=== PATIENT | female | born 1945 | race Caucasian/White ===

== ENCOUNTER → 2018-05-07 13:51 | Outpatient (CLI) | payer MEDICARE, BC, SELFPAY ==
--- NOTE | 2018-05-07 13:59 | XR_ITS ---
EXAM: XR lumbar spine min 4V HISTORY: ITS.REASON: BILAT ACUTE LBP W/O SCIATICA ORDERING PHYSICIAN: Dale Prescott MD PATIENT AGE: 72 years COMPARISON: None FINDINGS: There is mild degenerative disc disease at L3-L4 with small anterior osteophytes and decrease in the disc space. No fracture or dislocation. No lytic or blastic change. Bilateral renal calcifications are present and may be due to combination of vascular calcifications and renal calculi. A rounded calcific density is noted overlying the left renal hilum and could be due to renal artery aneurysm. Surgical clips are present from prior cholecystectomy. IMPRESSION: Degenerative disc disease L3-L4. Bilateral renal calcifications consistent with calculi and vascular calcifications. 8 mm stone is present in the lower pole the right kidney. 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 CT angiography may confirm if clinically warranted
== END ==
PROVIDERS: PCP Family Medicine; Visit Provider Family Medicine
DX: M54.5 Low back pain (principal)
CPT/HCPCS: 72110

== ENCOUNTER 2018-05-13 08:57 | Outpatient (RCR) | payer MEDICARE, BC, SELFPAY ==
--- NOTE | 2018-05-13 09:46 | HMH.PTOPEV ---
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 Pt reports L sided LBP initially, followed by R sided LBP, now reports only L sided LBP w/o radicular s/s. Pt reports CT scan scheduled for 05/15/18. Chief Complaint Pain Stiff Symptom Type Ache Dull Symptoms Relieved By Heat Symptoms Aggravated By Sitting Bending/Stooping Twisting Lifting Prior Functional Limitations None Current Functional Limitations Reaching Lifting Housework Sitting Bending/Stooping Symptom Description Constant but Variable Level of pain today (0-10) 3 Pain scale - at its best (0-10) 2 Pain scale - at its worst (0-10) 6 Lumbopelvic Eval Posture Thoracic Spine Posture Standing Position Neutral Lumbar Spine Posture Standing Position Neutral Assistive device Assistive Devices None / NA Gait Observation General Gait Pattern Observation No Deviations/Normal Palapation tenderness left lumbar spinal tenderness Yes: 3/4 paraspinal tenderness Yes: 3/4 Lumbar/Sacral Palpation Findings Tenderness Lumbar/Sacral Palpation Overall Comment 3/4 Accessory Movement L4 left L5 left Range of Motion Lumbar Spine Active Flexion Range of 0-40 Motion (degrees) Lumbar Spine Active Extension Range of 0-20 Motion (degrees) Left Lumbar Spine Lateral Flexion Active 0-25 Range of Motion (degrees) Right Lumbar Spine Lateral Flexion 0-20 Active Range of Motion (degrees) Manual Muscle Test Bilateral Knee Extension Strength Grade 4 Good Knee Flexion Strength Grade 4 Good Hip Flexion Strength Grade 4- Good- Extensor Hallucis Longus Strength Grade 4 Good Ankle Dorsiflexion Strength Grade 4 Good Gastronemius/Soleus Strength Grade 4 Good DTR Rt Patellar 2+ Lt Patellar 2+ Rt Gastroc/Soleus 2+ Lt Gastroc/Sole
== END 2018-05-13 08:58 | disposition home or self-care (01) ==
LOC: PT 08:57
PROVIDERS: Family Provider Family Medicine; PCP Family Medicine; Visit Provider Family Medicine
DX: M54.5 Low back pain (principal)
CPT/HCPCS: 97010; 97014; 97035; 97110; 97163; G0283

== ENCOUNTER → 2018-05-14 07:52 | Outpatient (CLI) | payer MEDICARE, BC, SELFPAY ==
[2018-05-14 12:45] LABS: Blood Urea Nitrogen 19 mg/dL (7-18); Creatinine,Serum 0.74 mg/dL (0.55-1.02); Estimated Glomerular Filt Rate 78 ml/min (>60); GFR (African American) 94 ML/MIN (>60)
== END ==
PROVIDERS: Visit Provider Family Medicine
DX: R93.5 Abnormal findings on diagnostic imaging of other abdominal regions, including retroperitoneum (principal)
CPT/HCPCS: 36415; 82565; 84520

== ENCOUNTER → 2018-05-15 08:41 | Outpatient (CLI) | payer MEDICARE, BC, SELFPAY ==
--- NOTE | 2018-05-15 08:54 | CT_ITS ---
CT angio abdomen CLINICAL INDICATION: Low back pain, left flank pain, possible renal artery aneurysm ITS.REASON: ABNORMAL XRAY RENAL ARTERIES ORDERING PHYSICIAN: Dale Prescott MD PATIENT AGE: 72 years COMPARISON: 06/25/2016 TECHNIQUE: Axial images obtained with sagittal and coronal reformats following bolus administration of 100 mL's of Isovue-370. Arterial phase and delayed images are obtained.. All CT scans at the facility use one or more dose reduction, viz: automated exposure control, ma/kV adjustment per patient size (including targeted exams where dose is matched to indication, i.e. head), or iterative reconstruction technique. PROCEDURE: Oral Contrast: None IV Contrast: 100 mL Isovue-370. FINDINGS: Angiographic findings: The abdominal aorta has an unremarkable appearance. There is moderate stenosis involving the proximal aspect of the celiac artery of approximately 50%. The SMA is unremarkable proximally with mild atheromatous changes in the mid aspect. The ROMAN is patent. There is moderate to high-grade stenosis involving the ostium of the right renal artery of 60% measuring 6 mm in length with mild poststenotic dilatation. There is only one right renal artery. There is fusiform aneurysmal dilatation involving the segmental artery to the mid pole of the left kidney with some peripheral calcification and minimal mural thrombus. This measures 12 x 11 x 10 mm. There is a 4.6 cm cyst along the superior pole the right kidney and a 9 mm cyst anteriorly with other smaller cortical cysts bilaterally. Incidental note made of a small umbilical hernia containing fat. Prior cholecystectomy. No acute bony anomalies. IMPRESSION: 1. 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 2. Moderate to high grade stenosis involving the ostium of the right renal artery of at least 60%
== END ==
PROVIDERS: Family Provider Family Medicine; PCP Family Medicine; Visit Provider Family Medicine
DX: R93.5 Abnormal findings on diagnostic imaging of other abdominal regions, including retroperitoneum (principal)
CPT/HCPCS: 74175; Q9967

== ENCOUNTER → 2018-05-28 11:24 | Outpatient (CLI) | payer MEDICARE, BC, SELFPAY ==
[2018-05-28 12:15] LABS: Basophils # 0.1 K/mm3 (0-0.2); Basophils % 1.1 % (0.1-2.0); Eosinophils # 0.3 K/mm3 (0.0-0.4); Eosinophils % 4.3 % (0.1-12.0); Hematocrit 43.9 % (37.0-47.0); Lymphocytes # 1.6 K/mm3 (0.7-4.5); Lymphocytes % 21.8 K/mm3 (10-50); Mean Corpuscular HGB Conc 31.8 g/dL (31.8-35.4); Mean Corpuscular Hemoglobin 29.5 pg (27.0-31.2); Mean Corpuscular Volume 92.7 fl (81-99); Mean Platelet Volume 6.8 fl (7.4-10.4); Monocytes # 0.4 K/mm3 (0.1-1.0); Neutrophils # 4.7 K/mm3 (1.8-7.8); Neutrophils % 66.8 % (37.0-80.0); Platelet Count 264 K/mm3 (142-424); Red Blood Count 4.74 M/mm3 (4.20-5.40); Red Cell Distribution Width 13.3 % (11.5-17.5); White Blood Count 7.1 K/mm3 (4.8-10.8)
[2018-05-28 12:39] LABS: Hemoglobin A1C 6.9 % (0.0-7.0)
[2018-05-28 12:41] LABS: Alanine Aminotransferase 32 U/L (12-78); Albumin Level 3.7 gm/dL (3.4-5.0); Alkaline Phosphatase 106 U/L (46-116); Anion Gap 12.1 mEq/L (5-15); Aspartate Amino Transferase 23 U/L (15-37); Bilirubin,Total 0.2 mg/dL (0.2-1.0); Blood Urea Nitrogen 16 mg/dL (7-18); Calcium 9.2 mg/dL (8.5-10.1); Carbon Dioxide 29 mmol/L (21.0-32.0); Chloride 105 mmol/L (98-107); Chol/HDL Ratio 2.2 (1-3.5); Cholesterol 141 mg/dL (140-200); Creatinine,Serum 0.89 mg/dL (0.55-1.02); Estimated Glomerular Filt Rate 63 ml/min (>60); Free T4 (Free Thyroxine) 1.05 ng/dl (0.76-1.46); GFR (African American) 76 ML/MIN (>60); Globulin 3.6 gm/dl (1.3-3.2); Glucose 196 mg/dL (74-106); HDL Cholesterol 64 mg/dL (29-89); LDL Cholesterol 56 mg/dL (0-130); Magnesium 2.1 mg/dL (1.4-2.2); Phosphorous 3.1 mg/dL (2.4-4.9); Potassium 4.1 mmoL/L (3.5-5.1); Sodium 142 mmol/L (136-145); Thyroid Stimulating Hormone 0.86 uIU/ml (0.358-3.740); Total Protein,Serum 7.3 gm/dL (6.4-8.2); Triglycerides 107 mg/dL (30-200); VLDL Cholesterol 21 mg/dL (0-40)
[2018-05-29 10:59] LABS: Vitamin D 25 Hydroxy 41.5 ng/mL (30.0-100.0)
[2018-05-29 11:27] LABS: Creatinine, Urine 116.4 mg/dL (Not Estab.); Microalbumin, Urine 17.5 ug/mL (Not Estab.)
[2018-05-31 08:24] LABS: Vitamin B12 1843 pg/mL (232-1245)
== END ==
PROVIDERS: Visit Provider Family Medicine
DX: E11.9 Type 2 diabetes mellitus without complications (principal); E03.9 Hypothyroidism, unspecified; E78.00 Pure hypercholesterolemia, unspecified; R53.83 Other fatigue
CPT/HCPCS: 36415; 80053; 80061; 82043; 82570; 82607; 82652; 83036; 83735; 84100; 84439; 84443; 85025

== ENCOUNTER → 2018-11-11 12:41 | Outpatient (CLI) | payer MEDICARE, BC, SELFPAY ==
--- NOTE | 2018-11-11 12:55 | XR_ITS ---
XR DEXA axial skeleton HISTORY: ITS.REASON: POST MENOPAUSAL ORDERING PHYSICIAN: MARIE Saba PATIENT AGE: 73 years COMPARISON: 03/17/2011 FINDINGS: The BMD measured at the Left femoral neck is 0.728 g/cm squared with a T score of -2.2. This is considered Osteopenic according to the World Health Organization criteria. Fracture risk is Moderate. Treatment is advised. The L1 L4 density has a T score of -1.8 consistent with osteopenia. L-spine density has decreased by 3% and the hip density has decreased by 6%. IMPRESSION: Osteopenia with moderate fracture risk. Treatment is advised. Suggest follow-up exam November 2020
== END ==
PROVIDERS: PCP Family Medicine; Visit Provider Physician Assistant
DX: Z78.0 Asymptomatic menopausal state (principal)
CPT/HCPCS: 77080

== ENCOUNTER → 2020-02-12 14:45 | Outpatient (CLI) | payer MEDICARE, BC, SELFPAY ==
--- NOTE | 2020-02-12 14:53 | XR_ITS ---
PROCEDURE: XR KNEE LT 3V CLINICAL INDICATION: LT KNEE PAIN,OSTEOARTHRITIS OF LT KNEE COMPARISON: No exams were available for comparison FINDINGS: No fracture or dislocation. No lytic or blastic change. There is normal mineralization. The joint spaces are well-preserved. No significant degenerative/arthritic changes. No erosive changes evident. Other findings:None. IMPRESSION: Negative left knee Dictated by: Zac Branch MD 02/12/2020 15:13 Electronically signed by Zac Branch MD in [place] 02/12/2020 15:13
== END ==
PROVIDERS: PCP Family Medicine; Visit Provider Family Medicine
DX: M25.562 Pain in left knee (principal); M17.12 Unilateral primary osteoarthritis, left knee
CPT/HCPCS: 73562

== ENCOUNTER → 2020-03-12 10:05 | Outpatient (CLI) | payer MEDICARE, BC, SELFPAY ==
--- NOTE | 2020-03-12 10:11 | XR_ITS ---
PROCEDURE: XR KNEE LT 4V with weight-bearing views CLINICAL INDICATION: knee pain chronic COMPARISON: XR KNEE LT 3V from 02/12/2020 FINDINGS: No fracture or dislocation. No lytic or blastic change. There is normal mineralization. There is mild joint space narrowing medially. The patella is intact though there is mild narrowing of the patellofemoral space. Other findings:None. IMPRESSION: Mild degenerate changes not unexpected for the patient's age Dictated by: Dr. Mike Baker MD 03/12/2020 10:[address] Mike Baker MD in [place] 03/12/2020 10:54
--- NOTE | 2020-03-12 11:49 | XR_ITS ---
PROCEDURE: XR HIP LT 2-3V W/PELVIS CLINICAL INDICATION: hip pain COMPARISON: No exams were available for comparison FINDINGS: No fracture, dislocation, lytic change, or blastic change evident. No significant degenerative change IMPRESSION: No acute finding, negative left hip Dictated by: Zac Branch MD 03/12/2020 14:54 Electronically signed by Zac Branch MD in [place] 03/12/2020 14:54
== END ==
PROVIDERS: PCP Family Medicine; Visit Provider Orthopaedic Surgery
DX: M25.562 Pain in left knee (principal); M25.552 Pain in left hip
CPT/HCPCS: 73502; 73564

== ENCOUNTER → 2020-05-07 11:21 | Outpatient (CLI) | payer MEDICARE, BC, SELFPAY ==
[2020-05-07 14:24] LABS: Coronavirus 19 IgG Antibody Negative (Negative)
[2020-05-07 14:25] LABS: Coronavirus 19 IgM Antibody Negative (Negative)
== END ==
PROVIDERS: Visit Provider Internal Medicine Gastroenterology
DX: Z01.818 Encounter for other preprocedural examination (principal); Z12.11 Encounter for screening for malignant neoplasm of colon
CPT/HCPCS: 36415; 86328

== ENCOUNTER 2020-05-10 09:45 | Day surgery (SDC) | payer MEDICARE, BC, SELFPAY ==
[2020-05-05 12:58] VITALS: BMI 28.3
[2020-05-10] VITALS (7 sets, daily range): BP systolic 105–148; BP diastolic 65–88; PULSE 76–102; RESP 12–18; TEMP 36.1–36.4; O2SAT 93–100
[2020-05-10 10:27] LABS: POC Glucose,Bedside 110 (70-110)
--- NOTE | 2020-05-10 11:36 | P.PN_ITS ---
[facility] Anesthesia Checklist - Structural Data Admitted From: Home Planned Operative Procedure/s: egd,colonoscopy Consent for Planned Operative Procedure(s) Verified: Yes - Airway Assessment C-Spine Mobility Assessed: Yes TMJ Mobility Assessed: Yes Dentition: Poor Dentition - Neurological Assessment Level of Consciousness: Awake, Alert, Appropriate - Anesthesia Plan Anesthesia Risk discussed: Yes Anesthesia Plan: Verified ASA Class: III Anesthesia Type: MAC [facility] History I have reviewed the patient's past medical history: Yes Medical History: Reports:: Cancer (basel cell), Diabetes Mellitus Type 2, Renal Disease Denies:: Diabetes Mellitus Type 1, Internal Pacemaker, MRSA, Seizures *Have you ever received a pneumonia vaccine?: Yes *Have you received a flu vaccine this season?: Yes Anesthesia experience/problems:: none Laterality Cases: Left: Other Other Surgeries: Yes: Colonoscopy, Hysterectomy-Total. No: Pacemaker Amputation: No Fractures: No - *Social History Smoking Status: Never smoker Alcohol Intake: never Substance Use Type: denies use *Occupational Status:: retired Housing: house Household Members: spouse *Travel in the last 8 weeks: None Family Hx:: No significant family history
--- NOTE | 2020-05-10 11:50 | HMH.PROC ---
[facility] Procedure Note Procedure Note:: Upper Endoscopy Procedure Report: Esophagogastroduodenoscopy with cold biopsies Endoscopost: Simon Bueno II, MD Referring Physician: Dale Prescott MD Date of Procedure: May 10, 2020 Equipment: Olympus GIF 180 standard upper endoscope Sedation: MAC sedation Indications: Mrs. Harris is a 74-year-old female with dyspepsia and IBS. She reports epigastric and right lower quadrant abdominal pain. She has bloating and occasional belching. She reports nausea, early satiety and some globus sensation. She rarely gets some regurgitation and reflux. She reports no significant heartburn. She did have a cardiac evaluation with similar symptoms 4 years ago and her heart evaluation was essentially normal. She was told that she has esophageal spasm. Her last EGD was 5 years ago. Her mother had pancreatic cancer. Procedure: Prior to the procedure, a history and physical exam was performed, and patient's medications and allergies were reviewed. The risks, benefits and alternatives of the sedation and procedure were discussed with the patient. All questions were answered and informed consent was obtained. The patient was brought to the procedure room. Patient identification and proposed procedure were verified by the physician and the nurse. The patient was placed in a left lateral decubitus position and the scope was passed under direct vision. Throughout the procedure, the patient's blood pressure, pulse, and oxygen saturations were monitored continuously. The upper GI endoscopy was accomplished without difficulty. The patient tolerated the procedure well. Findings: The scope was passed directly into the upper esophagus and advanced to the third portion of the duodenum. The post bulbar duodenum and duodenal bulb were normal with normal mucosa and conniventes. Cold biopsies were obtained from the post bulbar duodenum to rule out celiac disease. The scope was withdrawn through a normal duodenal bulb and pylorus into the stomach. There was linear reactive gastropathy of the antrum and body of the stomach with moderate bile reflux. The remainder of the antrum, body and fundus of the stomach were grossly normal. Upon retroflexion there was no hiatal hernia. 2 biopsies were taken in the antrum and along the lesser curvature for histology to rule out gastritis and/or H pylori. The scope was then withdrawn into the esophagus. There was no evidence of reflux esophagitis or Thibodeaux's. There were tertiary contractions and evidence of moderate esophageal dysmotility. The remainder of the esophageal mucosa was normal. Impression: 1. Nonerosive GERD with moderate esophageal dysmotility 2. Bile reflux with linear reactive gastropathy Plan: The patient does have functional dyspepsia with visceral sensitivity. We will discuss dietary measures and treatment options. I will proceed with diagnostic colonoscopy.
--- NOTE | 2020-05-10 12:10 | HMH.PROC ---
[facility] Procedure Note Procedure Note:: Colonoscopy Procedure Report: Colonoscopy with cold snare polypectomy and monopolar ablation/coagulation to destruction of internal hemorrhoids Endoscopist: Simon Bueno II, MD Referring physician: Dale Prescott MD Date of Procedure: May 10, 2020 Equipment: Olympus 180 variable stiffness pediatric colonoscope Sedation: MAC sedation Indication: Mrs. Harris is a 74-year-old female here for diagnostic colonoscopy. She does have right lower quadrant abdominal pain that hurts worse when sitting up. She has had moderate bloating and chronic constipation. She also reports frequent hemorrhoidal bleeding. The patient did undergo CT scan of the abdomen and CT angiography on March 16, 2020 and there were bilateral renal stones with the largest within the right renal pelvis and measuring 1 cm. 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 The patient reports no weight loss or family history of colon cancer. Her last colonoscopy was 5 years ago and she states polyps were removed. She reports no family history of colitis or Crohn's disease. Her mother had pancreatic cancer. Procedure: Prior to the procedure, a history and physical exam was performed, and patient's medications and allergies were reviewed. The risks, benefits and alternatives of the sedation and procedure were discussed with the patient. All questions were answered and informed consent was obtained. The patient was brought to the procedure room. Patient identification and proposed procedure were verified by the physician and the nurse. The patient was placed in a left lateral decubitus position and the scope was passed under direct vision. Throughout the procedure, the patient's blood pressure, pulse, and oxygen saturations were monitored continuously. The colonoscopy was accomplished without difficulty. The patient tolerated the procedure well. Findings: On digital rectal examination there was normal rectal tone. There were no external hemorrhoids. The colonoscope was introduced through the anal canal to the rectum and advanced to the cecum. The ileocecal valve and appendiceal orifice were identified. The scope was advanced a short distance into the ileum which appeared grossly normal. The scope was then withdrawn into the colon. The cecum, ascending, transverse, descending and sigmoid colon were grossly normal. There was a 7 to 8 mm polyp in the rectosigmoid removed via cold snare polypectomy. There were no other mucosal abnormalities identified. Upon retroflexion within the rectum there were grade 2 internal hemorrhoids.3 columns of hemorrhoids were ablated/coagulated using monopolar ablation to destruction with excellent cautery effect. The preparation was excellent throughout with [place] Preparation Score of 9. The cecal time was 12 minutes. Impression: 1. Rectosigmoid colon polyp (7 to 8 mm) 2. Grade 2 internal hemorrhoids status post monopolar ablation/coagulation to destruction Plan: I would encourage a fiber bowel regimen (MiraLAX plus Konsyl twice daily). I would also consider global promotility agent (Zelnorm or Motegrity). We will discuss dietary measures and treatment options. I will follow-up the polyp histology and recommend repeat screening/surveillance colonoscopy again in 5 to 7 years based upon adenomatous pathology.
== END 2020-05-10 13:01 | disposition home or self-care (01) ==
LOC: OUTP 09:46
PROVIDERS: PCP Family Medicine; Visit Provider Internal Medicine Gastroenterology
PROC: 0DJ08ZZ Inspection of Upper Intestinal Tract, Via Natural or Artificial Opening Endoscopic (ICD-10-PCS; CPT 43235; principal; 2020-05-10 11:00)
DX: K63.5 Polyp of colon (principal); K64.1 Second degree hemorrhoids; Z80.0 Family history of malignant neoplasm of digestive organs; K58.9 Irritable bowel syndrome, unspecified; K21.9 Gastro-esophageal reflux disease without esophagitis; K22.4 Dyskinesia of esophagus; K31.9 Disease of stomach and duodenum, unspecified; E11.9 Type 2 diabetes mellitus without complications; Z85.828 Personal history of other malignant neoplasm of skin; N28.9 Disorder of kidney and ureter, unspecified; Z90.710 Acquired absence of both cervix and uterus; Z79.899 Other long term (current) drug therapy
CPT/HCPCS: 43239; 45385; 46930; 82962; 88305

== ENCOUNTER 2020-06-12 04:38 | Emergency (ER) | payer MEDICARE, BC, SELFPAY ==
[2020-06-12 04:48] VITALS: BP 161/78; PULSE 97; RESP 18; TEMP 37.1; O2SAT 94; BMI 27.9
--- NOTE | 2020-06-12 05:01 | HMH.EDGENADL ---
ED Disposition Clinical Impression: Right lower quadrant pain Disposition: Home, Self-Care Condition on Discharge: Fair Additional Instructions: Stop taking [place]/hydrocodone. Take Percocet for pain. Zofran as needed for nausea. Continue Keflex. Flomax as prescribed. Return to the emergency department if increasing pain, vomiting, or fever. Prescriptions: Oxycodone HCl/Acetaminophen [Percocet 5/325mg tablet] 1 tab PO Q6HP PRN #10 tab PRN Reason: Moderate To Severe Pain Transmission Status: Received by [facility] Tamsulosin HCl [Flomax 0.4mg capsule] 0.4 mg PO HS #10 cap.er.24h Transmission Status: Received by [facility] Ondansetron [Zofran 4mg ODT] 4 mg PO TIDP PRN #10 tab.rapdis PRN Reason: Nausea And Vomiting Transmission Status: Received by [facility] Referrals: Dale Prescott MD [Primary Care Provider] - - Critical Care Critical Care Time: No Attestation: On 06/12/20, the high probability of a clinically significant, sudden or life threatening deterioration of the following system(s) required my full and direct attention, intervention and personal management. The time I documented below is in addition to time spent performing reported procedures but includes the following listed in this critical care notation. Medical Decision Making - Medical Records Medical records reviewed: Yes: I reviewed the patient's medical records. - Beny Inquiry Pt receiving controlled substance: Yes Beny was queried for this patient: No Reason not queried -: Emergent pt cond-no time Risks and benefits of using a controlled substance: were not discussed with pt by me Vital Signs: 06/12/20 04:48 06/12/20 06:19 06/12/20 06:51 Temperature 98.7 F 98.6 F Temperature Source Oral Oral Pulse Rate 86 Pulse Rate [Right] 97 H 85 Respiratory Rate 18 16 16 Blood Pressure 148/64 H Blood Pressure [Right Arm] 161/78 H 139/71 Blood Pressure Mean [Right Arm] 105 93 Blood Pressure Source Automatic Cuff Blood Pressure Source [Right Arm] Automatic Cuff Automatic Cuff Blood Pressure Position Sitting Blood Pressure Position [Right Arm] Sitting Sitting 02 Sat by Pulse Oximetry 94 L 94 L Oxygen Delivery Method Room Air Room Air Room Air - Lab Data Lab results reviewed: Yes: I reviewed the patient's lab results. Lab Results 06/12/20 05:01: WBC 14.3 H, RBC 4.39, Hgb 13.9, Hct 40.7, MCV 92.6, MCH 31.6 H, MCHC 34.1, RDW 13.1, Plt Count 226, MPV 7.9, Neut % (Auto) 77.5, Lymph % (Auto) 15.1, [place] % (Auto) 5.8, Eos % (Auto) 1.1, Baso % (Auto) 0.4, Neut # (Auto) 11.1 H, Lymph # (Auto) 2.2, [place] # (Auto) 0.8, Eos # (Auto) 0.2, Baso # (Auto) 0.1 06/12/20 05:01: Sodium 138, Potassium 4.1, Chloride 105, Carbon Dioxide 24, Anion Gap 13.1, BUN 20 H, Creatinine 1.00, Estimated Creat Clear 61, Estimated GFR 55 L, Est GFR ( Amer) 66, Glucose 160 H, Calcium 9.2, Total Bilirubin 0.4, AST 325 H*, ALT 327 H*, Alkaline Phosphatase 136 H, Total Protein 6.8, Albumin 3.8, Globulin 3.0, Albumin/Globulin Ratio 1.3 06/12/20 05:01: Amylase 121 H, Lipase 209 06/12/20 05:10: Urine Color Yellow, Urine Appearance Clear, Urine pH 6.5, Ur Specific [place] >= 1.030, Urine Protein 2+, Urine Glucose (UA) Negative, Urine Ketones Trace, Urine Blood 3+, Urine Nitrate Negative, Urine Bilirubin Negative, Urine Urobilinogen 0.2, Ur Leukocyte Esterase Trace, Urine RBC 20-50, Urine WBC 10-20, Ur Squamous Epith Cells 3-5, Urine Bacteria 2+ Result diagrams: 06/12/20 05:01 06/12/20 05:01 Orders (Tests/Meds): ED MEDICATIONS Discontinued Medications Generic Name Dose Route Start Last Admin Trade Name Freq PRN Reason Stop Dose Admin Hydromorphone HCl 1 mg 06/12/20 06:04 06/12/20 06:10 Dilaudid 2mg/Ml Syringe IV 06/12/20 06:05 1 mg ONCE ONE Administration Sodium Chloride 1,000 mls @ 999 mls/hr 06/12/20 05:00 06/12/20 05:03 Sod Chlor 0.9% 1000ml Bag IV 06/12/20 06:00 999 mls/hr .Q1H
[2020-06-12 05:16] LABS: Microscopic, Urine URINE MICROSCOPIC (MICROSCOPIC)
[2020-06-12 05:18] LABS: Appearance,Urine CLEAR (Clear); Bilirubin,Urine Negative (Negative); Blood, Urine 3+ (Negative); Color,Urine YELLOW (Yellow); Glucose,Urine (UA) Negative (Negative); Ketones,Urine TRACE (Negative); Leukocyte Esterase,Urine TRACE (Negative); Nitrate,Urine Negative (Negative); PH,Urine 6.5 (5.0-8.5); Protein,Urine 2+ (Negative); Specific Gravity, Urine >= 1.030 (1.005-1.030); Urobilinogen,Urine 0.2 EU/dl (0.2)
[2020-06-12 05:21] LABS: Chloride 105 mmol/L (98-107); Potassium 4.1 mmoL/L (3.5-5.1); Sodium 138 mmol/L (136-145)
[2020-06-12 05:23] LABS: Basophils # 0.1 K/mm3 (0-0.2); Basophils % 0.4 % (0.1-2.0); Eosinophils # 0.2 K/mm3 (0.0-0.4); Eosinophils % 1.1 % (0.1-12.0); Hematocrit 40.7 % (37.0-47.0); Hemoglobin 13.9 g/dL (12.2-16.2); Lymphocytes # 2.2 K/mm3 (0.7-4.5); Lymphocytes % 15.1 % (10-50); Mean Corpuscular HGB Conc 34.1 g/dL (31.8-35.4); Mean Corpuscular Hemoglobin 31.6 pg (27.0-31.2); Mean Corpuscular Volume 92.6 fl (81-99); Mean Platelet Volume 7.9 fl (7.4-10.4); Monocytes # 0.8 K/mm3 (0.1-1.0); Monocytes % 5.8 % (1.7-9.3); Neutrophils # 11.1 K/mm3 (1.8-7.8); Neutrophils % 77.5 % (37.0-80.0); Platelet Count 226 K/mm3 (142-424); Red Blood Count 4.39 M/mm3 (4.20-5.40); Red Cell Distribution Width 13.1 % (11.5-17.5); White Blood Count 14.3 K/mm3 (4.8-10.8)
[2020-06-12 05:24] LABS: Albumin Level 3.8 g/dl (3.5-5.0); Albumin/Globulin Ratio 1.3 (1.1-1.8); Alkaline Phosphatase 136 U/L (38-126); Anion Gap 13.1 mEq/L (5-15); Bilirubin,Total 0.4 mg/dl (0.2-1.3); Blood Urea Nitrogen 20 mg/dl (7-17); Calcium 9.2 mg/dl (8.4-10.2); Carbon Dioxide 24 mmol/L (22.0-30.0); Creatinine Clearance Estimated 61 mL/min (50-200); Estimated Glomerular Filt Rate 55 ml/min (>60); GFR (African American) 66 ML/MIN (>60); Glucose 160 mg/dl (74-100); Total Protein,Serum 6.8 g/dl (6.3-8.2)
[2020-06-12 05:25] LABS: Alanine Aminotransferase 327 U/L (12-78); Aspartate Amino Transferase 325 U/L (14-36)
[2020-06-12 05:34] LABS: Bacteria,Urine 2+ /lpf; RBC,Urine 20-50 #/hpf (0-3)
[2020-06-12 05:40] LABS: Amylase 121 U/L (30-110); Lipase 209 U/L (23-300)
--- NOTE | 2020-06-12 05:40 | PC.NURSE ---
Dr Malave (urology) at [facility] paged at this time.
--- NOTE | 2020-06-12 05:44 | PC.NURSE ---
speaking to CB
[2020-06-12 06:19] VITALS: BP 139/71; PULSE 85; RESP 16; O2SAT 94
[2020-06-12 06:51] VITALS: BP 148/64; PULSE 86; RESP 16; TEMP 37; O2SAT 93
== END 2020-06-12 06:51 | disposition home or self-care (01) ==
PROVIDERS: Emergency Provider Emergency Medicine; PCP Family Medicine
DX: N20.1 Calculus of ureter (principal); E11.65 Type 2 diabetes mellitus with hyperglycemia; Z88.5 Allergy status to narcotic agent; Z90.710 Acquired absence of both cervix and uterus; Z90.49 Acquired absence of other specified parts of digestive tract
CPT/HCPCS: 80053; 81001; 82150; 83690; 85025; 87086; 96365; 96375; 99283; J2405

== ENCOUNTER → 2020-08-16 11:03 | Outpatient (POV) | payer MEDICARE, BC, SELFPAY | PROVIDERS: Visit Provider Nurse Practitioner Family | DX: Z00.00 Encounter for general adult medical examination without abnormal findings (principal) ==

== ENCOUNTER 2022-01-23 20:24 | Emergency (ER) | payer MEDICARE, BC, SELFPAY ==
[2022-01-23 20:25] VITALS: BP 140/80; PULSE 102; RESP 18; TEMP 36.8; O2SAT 94; BMI 27.4
[2022-01-23 20:35] VITALS: BMI 27.4
[2022-01-23 21:14] VITALS: BP 139/62; PULSE 101; RESP 16; O2SAT 98
[2022-01-23 21:19] LABS: Basophils # 0.1 K/mm3 (0-0.2); Basophils % 1.1 % (0.1-2.0); Eosinophils # 0.1 K/mm3 (0.0-0.4); Eosinophils % 1.5 % (0.1-12.0); Hematocrit 42.4 % (37.0-47.0); Hemoglobin 13.7 g/dL (12.2-16.2); Lymphocytes % 23.3 % (10-50); Mean Corpuscular HGB Conc 32.2 g/dL (31.8-35.4); Mean Corpuscular Hemoglobin 31.3 pg (27.0-31.2); Mean Corpuscular Volume 97.1 fl (81-99); Mean Platelet Volume 7.7 fl (7.4-10.4); Monocytes # 0.4 K/mm3 (0.1-1.0); Monocytes % 4.8 % (1.7-9.3); Neutrophils % 69.3 % (37.0-80.0); Platelet Count 290 K/mm3 (142-424); Red Blood Count 4.37 M/mm3 (4.20-5.40); Red Cell Distribution Width 13.6 % (11.5-17.5); White Blood Count 8.6 K/mm3 (4.8-10.8)
[2022-01-23 21:25] LABS: Alanine Aminotransferase 30 U/L (12-78); Albumin/Globulin Ratio 1.5 (1.1-1.8); Alkaline Phosphatase 81 U/L (38-126); Anion Gap 9.2 mEq/L (5-15); Aspartate Amino Transferase 39 U/L (14-36); Bilirubin,Total 0.3 mg/dl (0.2-1.3); Blood Urea Nitrogen 20 mg/dl (7-17); Carbon Dioxide 26 mmol/L (22.0-30.0); Chloride 107 mmol/L (98-107); Creatinine Clearance Estimated 58 mL/min (50-200); Estimated Glomerular Filt Rate 54 ml/min (>60); GFR (African American) 66 ML/MIN (>60); Globulin 2.7 g/dL (1.3-3.2); Glucose 156 mg/dl (74-100); Potassium 4.2 mmoL/L (3.5-5.1); Sodium 138 mmol/L (136-145); Total Protein,Serum 6.7 g/dl (6.3-8.2)
--- NOTE | 2022-01-23 21:44 | HMH.EDALLER ---
ED Disposition Clinical Impression: Allergic reaction Qualifiers: Encounter type: initial encounter Qualified Code(s): T78.40XA - Allergy, unspecified, initial encounter Disposition: Home, Self-Care Condition on Discharge: Good Instructions: DI for General Allergic Reactions Additional Instructions: fluids and use meds as directed - stop sulfa and use claritin and steroids and call pcp for follow up Prescriptions: predniSONE [Prednisone 20mg Tab] 20 mg PO BID #10 tab Transmission Status: Pending to [id number] Referrals: Dale Prescott MD [Primary Care Provider] - - Critical Care Critical Care Time: No Attestation: On 01/23/22, the high probability of a clinically significant, sudden or life threatening deterioration of the following system(s) required my full and direct attention, intervention and personal management. The time I documented below is in addition to time spent performing reported procedures but includes the following listed in this critical care notation. Medical Decision Making - Medical Records Medical records reviewed: Yes: I reviewed the patient's medical records. - Beny Inquiry Pt receiving controlled substance: No Vital Signs: 01/23/22 20:25 01/23/22 21:14 Temperature 98.3 F Temperature Source Oral Pulse Rate 101 H Pulse Rate [Left Radial] 102 H Respiratory Rate 18 16 Blood Pressure 139/62 Blood Pressure [Right Arm] 140/80 Blood Pressure Mean [Right Arm] 100 Blood Pressure Source Automatic Cuff Blood Pressure Position Sitting Blood Pressure Position [Right Arm] Sitting 02 Sat by Pulse Oximetry 94 L 98 Oxygen Delivery Method Room Air Room Air - Lab Data Lab results reviewed: Yes: I reviewed the patient's lab results. Lab Results 01/23/22 20:50: WBC 8.6, RBC 4.37, Hgb 13.7, Hct 42.4, MCV 97.1, MCH 31.3 H, MCHC 32.2, RDW 13.6, Plt Count 290, MPV 7.7, Neut % (Auto) 69.3, Lymph % (Auto) 23.3, [place] % (Auto) 4.8, Eos % (Auto) 1.5, Baso % (Auto) 1.1, Neut # (Auto) 6.0, Lymph # (Auto) 2.0, [place] # (Auto) 0.4, Eos # (Auto) 0.1, Baso # (Auto) 0.1 01/23/22 20:50: Sodium 138, Potassium 4.2, Chloride 107, Carbon Dioxide 26, Anion Gap 9.2, BUN 20 H, Creatinine 1.00, Estimated Creat Clear 58, Estimated GFR 54 L, Est GFR ( Amer) 66, Glucose 156 H, Calcium 9.0, Total Bilirubin 0.3, AST 39 H, ALT 30, Alkaline Phosphatase 81, C-Reactive Protein 2.0, Total Protein 6.7, Albumin 4.0, Globulin 2.7, Albumin/Globulin Ratio 1.5 Result diagrams: 01/23/22 20:50 01/23/22 20:50 Orders (Tests/Meds): ED MEDICATIONS Generic Name Dose Route Start Last Admin Trade Name Freq PRN Reason Stop Dose Admin Sodium Chloride 1,000 mls @ 999 mls/hr 01/23/22 20:45 01/23/22 21:12 Sod Chlor 0.9% 1000ml Bag IV 01/23/22 21:45 999 mls/hr .Q1H1M ROBERT Administration Sodium Chloride 8 ml 01/23/22 20:36 Sodium Chloride 0.9% 10ml Vial IV 02/22/22 20:35 NEEDED PRN dilute pepcid Discontinued Medications Generic Name Dose Route Start Last Admin Trade Name Freq PRN Reason Stop Dose Admin Diphenhydramine HCl 25 mg 01/23/22 20:37 01/23/22 21:12 Diphenhydramine 50mg/Ml Vial IV 01/23/22 20:38 25 mg ONCE ONE Administration Famotidine 20 mg 01/23/22 20:36 01/23/22 21:11 Famotidine 20mg/2ml Vial IV 01/23/22 20:37 20 mg ONCE ONE Administration Methylprednisolone Sodium Succinate 125 mg 01/23/22 20:40 01/23/22 21:11 Methylprednisolone Sod Succ 125mg Vial IV 01/23/22 20:41 125 mg ONCE ONE Administration ORDERS Category Date Time Status C-Reactive Protein Stat Lab 01/23/22 20:50 Results Complete Blood Count Auto Diff Stat Lab 01/23/22 20:50 Results Comprehensive Metabolic Panel Stat Lab 01/23/22 20:50 Results Erythrocyte Sedimentation Rate Stat Lab 01/23/22 20:50 Results Procalcitonin Stat Lab 01/23/22 20:50 Results - Reevaluation(s) Time: 21:52 Reevaluation #1: improved Medical Decision Narrative
[2022-01-23 21:47] LABS: Erythrocyte Sedimentation Rate 16 mm/hr (0-30)
[2022-01-23 21:59] VITALS: BP 141/69; PULSE 83; RESP 18; TEMP 36.8; O2SAT 97
== END 2022-01-23 22:34 | disposition home or self-care (01) ==
PROVIDERS: Emergency Provider Emergency Medicine; PCP Family Medicine
DX: T78.40XA Allergy, unspecified, initial encounter (principal); N28.9 Disorder of kidney and ureter, unspecified; E11.9 Type 2 diabetes mellitus without complications; Z79.51 Long term (current) use of inhaled steroids; Z79.84 Long term (current) use of oral hypoglycemic drugs; Z79.899 Other long term (current) drug therapy; Z88.5 Allergy status to narcotic agent; Z88.6 Allergy status to analgesic agent; Z85.9 Personal history of malignant neoplasm, unspecified
CPT/HCPCS: 80053; 84145; 85025; 85651; 86140; 96361; 96365; 96374; 96375; 99285

== ENCOUNTER 2022-01-25 07:43 | Emergency (ER) | payer MEDICARE, BC, SELFPAY ==
[2022-01-25 07:54] VITALS: BP 181/77; PULSE 109; RESP 16; TEMP 36.4; O2SAT 95; BMI 27.4
[2022-01-25 08:00] VITALS: BP 159/66; PULSE 91; O2SAT 94
--- NOTE | 2022-01-25 08:22 | HMH.EDGENADL ---
ED Disposition Clinical Impression: Urticaria Disposition: Home, Self-Care Condition on Discharge: Good Instructions: DI for Hives Additional Instructions: Hydroxyzine and Pepcid as prescribed. Continue taking prednisone as prescribed. Follow-up with primary care provider in 1 to 2 days. Prescriptions: Famotidine [Pepcid 20mg Tablet] 20 mg PO BID 5 Days #10 tab Transmission Status: Pending to [id number] predniSONE [Prednisone 20mg Tab] 20 mg PO BID #4 tab Transmission Status: Pending to [id number] hydrOXYzine pamoate [Vistaril] 25 mg PO Q6H #20 cap Transmission Status: Pending to [id number] Referrals: Dale Prescott MD [Primary Care Provider] - - Critical Care Critical Care Time: No Attestation: On 01/25/22, the high probability of a clinically significant, sudden or life threatening deterioration of the following system(s) required my full and direct attention, intervention and personal management. The time I documented below is in addition to time spent performing reported procedures but includes the following listed in this critical care notation. Medical Decision Making - Beny Inquiry Pt receiving controlled substance: No Vital Signs: 01/25/22 07:54 01/25/22 08:00 Temperature 97.6 F Temperature Source Oral Pulse Rate 91 H Pulse Rate [Left Radial] 109 H Respiratory Rate 16 Blood Pressure 159/66 H Blood Pressure [Right Arm] 181/77 H Blood Pressure Mean [Right Arm] 111 02 Sat by Pulse Oximetry 95 94 L Oxygen Delivery Method Room Air Room Air Orders (Tests/Meds): ED MEDICATIONS Generic Name Dose Route Start Last Admin Trade Name Freq PRN Reason Stop Dose Admin Sodium Chloride 8 ml 01/25/22 08:22 Sodium Chloride 0.9% 10ml Vial IV 02/24/22 08:21 NEEDED PRN dilute pepcid Discontinued Medications Generic Name Dose Route Start Last Admin Trade Name Freq PRN Reason Stop Dose Admin Diphenhydramine HCl 25 mg 01/25/22 08:22 Diphenhydramine 50mg/Ml Vial IV 01/25/22 08:23 ONCE ONE Famotidine 20 mg 01/25/22 08:22 Famotidine 20mg/2ml Vial IV 01/25/22 08:23 ONCE ONE Methylprednisolone Sodium Succinate 125 mg 01/25/22 08:22 Methylprednisolone Sod Succ 125mg Vial IV 01/25/22 08:23 ONCE ONE General Adult HPI - General Chief complaint: Allergic Reaction Stated complaint: possible allergic reaction Time Seen by Provider: 01/25/22 08:15 Mode of Arrival: Ambulatory Limitations: No Limitations Description of Symptoms (Recalled from ER Triage Doc. by RN): pt to ed c/o hives. pt states she was seen x2 days ago for an allergic reaction to bactrim. pt states she stopped the medication and was prescribed percocet. pt states she started developing hives last night and into this morning. pt states her hives are itchy. hives noted to torso, bilateral arms and bilateral legs and back. pt denies trouble breathing or swallowing. - History of Present Illness HPI narrative: Patient complains of hives. She was here 2 days ago for the same. At that time she was taking Bactrim for UTI. Medication was stopped and she was started on prednisone and advised to take Claritin. She says that she last took her prednisone last night. She says she has not been taking antihistamines, states she did not get any discharge papers when she was discharged and did not realize she was supposed to. Her hives are worse today. No other new symptoms. - Related Data Home Medications Medication Instructions Recorded Confirmed Buspirone HCl [Buspar 10mg 10 mg PO QID 06/12/20 06/12/20 tablet] Levothyroxine Sodium [Synthroid 88 mcg PO DAILY 06/12/20 06/12/20 88mcg (0.088mg) tablet] Losartan Potassium 25 mg PO QID 06/12/20 06/12/20 Metformin HCl 500 mg PO QID 06/12/20 06/12/20 Rosuvastatin Calcium 40 mg PO QID 06/12/20 06/12/20 Venlafaxine HCl [Venlafaxine HCl 150 mg PO HS 06/12/20 06/12/20 ER] cycloSPORINE
[2022-01-25 09:56] VITALS: BP 144/80; PULSE 94; RESP 16; TEMP 36.4; O2SAT 95
== END 2022-01-25 09:57 | disposition home or self-care (01) ==
PROVIDERS: Emergency Provider Emergency Medicine; PCP Family Medicine
DX: L50.0 Allergic urticaria (principal); E11.9 Type 2 diabetes mellitus without complications; Z88.5 Allergy status to narcotic agent
CPT/HCPCS: 96374; 96375; 99284

== ENCOUNTER 2022-04-05 18:01 | Emergency (ER) | payer MEDICARE, BC, SELFPAY ==
[2022-04-05 18:20] VITALS: BP 156/76; PULSE 102; RESP 16; TEMP 36.8; O2SAT 97; BMI 28.9
[2022-04-05 18:30] LABS: Adenovirus,PCR Not Detected (NotDetected); Bordetella Pertussis Not Detected (NotDetected); Chlamydophila Pneumoniae, PCR Not Detected (NotDetected); Coronavirus 229E Not Detected (NotDetected); Coronavirus NL63 Not Detected (NotDetected); Coronavirus OC43 Not Detected (NotDetected); Coronovirus HKU1,PCR Not Detected (NotDetected); Human Metapneumovirus Not Detected (NotDetected); Influenza A, PCR Not Detected (NotDetected); Influenza AH1, 2009 Not Detected (NotDetected); Influenza AH1, PCR Not Detected (NotDetected); Influenza AH3,PCR Not Detected (NotDetected); Influenza B, PCR Not Detected (NotDetected); Mycoplasma Pneumoniae, PCR Not Detected (NotDetected); Parainfluenza 1, PCR Not Detected (NotDetected); Parainfluenza 2, PCR Not Detected (NotDetected); Parainfluenza 3, PCR Not Detected (NotDetected); Parainfluenza 4, PCR Not Detected (NotDetected); Respiratory Syncytial Virus Not Detected (NotDetected); Rhinovirus/Enterovirus Not Detected (NotDetected)
--- NOTE | 2022-04-05 18:37 | XR_ITS ---
PROCEDURE INFORMATION: Exam: XR Chest Exam date and time: 04/05/2022 7:18 PM Age: 76 years old Clinical indication: Patient HX: PT states that she has had a cough, congestion, and fatigue since Sunday. TECHNIQUE: Imaging protocol: Radiologic exam of the chest. Views: 2 views. COMPARISON: CR CXR CHEST(2 VIEWS-NOT PORTABLE) 05/24/2017 3:27 PM FINDINGS: Lungs: Stigmata of old granulomatous disease. Pleural spaces: Unremarkable. No pleural effusion. No pneumothorax. Heart/Mediastinum: Unremarkable. No cardiomegaly. Bones/joints: Unremarkable. Intraperitoneal space: Right upper quadrant surgical clips. IMPRESSION: No acute findings.
[2022-04-05 18:43] LABS: Strep Scrn Group A (Rapid) Negative (Negative)
--- NOTE | 2022-04-05 18:45 | HMH.EDUTC ---
[facility] [place] Impression: Viral syndrome Disposition: Home, Self-Care Condition on Discharge: Good Instructions: DI for Fever (Symptom) -- Adult, Sore Throat, DI for Cough -- Adult Additional Instructions: *Monitor Temp, Over the counter Motrin or Tylenol as directed/as needed Tylenol every 4 hours and Motrin every 6 hours (as long as your family doctor has told you that you can take it) for fever or pain. and straight to ER if unable to lower temp less than 101.0 after medication given *Warm salt water gargles may help to soothe the throat *Throat Lozenges *Warm fluids like tea with honey may help to soothe the throat *Sleep elevated *Humidifier/Vaporizer Your throat swab was sent for culture. Those results are typically sent to your primary care. Be sure to follow up in 2-3 days with your family doctor/primary care physician if no improvement so they can review those result and treat if necessary. If you don?t have a primary care doctor, I recommend you get one but in the mean time, you will have to return to a walk in clinic Follow up IMMEDIATELY for new or worsening symptoms or no Noticeable improvement over the next 48-72 hours. 911 for difficulty breathing or swallowing You were tested for today for COVID19 your test result should be back in the next 24-48 hours, you may check your results on the [facility] My Health Portal Make sure to take your Vitamins Vit. C Vit D and Zinc if you can take them Referrals: Dale Prescott MD [Primary Care Provider] - As needed Time of Disposition: 20:00 Medical Decision Making - Beny Inquiry Pt receiving controlled substance: No Beny was queried for this patient: No Vital Signs: 04/05/22 18:20 Temperature 98.2 F Temperature Source Oral Pulse Rate [Right Brachial] 102 H Respiratory Rate 16 Blood Pressure [Right Arm] 156/76 H Blood Pressure Mean [Right Arm] 102 Blood Pressure Source [Right Arm] Automatic Cuff Blood Pressure Position [Right Arm] Sitting 02 Sat by Pulse Oximetry 97 Oxygen Delivery Method Room Air - Lab Data Lab results reviewed: Yes: I reviewed the patient's lab results. Lab Results 04/05/22 18:22: Group A Strep Rapid Negative Orders (Tests/Meds): ORDERS Category Date Time Status Full Resp Panel w/COVID ([facility]) Routine Lab 04/05/22 18:22 Received Strep Screen Confirmation Stat Micro 04/05/22 18:22 Received - Radiology Data #1 Image(s): Chest Image Reviewed: Yes I have reviewed radiologist's interpretation IMPRESSION: No acute findings. Medical Decision Narrative: Patient still awaiting xray, xray previously notified [facility] UTC HPI - General Stated complaint: covid test and cough and sore throat Time Seen by Provider: 04/05/22 18:45 Mode of Arrival: Ambulatory Source of Information: Patient Limitations: No Limitations Description of Symptoms (Recalled from Triage Doc. by RN): PATIENT C/O CONGESTION, HEADACHE, AND WEAKNESS. SHE STATES SHE NEEDS A COVID, FLU AND STREP TEST PER HER PCP HEENT Symptoms (Recalled from RN notes): Yes Resp Symptoms (Recalled from RN notes): No Skin Symptoms (Recalled from RN notes): No MS Symptoms (Recalled from RN notes): No Functional Status (Recalled from RN notes): WNL - History of Present Illness Provider Complaint: Patient states that she hasnt been feeling well for a couple of days States that she has been having sore throat, body aches, chills and cough States that she has been laying around since yesterday Denies fever States that she talked with her PCP earlier and was told to come in and get COVID, Flu and strep test done concerned that she may have COVID States that she was around someone a couple of weeks ago that had just got over COVID - Related Data Home Medications Medication Instructions Recorded Confirmed Buspirone HCl [Buspar 10mg 10 mg PO QID 06/12/20 06/12/20 tablet] Levothyroxine Sodium [Synthroid 88 mcg PO DAILY 06/12/20 06/12/20 88mcg (0.088mg) ta
[2022-04-05 20:05] VITALS: BP 156/76; PULSE 102; RESP 16; TEMP 36.8; O2SAT 97
[2022-04-05 21:23] LABS: Coronavirus 19, PCR Detected (NotDetected)
== END 2022-04-05 20:08 | disposition home or self-care (01) ==
PROVIDERS: Emergency Provider Nurse Practitioner; PCP Family Medicine
DX: U07.1 COVID-19 (principal); R05.9 Cough, unspecified; J02.9 Acute pharyngitis, unspecified; R51.9 Headache, unspecified; R09.89 Other specified symptoms and signs involving the circulatory and respiratory systems
CPT/HCPCS: 71046; 87430; 87581; 87632; 87798; 99212; C9803; G0463; U0003; U0005

== ENCOUNTER → 2022-08-07 11:01 | Outpatient (CLI) | payer MEDICARE, BC, SELFPAY ==
--- NOTE | 2022-08-07 11:09 | XR_ITS ---
FINAL REPORT CLINICAL HISTORY: RT SIDED CHEST WALL PAIN,CONTUSION OF RT CHEST WALL, lower rib pain, fall FINDINGS: Right ribs Five views were obtained. There is mild irregularity of the right distal 7th rib worrisome for a nondisplaced fracture. The joint spaces appear normal. No soft tissue abnormality is identified. IMPRESSION: Findings worrisome for a nondisplaced fracture of the right distal 7th rib. Reviewed, Interpreted and Dictated by Remi Healy III, MD Transcribed by Mariaelena Guo Authenticated and . [facility]
--- NOTE | 2022-08-07 11:11 | XR_ITS ---
FINAL REPORT CLINICAL HISTORY: RT SIDED CHEST WALL PAIN,CONTUSION OF RT CHEST WALL, lower rib pain COMPARISON: 04/05/2022 FINDINGS: Two views of the chest were obtained. The heart size and pulmonary vascularity are within normal limits. The mediastinum is normal. No acute pulmonary abnormality is identified. There is no pneumothorax. The bony thorax is intact. IMPRESSION: No active cardiopulmonary disease. Reviewed, Interpreted and Dictated by Remi Healy III, MD Transcribed by Mariaelena Guo Authenticated and [facility]
== END ==
PROVIDERS: PCP Family Medicine; Visit Provider Family Medicine
DX: R07.89 Other chest pain (principal); S20.211A Contusion of right front wall of thorax, initial encounter
CPT/HCPCS: 71046; 71101

== ENCOUNTER → 2023-01-09 14:51 | Outpatient (CLI) | payer MEDICARE, BC, SELFPAY | PROVIDERS: PCP Family Medicine; Visit Provider Family Medicine | DX: G47.33 Obstructive sleep apnea (adult) (pediatric) (principal); R53.83 Other fatigue; R03.0 Elevated blood-pressure reading, without diagnosis of hypertension; E66.3 Overweight | CPT/HCPCS: G0399 ==

== ENCOUNTER → 2023-02-12 09:08 | Outpatient (CLI) | payer MEDICARE, BC, SELFPAY ==
--- NOTE | 2023-02-12 09:24 | XR_ITS ---
FINAL REPORT CLINICAL HISTORY: Postmenopausal FINDINGS: Using L1-4, the bone mineral density of the spine is 0.879 g/cm2, corresponding to T-score of -1.5. Using the left hip, the bone mineral density of the femoral neck is 0.637 g/cm2, corresponding to a T-score of -2 point. Using the right hip: The bone mineral density of the femoral neck is 0.608 g/cm2, corresponding to a T-score of -2.2. IMPRESSION: 1. Diminished bone mineral density of the lumbar spine consistent with osteopenia. 2. Diminished bone mineral density of the left hip consistent with osteoporosis. 3. Diminished bone mineral density of the right hip consistent with osteopenia. NOTE: T-score: Standard deviation compared with peak bone mass of young adult mean. *Following the recommendations of the International Society of Bone densitometry, classification of hip BMD is based on the lower of two T-scores; total hip or femoral neck. Reviewed, Interpreted and Dictated by Frederick Mcpherson MD Transcribed by Aidee Fermin Authenticated and [facility]
== END ==
PROVIDERS: PCP Family Medicine; Visit Provider Family Medicine
DX: Z78.0 Asymptomatic menopausal state (principal); Z13.820 Encounter for screening for osteoporosis
CPT/HCPCS: 77080

== ENCOUNTER → 2023-04-02 17:04 | Outpatient (CLI) | payer MEDICARE, BC, SELFPAY ==
--- NOTE | 2023-04-02 17:09 | CT_ITS ---
PROCEDURE INFORMATION: Exam: CT Abdomen And Pelvis Without Contrast Exam date and time: 04/02/2023 7:00 PM Age: 77 years old Clinical indication: Abdominal pain; Localized; Right lower quadrant (rlq); Additional info: Right lower quadrant abdominal pain TECHNIQUE: Imaging protocol: Computed tomography of the abdomen and pelvis without contrast. Radiation optimization: All CT scans at this facility use at least one of these dose optimization techniques: automated exposure control; mA and/or kV adjustment per patient size (includes targeted exams where dose is matched to clinical indication); or iterative reconstruction. Other contrast: Oral, gastrograffin, 30 ml; REPORTING DATA: Count of CT and Cardiac NM exams in prior 12 months: This patient has received 0 known CTs and 0 known cardiac nuclear medicine studies in the 12 months prior to the current study. COMPARISON: [facility] CT abdomen pelvis wo con 09/29/2018 10:12 AM FINDINGS: Lungs: Mild atelectasis in the lung bases. Heart: Heart size normal. Mediastinal space: The visualized distal esophagus is largely contracted without gross abnormality. Liver: Normal contour. No mass lesions. No intrahepatic biliary ductal dilatation. Gallbladder and bile ducts: Prior cholecystectomy with expected mild postoperative dilatation of the common bile duct. This is unchanged. Pancreas: Normal. No inflammatory changes or ductal dilation. Spleen: Granulomatous calcifications in the spleen without acute splenic abnormality. Adrenal glands: Normal. No adrenal mass. Kidneys and ureters: There are 2 nonobstructive right renal stones measuring 2.5 mm and 1 mm. There are 3 nonobstructive left renal stones, largest 4 mm. Slight pelviectasis and lower pole caliectasis of the right kidney is unchanged from 09/29/2018, suggesting a chronic configuration. No left-sided hydronephrosis. No hydroureter or ureteral stones on either side. There is a low-density circumscribed right renal cortical lesion suggesting renal cyst for which no further imaging evaluation is required. Stomach and bowel: The stomach is unremarkable. The small bowel is nondilated with no gross abnormality. There is a moderate amount of stool distributed throughout the colon suggesting constipation. There are few diverticula present in the distal colon without evidence of acute diverticulitis. Appendix: The appendix is normal in caliber and demonstrates no evidence of appendicitis. Intraperitoneal space: No free fluid or air. Vasculature: No acute process. No abdominal aortic aneurysm. Mild-moderate calcific atherosclerosis. 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 Lymph nodes: No adenopathy. Urinary bladder: Unremarkable as visualized. Reproductive: Prior hysterectomy. Bones/joints: No acute osseous abnormalities. Osteopenia. Moderate disc degenerative changes L3-L4 and L5-S1. Soft tissues: Small fatty umbilical hernia . No evidence of associated bowel herniation or strangulation. IMPRESSION: 1. There is a moderate amount of stool distributed throughout the colon suggesting constipation. 2. Small bilateral nonobstructive renal stones. No ureteral stones or acute hydronephrosis, with chronic slight lower pole caliectasis and pelviectasis on the right which is unchanged from 2018. 3. Additional nonemergent findings detailed above. COMMENTS: Consistent with the [employer]'s Incidental Findings Committee white paper ([employer] 2018): Any incidental renal lesion less than 1 cm or classified
--- NOTE | 2023-04-02 20:09 | HMH.ITSTN ---
called Dr. Palmer per his request and gave CT results at 8:08pm-- negative for appendicitis -- read report. Dr. Palmer was going to call the patient with the results
== END ==
PROVIDERS: PCP Family Medicine; Visit Provider Family Medicine
DX: R10.31 Right lower quadrant pain (principal)
CPT/HCPCS: 74176

== ENCOUNTER 2023-07-26 11:17 | Emergency (ER) | payer MEDICARE, BC, SELFPAY ==
[2023-07-26 11:18] VITALS: BP 135/67; PULSE 94; RESP 16; TEMP 36.8; O2SAT 96; BMI 27.3
[2023-07-26 11:55] LABS: Apearance,Urine Clear (Clear); Color,Urine Yellow (Yellow)
--- NOTE | 2023-07-26 11:55 | EXP.UTC ---
Discharge Plan Disposition Patient Disposition: Home, Self-Care Condition: Good Prescriptions Prescriptions: No Action clobetasol 0.05 % lotion 1 applic topical HS Myrbetriq 25 mg tablet extended release 24 hr 25 mg PO DAILY Patient Comments: TAKE 1 TABLET BY MOUTH ONCE DAILY aspirin [Adult Aspirin Regimen] 81 mg tablet,delayed release (DR/EC) 81 mg PO DAILY omeprazole 20 mg capsule,delayed release(DR/EC) 20 mg PO DAILY venlafaxine 75 mg capsule,extended release 24hr 75 mg PO DAILY ascorbic acid (vitamin C) 500 mg capsule See Rx Instructions PO .COMPLEX Rx Instructions: orally daily; magnesium 250 mg tablet 250 mg PO DAILY cholecalciferol (vitamin D3) 50 mcg (2,000 unit) capsule 50 mcg PO DAILY venlafaxine 150 MG capsule,extended release 24hr 150 mg PO HS levothyroxine 88 MCG tablet 88 mcg PO DAILY rosuvastatin 40 MG tablet 40 mg PO QID ondansetron 4 MG tablet,disintegrating 4 mg PO TIDP PRN (Reason: Nausea And Vomiting) Qty: 10 0RF metformin 500 mg tablet 500 mg PO DAILY buspirone 10 mg tablet 10 mg PO DAILY losartan 25 mg tablet 25 mg PO DAILY Referrals Follow up/Referrals: Dale Prescott MD [Primary Care Provider] - See instructions Activity Restrictions/Add. Instructions Additional Instructions/Restrictions: GO to the Emergency Room as was instructed by your Urologist Further care per the [facility] ED Return if needed Clinical Impressions Clinical Impression: Flank pain Instructions Patient Instructions: DI for Flank Pain Discharge ED Provider: Wendy Chaparro [facility] General Stated complaint: kidney pain, trouble urinating Mode of Arrival: Ambulatory Source of Information: Patient Limitations: No Limitations Time Seen by Provider: 07/26/23 11:55 Description of Symptoms (Recalled from Triage Doc. by RN): Patient reports pain in her right lower abdomen and back for approx 3 days. Complaint of burning with urination. HEENT Symptoms (Recalled from RN notes): No Resp Symptoms (Recalled from RN notes): No Skin Symptoms (Recalled from RN notes): No MS Symptoms (Recalled from RN notes): No Functional Status (Recalled from RN notes): wnl History of Present Illness Provider Complaint: Patient states that she has been having pressure in her lower abdomen and achy like feeling in her right lower back area with frequent urination and burning when she urinates States that she has been having symptoms for the last 3 days and she was worried it may get worse if she didnt get it checked Denies fever, reports pressure in lower abdomen when she has to urinate States that she does have history of Kidney stones and feels like it does when she has them Related Data Home Medications Medication Instructions Recorded Confirmed levothyroxine 88 mcg tablet 88 mcg PO DAILY HYPOTHYROIDISM 06/12/20 05/24/23 rosuvastatin 40 mg tablet 40 mg PO QID HIGH CHOLESTEROL 06/12/20 05/24/23 venlafaxine 150 mg 150 mg PO HS Depression 06/12/20 05/24/23 capsule,extended release 24 hr ascorbic acid (vitamin C) 500 mg See Rx Instructions PO .COMPLEX 01/25/23 05/24/23 capsule aspirin 81 mg tablet,delayed 81 mg PO DAILY 01/25/23 05/24/23 release (Adult Aspirin Regimen) buspirone 10 mg tablet 10 mg PO DAILY COLON PAIN 01/25/23 05/24/23 cholecalciferol (vitamin D3) 50 50 mcg PO DAILY 01/25/23 05/24/23 mcg (2,000 unit) capsule losartan 25 mg tablet 25 mg PO DAILY Hypertension 01/25/23 05/24/23 magnesium 250 mg tablet 250 mg PO DAILY 01/25/23 05/24/23 metformin 500 mg tablet 500 mg PO DAILY DM II 01/25/23 05/24/23 mirabegron 25 mg tablet,extended 25 mg PO DAILY 01/25/23 05/24/23 release 24 hr (Myrbetriq) omeprazole 20 mg capsule,delayed 20 mg PO DAILY 01/25/23 05/24/23 release venlafaxine 75 mg capsule,extended 75 mg PO DAILY 01/25/23 05/24/23 release 24 hr clobetasol 0.05 % lotion 1 applic topical HS
[2023-07-26 11:58] LABS: Glucose,Urine (UA) Negative (Negative); Ketones,Urine Negative (Negative); PH,Urine 6.5 (5.0-8.5); Protein,Urine Negative (Negative)
[2023-07-26 11:59] LABS: Bilirubin,Urine Negative (Negative); Blood, Urine 2+ (Negative); UTC Leukocyte Esterase,Urine 1+ (Negative); UTC Nitrate,Urine Negative (Negative); Urobilinogen,Urine 1 EU/dl (0.2)
[2023-07-26 12:32] VITALS: BP 135/67; PULSE 94; RESP 16; TEMP 36.8; O2SAT 96
== END 2023-07-26 12:33 | disposition home or self-care (01) ==
PROVIDERS: Emergency Provider Nurse Practitioner; PCP Family Medicine
DX: R10.31 Right lower quadrant pain (principal); M54.59 Other low back pain; R30.0 Dysuria; Z87.442 Personal history of urinary calculi
CPT/HCPCS: 81003; 99212; 99214; G0463

== ENCOUNTER 2023-10-11 16:11 | Outpatient (CLI) | payer MEDICARE, BC, SELFPAY ==
[2023-10-11 16:18] LABS: Coronavirus 19, PCR Not Detected (NotDetected); Influenza A, PCR Not Detected (NotDetected); Influenza B, PCR Not Detected (NotDetected)
== END 2023-10-11 23:59 ==
LOC: LAB 16:13
PROVIDERS: PCP Family Medicine; Visit Provider Physician Assistant
DX: Z20.822 Contact with and (suspected) exposure to COVID-19 (principal)
CPT/HCPCS: 87636

== ENCOUNTER 2023-10-29 14:49 | Outpatient (CLI) | payer MEDICARE, BC, SELFPAY ==
--- NOTE | 2023-10-29 14:57 | XR_ITS ---
FINAL REPORT CLINICAL HISTORY: ACUTE PAIN LEFT KNEE/ ACUTE LEFT SIDE LOW BACK PAIN WITH SCI Patient fell last sunday. COMPARISON: None FINDINGS: AP, lateral, and oblique views of the lumbar spine were obtained. There is no acute fracture or acute malalignment. Vertebral body height is preserved. There are mild anterior osteophytes present at the L3-4 level, and mild facet sclerosis present at the L4-5 level.. No acute paraspinal abnormality is identified. Surgical clips are noted in the right upper quadrant. IMPRESSION: No acute osseous abnormalities lumbar spine. Mild degenerative change as described above. Reviewed, Interpreted and Dictated by Meek Pierre MD Transcribed by Trisha Nicole Authenticated and . [facility]
--- NOTE | 2023-10-29 14:57 | XR_ITS ---
FINAL REPORT CLINICAL HISTORY: .Left knee pain after fall last sunday. Badly bruised. COMPARISON: 03/12/2020 FINDINGS: Three views of the left knee reveal no evidence of fracture or dislocation. The bony alignment is normal. The joint spaces are preserved. There is no evidence of joint effusion. No localized soft tissue abnormality is seen. IMPRESSION: No acute abnormality identified. Reviewed, Interpreted and Dictated by Meek Pierre MD Transcribed by Trisha Nicole Authenticated and [facility][1]
--- NOTE | 2023-10-29 15:28 | XR_ITS ---
FINAL REPORT CLINICAL HISTORY: Left hip pain with bruising after fall last Sunday. COMPARISON: None FINDINGS: AP and frog leg views of the left hip were obtained. There is no prior exam for comparison. There is no acute fracture or dislocation. Joint space is preserved. Soft tissues are within normal limits. IMPRESSION: No acute osseous abnormality of the left hip. Reviewed, Interpreted and Dictated by Meek Pierre MD Transcribed by Trisha Nicole Authenticated and [facility]
== END 2023-10-29 23:59 ==
LOC: RAD 14:51
PROVIDERS: PCP Family Medicine; Visit Provider Family Medicine
DX: M25.562 Pain in left knee (principal); M54.42 Lumbago with sciatica, left side
CPT/HCPCS: 72110; 73502; 73562

== ENCOUNTER 2024-07-08 14:25 | Outpatient (CLI) | payer MEDICARE, BC, SELFPAY ==
[2024-07-08 15:44] LABS: RSV Rapid Ab Screen Negative (Negative)
== END 2024-07-08 23:59 | disposition home or self-care (01) ==
LOC: LAB 14:29
PROVIDERS: PCP Family Medicine; Visit Provider Nurse Practitioner Family
DX: J40 Bronchitis, not specified as acute or chronic (principal)
CPT/HCPCS: 87807

== ENCOUNTER 2024-08-02 11:24 | Emergency (ER) | payer MEDICARE, BC, SELFPAY ==
--- NOTE | 2024-08-02 11:29 | XR_ITS ---
PROCEDURE INFORMATION: Exam: XR Left Foot Exam date and time: 08/02/2024 11:26 AM Age: 78 years old Clinical indication: Injury or trauma; Fall; Blunt trauma; Foot; Left; Additional info: Fall yesterday TECHNIQUE: Imaging protocol: Radiologic exam of the left foot. Views: 3 or more views. COMPARISON: CR XR KNEE LT 3V 10/29/2023 3:18 PM FINDINGS: Bones/joints: Minimally displaced oblique fracture of the left 5th metatarsal distal 1/3 diaphysis. Otherwise, no acute fracture or malalignment. Joint spaces are preserved. No soft tissue abnormality. Soft tissues: See Bones/joints finding. IMPRESSION: Minimally displaced oblique fracture of the left 5th metatarsal distal 1/3 diaphysis.
[2024-08-02 12:30] VITALS: BP 135/53; PULSE 87; RESP 20; TEMP 36.9; O2SAT 96; BMI 27.1
--- NOTE | 2024-08-02 12:46 | EXP.UTC ---
Discharge Plan Disposition Patient Disposition: Home, Self-Care Condition: Good Prescriptions Prescriptions: New (DME) walker Misc See Rx Instructions .Route Qty: 1 0RF Rx Instructions: As directed No Action clobetasol 0.05 % lotion 1 applic topical HS Myrbetriq 25 mg tablet extended release 24 hr 25 mg PO DAILY Patient Comments: TAKE 1 TABLET BY MOUTH ONCE DAILY aspirin [Adult Aspirin Regimen] 81 mg tablet,delayed release (DR/EC) 81 mg PO DAILY omeprazole 20 mg capsule,delayed release(DR/EC) 20 mg PO DAILY venlafaxine 75 mg capsule,extended release 24hr 75 mg PO DAILY ascorbic acid (vitamin C) 500 mg capsule See Rx Instructions PO .COMPLEX Rx Instructions: orally daily; magnesium 250 mg tablet 250 mg PO DAILY cholecalciferol (vitamin D3) 50 mcg (2,000 unit) capsule 50 mcg PO DAILY venlafaxine 150 MG capsule,extended release 24hr 150 mg PO HS levothyroxine 88 MCG tablet 88 mcg PO DAILY rosuvastatin 40 MG tablet 40 mg PO QID ondansetron 4 MG tablet,disintegrating 4 mg PO TIDP PRN (Reason: Nausea And Vomiting) Qty: 10 0RF metformin 500 mg tablet 500 mg PO DAILY buspirone 10 mg tablet 10 mg PO DAILY losartan 25 mg tablet 25 mg PO DAILY Referrals Follow up/Referrals: Dale Prescott MD [Primary Care Provider] - See instructions Ho Torres DO [Staff Physician] - See instructions (Call office for appointment) Activity Restrictions/Add. Instructions Additional Instructions/Restrictions: *weight bearing on inside of foot in walking boot as tolerated and use Walker to get around *RICE, Rest the extremity, Ice 15-20 minutes 3-4 times daily, Compress- wear the fernando wrap as discussed as much as possible to help reduce swelling and pain, Elevate the extremity when at rest *Walking Boot is for support and help control swelling,Be sure that is not to tight but not to loose either *Elevate when resting? Use Walker to get around for stability and help prevent falling *Ibuprofen 600-800mg every 6-8 hours as needed for pain an inflammation if you can take it. If need something more can take Tylenol in between doses of Ibuprofen to help Immediately follow up with your family doctor for new or worsening of symptoms, or no noticeable improvement over the next 3-[address] Camargo office and make appointment Clinical Impressions Clinical Impression: Fracture of metatarsal Qualifiers: Encounter type: initial encounter Metatarsal bone: fifth Fracture type: closed Fracture alignment: nondisplaced Laterality: left Qualified Code(s): S92.355A - Nondisplaced fracture of fifth metatarsal bone, left foot, initial encounter for closed fracture Instructions Patient Instructions: How to Choose and Use a Walker, How To Perform RICE (Rest, Ice, Compress, Elevate), How to Use a Walking Boot Print Language Print Language: [place] Discharge ED Provider: Wendy Chaparro [facility] [place] HPI General Stated complaint: AO fall 08/01, left foot pain Mode of Arrival: Ambulatory Source of Information: Patient Limitations: No Limitations Time Seen by Provider: 08/02/24 12:48 Description of Symptoms (Recalled from Triage Doc. by RN): PATIENT C/O LEFT FOOT INJURY AFTER SHE FELL YESTERDAY MORNING HEENT Symptoms (Recalled from RN notes): No Resp Symptoms (Recalled from RN notes): No Skin Symptoms (Recalled from RN notes): No MS Symptoms (Recalled from RN notes): Yes Functional Status (Recalled from RN notes): WNL History of Present Illness Provider Complaint: Patient states that she was sitting on the toilet yesterday and went to get up and lost her balance and fell and landed on her left foot States since then she has been having pain in the outside of her left foot worse when she tries to put weight on it States she is a diabetic and has some neuropathy in her feet Denies any other injury Related Data Home Medications ?Medication ?Instructions ?Recorded ?Confirmed levothyroxine 88 mcg tablet 88 mcg PO DAILY HYPOTHYROIDISM 06/12/20 05/24/23 rosuvastatin 40 mg tablet 40 mg PO QID HIGH CHOLESTEROL 06/12/20 05/24/23 venlafaxine 150 mg 150 mg PO HS Depression 06/12/20 05/24/23 capsule,extended release 24 hr ascorbic acid (vitamin C) 500 mg See Rx Instructions PO .COMPLEX 01/25/23 05/24/23 capsule aspirin 81 mg tablet,delayed 81 mg PO DAILY 01/25/23 05/24/23 release (Adult Aspirin Regimen) buspirone 10 mg tablet 10 mg PO DAILY COLON PAIN 01/25/23 05/24/23 cholecalciferol (vitamin D3) 50 50 mcg PO DAILY 01/25/23 05/24/23 mcg (2,000 unit) capsule losartan 25 mg tablet 25 mg PO DAILY Hypertension 01/25/23 05/24/23 magnesium 250 mg tablet 250 mg PO DAILY 01/25/23 05/24/23 metformin 500 mg tablet 500 mg PO DAILY DM II 01/25/23 05/24/23 mirabegron 25 mg tablet,extended 25 mg PO DAILY 01/25/23 05/24/23 release 24 hr (Myrbetriq) omeprazole 20 mg capsule,delayed 20 mg PO DAILY 01/25/23 05/24/23 release venlafaxine 75 mg capsule,extended 75 mg PO DAILY 01/25/23 05/24/23 release 24 hr clobetasol 0.05 % lotion 1 applic topical HS 05/24/23 05/24/23 Previous Rx's ?Medication ?Instructions ?Recorded ondansetron 4 mg disintegrating 4 mg PO TIDP PRN Nausea And 06/12/20 tablet Vomiting ##10 walker #1 ea 08/02/24 Allergies Allergy/AdvReac Type Severity Reaction Status Date / Time codeine [CODEINE] Allergy Unknown Unknown Verified 08/02/24 12:38 allergy reaction acetaminophen [From [place]] Allergy Unknown Verified 08/02/24 12:38 allergy reaction hydrocodone [From [place]] Allergy Unknown Verified 08/02/24 12:38 allergy reaction Sulfa (Sulfonamide Allergy Unknown Verified 08/02/24 12:38 Antibiotics) allergy reaction sulfamethoxazole Allergy Unknown Verified 08/02/24 12:38 [From Bactrim] allergy reaction trimethoprim [From Bactrim] Allergy Unknown Verified 08/02/24 12:38 allergy reaction Worker's Comp Is this a Worker's Comp case?: No [facility] Disclaimer: The information contained in this section may have been updated after the patient was seen, as this information can be updated by other users. Social History Smoking Status: Never smoker alcohol intake: never substance use type: denies use current occupational status: retired Travel in the last 8 weeks: None household members: spouse housing: house current occupational exposures/hazards: No caffeine: No ROS Obtained: Yes All systems reviewed & no additional complaints except as documented and Yes Systems reviewed as appropriate & no additional complaints except as documented Constitutional Constitutional: Reports system reviewed and no additional complaints, except as documented and Reports as per HPI ENT Ears, Nose, Mouth, and Throat: Reports system reviewed and no additional complaints, except as documented and Reports as per HPI Cardiovascular Cardiovascular: Reports system reviewed and no additional complaints, except as documented and Reports as per HPI Respiratory Respiratory: Reports system reviewed and no additional complaints, except as documented and Reports as per HPI Gastrointestinal Gastrointestingal: Reports system reviewed and no additional complaints, except as documented and as per HPI Musculoskeletal Musculoskeletal: Reports system reviewed and no additional complaints, except as documented, Reports as per HPI and Reports other (pain in left foot after falling yesterday) Physical Exam General General appearance: alert and in no apparent distress Respiratory Respiratory exam: Present normal lung sounds bilaterally; Absent respiratory distress or wheezes Cardiovascular Cardiovascular exam: Present regular rate, normal rhythm and normal heart sounds Expanded Lower Extremity Exam Left: Foot/toe exam: Present tenderness, swelling and ecchymosis; Absent abrasion or laceration Top foot image: 1. pain and mild swelling no open wounds noted Neurovascular/Tendon exam: Present normal capillary refill Gait: not tested/not observed Neurological Exam Neurological exam: Present alert, oriented X3 and normal gait Medical Decision Making Medical Records Screening: Per USPSTF and CDC recommendations, given the prevalence of disease in our region, it is our hospital?s policy to screen for HIV and viral Hepatitis for all patients aged 18 and over and those with ongoing risk factors. Beny Inquiry Pt receiving controlled substance: No Beny was queried for this patient: No Vital Signs: 08/02/24 12:30 Temperature 98.4 F Temperature Source Oral Pulse Rate [Left Brachial] 87 Respiratory Rate 20 Blood Pressure [Left Arm] 135/53 L Blood Pressure Mean [Left Arm] 80 Blood Pressure Source [Left Arm] Automatic Cuff Blood Pressure Position [Left Arm] Sitting 02 Sat by Pulse Oximetry 96 Oxygen Delivery Method Room Air Orders (Tests/Meds): ORDERS Category Date Time Status Foot XR left minimum 3 views [XR foot LT min 3V] Stat Exams 08/02/24 11:29 Completed Radiology Data #1: Image(s): Foot/Toes Image Reviewed: Yes I have reviewed radiologist's interpretation IMPRESSION: Minimally displaced oblique fracture of the left 5th metatarsal distal 1/3 diaphysis. Physician Consults Physician Consulted: Dr Torres Time: 12:53 Reason -: Orthopedic Eval/Care Comment/Response: Spoke with Dr Torres and informed him of xray reading, recommended walking boot and walker and have her call clinic for appointment and follow up in clinic Procedures Orthopedic Splinting/Casting Injury #1: Side: left Lower Extremity Injury Location: foot Lower Extremity Immobilizer: boot orthosis Additional Comments: Prescription for walker sent to pharmacy Post Cast/Splinting Neuro Status: intact and no change Post Cast/Splinting Vasc Status: intact and no change
[2024-08-02 13:15] VITALS: BP 135/53; PULSE 87; RESP 20; TEMP 36.9; O2SAT 96
== END 2024-08-02 13:18 | disposition home or self-care (01) ==
PROVIDERS: Emergency Provider Nurse Practitioner; PCP Family Medicine
DX: S92.355A Nondisplaced fracture of fifth metatarsal bone, left foot, initial encounter for closed fracture (principal); M79.672 Pain in left foot; W19.XXXA Unspecified fall, initial encounter
CPT/HCPCS: 73630; 99212; G0381

== ENCOUNTER 2024-09-08 13:34 | Outpatient (CLI) | payer MEDICARE, BC, SELFPAY ==
--- NOTE | 2024-09-08 13:38 | XR_ITS ---
FINAL REPORT CLINICAL HISTORY: left foot fx COMPARISON: None FINDINGS: LEFT FOOT: Three views of the right foot were obtained. There is an oblique fracture of the distal fifth metatarsal, with mild overlap of the fracture fragments. The joint spaces are intact. There is no soft tissue abnormality. IMPRESSION: Oblique fracture of the distal fifth metatarsal, with mild overlap of the fracture fragments. Reviewed, Interpreted and Dictated by Remi Healy III, MD Transcribed by Trisha Nicole Authenticated and [facility]
== END 2024-09-08 23:59 | disposition home or self-care (01) ==
LOC: RAD 13:35
PROVIDERS: PCP Family Medicine; Visit Provider Physician Assistant
DX: S92.352A Displaced fracture of fifth metatarsal bone, left foot, initial encounter for closed fracture (principal)
CPT/HCPCS: 73630

== ENCOUNTER 2024-10-06 12:26 | Outpatient (CLI) | payer MEDICARE, BC, SELFPAY ==
--- NOTE | 2024-10-06 12:31 | XR_ITS ---
FINAL REPORT CLINICAL HISTORY: left foot fx COMPARISON: 09/08/2024 FINDINGS: AP, oblique and lateral views of the left foot were obtained. There is little interval callus formation in the fracture of the distal fifth metatarsal. The fragment alignment is unchanged. Mild multijoint degenerative changes are present. Soft tissues are unremarkable. IMPRESSION: Little interval callus formation in the distal fifth metatarsal fracture when compared to the prior exam. The fracture alignment is unchanged. Reviewed, Interpreted and Dictated by Jany Jensen MD Transcribed by Trisha Nicole Authenticated and [facility]
== END 2024-10-06 23:59 | disposition home or self-care (01) ==
LOC: RAD 12:28
PROVIDERS: PCP Family Medicine; Visit Provider Physician Assistant
DX: M79.672 Pain in left foot (principal); S92.352A Displaced fracture of fifth metatarsal bone, left foot, initial encounter for closed fracture
CPT/HCPCS: 73630

== ENCOUNTER 2024-11-03 13:15 | Outpatient (CLI) | payer MEDICARE, BC, SELFPAY ==
--- NOTE | 2024-11-03 13:20 | XR_ITS ---
FINAL REPORT CLINICAL HISTORY: lt foot pain COMPARISON: 10/06/2024 FINDINGS: Left foot Three views were obtained. There is an oblique mildly displaced fracture of the distal fifth metatarsal. There is mild callus formation. No intra-articular extension is identified. IMPRESSION: Mild healing fracture of the distal fifth metatarsal. Reviewed, Interpreted and Dictated by Meek Pierre MD Transcribed by Mariaelena Guo Authenticated and [facility]
== END 2024-11-03 23:59 | disposition home or self-care (01) ==
LOC: RAD 13:17
PROVIDERS: PCP Family Medicine; Visit Provider Physician Assistant
DX: S92.353A Displaced fracture of fifth metatarsal bone, unspecified foot, initial encounter for closed fracture (principal)
CPT/HCPCS: 73630

== ENCOUNTER 2025-03-05 15:24 | Emergency (ER) | payer MEDICARE, BC, SELFPAY ==
--- NOTE | 2025-03-05 15:37 | CT_ITS ---
FINAL REPORT TECHNIQUE: Axial images were obtained of the lumbar spine by computed tomography. Coronal and sagittal reconstruction process performed. This study was performed with techniques to keep radiation doses as low as reasonably achievable (ALARA). Individualized dose reduction techniques using automated exposure control or adjustment of mA and/or kV according to the patient's size were employed. CLINICAL HISTORY: back pain x1 month pt states left sided lbp that radiates to front COMPARISON: None FINDINGS: CT LUMBAR SPINE: CT examination of the lumbar spine demonstrates disc space narrowing at the L3-4 and L5-S1 levels with associated vacuum phenomenon. There is endplate sclerosis of the superior endplate of L4. No acute bony abnormality is identified. L1-2: Unremarkable L2-3: Unremarkable L3-4: A moderate annular bulge is present, with mild to moderate canal stenosis and neural foraminal narrowing. L 4-5: A diffuse annular bulge is present with ligamentum flavum hypertrophy, moderate canal stenosis and moderate bilateral neural foraminal narrowing. L5-S1: An annular bulge is present with endplate hypertrophy, moderate right and moderate to severe left neural foraminal narrowing. 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 Reviewed, Interpreted and Dictated by Meek Pierre MD Transcribed by Trisha Nicole Authenticated and [facility]
--- OUTSIDE RECORDS SUMMARY | 2025-03-05 15:37 | XMS_ITS ---
Author Organization Unknown Vital Signs BpStanding BpSitting BpSupine Date Temperature HeartRate Weight Hei ght Spo2 Respiration Bmi HeadCircumference FieldCount TimeRecorded NeckCircumferen ce WaistCircumference Pulse 130/80 12/03 00:00 :00 97.8 112 166,0 5,5 27.6 2 6 01/12/2025 13:30:00 134/80 08/15 00:00 :00 98.0 94 5,5 4 01/12/2025 11:00:00 130/80 07/07 00:00 :00 98.2 116 164,9.6 0 5,5 27.3 9 6 01/12/2025 15:00:00 130/76 06/28 00:00 :00 97.9 101 166,3.2 0 5,5 27.6 5 6 01/12/2025 09:45:00 132/70 06/06 00:00 :00 97.9 94 162,6.4 0 5,5 27.0 2 6 01/12/2025 14:15:00 140/74 06/02 00:00 :00 98.4 107 166,12. 80 5,5 27.7 5 6 01/12/2025 16:00:00 128/60 05/24 00:00 :00 98.0 100 165,12. 80 5,5 27.5 9 6 01/12/2025 10:45:00 142/78 05/14 00:00 :00 97.9 104 167,0 5,5 27.7 9 6 01/12/2025 13:45:00 132/74 02/21 00:00 :00 98.0 90 167,9.6 0 5,5 27.8 9 6 01/12/2025 11:00:00
--- OUTSIDE RECORDS SUMMARY | 2025-03-05 15:37 | XMS_ITS | Data Portability ---
Author Organization OG Marilee moreno [facility] [place] [facility] Address [address] [facility] [address] [place] [address] Care Team Providers Care Hr Business Partner Consultant Name Role Phone AILEEN ALANIZ Electronics Manufacturer MATT RANDOLPH Machine Long Goods Helper LAMBERTO EVANS Primary Care Provider MARLENE HOGAN Vascular Surgeon KERRY JOHNSON Pc Maintenance Technician STEVEN KING Pc Maintenance Technician Assessment No assessment recorded. Plan of Treatment Reminders Order Date Submit Date Provider Last Modified By Organization Details Last Modified Time Details Appointments FEMALE RECHECK 2024 10:30A M LEXUS REID MD Not available Not available Not available Lab urinalysi s panel, auto 2022 023 [email or web address] [facility] , [address], [place], [address], 09/13/2023 13:35:44 urinalysi s microscop ic panel, automated 2020 021 [email or web address] [facility] [address], [address], [place], [address], 08/09/2021 17:19:11 Referral None recorded. Procedures None recorded. Surgeries None recorded. Imaging None recorded. Medication Orders clobetaso l 0.05 % topical ointment [address] [facility], [address], [address], 04/01/2024 11:55:02 hydroxych loroquine 200 mg tablet [address] [facility], [address], [address], 04/01/2024 11:55:02 Diflucan 150 mg tablet [address] [facility], [address], [address], 04/01/2024 11:55:02 solifenac in 10 mg tablet [address] [facility], [address], [address], 09/04/2022 14:26:40 Patient TargetsNo targets recorded. Patient InstructionsNo instructions recorded. Reason for Referral None Reported. Results Created Date Observation Date Name Description Value Unit Range Abnormal Flag Note LastModifiedBy Organization Detail LastModifiedTime 08/09/2008/09/2021 urina lysis micro scopi c panel , autom ated Unknown Analyte Clean Catch Not Available [facility] [address] [facility], [place], [address], 08/09/2021 11:06:20 08/09/20 21 08/09/2021 urina lysis micro scopi c panel , autom ated Unknown Analyte Yellow Not Available [facility] [address] [facility], [place], [address], 08/09/2021 11:06:20 08/09/20 21 08/09/2021 urina lysis micro scopi c panel , autom ated Unknown Analyte Clear Not Available [facility] [address] [facility], [place], [address], 08/09/2021 11:06:20 08/09/20 21 08/09/2021 urina lysis micro scopi c panel , autom ated Unknown Analyte 1.020 Not Available [facility] [address] [facility], [place], [address], 08/09/2021 11:06:20 08/09/20 21 08/09/2021 urina lysis micro scopi c panel , autom ated Unknown Analyte 5.0 Not Available [facility] [address] [facility], [place], [address], 08/09/2021 11:06:20 08/09/20 21 08/09/2021 urina lysis micro scopi c panel , autom ated Unknown Analyte 75 Balta/ul (+) Not Available [facility] [address] [facility], [place], [address], 08/09/2021 11:06:20 08/09/20 21 08/09/2021 urina lysis micro scopi c panel , autom ated Unknown Analyte Negati ve Not Available [facility] [address] [facility], [place], [address], 08/09/2021 11:06:20 08/09/20 21 08/09/2021 urina lysis micro scopi c panel , autom ated Unknown Analyte Negati ve Not Available [facility] [address] [facility], [place], [address], 08/09/2021 11:06:20 08/09/20 21 08/09/2021 urina lysis micro scopi c panel , autom ated Unknown Analyte Normal Not Available [facility] [address] [facility], [place], [address], 08/09/2021 11:06:20 08/09/20 21 08/09/2021 urina lysis micro scopi c panel , autom ated Unknown Analyte Negati ve Not Available [facility] [address] [facility], [place], [address], 08/09/2021 11:06:20 08/09/20 21 08/09/2021 urina lysis micro scopi c panel , autom ated Unknown Analyte Normal Not Available [facility] [address] [facility], [place], [address], 08/09/2021 11:06:20 08/09/20 21 08/09/2021 urina lysis micro scopi c panel , autom ated Unknown Analyte Negati ve Not Available [facility] [address] [facility], [place], [address], 08/09/2021 11:06:20 08/09/20 21 08/09/2021 urina lysis micro scopi c panel , autom ated Unknown Analyte Trace Not Available [facility] [address] [facility], [place], [address], 08/09/2021 11:06:20 08/09/20 21 08/09/2021 urina lysis micro scopi c panel , autom ated Unknown Analyte AUTO Not Available [facility] [address] [facility], [place], [address], 08/09/2021 11:06:20 08/09/20 21 08/09/2021 urina lysis micro scopi c panel , autom ated Unknown Analyte 5-10 Not Available [facility] [address] [facility], [place], [address], 08/09/2021 11:06:20 08/09/20 21 08/09/2021 urina lysis micro scopi c panel , autom ated Unknown Analyte None Seen Not Available [facility] [address] [facility], [place], [address], 08/09/2021 11:06:20 08/09/20 21 08/09/2021 urina lysis micro scopi c panel , autom ated Unknown Analyte None Seen Not Available [facility] [address] [facility], [place], [address], 08/09/2021 11:06:20 08/09/20 21 08/09/2021 urina lysis micro scopi c panel , autom ated Unknown Analyte Trace Not Available [facility] [address] [facility], [place], [address], 08/09/2021 11:06:20 09/13/20 23 09/13/2023 urina lysis panel , auto Unknown Analyte Clean Catch Not Available [facility] [address] [facility], [place], [address], 09/13/2023 10:56:35 09/13/20 23 09/13/2023 urina lysis panel , auto Unknown Analyte Yellow Not Available [facility] [address] [facility], [place], [address], 09/13/2023 10:56:35 09/13/20 23 09/13/2023 urina lysis panel , auto Unknown Analyte Clear Not Available [facility] [address] [facility], [place], [address], 09/13/2023 10:56:35 09/13/20 23 09/13/2023 urina lysis panel , auto Unknown Analyte 1.020 Not Available [facility] [address] [place], [address], 09/13/2023 10:56:35 09/13/20 23 09/13/2023 urina lysis panel , auto Unknown Analyte 5.0 Not Available [facility] [address] [place], [address], 09/13/2023 10:56:35 09/13/20 23 09/13/2023 urina lysis panel , auto Unknown Analyte Negati ve Not Available [facility] [address] [facility], [place], [address], 09/13/2023 10:56:35 09/13/20 23 09/13/2023 urina lysis panel , auto Unknown Analyte Negati ve Not Available [facility] [address] [facility], [place], [address], 09/13/2023 10:56:35 09/13/20 23 09/13/2023 urina lysis panel , auto Unknown Analyte Negati ve Not Available [facility] [address] [facility], [place], [address], 09/13/2023 10:56:35 09/13/20 23 09/13/2023 urina lysis panel , auto Unknown Analyte 250 mg/dl Not Available [facility] [address] [facility], [place], [address], 09/13/2023 10:56:35 09/13/20 23 09/13/2023 urina lysis panel , auto Unknown Analyte Negati ve Not Available [facility] [address] [facility], [place], [address], 09/13/2023 10:56:35 09/13/20 23 09/13/2023 urina lysis panel , auto Unknown Analyte Normal Not Available [facility] [address] [facility], [place], [address], 09/13/2023 10:56:35 09/13/20 23 09/13/2023 urina lysis panel , auto Unknown Analyte Negati ve Not Available [facility] [address] [facility], [place], [address], 09/13/2023 10:56:35 09/13/20 23 09/13/2023 urina lysis panel , auto Unknown Analyte Negati ve Not Available [facility] [address] [facility], [place], [address], 09/13/2023 10:56:35 08/09/20 21 08/09/2021 XR, abdom en, [address] [place] [address] Patien t Name: PERI CARL Patien t : [birth year] Patien t 4 Orderi ng Provid er: KALINA REID EXAM DATE: 2020 EXAM: XR ABDOME N [facility] INFORM ATION: Histor y of urinar y tract stones . IMAGES PROVID ED: [facility] radiog raphic images of the abdome n. COMPAR DANYA: None. FINDIN GS AND IMPRES LEXIE: Sugges tion of 2-4 mm stones bilate rally in the region s of the kidney s. No other urinar y tract stone is seen. No other signif icant abnorm ality. Interp reted By: Pako Omalley MD Electr onical ly Signed By: Pako Omalley MD on 021 4:[address] [facility] [address], [place], [address], 08/12/2021 08:57:29 Result Notes None recorded. 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 From Automated Load;Provi [place]: Sarah Yu;Stat us: Active Not Available [facility] 6 01:09:11 Sensation as if urinary bladder still full 845523028 Active 2014 From Automated Load;Provi [place]: Sarha Yu;Stat us: Active Not Available [facility] 6 01:09:11 Nocturia 385493533 Active 2014 From Automated Load;Provi [place]: Sarah Yu;Stat us: Active Not Available [facility] 6 01:09:11 Kidney stone 85874865 Active 2014 Provider: Sarah Yu;Stat us: Active Not Available [facility] 6 01:09:11 Problem Notes None recorded. Procedures Surgical History Date Name Laterality Status Provider Name and Address Organization Details Recorded Time Cholecystectomy completed LEXUS REID MD [address] [place] [address], [facility] 05/21/2020 16:54:57 Hysterectomy completed LEXUS REID MD [address] [place] [address] 05/21/2020 16:55:31 Imaging Results None recorded. Procedure Notes None recorded. Medical Equipment None Reported. Allergies Allergen ID Allergen Name Allergen Category Reaction Reaction Severity Criticality Documentation Date Start Date Code Code System Note Provider Name and Address Organization Details Recorded Time 915822 codeine medicatio n Not available Not available Not available 08/31/20162010 2670 RxNorm Comme nt: Creat ed By: Susan Piña atejay Date: 2010 4:08: 37 PM; Not Available [facility] 6 11:23:29 Medications Name Sig Start Date Stop Date Status Note LastModified by Organization Details LastModified Time cyclobenz aprine 10 mg tablet active Not Available Not Available No t Available amoxicill in 500 mg capsule TAKE 1 CAPSULE BY MOUTH EVERY 8 HOURS FOR 7 DAYS active Not Available Not Available No t Available metformin 500 mg tablet TAKE 1 TABLET BY MOUTH ONCE DAILY active Not Available Not Available No t Available promethaz ine-DM 6.25 mg-15 mg/5 mL oral syrup TAKE 5 ML BY MOUTH EVERY 6 HOURS NEEDED active Not Available Not Available No t Available venlafaxi ne ER 75 mg capsule,e xtended release 24 hr TAKE 1 CAPSULE BY MOUTH ONCE DAILY active Not Available Not Available No t Available fluconazo le 150 mg tablet TAKE 1 TABLET BY MOUTH ONCE DAILY active Not Available Not Available No t Available benzonata te 200 mg capsule TAKE 1 CAPSULE BY MOUTH THREE TIMES DAILY NEEDED active Not Available Not Available No t Available cephalexi n 250 mg capsule 09/04 completed Not Available Not Available Not Available famotidin e 40 mg tablet 05/21 completed Not Available Not Available Not Available prednison e 20 mg tablet TAKE 1 TABLET BY MOUTH TWICE DAILY active Pt disconti nued Not Available Not Available Not Available pimecroli mus 1 % topical cream APPLY A SMALL AMOUNT TO AFFECTED AREA TWICE DAILY active Not Available Not Available No t Available clobetaso l 0.05 % topical cream APPLY CREAM TOPICALL Y TWICE DAILY active Not Available Not Available No t Available venlafaxi ne ER 150 mg capsule,e xtended release 24 hr TAKE 1 CAPSULE BY MOUTH ONCE DAILY active Not Available Not Available No t Available ciproflox acin 250 mg tablet TAKE 1 TABLET BY MOUTH EVERY 12 HOURS active Pt disconti nued Not Available Not Available Not Available sulfameth oxazole 800 mg-trimet hoprim 160 mg tablet TAKE 1 TABLET BY MOUTH EVERY 12 HOURS FOR 7 DAYS 09/04 completed Not Available Not Available Not Available omeprazol e 40 mg capsule,d elayed release active Not Available Not Available Not Available simvastat in 40 mg tablet Daily 05/21 completed Frequenc y: daily;Me dication Descript ion: simvasta tin; Dosage:1 ; Route:or al; refills: 0 Not Available Not Available Not Available acyclovir 800 mg tablet 05/21 completed Not Available Not Available Not Available levothyro xine 100 mcg tablet 05/21 completed Medicati on Descript ion: levothyr oxine; refills: 0 Not Available Not Available Not Available oxycodone -acetamin ophen 5 mg-325 mg tablet TAKE 1 TABLET BY MOUTH EVERY 6 HOURS NEEDED FOR MODERATE TO SEVERE PAIN active Pt disconti nued Not Available Not Available Not Available famotidin e 20 mg tablet TAKE 1 TABLET BY MOUTH TWICE DAILY active Not Available Not Available No t Available tamsulosi n 0.4 mg capsule TAKE 1 CAPSULE BY MOUTH AT BEDTIME 09/04 completed Not Available Not Available Not Available OneTouch Ultra Test strips USE 1 STRIP TO CHECK GLUCOSE ONCE DAILY DIRECTED active Not Available Not Available No t Available cephalexi n 500 mg capsule TAKE 1 CAPSULE BY MOUTH TWICE DAILY FOR 7 DAYS active Not Available Not Available No t Available buspirone 10 mg tablet TAKE 1 TABLET BY MOUTH ONCE DAILY active Not Available Not Available No t Available Synthroid 88 mcg tablet TAKE 1 TABLET BY MOUTH ONCE DAILY active Not Available Not Available No t Available losartan 25 mg tablet TAKE 1 TABLET BY MOUTH ONCE DAILY active Not Available Not Available No t Available indometha vaibhav 25 mg capsule TAKE 1 CAPSULE BY MOUTH THREE TIMES DAILY NEEDED FOR MODERATE PAIN active Not Available Not Available No t Available omeprazol e 20 mg capsule,d elayed release TAKE 1 CAPSULE BY MOUTH IN THE MORNING active Not Available Not Available No t Available raloxifen e 60 mg tablet TAKE 1 TABLET BY MOUTH ONCE DAILY 05/21 completed Not Available Not Available Not Available clobetaso l 0.05 % topical ointment APPLY 1 GRAM A THIN LAYER TO THE AFFECTED AREA(S) FROM VULVA TO ANUS TOPICALY TWICE A DAY FOR 2-4 WEEKS, THEN 3 TIMES WEEKLY FOR MAINTENA NCE THEREAFT ER active Not Available Not Available No t Available Aspir-81 mg tablet,de layed release Daily active Frequenc y: daily;Me dication Descript ion: aspirin; Dosage:1 ; Route:or al; refills: 0 Not Available Not Available Not Available hydroxych loroquine 200 mg tablet TAKE 1 TABLET BY MOUTH ONCE DAILY active Not Available Not Available No t Available cefuroxim e axetil 500 mg tablet TAKE 1 TABLET BY MOUTH EVERY 12 HOURS FOR 7 DAYS 09/04 completed Not Available Not Available Not Available estradiol 0.01% (0.1 mg/gram) vaginal cream INSERT 1 GRAM INTO THE VAGINA TWICE A WEEK active Not Available Not Available No t Available levofloxa vaibhav 750 mg tablet TAKE 1 TABLET BY MOUTH ONCE DAILY FOR 7 DAYS active Not Available Not Available No t Available methylpre dnisolone 4 mg tablets in a dose pack active Pt disconti nued Not Available Not Available Not Available albuterol sulfate HFA 90 mcg/actua tion aerosol inhaler INHALE 2 PUFFS BY MOUTH EVERY 4 HOURS NEEDED active Not Available Not Available No t Available ondansetr on 4 mg disintegr ating tablet active Not Available Not Available Not Available hydroxyzi ne pamoate 25 mg capsule TAKE 1 CAPSULE BY MOUTH EVERY 6 HOURS active Not Available Not Available No t Available neomycin 3.5 mg/g-poly myxin B 10,000 unit/g-de xameth 0.1 % eye oint APPLY 1 4 INCH STRIP TO AFFECTED EYELIDS TWICE A DAY FOR 7 DAYS 05/21 completed Not Available Not Available Not Available Restasis 0.05 % eye drops in a dropperet te INSTILL 1 DROP INTO EACH EYE TWICE DAILY active Not Available Not Available No t Available Premarin 0.625 mg/gram vaginal cream INSERT 0.25 GRAMS VAGINALL Y DIRECTED NIGHTLY 2 TO 3 TIMES WEEKLY. active Not Available Not Available No t Available Premarin 0.625 mg tablet Take 1 tablet every day by oral route. active Not Available Not Available No t Available rosuvasta tin 40 mg tablet TAKE 1 TABLET BY MOUTH ONCE DAILY AT BEDTIME active Not Available Not Available No t Available nitrofura ntoin monohydra te/macroc rystals 100 mg capsule TAKE 1 CAPSULE BY MOUTH EVERY 12 HOURS WITH FOOD active Not Available Not Available No t Available solifenac in 10 mg tablet TAKE 1 TABLET BY MOUTH ONCE DAILY active Not Available Not Available No t Available Vesicare 5 mg tablet Daily 05/21 completed Frequenc y: daily;Me dication Descript ion: solifena vaibhav; Dosage:1 ; Route:or al; refills: 11; Quantity :30 tablet Not Available Not Available Not Available meloxicam 05/21 completed Medicati on Descript ion: meloxica m; Route:or al; refills: 0 Not Available Not Available Not Available Suprep Bowel Prep Kit 17.5 gram-3.13 gram-1.6 gram oral solution 05/21 completed Not Available Not Available Not Available Myrbetriq 25 mg tablet,ex tended release TAKE 1 TABLET BY MOUTH ONCE DAILY 09/13 completed Not Available Not Available Not Available Myrbetriq 50 mg tablet,ex tended release TAKE 1 TABLET BY MOUTH ONCE DAILY active Not Available Not Available No t Available Xiidra 5 % eye drops in a dropperet te active Not Available Not Available Not Available OneTouch Ultra Blue Test Strip USE 1 STRIP TO CHECK GLUCOSE ONCE DAILY OR DIRECTED active Not Available Not Available No t Available Paxlovid 300 mg (150 mg x 2)-100 mg tablets in a dose pack TAKE 3 TABLETS TOGETHER (TWO 150 MG NIRMATRE LVIR TABLETS AND ONE 100 MG RITONAVI R TABLET) BY MOUTH TWICE DAILY FOR 5 DAYS. active Not Available Not Available No t Available Vitals Date Recorded Body height Body mass index (BMI) Body weight Provider Name and Address Organization Details Last Updated DateTime 03/11/2024 165.1 cm 28.3 kg/m2 06507.7 g Jessie Rivera [facility] 03/11/2024 10:52:17 Date Recorded Body weight Body mass index (BMI) Body height Provider Name and Address Organization Details Last Updated DateTime 08/09/2021 54057.7 g 28.3 kg/m2 165.1 cm Floresita Ruiz [facility] 08/09/2021 11:00:38 Date Recorded Body height Body mass index (BMI) Body weight Provider Name and Address Organization Details Last Updated DateTime 09/04/2022 165.1 cm 28.3 kg/m2 25142.7 g Floresita Ruiz [facility] 09/04/2022 14:24:45 Date Recorded Body height Body mass index (BMI) Body weight Provider Name and Address Organization Details Last Updated DateTime 09/13/2023 165.1 cm 28.3 kg/m2 34650.7 g Floresita Ruiz [facility] 09/13/2023 10:37:44 Social History Question Answer Notes LastModified by Organizat ion Details LastModified Time Tobacco Smoking Status Never Smoker Floresita Ruiz [facility] 05/21/2020 10:42:09 Marital Status arigg Informatio n not available 05/21/2020 Sex: Unknown Functional Status Question Answer Note LastModified by Organization D etails LastModified Time What is your level of alcohol consumption? None Information not available 05/21/2020 What is your occupation? Retired Information not available 05/21/2020 Mental Status None recorded. Family History Relationship Description Onset Age of this Age Resolved Age Notes LastModified by Organization Details LastModified Time Maternal Grandmother Diabetes mellitus Not available 2019 10:41:37 Maternal Grandfather Diabetes mellitus Not available 2019 10:41:37 Mother Family history of malignant neoplasm Not available 2019 10:41:55 Father Heart disease Not available 2019 10:42:05 Medical History Condition Response Anxiety Disorder Y Diabetes Y Arthritis Y Kidney Stones Y High Cholesterol Y Thyroid Disorder Y Acid Reflux (GERD) Y Depression Y Gynecological HistoryNo gynecological history recorded. Obstetrics History GPAL:G 2 P 1 0 1 0 Type Value Full Term 1 Spontaneous 1 Total 2 Past Encounters Encounter ID Performer Location Encounter Start Date Encounter Closed Date Diagnosis/Indication Diagnosis SNOMED-CT Code Diagnosis ICD10 Code Diagnosis Note [id number] LEXUS REID MD UROLOGY [facility] [address] [place] [address] 05/21/2020 09:20:11 05/21/2020 16:08:23 Kidney stone 83135059 N20.0 [id number] LEXUS REID MD UROLOGY [facility] [address] [place] [address] 06/24/2020 10:00:55 06/25/2020 14:29:27 Kidney stone 09034520 N20.0 Urge incon tinence of urine 15729799 N39.41 [id number] LEXUS REID MD UROLOGY [facility] [address] [place] [address] 08/05/2020 10:27:11 08/05/2020 11:56:27 Urolithiasis 75525300 N20.9 [id number] LEXUS REID MD UROLOGY [facility] [address] [place] [address] 08/09/2021 10:41:38 08/09/2021 12:00:07 Urge incontinence of urine 82503071 N39.41 History of calculus of kidney 540166838 Z87.442 send for KUB today. [id number] LEXUS REID MD UROLOGY [facility] [address] [place] [address] 09/04/2022 14:01:12 09/04/2022 14:56:52 Urge incontinence of urine 71430854 N39.41 DOing well on myrbegron. continue same. [id number] LEXUS REID MD [facility] [place] [address] [place] [address] 09/13/2023 10:29:29 09/13/2023 11:37:47 Urge incontinence of urine 94859979 N39.41 DOing well on myrbegron 50 mg. continue same. 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 continue same. Urolithiasis 20915647 N2 0.9 none of late [id number] CHRISTIANO TORRES MD [place] [address] [place] [address] 04/01/2024 10:56:59 04/01/2024 11:46:56 History of malignant neoplasm of skin 854821637 Z85.828 L90.5 - No evidence of recurrence today - Call with any worrisome lesions or if treated lesions return - Return at regular intervals for skin exam as recommende d Multiple b enign melanocytic nevi 014104138 D22.5 - Benign lesions seen on exam today- SPF 30 or higher broad-spec trum sunscreen recommende d with re-applica tion every 2 hours- Discussed sun protection measures, including wide-brimm ed hat, sun-protec tive clothing, and avoidance of sun during peak hours of 10am-4pm- Instructed to monitor for changes and to call us for appointmen t with any changing or worrisome lesions Seborrheic keratosis 394 970375 L82.1 - Benign overgrowth s of skin- Hereditary Will reassess at next visit.Fup with change or concerns 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 erosive. Looks very painfulNat ure of diagnosis discussed further.Pt sees Nella King for gynecology at .Advise only water, no fragrance, wipes, or soap at this time.Recom mend rx hydroxychl oroquine 200mg tablet 1 PO QD, SE reviewed.W ill need an eye exam within the first 6 months, pt notes having regular 6 month eye exams.Beau mmend rx clobetasol ointment to AA pea-sized amount BID for 2-4 weeks then 3x weekly for maintenanc e.Recommen d rx Diflucan 150mg tablet 1 PO weekly for 4 weeks.Can discuss MTX at fup in 4 months if still not clear.Will review recent labs from PCP.Fup with change or concerns Health Concerns Section Related Observation LastModified by Organization Detai ls LastModified Time None Recorded Concern Status LastModified by Organization Details LastModified Time None Recorded Advance Directives Directive None Recorded Payers Insurance Date Sequence Insurance Name Policy Number Policy Odonnell Covered Member ID Odonnell Member ID Guarantor Name 08/02/2024 2 [place] [id number] Peri Harris [id number] Peri Harris 08/02/2024 1 [place] Peri Harris [id number] Peri Harris Notes Date Note Type Note Provider Name and Address Organization Details Recorded Time 08/09/2021 text/html Peri is a 75 yo female here today for follow up with h/o recurrent UTI and kidney stones. She is doing well. She denies any stone activity. She denies any dysuria or gross hematuria. She complains of urge urinary incontinence She has had Covid vaccine x 2. LEXUS REID MD [facility] [place], [phone], [facility] 08/12/2021 08:35:54 09/04/2022 text/html Peri is a 76 yo female here today for follow up with h/o recurrent UTI and kidney stones. She is doing well. She denies any stone activity. She denies any dysuria or gross hematuria. She did stop her vesicare due to twitching. She is now on Myrbetriq and doing well with it. [place], [phone], [facility] 09/04/2022 16:14:09 09/13/2023 text/html Peri is a 77 yo WF who returns after a year. She denies any stone activity. She denies any dysuria or gross hematuria. She was treated for UTI with cipro about one month ago. That was her only yearly UTI. Her lichen sclerosis et atrophicus has increased and she saw [facility]. She is now on Emulaid and clobetasol. She remains on Myrbetriq 50 mg daily and has about 2 accidents/week. LEXUS REID MD [address] [place] [address], [phone], [facility] 09/13/2023 13:35:49 03/11/2024 text/html Peri is a 78 yo returns after 6 months. She denies any stone activity. She denies any dysuria or gross hematuria. 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 She remains on Myrbetriq 50 mg daily and has about 2 accidents/week. SHe is going to pelvic floor PT in [place] for the past month, which is really helping LEXUS REID MD [address] [place] [address], [phone], [facility] 03/12/2024 07:13:59 04/01/2024 text/html I have a spot on my R hairline I'd like for her to look at.The clobetasol is burning me now. My LS is worse than last year. I've seen 7 doctors for this.FSELast seen 03/2023Hx BCC-R lateral hairlineHx LS-Clobetasol, estradiol. CHRISTIANO TORRES MD [address] [place] [address], [phone], [facility] 04/01/2024 11:58:04 OBGyn Episode No OBEpisode recorded.
--- NOTE | 2025-03-05 15:38 | ED_ITS ---
Discharge Plan Disposition Patient Disposition: Home, Self-Care Prescriptions Prescriptions: No Action clobetasol 0.05 % lotion 1 applic topical HS aspirin [Adult Aspirin Regimen] 81 mg tablet,delayed release (DR/EC) 81 mg PO DAILY omeprazole 20 mg capsule,delayed release(DR/EC) 20 mg PO DAILY venlafaxine 75 mg capsule,extended release 24hr 75 mg PO DAILY cyclosporine [Restasis] 0.05 % Dropperette 1 drp Eye-Both BID coenzyme Q10 100 mg Tablet 100 mg PO DAILY mirabegron [Myrbetriq] 50 mg tablet extended release 24 hr 50 mg PO DAILY Patient Comments: TAKE 1 TABLET BY MOUTH ONCE DAILY venlafaxine 150 MG capsule,extended release 24hr 150 mg PO HS levothyroxine 88 MCG tablet 88 mcg PO DAILY rosuvastatin 40 MG tablet 40 mg PO QID metformin 500 mg tablet 500 mg PO DAILY buspirone 10 mg tablet 10 mg PO DAILY losartan 25 mg tablet 25 mg PO DAILY (DME) [place] [facility] [place] .Route Qty: 1 0RF Rx Instructions: As directed Referrals Follow up/Referrals: Dale Prescott MD [Primary Care Provider, Medical] - See instructions Activity Restrictions/Add. Instructions Additional Instructions/Restrictions: He was seen today in emergency room with low back pain. Can resume normal activity as tolerated. Return to the emergency room as needed or if her condition worsens. Would recommend continuing to alternate with pain management with [id number] Tylenol and Motrin Clinical Impressions Clinical Impression: Lumbar back pain Instructions Patient Instructions: DI for Low Back Pain Print Language Print Language: Romanian Discharge ED Provider: Micheal Bender General Adult HPI <Teressa Austin APRN - Last Filed: 03/05/25 17:25> General Chief complaint: Back Pain/Injury Stated complaint: lower back pain denies injury Time Seen by Provider: 03/05/25 15:30 History of Present Illness HPI narrative: Vandana Harris is a 79-year-old female past medical history significant for anxiety, depression, LILIAM who presents emergency room today with complaints of low back pain. Ms. Chaparro states that her back pain started about a month ago. Sometimes radiates down into her thighs. Does have midline lumbar spine pain and tenderness left paraspinal muscles. Patient denies any trauma, has not fallen or injured her back. States that when she sits down, her back pain subsi dionicio completely. While she is sitting, she reports no complaint of pain currently. Reports that she went to her primary care physician 2 weeks ago for the same complaint, had a urinalysis done but was negative for UTI. Patient reports some increase in weakness the longer she is up and moving around in her legs. States that her legs began to feel very heavy and like she is going to fall. No radicular symptoms at this time. Patient has no dysuria or hematuria noted. No other complaints at this time. Please note that the above description of symptoms, and this electronic medical record under categorization of recalled from ER triage doctor by RN are reflective of an initial nursing assessment, however, is not reflective of my full history and physical exam that was personally taken and clarified. Consequentially, this proceeding description of symptoms, which may include the patient's cauterized chief complaint in the EMR, do not reflect my personal clinical impression, and the ultimate description of the history of present illness stated complaints should be deferred to this section of this note. Unless stated otherwise were congruent with the section of the note, additional signs, symptoms, or incongruence can be interpreted as in or accurate with my clinical impression. Related Data Home Medications ?Medication ?Instructions ?Recorded ?Confirmed levothyroxine 88 mcg tablet 88 mcg PO DAILY HYPOTHYROI DISM 06/12/20 03/05/25 rosuvastatin 40 mg tablet 40 mg PO QID HIGH CHOLESTERO L 06/12/20 03/05/25 venlafaxine 150 mg 150 mg PO HS Depression 02/2403/05/25 capsule,extended release 24 hr aspirin 81 mg tablet,delayed 81 mg PO DAILY 01/25/23 0 03/05/25 release (Adult Aspirin Regimen) buspirone 10 mg tablet 10 mg PO DAILY COLON PAIN 03/05/25 losartan 25 mg tablet 25 mg PO DAILY Hypertension 01/25/23 03/05/25 metformin 500 mg tablet 500 mg PO DAILY DM II 03/05/25 omeprazole 20 mg capsule,delayed 20 mg PO DAILY 03/05/25 release venlafaxine 75 mg capsule,extended 75 mg PO DAILY 01/0703/05/25 release 24 hr clobetasol 0.05 % lotion 1 applic topical HS 05/24/23 03/05/25 coenzyme Q10 100 mg tablet 100 mg PO DAILY 03/05/25 cyclosporine 0.05 % eye drops in a 1 drp Eye-Both BID 03/05/25 03/05/25 dropperette (Restasis) mirabegron 50 mg tablet,extended 50 mg PO DAILY 03/05/25 release 24 hr (Myrbetriq) Previous Rx's ?Medication ?Instructions ?Recorded walker #1 ea 08/02/24 Allergies Allergy/AdvReac Type Severity Reaction Status Date / Time codeine (CODEINE) Allergy Unknown Unknown Verified 03/05/25 15:51 allergy reaction acetaminophen (From [facility]) Allergy Unknown Verified 11/03/24 13:42 allergy reaction hydrocodone (From [facility]) Allergy Unknown Verified 03/05/25 15:51 allergy reaction Sulfa (Sulfonamide Allergy Unknown Verified 03/05/25 15:51 Antibiotics) allergy reaction sulfamethoxazole (From Allergy Unknown Verified 03/05/25 15:51 Bactrim) allergy reaction trimethoprim (From Bactrim) Allergy Unknown Verified 03/05/25 15:51 allergy reaction PFSH <Teressa Austin, TECHNICAL OPERATIONS VICE PRESIDENT - Last Filed: 03/05/25 17:25> [facility] Disclaimer: The information contained in this section may have been updated after the p atient was seen, as this information can be updated by other users. Social History Smoking Status: Never smoker alcohol intake: never substance use type: denies use current occupational status: retired Travel in the last 8 weeks?: None household members: spouse housing: house current occupational exposures/hazards: No caffeine: No Have you lived/traveled outside US in past 30 days?: No Contact w/someone who lives/traveled outside US past 30 days?: No Exposure to someone with infectious disease in past 14 days?: No Do you have a fever (greater than 100.4 F or 38 C)?: No Have you tested positive for COVID-19?: No Exposed to someone with COVID-19 in past 14 days?: No Do you have a sore throat?: No Do you have a cough?: No Do you have any weakness?: No Do you have any diarrhea?: No Are you experiencing any unusual bleeding?: No Do you have any muscle aches/pain?: No Do you have any abdominal pain?: No Are you experiencing loss of taste or smell?: No Other Medical History Have you received the Flu Vaccine for this season: Yes Have you received the Pneumonia Vaccine: Yes <Teressa LINDA AustinN - Last Filed: 03/05/25 17:25> ROS Obtained: Yes Systems reviewed as appropriate & no additional complaints except as documented Physical Exam <Teressa Austin TECHNICAL OPERATIONS VICE PRESIDENT - Last Filed: 03/05/25 17:25> General General appearance: alert and in no apparent distress Head Head exam: atraumatic and normocephalic Eye Eye exam: Present PERRL and EOMI Chest Chest inspection: Present symmetric chest wall rise Respiratory Respiratory exam: Present normal lung sounds bilaterally Cardiovascular Cardiovascular exam: Present regular rate and normal rhythm Abdominal Exam Abdominal exam: Present soft and normal bowel sounds; Absent tenderness Extremities Exam Extremities exam: Present full ROM Neurological Exam Neurological exam: Present alert, oriented X3 and other (5/5 strength bilateral lower extremities, 2+ DTRs bilateral lower extremities, negative clonus) Skin Skin exam: Present warm, dry and intact Medical Decision Making <Teressa Austin TECHNICAL OPERATIONS VICE PRESIDENT - Last Filed: 03/05/25 17:25> Medical Records Screening: Per USPSTF and CDC recommendations, given the prevalence of disease in our region, it is our hospital?s policy to screen for HIV and viral Hepatitis for all patients aged 18 and over and those with ongoing risk factors. Beny Inquiry Pt receiving controlled substance: No Vital Signs: 03/05/25 15:44 03/05/25 17:33 Temperature 97.8 F 98 F Temperature Source Oral Pulse Rate 91 H Pulse Rate [Left Radial] 91 H Respiratory Rate 16 16 Blood Pressure 155/69 H Blood Pressure [Left Arm] 154/61 H Blood Pressure Mean [Left Arm] 92 Blood Pressure Source [Left Arm] Automatic Cuff Blood Pressure Position [Left Arm] Sitting 02 Sat by Pulse Oximetry 95 Oxygen Delivery Method Room Air Orders (Tests/Meds): ORDERS Category Date Time Status CT lumbar spine wo con Stat Cat Scan 03/05/25 15:37 Completed Medical Decision Narrative: In summary patient is an 79-year-old female who presents emergency department for evaluation of low back pain with occasional radiation down into her legs. Ms. Jhaveri states that she has had this back pain for about a month. Occasionally radiates into her thighs. Does not radiate down into her lower legs or feet. Denies any numbness, tingling, saddle paresthesias. No red flags noted. Was checked 2 weeks ago for a UTI which was negative. Patient is hemodynamically stable upon arrival, afebrile. Unremarkable physical exam. Differential diagnosis includes kidney stone, spinal abscess, herniated disc. Initial workup will be conducted with CT of the lumbar spine without contrast. Initial interventions include multimodal pain management which was offered, patient politely declined, states that she has been using Tylenol at home. Also reports no pain while seated. Initial workup, CT of the L-spine showed moderate to severe left neuroforaminal narrowing at the L5-S1, canal stenosis present at L3-4 and L4-5. Upon repeat evaluation, patient continued be pain-free and is able to ambulate without issue. Given this patient appropriate for discharge at this time. Did offer patient a prescription for muscle relaxers and/or lidocaine patches. She politely Mittal both of these. States she will continue to alternate with Motrin and Tylenol while at home. She can follow-up with her primary care physician at her discretion. <Micheal Bender MD - Last Filed: 03/05/25 23:30> Vital Signs: 03/05/25 15:44 03/05/25 17:33 Temperature 97.8 F 98 F Temperature Source Oral Pulse Rate 91 H Pulse Rate [Left Radial] 91 H Respiratory Rate 16 16 Blood Pressure 155/69 H Blood Pressure [Left Arm] 154/61 H Blood Pressure Mean [Left Arm] 92 Blood Pressure Source [Left Arm] Automatic Cuff Blood Pressure Position [Left Arm] Sitting 02 Sat by Pulse Oximetry 95 Oxygen Delivery Method Room Air Orders (Tests/Meds): ORDERS Category Date Time Status CT lumbar spine wo con Stat Cat Scan 03/05/25 15:37 Completed Medical Decision Narrative: In summary patient is an 79-year-old female who presents emergency department for evaluation of low back pain with occasional radiation down into her legs. Ms. Jhaveri states that she has had this back pain for about a month. Occasionally radiates into her thighs. Does not radiate down into her lower legs or feet. Denies any numbness, tingling, saddle paresthesias. No red flags noted. Was checked 2 weeks ago for a UTI which was negative. Patient is hemodynamically stable upon arrival, afebrile. Unremarkable physical exam. Differential diagnosis includes kidney stone, spinal abscess, herniated disc. Initial workup will be conducted with CT of the lumbar spine without contrast. Initial interventions include multimodal pain management which was offered, patient politely declined, states that she has been using Tylenol at home. Also reports no pain while seated. Initial workup, CT of the L-spine showed moderate to severe left neuroforaminal narrowing at the L5-S1, canal stenosis present at L3-4 and L4-5. Upon repeat evaluation, patient continued be pain-free and is able to ambulate without issue. Given this patient appropriate for discharge at this time. Did offer patient a prescription for muscle relaxers and/or lidocaine patches. She politely Mittal both of these. States she will continue to alternate with Motrin and Tylenol while at home. She can follow-up with her primary care physician at her discretion. KANDY attestation I was consulted by the KANDY, and we discussed the complexity of problems being addressed. I approved the treatment and management plan for this patient's care in the emergency department, thus performing a substantial portion of the medical decision making. I also personally examined the patient at bedside. She had midline tenderness of her lumbar spine. Normal neurological exam. CT of the lumbar spine was independently interpreted by me revealing of no acute pathology, chronic degenerative changes. No red flag symptoms for cord compression syndrome. Patient was ultimately discharged with plan for PCP follow-up. Micheal Bender MD Critical Care <Teressa Austin APRN - Last Filed: 03/05/25 17:25> Critical Care Time Critical Care Time: No
[2025-03-05 15:44] VITALS: BP 154/61; PULSE 91; RESP 16; TEMP 36.6; O2SAT 95; BMI 27.1
[2025-03-05 17:33] VITALS: BP 155/69; PULSE 91; RESP 16; TEMP 36.6; O2SAT 97
== END 2025-03-05 17:34 | disposition home or self-care (01) ==
PROVIDERS: Emergency Provider Student in an Organized Health Care Education/Training Program; PCP Family Medicine
DX: M54.50 Low back pain, unspecified (principal); G47.33 Obstructive sleep apnea (adult) (pediatric); F32.9 Major depressive disorder, single episode, unspecified
CPT/HCPCS: 72131; 99284

== ENCOUNTER 2025-04-06 13:21 | Outpatient (CLI) | payer MEDICARE, BC, SELFPAY ==
--- OUTSIDE RECORDS SUMMARY | 2025-03-10 05:30 | XMS_ITS ---
Author Organization [facility] Address [address] [facility] [address] [place] [phone] Care Team Providers Care Telehealth Nurse Educator Name Role Phone Dale Prescott Primary Care Provider [phone] Allergies Allergen (clinical drug ingredient) Drug/Non Drug [...] region without neurogenic claudication (M48.061) Referral [facility] Referring Provider First Name Dale Referring Provider Last Name Genie Referring Provider Speciality Family Pra ctice Referred Organization [facility] Rehab./PT Referred Provider Physical Therapy, . Referred Address [place],[address],[place] Referred Provider Specialty Physical The rapist General Notes Charity Vargas 2024 10:22:47 AM > faxed to [facility] PT Referral Priority Routine Diagnosis 1 Lumbago [...] Vargas 2024 10:23:17 AM > faxed to [facility] Pain Management, Charity Vargas 03/18/2025 09:44:28 AM > resent fax Referral Priority Routine REASON FOR VISIT f/u [facility] ER visit Medications Medication SIG (Take, Route, [...] Status W/U Status Risk Notes Problem Sciatica (02105398) Lumbago with sciatica, right side (M54.41) Active confirmed Problem Sciatica (86892757) Lumbago with sciatica, left side (M54.42) Active confirmed Problem Arthropathy of lumbar facet joint (814245630) Lumbar facet arthropathy (M47.816) Active confirmed Problem Spinal stenosis of lumbar region (05029549) Spinal stenosis of lumbar region without neurogenic claudication (M48.061) Active confirmed Vital Signs Blood pressure systolic 136 mm Hg 03/10/20 25 Blood pressure diastolic 70 mm Hg 025 Heart Rate 90 /min 03/10/2025 Height 65 in 03/10/2025 Weight 164.8 lbs 03/10/2025 BMI 27.42 kg/m2 03/10/2025 Encounters Encounter Location Date Provider Diagnosis [facility] [address], [place] [id number] 03/10/2025 Dale [place] Lumbago with sciatic a, right side M54.41 [...] 03/10/2025, . Physic al Therapy, [place], [address] 03/10/2025 03/10/2025, [facility] Next Appt Details Follow Up: via phone to repo rt progress, Reason: Provider Name:Dale Mcdowell ry, 08/18/2025 09:30:00 AM, [address], [address], [place], [id number], Progress Notes * SHANNON HARRISDOB: 8 (79 yo F)Acc No.[id number]:03/10/2025 Patient: SHANNON BUNN Provider: Ana Prescott M.D. :1945 A ge:79 Y S ex:Female Date:03/10/2025 Address:[address] [place] [address] [id number] Subjective: * Chief Complaints: * 1 . f/u [facility] ER visit. * HPI: H PI: 79 year old female presents with c/o Here for follow up on:?03/05/2025 [facility] er visit. Pt went to er for [...] D Deficiency, Lichen Sclerosis - followed by [employer] at [facility], Dx: 12/2018, Renal Artery Stenosis, right, [...] Forehead 03/13/2019, Colonoscopy and Endoscope- Dr. Bueno, [facility] 05/10/2020, Lipotripsy for Kidney Stones- [facility] 06/11/2020. * Hospitalization/Major Diagno stic Procedure: F all - LT Rotator Cuff Tear , Kidney Stone- [facility] ER 09/29/2018. * Family History: F ather: [...] neurogenic claudication - M48.061 6 . B DE 27.0-27.9,adult - Z68.27 Plan: * Treatment: 2. [...] e/m visit add on, 1036F TOBACCO NON-USER, G5183 BP SCR PRFRM RCMDD DEFIND SCR INTVL, G8752 MOST RECENT SYSTOLIC BP < 140MM HG, G8754 MOST RECENT DIASTOLIC BP < 90MM HG * Follow Up: v ia phone to report progress * Images: Billing Information: * Visit Code: 54173 Office Visit, Est Pt., Level 4. * Procedure Codes: G2211 Complex e/m visit add on. 1036F TOBACCO NON-USER. G8783 BP SCR PRFRM RCMDD DEFIND SCR INTVL. G8752 MOST RECENT SYSTOLIC BP < 140MM HG. G8754 MOST RECENT DIASTOLIC BP < 90MM HG. * Electronic signature of Rocio Prescott MD on 04/06/2025 at 01:24 PM EDT Sign off status: Pending * Provider: Ana Prescott M.D. Date: 03/10/2025 Generated for Radha mohan/Delbert/Sissyitting on: 04/06/2025 01:24 PM EDT History and Physical Notes * HPI (History of Present Illness) Category Sub-Category Detail Notes Category Not es HPI Here for follow up on: [facility] er visit. Pt went to er for [...]
--- OUTSIDE RECORDS SUMMARY | 2025-03-16 12:45 | XMS_ITS ---
Author Organization [facility] Address [address] [facility] [address] [place] [id number] Care Team Providers Care Blower Blast Furnace Name Role Phone Genie Dale Primary Care Provider Allergies Allergen (clinical drug ingredient) Drug/Non Drug Allergy documented on EMR Reaction Allergy Type Onset Date Status codeine Codeine Unknown Drug Allergy Active Substance with sulfonamide structure and antibacterial mechanism of action (substance) Sulfa Antibiotics Unknown Drug Allergy Active Reason For Referral Reason [facility] Neuro logy, No MD pref. Diagnosis 1 Frequent falls (R29. 6) Diagnosis 2 Intention tremor (G2 5.2) Diagnosis 3 Memory loss (R41.3) [facility] Referring Provider First Name Dale Referring Provider Last Name Genie Referring Provider Speciality Family [facility] ctice Referred Provider Specialty Neurology General Notes [...] W/U Status Risk Notes Problem Memory loss (R41.3) Active confirmed Problem Intention tremor (27995032) Intention tremor (G25.2) Active confirmed Problem Recurrent falls (794762515) Frequent falls (R29.6) Active confirmed Vital Signs Blood pressure systolic 140 mm Hg 03/16/20 25 Blood pressure diastolic 70 mm Hg 025 Heart Rate 90 /min 03/16/2025 Height 65 in 03/16/2025 Weight 165 lbs 03/16/2025 BMI 27.45 kg/m2 03/16/2025 Encounters Encounter Location Date Provider Diagnosis [facility] [address] [facility] [address] [place], [place] [id number] 03/16/2025 Dale [place] Memory loss R41.3 ; Intention tremor G25.2 [...] 03/16/2025 Referrals Referral Date Details 03/16/2025 03/16/2025, [facility] Neurology, No MD pref. Next Appt Details Follow Up: via phone to repo rt progress, Reason: Provider Name:Dale Mcdowell ry, 08/18/2025 09:30:00 AM, [address], [address] , [place], [place], [id number], Progress Notes * MARIA VICTORIASHANNON CARLDOB: 8 (79 yo F)Acc No.[id number]:03/16/2025 Progress Notes Patient: SHANNON BUNN Provider: Ana Prescott M.D. :1945 A ge:79 Y S ex:Female Date:03/16/2025 Address:[address] [place] [address] [id number] Subjective: * Chief Complaints: * 1 . 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 Bueno, [facility] 05/10/2020, Lipotripsy for Kidney Stones- [facility] 06/11/2020. * Hospitalization/Major Diagno stic Procedure: F all - LT Rotator Cuff Tear , Kidney Stone- [facility] ER 09/29/2018. * Family History: [...] not specified - K21.9 5 . B UT 27.0-27.9,adult - Z68.27 ? Plan: * Treatment: 2. I ntention tremor Referral To:Neurology Reason:[facility] Neurology, No MD pref. 3. F requent falls Referral To:Neurology Reason:[facility] Neurology, No MD pref. 4. G [...] * Images: Billing Information: * Visit Code: 89702 Office Visit, Est Pt., Level 4. * Procedure Codes: G2211 Complex e/m visit add on. 1036F TOBACCO NON-USER. G8420 BMI<30 AND >=22 CALC & DOCU. * Electronic signature of Rocio Prescott MD on 04/06/2025 at 01:25 PM EDT Sign off status: Pending * Provider: Ana Prescott M.D. Date: 0 03/16/2025 Generated for Radha mohan/Delbert/Sissyitting on: 04/06/2025 01:25 PM EDT History and Physical Notes * [...] Referred Provider Not es 03/16/2025 Dale Prescott [facility] Neurology, No MD pref.
--- OUTSIDE RECORDS SUMMARY | 2025-03-23 07:31 | XMS_ITS ---
Author Organization [facility] Address [address] [place] [address] [address] [place] [id number] Care Team Providers Care Door Slinger Name Role Phone Dale Prescott Primary Care Provider [phone] REASON FOR VISIT due bone density Encounters Encounter Location Date Provider Diagnosis [facility] [address] [place] [address] [address] [place] [id number] 03/23/2025 Dale Prescott Screening for osteoporosis Z13.820 Assessments Encounter Date Diagnosis (ICD Code) Assessment Notes Treatment Notes Treatment Clinical Notes Section Notes 03/23/2025 Screening for osteoporosis (ICD-10 - Z13.820) Plan Of Treatment Pending Test Test Name Order Date Bone density 03/23/2025 Next Appt Details Provider Name:Dale Mcdowell ry, 08/18/2025 09:30:00 AM, [address], [facility] [address], [place], [id number], Progress Notes * EDGAR SHANNONDOB: 8 (79 yo F)Acc No.[id number]:03/23/2025 Patient: SHANNON BUNN :1945 A ge:79 Y S ex:Female Address:[address] [place] [address] , [place], [phone] Subjective: * Chief Complaints: * D ue bone density * Medical History: * Surgical History: * Hospitalization/Major Diagno stic Procedure: * Medications: Objective: * Vitals: * Physical Examination: Assessment: * Assessment: 1. S creening for osteoporosis - Z13.820 (Primary) Plan: * Treatment: * Procedure Codes: * true * Date: Generated for Radha mohan/Delbert/Messi on: 0 04/06/2025 01:25 PM EDT
--- OUTSIDE RECORDS SUMMARY | 2025-04-06 13:24 | XMS_ITS | Clinical Summary ---
Author Organization [facility] Address [address] [place] [address] Care Team Providers Care Spectroscopist Name Role Phone Manny Damico MD Primary Care Provider [phone] Allergies Active Allergy Reactions Criticality Noted Date Comments Acetaminophen Rash Low 05/10/2020 Codeine Dizziness Medium 05/10/2020 Passed out Hydrocodone Rash Low 05/10/2020 Sulfa Drugs Rash Low 04/03/2022 Medications Synthroid 88 MCG tablet Take 1 tablet (88 mcg) by mouth 1 (one) time each day. 3 Active venlafaxine XR (Effexor-XR) 150 MG 24 hr capsule Take 1 capsule (150 mg) by mouth 1 (one) time each day. Active venlafaxine XR (Effexor-XR) 75 MG 24 hr capsule Take 1 capsule (75 mg) by mouth 1 (one) time each day. 3 Active metFORMIN (Glucophage) 500 MG tablet Take 1 tablet (500 mg) by mouth 2 (two) times a day with meals. 3 Active omeprazole (PriLOSEC) [address] capsule TAKE 1 CAPSULE BY MOUTH IN THE MORNING FOR 90 DAYS 3 Active pimecrolimus (Elidel) 1 % cream APPLY A SMALL AMOUNT TO AFFECTED AREA TWICE DAILY 3 Active rosuvastatin (Crestor) 40 MG tablet 3 Active losartan (Cozaar) 25 MG tablet Take 1 tablet (25 mg) by mouth 1 (one) time each day. 3 Active OneTouch Ultra test strip USE 1 STRIP TO CHECK GLUCOSE ONCE DAILY OR DIRECTED 3 Active Restasis 0.05 % ophthalmic emulsion Administer 1 drop into both eyes 2 (two) times a day. 3 Active ASPIRIN 81 PO Aspir-81 mg tablet,delayed release Daily Active coenzyme Q-10 100 MG capsule Take by mouth. Acti ve estradiol (Estrace) 0.1 MG/GM vaginal creamIndications: Vaginal atrophy Insert 1 g into the vagina 2 (two) times a week. 42.5 g 2 3 Active clobetasol (Temovate) 0.05 % ointmentIndicatio ns:Lichen sclerosus et atrophicus Apply a thin layer to the affected area every other night four weeks. Then twice weekly for four weeks. Then twice weekly as needed. 30 g 2 3 Active mirabegron ER (Myrbetriq) 50 MG tabletIndications :Urinary urgency,Urge incontinence Take 1 tablet by mouth once daily 90 tablet 4 Active Active Problems No known active problems Social History Tobacco Use Types Packs/Day Years Used Date Smoking Tobacco: Never Smokeless Tobacco: Never Tobacco Cessation:Counseling Given: Not Answered Comments No Sex and Gender Information Value Date Recorded Sex Assigned at Not on file Legal Sex Female 8:45 PM EDT Gender Identity Not on file Sexual Orientation Not on file Last Filed Vital Signs Vital Sign Reading Time Taken Comments Blood Pressure 142/83 08/16/2023 11:38 AM EST 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 Pulse 86 08/16/2023 11:38 AM EST Temperature 36.6 C (97.8 F) 08/16/2023 11:38 AM EST Respiratory Rate 15 08/16/2023 11:3 8 AM EST Oxygen Saturation 95% 08/16/2023 11: 38 AM EST Inhaled Oxygen Concentration - - Weight 76.9 kg (169 lb 8.5 oz) 08/16/2023 11:38 AM EST Height 165.1 cm (5' 5 ) 07/18/2023 11:4 1 AM EDT Body Mass Index 28.21 07/18/2023 11:41 AM EDT Plan of Treatment Health Maintenance Due Date Last Done Comments [facility]-Bone Density Scan 1945 [facility]-Depression Screening 1945 [facility]-Hepatitis C Screening 1945 [facility]-Medicare Annual Wellness (AWV) 1945 [facility]-Infant/Child/Adol SDOH Screenings 1945 [facility]-PXHSA-45 Vaccine (#1) 1952 [facility]- SDOH Screenings 1965 [facility]-Adult SDOH Screenings 1965 [facility]-DTaP,Tdap,and Td Vaccines (1 - Tdap) 1966 [facility]-Zoster Vaccines (1 of 2) 1997 [facility]-RSV Vaccine: 60+ Years or (1 - 1-dose 75+ series) 2022 [facility]-Influenza Vaccine (Season Ended) 2025 06/19/2022, 08/22/2021, 07/03/2019, Additional history exists [facility]-Pneumococcal Vaccine: 50+ Years Completed 07/06/2023, 07/03/2019, 06/25/2018 [facility]-Obesity Intervention Completed 08/16/2023, 07/08 HPV Vaccines Aged Out No longer eligi ble based on patient's age to complete this topic [facility]-HIB Vaccines Aged Out No longer e ligible based on patient's age to complete this topic [facility]-Hepatitis A Vaccines Aged Out No longer eligible based on patient's age to complete this topic [facility]-IPV Vaccines Aged Out No longer e ligible based on patient's age to complete this topic [facility]-Rotavirus Vaccines Aged Out No lo nger eligible based on patient's age to complete this topic Insurance MEDICARE [facility] Care Teams Spectroscopist Relationship Specialty Start Date End Date Manny Damico MD [address] [place] [place] [address] PCP - General 02/18/21
--- OUTSIDE RECORDS SUMMARY | 2025-04-06 13:24 | XMS_ITS | Encounter Summary ---
Author Organization [facility] Address [address] [place] [address] Care Team Providers Care Recreation Teacher Name Role Phone Manny Damico MD Primary Care Provider [phone] Encounter Details Date Type Department Care Team (Late st Contact Info) Description 01/31/2023 Community [facility] [address] [place] [address] Kecia Braga MD [address] [facility] [address] [place] [phone] Obstructive sleep apnea (adult) (pediatric) (Primary Dx); Obstructive sleep apnea syndrome Social History Tobacco Use Types Packs/Day Years Used Date Smoking Tobacco: Never Assessed Comments Unknown Sex and Gender Information Value Date Recorded Sex Assigned at Not on file Legal Sex Female 8:45 PM EDT Gender Identity Not on file Sexual Orientation Not on file documented as of this encounter Plan of Treatment Not on file documented as of this encounter Visit Diagnoses Diagnosis Obstructive sleep apnea (adult) (pediatric)- Primary Obstructive sleep apnea syndrome Obstructive sleep apnea (adult) (pediatric) documented in this encounter Care Teams Recreation Teacher Relationship Specialty Start Date End Date Manny Damico MD [address] [place] [address] PCP - General 02/18/21 documented as of this encounter
--- OUTSIDE RECORDS SUMMARY | 2025-04-06 13:24 | XMS_ITS | Clinical Summary ---
Author Organization [employer] ([place], [place], [place], [place]) Address [address] [place] [address] Care Team Providers Care Lumber Piler Operator Name Role Phone Unavailable Primary Care Provider Unavailabl e Social History Tobacco Use Types Packs/Day Years Used Date Smoking Tobacco: Never Assessed Comments Unknown Sex and Gender Information Value Date Recorded Sex Assigned at Female 04/04/2022 6:10 PM CDT Legal Sex Female 6:10 PM CDT Gender Identity Female 04/04/2022 6:10 PM CDT Sexual Orientation Not on file Plan of Treatment Not on file
--- OUTSIDE RECORDS SUMMARY | 2025-04-06 13:25 | XMS_ITS | Patient Health Record ---
[facility] Address [address] [facility] [address] [place] [id number] Care Team Providers Care Drying And Winding Supervisor Name Role Phone Dale Prescott Primary Care Provider [phone] Veronica Singh Unavailable [phone] Allergies Allergen (clinical drug ingredient) Drug/Non Drug Allergy documented on EMR Reaction Allergy Type Onset Date Status codeine Codeine Unknown Drug Allergy Active Substance with sulfonamide structure and antibacterial mechanism of action (substance) Sulfa Antibiotics Unknown Drug Allergy Active Results Component Value Reference Range Notes Urinalysis - Inhouse Reviewed date:05/14/2024 04:29:06 PM Interpretation: Performing Lab: Notes/Report: Color/Clarity yellow/clear Leuk trace Nitrite neg Urobili 3.2 Protein neg pH 6.5 Blood neg Sp. Gr. 1.015 Ketone neg Bili neg Gluc 2% TEN-UTI panel Reviewed date:05/19/2024 10:35:53 AM Interpretation:sensitive Performing Lab: Notes/Report: sensitive TEN-UTI panel Reviewed date:02/17/2025 04:38:54 PM Interpretation:Negative Performing Lab: Notes/Report: Negative P-Vitamin D 25-Hydroxy Reviewed date:02/17/2025 04:38:54 PM Interpretation:Normal Performing Lab: Notes/Report: Test performed by [place] , [address], [place] [address] Carlos Hanks MD, Filterer CLIA: [id number] Vitamin D 25-Hydroxy 36.6 30.0-100.0 ng/mL Interpretation of Vitamin D 25 OH: < 20 ng/mL - Deficiency 20 - 29 ng/mL - Insufficiency 30 - 100 ng/mL - Sufficiency > 100 ng/mL - Super-therapeutic- toxicity may occur above this level. Clinical correlation required. P-TSH Reviewed date:02/17/2025 04:38:54 PM Interpretation:8.66 Performing Lab: Notes/Report: Test performed by [facility] [address] [place], [place] [address] , [address], [place] [address] Carlos Hanks MD, Filterer CLIA: [id number] TSH 8.66 0.43-5.25 mU/L P-Lipid Panel Reviewed date:02/17/2025 04:38:54 PM Interpretation:Normal Performing Lab: Notes/Report: Test performed by [facility] [address] [place] [address] , [address], [place] [address] Carlos Hanks MD, Filterer CLIA: [id number] Cholesterol 172 <200 mg/dL Triglycerides 75 <150 [...] ATPIII guidelines LDL/HDL Ratio 1.1 <3.3 Ratio _ LDL Cholesterol Patient History _ Test Date: 02/22/2024 LDL Results: 81 Units: mg/dL % Change: - - Test Date: 02/13/2025 LDL Results: 83 Units: mg/dL % Change: +2% _ P-T4 Free (thyroxine) Reviewed date:02/17/2025 04:38:54 PM Interpretation:Normal Performing Lab: Notes/Report: Test performed by [facility] [address] [place] [address] , [place] [address] Carlos Hanks MD, Filterer CLIA: [id number] Thyroxine Free (free T4) 1.34 0.86-1.76 ng/dL P-Comprehensive Metabolic Pa jamie (CMP) Reviewed date:02/17/2025 04:38:54 PM Interpretation: Performing Lab: Notes/Report: Test performed by [facility] [address] [place] [address] , [place] [address] Carlos Hanks MD, Filterer CLIA: [id number] Sodium 141 135-145 mmol/L Potassium 4.5 3.5-5.3 [...] <0.2 <0.2-1.2 mg/dL A/G Ratio 1.6 1.1-2.5 P-Vitamin B12 Reviewed date:02/17/2025 04:38:54 PM Interpretation:Normal Performing Lab: Notes/Report: Test performed by [facility] [address] [place] [address] , [address], [place] [address] Carlos Hanks MD, Filterer CLIA: [id number] Vitamin B12 194 933-1579 pg/mL Glycohemoglobin A1c (in hous e) Reviewed date:02/17/2025 04:38:54 PM Interpretation:7.3% Performing Lab: Notes/Report: 7.3% glycohemoglobin 7.3% 5 - 6.5 % Glucose (In-House) Reviewed date:02/17/2025 04:38:54 PM Interpretation:166 Performing Lab: Notes/Report: 166 blood glucose 166 74 - 106 mg/dL Urinalysis - Inhouse Reviewed date:02/17/2025 04:38:54 PM Interpretation: Performing Lab: Notes/Report: Color/Clarity yellow clear Leuk 1+ Nitrite neg Urobili 3.2 Protein neg pH 5.5 Blood neg Sp. Gr. 1.025 Ketone trace Bili neg Gluc neg P-Culture, Urine Reviewed date:12/05/2024 01:16:10 PM Interpretation:No Growth Performing Lab: Notes/Report: Test performed by [facility] [address] [place] [address] , [place] [address] Carlos Hanks MD, Filterer CLIA: [id number] Specimen Source Urine - Void Culture, Urine See Below Final Report : No growth Urinalysis - Inhouse Reviewed date:12/03/2024 02:32:48 PM Interpretation: Performing Lab: Notes/Report: Color/Clarity yellow/clear Leuk 1+ Nitrite Neg Urobili 3.2 Protein Neg pH 5.5 Blood Trace-Intact Sp. Gr. 1.025 Ketone 1+ Bili 1+ Gluc Neg Urinalysis - Inhouse Reviewed date:06/03/2024 10:11:23 AM Interpretation: Performing Lab: Notes/Report: Color/Clarity yellow/clear Leuk trace Nitrite neg Urobili 3.2 Protein neg pH 6.5 Blood trace-intact Sp. Gr. 1.025 Ketone neg Bili neg Gluc neg TEN-UTI panel Reviewed date:06/05/2024 04:02:44 PM Interpretation:Negative Performing Lab: Notes/Report: Negative CBC Fingerstick (in house) Reviewed date:06/11/2024 10:32:35 AM Interpretation: Performing Lab: Notes/Report: wbc 6.5 3.5 - 10 lym 38.2% 15 - 50 mid 6.6% 2 - 15 gran 55.2% 35 - 80 rbc 4.75 3.5 - 5.5 hgb 14.3 11.5 - 16.5 hct 44.3 35 - 55 mcv 93.3 75 - 100 mch 30.2 25 - 35 mchc 32.3 31 - 38 plat 200 100 - 400 Urinalysis - Inhouse Reviewed date:05/24/2024 11:38:04 AM Interpretation: Performing Lab: Notes/Report: Color/Clarity yellow/clear Leuk 1+ Nitrite neg Urobili 3.2 Protein neg pH 5.5 Blood neg Sp. Gr. >=1.030 Ketone trace Bili neg Gluc trace CBC Fingerstick (in house) Reviewed date:05/24/2024 11:38:58 AM Interpretation: Performing Lab: Notes/Report: wbc 7.1 3.5 - 10 lym 25.9 15 - 50 mid 6.2 2 - 15 gran 67.9 35 - 80 rbc 4.57 3.5 - 5.5 hgb 13.9 11.5 - 16.5 hct 43.1 35 - 55 mcv 94.4 75 - 100 mch 30.4 25 - 35 mchc 32.2 31 - 38 plat 196 100 - 400 P-Culture, Urine Reviewed date:05/26/2024 04:29:29 PM Interpretation: Performing Lab: Notes/Report: Test Cancelled Test Cancelled Specimen re ceived beyond stability.. Test cannot be performed. Acceptable stability from collection is 48 hours. CBC Fingerstick (in house) Reviewed date:06/28/2024 01:19:55 PM Interpretation: Performing Lab: Notes/Report: wbc 8.5 3.5 - 10 lym 19.1% 15 - 50 mid 4.2% 2 - 15 gran 76.7% 35 - 80 rbc 4.44 3.5 - 5.5 hgb 13.4 11.5 - 16.5 hct 42.1 35 - 55 mcv 94.8 75 - 100 mch 30.1 25 - 35 mchc 31.8 31 - 38 plat 200 100 - 400 CBC Fingerstick (in house) Reviewed date:07/07/2024 07:56:08 PM Interpretation: Performing Lab: Notes/Report: wbc 7.8 3.5 - 10 lym 23.4 15 - 50 mid 5.3 2 - 15 gran 71.3 35 - 80 rbc 4.42 3.5 - 5.5 hgb 13.4 11.5 - 16.5 hct 42.2 35 - 55 mcv 95.3 75 - 100 mch 30.2 25 - 35 mchc 31.7 31 - 38 plat 227 100 - 400 Covid test (in house) Reviewed date:07/07/2024 07:55:50 PM Interpretation:neg Performing Lab: Notes/Report: neg Result: neg Upper Resp. PCR ([facility]) Reviewed date:07/09/2024 11:42:50 AM Interpretation: Performing Lab: Notes/Report: RSV-nasal swab Reviewed date:07/09/2024 11:38:29 AM Interpretation: Performing Lab: Notes/Report: RSVAB Reviewed date:07/10/2024 02:17:39 PM Interpretation:Negative Performing Lab: Notes/Report: RSVAB Negative Negative Reason For Referral Reason [facility] [place] Diagnosis 1 Chest pain, unspecif ied type (R07.9) [facility] Referring Provider First Name Dale Referring Provider Last Name Genie Referring Provider [facility] ctice Referred Provider Cardiology, . Referred Provider Specialty Cardiovascul ar Disease General Notes Charity Vargas 024 10:12:01 AM > faxed to [facility] Cardiology Referral Priority Routine Diagnosis 1 Lumbago with sciatic a, right side (M54.41) Diagnosis 2 Lumbago with sciatic a, left side (M54.42) Diagnosis 3 Lumbar facet arthrop athy (M47.816) Diagnosis 4 Spinal stenosis of l umbar region without neurogenic claudication (M48.061) [facility] Referring Provider First Name Dale Referring Provider Last Name Genie Referring Provider [facility] ctice Referred Organization [facility] Rehab./PT Referred Provider Physical Therapy, . Referred Address [place],[address] Referred Provider Specialty Physical The rapist General Notes Charity Vargas 2024 10:22:47 AM > faxed to [facility] PT Referral Priority Routine Diagnosis 1 Lumbago with sciatic a, right side (M54.41) Diagnosis 2 Lumbago with sciatic a, left side (M54.42) Diagnosis 3 Spinal stenosis of l umbar region without neurogenic claudication (M48.061) Diagnosis 4 Lumbar facet arthrop athy (M47.816) [facility] Referring Provider First Name Dale Referring Provider Last Name Medora Referring Provider [facility] ctice Referred Provider Collins Landon Referred Provider Specialty Pain Managem ent General Notes Charity Vargas 2024 10:23:17 AM > faxed to [facility] Pain Management, Charity Vargas 03/18/2025 09:44:28 AM > resent fax Referral Priority Routine Reason [facility] Neuro christyy, Ambar MD pref. Diagnosis 1 Frequent falls (R29. 6) Diagnosis 2 Intention tremor (G2 5.2) Diagnosis 3 Memory loss (R41.3) [facility] Referring Provider First Name Dale Referring Provider Last Name Genie Referring Provider [facility] ctice Referred Provider Specialty Neurology General Notes Charity Vargas 2024 01:24:07 PM > faxed all info to Neurology Referral Priority Routine Medications Medication SIG (Take, Route, Frequency, Duration) Notes Start Date End Date Status MiraLax - DIRECTED ORALLY ONCE A DAY; Duration: 7 DAY(S) 04/02/2020 Active Rosuvastatin Calcium 40 MG TAKE 1 TABLET BY MOUTH EVERY DAY AT BEDTIME; Duration: 90 Active Aspirin Adult Low Dose 81 MG 1 tab(s) orally once a day Active Losartan Potassium 25 MG 1 tablet Orally Once a day; Duration: 90 days Active CoQ-10 100 MG 1 cap(s) orally once a day Active metFORMIN HCl 500 MG 1 tablet with a meal Orally Once a day; Duration: 90 days Active Omeprazole 20 MG 1 capsule 1/2 to 1 hour before morning meal Orally Once a day; Duration: 90 days 03/16/2025 Active Cholestyramine 4 GM/DOSE 1 scoop Orally Once a day; Duration: 30 day(s) Active Synthroid 88 MCG 1 tab(s) orally once a day; Duration: 90 days Active busPIRone HCl 10 MG 1 tab(s) orally once a day; Duration: 90 days Active Myrbetriq 50 MG 1 tablet Orally Once a day; Duration: 30 days 08/15/2024 Active Albuterol Sulfate HFA 108 (90 Base) MCG/ACT 2 puff as needed Inhalation every 4 hrs prn 07/07/2024 Active Venlafaxine HCl ER 150 MG take 1 capsule by mouth once daily Orally Once a day; Duration: 90 days Active Effexor XR 75 MG 1 cap(s) orally once a day; Duration: 90 days Active OneTouch Ultra - USE 1 STRIP TO CHECK GLUCOSE ONCE DAILY OR DIRECTED to test once daily; Duration: 90 days Diagnosis E11.9 Active Zithromax Z-Wesley 250 MG as directed Orall y daily; Duration: 5 days 03/11/2025 Active ONE TOUCH ULTRA BLUE TEST STRIPS 1 TEST STRIP FINGERSTICK TEST ONCE A DAY OR DIRECTED; Duration: 30 DAYS 10/30/2018 Active Gabapentin 100 MG 1 capsules Orally twice a day; Duration: 30 days 03/10/2025 Active Immunizations Vaccine Route Administration Date Status Comme nts Prevnar (PCV20) IM Intramuscular 07/06/2023 Administered Prevnar (PCV13) IM Intramuscular 06/25/2018 Administered PNEUMOVAX 23 VACCINE IM Intramuscular 07/03/2019 Administe red Fluzone High Dose (65yr and older) IM Intramuscular 05/24/2017 Administered Fluzone High Dose (65yr and older) IM Intramuscular 06/25/2018 Administered Fluzone High Dose (65yr and older) IM Intramuscular 07/03/2019 Administered Fluzone High Dose (65yr and older) Unknown 07/01/2020 Pending Fluzone High Dose (65yr and older) IM Intramuscular 08/22/2021 Administered Fluzone High Dose (65yr and older) IM Intramuscular 06/19/2022 Administered Fluzone High Dose (65yr and older) IM Intramuscular 07/06/2023 Administered Fluzone High Dose (65yr and older) IM Intramuscular 08/15/2024 Administered Problems Problem Type SNOMED Code ICD Code Onset Dates Problem Status W/U Status Risk Notes Problem Vitamin D deficiency (23580480) Vitamin D deficiency (E55.9) Active confirmed Problem Vitamin B12 deficiency (082285247) Vitamin B12 deficiency (E53.8) Active confirmed Problem Essential hypertension (21832977) Essential hypertension (I10) Active confirmed Problem Urinary incontinence (943240492) Urinary incontinence (R32) Active confirmed Problem Osteopenia (204415716) Osteopenia (M85.80) Active confirmed Problem Arthropathy of lumba r facet joint (524414934) Lumbar facet arthropathy (M47.816) Active confirmed Problem Obstructive sleep apnea (33174835) Obstructive sleep apnea (G47.33) Active confirmed Problem Sciatica (61843297) Sciatic leg pain (M54.30) Active confirmed Problem Overactive urinary bladder (disorder) (502175217) OAB (overactive bladder) (N32.81) Active confirmed Problem Memory loss (23454176) Memory loss (R41.3) Active confirmed Problem Sciatica (60681790) Lumbago with sciatica, right side (M54.41) Active confirmed Problem Sciatica (41298937) Lumbago with sciatica, left side (M54.42) Active confirmed Problem Depressive disorder (35799840) Depressive disorder (F32.9) Active confirmed Problem Constipation (98930665) Constipation, unspecified constipation type (K59.00) Active confirmed Problem Acquired hypothyroidism (052769158) Acquired hypothyroidism (E03.9) Active confirmed Problem Kidney stone (20914800) Kidney stone (N20.0) Active confirmed Problem Atherosclerotic hear t disease of [place] coronary artery without angina pectoris (377894500814869) Coronary artery disease involving [place] coronary artery of [place] heart without angina pectoris (I25.10) Active confirmed Problem Gastroesophageal reflux disease (499427294) Gastroesophageal reflux disease, esophagitis presence not specified (K21.9) Active confirmed Problem Osteoporosis (69646666) Osteoporosis (M81.0) Active confirmed Problem Kidney stone (20236186) Kidney stones (N20.0) Active confirmed Problem Obstructive sleep apnea syndrome (99318558) LILIAM (obstructive sleep apnea) (G47.33) Active confirmed Problem Osteoarthritis of knee (516086530) Primary osteoarthritis of left knee (M17.12) Active confirmed Problem Recurrent falls (883724226) Frequent falls (R29.6) Active confirmed Problem Sciatica (41330047) Acute left-s ided low back pain with left-sided sciatica (M54.42) Active confirmed Problem Type II diabetes mellitus without complication (985626899) Type 2 diabetes mellitus without complication, without long-term current use of insulin (E11.9) Active confirmed Problem Pure hypercholesterolemia (664303812) Pure hypercholesterolemia (E78.00) Active confirmed Problem Renal artery stenosi s (037350203) Renal artery stenosis (I70.1) Active confirmed Problem Spinal stenosis of lumbar region (82974745) Spinal stenosis of lumbar region without neurogenic claudication (M48.061) Active confirmed Problem Aneurysm of renal artery (35216081) 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) Active confirmed Problem Intention tremor (47681357) Intention tremor (G25.2) Active confirmed Problem Type 2 diabetes mellitus with other specified complication, unspecified whether correction insulin use (E11.69) Active confirmed Vital Signs Heart Rate 90 /min 03/16/2025 Blood pressure diastolic 70 mm Hg 03/16/2025 Height 65 in 03/16/2025 Blood pressure systolic 140 mm Hg 03/16/2025 Weight 165 lbs 03/16/2025 BMI 27.45 kg/m2 03/16/2025 Encounters Encounter Location Date Provider Diagnosis [facility] [address] [facility] [address] [place], [place] [id number] 05/14/2024 Dale Medora Left flank pain R10. 9 and Acute UTI N39.0 [facility] [address] [facility] [address] [place], [place] [id number] 05/24/2024 Dale Medora Acute UTI N39.0 [facility] [address] [place], [place] [id number] 06/02/2024 Dale Medora Acute UTI N39.0 [facility] [address] [facility] [address] [place], [place] [id number] 06/06/2024 Dale Medora Acute URI J06.9 [facility] [address] [facility] [address] [place], [place] [id number] 06/28/2024 Dale Medora Hematoma of right lo wer extremity, initial encounter S80.11XA and Acute URI J06.9 [facility] [address] [place] [id number] 07/07/2024 Veronica Singh Bronchitis J40 [facility] [address] [place] [id number] 08/15/2024 Dale Medora Urinary incontinence R32 ; Chest pain, unspecified type R07.9 and Type 2 diabetes mellitus without complication, without long-term current use of insulin E11.9 [facility] [address] [place] [id number] 12/03/2024 Dale Medora Acute UTI N39.0 [facility] [address] [place] [id number] 02/13/2025 Dale Medora Type 2 diabetes liat itus without complication, [...] mellitus with other specified complication, unspecified whether roasterman insulin use E11.69 and BMI 27.0-27.9,adult Z68.27 [facility] [address] [place] [id number] 03/10/2025 Dael Medora Lumbago with sciatic a, right side M54.41 ; Lumbago with sciatica, left side M54.42 ; Degeneration of intervertebral disc of lumbar region with discogenic back pain and lower extremity pain M51.362 ; Lumbar facet arthropathy M47.816 ; Spinal stenosis of lumbar region without neurogenic claudication M48.061 and BMI 27.0-27.9,adult Z68.27 [facility] [address] [place] [id number] 03/16/2025 Dale Medora Memory loss R41.3 ; Intention tremor G25.2 ; Frequent falls R29.6 ; Gastroesophageal reflux disease, esophagitis presence not specified K21.9 and BMI 27.0-27.9,adult Z68.27 [facility] [address] [place], [place] [id number] 05/05/2024 Dale Medora OAB (overactive blad [place]) N32.81 [facility] [address] [place], [place] [id number] 05/10/2024 Dale Medora [facility] [address] [place] [id number] 05/26/2024 Dale Medora [facility] [address] [place], [place] [id number] 06/05/2024 Dale Medora [facility] [address] [place], [place] [id number] 07/08/2024 Veronica Singh Bronchitis J40 [facility] [address] [place], [place] [id number] 07/08/2024 Veronica Singh Bronchitis J40 [facility] [address] [place], [place] [id number] 11/03/2024 Dale Medora [facility] [address] [place], [place] [id number] 03/11/2025 Dale Medora [facility] [address] [place], [place] [id number] 03/23/2025 Dale Medora Screening for osteop orosis Z13.820 Assessments Encounter Date Diagnosis (ICD Code) Assessment Notes Treatment Notes Treatment Clinical Notes Section Notes 05/05/2024 OAB (overactive bladder) (ICD-10 - N32.81) 05/14/2024 Left flank pain (ICD -10 - R10.9) Symptoms have resolved 05/14/2024 Acute UTI (ICD-10 - N39.0) 05/24/2024 Acute UTI (ICD-10 - N39.0) 06/02/2024 Acute UTI (ICD-10 - N39.0) 06/06/2024 Acute URI (ICD-10 - J06.9) 06/28/2024 Acute URI (ICD-10 - J06.9) fluids, rest, supportive measures for fever/symptom relief 06/28/2024 Hematoma of right lo wer extremity, initial encounter (ICD-10 - S80.11XA) symptomatic treatment of pain. Return if worsening of pain or developement of new symptoms 07/08/2024 Bronchitis (ICD-10 - J40) 08/15/2024 Urinary incontinence (ICD-10 - R32) 08/15/2024 Chest pain, unspecif ied type (ICD-10 - R07.9) 12/03/2024 Acute UTI (ICD-10 - N39.0) 03/10/2025 Lumbago with sciatic a, right side (ICD-10 - M54.41) ER record including notes and CT report reviewed with patient in office today 03/10/2025 Lumbago with sciatic a, left side (ICD-10 - M54.42) 03/16/2025 Memory loss (ICD-10 - R41.3) 03/16/2025 Intention tremor (ICD-10 - G25.2) 03/23/2025 Screening for osteoporosis (ICD-10 - Z13.820) 02/13/2025 Type 2 diabetes mellitus without complication, without long-term current use of insulin (ICD-10 - E11.9) 02/13/2025 Pure hypercholesterolemia (ICD-10 - E78.00) 07/08/2024 Bronchitis (ICD-10 - J40) 07/07/2024 Bronchitis (ICD-10 - J40) fluids, rest, supportive measures for fever/symptom relief 02/13/2025 Acquired hypothyroid ism (ICD-10 - E03.9) 03/16/2025 Frequent falls (ICD- 10 - R29.6) 03/10/2025 Degeneration of intervertebral disc of lumbar region with discogenic back pain and lower extremity pain (ICD-10 - M51.362) 08/15/2024 Type 2 diabetes mellitus without complication, without long-term current use of insulin (ICD-10 - E11.9) 03/16/2025 Gastroesophageal ref lux disease, esophagitis presence not specified (ICD-10 - K21.9) 03/10/2025 Lumbar facet arthropathy (ICD-10 - M47.816) 02/13/2025 Vitamin D deficiency (ICD-10 - E55.9) 02/13/2025 Vitamin B12 deficien cy (ICD-10 - E53.8) 03/10/2025 Spinal stenosis of lumbar region without neurogenic claudication (ICD-10 - M48.061) 03/16/2025 BMI 27.0-27.9,adult (ICD-10 - Z68.27) 03/10/2025 BMI 27.0-27.9,adult (ICD-10 - Z68.27) 02/13/2025 Obstructive sleep ap lisandra (ICD-10 - G47.33) 02/13/2025 Gastroesophageal ref lux disease, esophagitis presence not specified (ICD-10 - K21.9) 02/13/2025 Acute UTI (ICD-10 - N39.0) 02/13/2025 Essential hypertensi on (ICD-10 - I10) 02/13/2025 Type 2 diabetes mellitus with other specified complication, unspecified whether correction insulin use (ICD-10 - E11.69) 02/13/2025 BMI 27.0-27.9,adult (ICD-10 - Z68.27) Plan Of Treatment Pending Test Test Name Order Date Bone density 03/23/2025 P-Microalbumin/Creatinine, Random Urine Sample 02/13/2025 Next Appt Details Provider Name:Dale Mcdowell ry, 08/18/2025 09:30:00 AM, [address], [place], [place], [id number], Insurance Providers Payer Name Payer Address Payer Phone Subscriber Number Group Number Insured Name Patient Relationship to Insured Coverage Start Date Coverage End Date MEDICARE PART B [address] [address] [place] [phone] [id number] SHANNON HARRIS Self - patient is the insured [facility] [address] [place] [address] [id number] SHANNON HARRIS Self - patient is the insured Medications Administered Medication Instructions Date of Administration Dosage Notes Dexamethasone 07/06/2021 1 mL Medical (General) History Medical History History ICD Code Graves Disease, followed by Endo. Hyperlipidemia Hypothyroidism, 2010 Type 2 Diabetes dx. 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 Bueno, [facility] 05/10/2020 Lipotripsy for Kidney Stones- [facility] 06/11/2020 Hospitalization History Reason Date(Month/Year) Kidney Stone- [facility] ER 09/29/2018 Fall - LT Rotator Cuff Tear
--- OUTSIDE RECORDS SUMMARY | 2025-04-06 13:25 | XMS_ITS | Referral Summary ---
Author Organization [employer] ([place], [place], [place], [place]) Address [address] [place] [address] Care Team Providers Care Roll Cutting Operator Name Role Phone Unavailable Primary Care [...]
--- OUTSIDE RECORDS SUMMARY | 2025-04-06 13:25 | XMS_ITS | Data Portability ---
Author Organization [facility] Sara moreno [facility] CLOSED Address [address] [facility] [address] [place] [address] Care Team Providers Care Party Host/Hostess Name Role Phone AILEEN ALANIZ Tech Ed/Woodshop Teacher MATT RANDOLPH Workplace Trainer And Assessor [phone] LAMBERTO EVANS Primary Care Provider MARLENE HOGAN Vascular Surgeon KERRY JOHNSON Correctional Medicine Physician STEVEN KING Correctional Medicine Physician Assessment No assessment recorded. Plan of Treatment Reminders Order Date Submit Date Provider Last Modified By Organization Details Last Modified Time Details Appointments FEMALE RECHECK 2024 11:00A M LEXUS REID MD Not available Not available Not available Lab urinalysi s panel, auto 2022 023 [email or web address] [facility] [address], [address], [place], [address], 09/13/2023 13:35:44 urinalysi s microscop ic panel, automated 2020 021 [email or web address] [facility], [facility], [place], [address], 08/09/2021 17:19:11 Referral None recorded. Procedures None recorded. Surgeries None recorded. Imaging None recorded. Medication Orders clobetaso l 0.05 % topical ointment [address] [facility], [address], [address], 04/01/2024 11:55:02 hydroxych loroquine 200 mg tablet [address] [facility] [address] [facility], [address], [address], 04/01/2024 11:55:02 Diflucan 150 mg tablet [address] [facility], [address], [address], 04/01/2024 11:55:02 solifenac in 10 mg tablet [address] [facility], [address], [address], 09/04/2022 14:26:40 Patient TargetsNo targets recorded. Patient InstructionsNo instructions recorded. Reason for Referral None Reported. Results Created Date Observation Date Name Description Value Unit Range Abnormal Flag Note LastModifiedBy Organization Detail LastModifiedTime 08/09/2008/09/2021 urina lysis micro scopi c panel , autom ated Unknown Analyte Clean Catch Not Available [facility] [address] [place], [address], 08/09/2021 11:06:20 08/09/20 21 08/09/2021 urina lysis micro scopi c panel , autom ated Unknown Analyte Yellow Not Available [facility] [address] [facility], [place], [address], 08/09/2021 11:06:20 08/09/20 21 08/09/2021 urina lysis micro scopi c panel , autom ated Unknown Analyte Clear Not Available [facility] [address] [place], [address], 08/09/2021 11:06:20 11/02/20 21 08/09/2021 urina lysis micro scopi c panel , autom ated Unknown Analyte 1.020 Not Available [facility] [address] [facility], [place], [address], 08/09/2021 11:06:20 08/09/20 21 08/09/2021 urina lysis micro scopi c panel , autom ated Unknown Analyte 5.0 Not Available [facility] [address] [facility], [place], [address], 08/09/2021 11:06:20 08/09/20 21 08/09/2021 urina lysis micro scopi c panel , autom ated Unknown Analyte 75 Balta/ul (+) Not Available [facility] [address] [facility], [place], [address], 08/09/2021 11:06:20 08/09/20 21 08/09/2021 urina lysis micro scopi c panel , autom ated Unknown Analyte Negati ve Not Available [facility] [address] [facility], [place], [address], 08/09/2021 11:06:20 08/09/20 21 08/09/2021 urina lysis micro scopi c panel , autom ated Unknown Analyte Negati ve Not Available [facility] [address] [facility], [place], [address], 08/09/2021 11:06:20 08/09/20 21 08/09/2021 urina lysis micro scopi c panel , autom ated Unknown Analyte Normal Not Available [facility] [address] [facility], [place], [address], 08/09/2021 11:06:20 08/09/20 21 08/09/2021 urina lysis micro scopi c panel , autom ated Unknown Analyte Negati ve Not Available [facility] [address] [facility], [place], [address], 08/09/2021 11:06:20 08/09/20 21 08/09/2021 urina lysis micro scopi c panel , autom ated Unknown Analyte Normal Not Available [facility] [address] [facility], [place], [address], 08/09/2021 11:06:20 08/09/20 21 08/09/2021 urina lysis micro scopi c panel , autom ated Unknown Analyte Negati ve Not Available [facility] [address] [facility], [place], [address], 08/09/2021 11:06:20 08/09/20 21 08/09/2021 urina lysis micro scopi c panel , autom ated Unknown Analyte Trace Not Available [facility] [address] [facility], [place], [address], 08/09/2021 11:06:20 08/09/2008/09/2021 urina lysis micro scopi c panel , autom ated Unknown Analyte AUTO Not Available [facility] [address] [facility], [place], [address], 08/09/2021 11:06:20 08/09/20 21 08/09/2021 urina lysis micro scopi c panel , autom ated Unknown Analyte 5-10 Not Available [facility] [address] [facility], [place], [address], 08/09/2021 11:06:20 08/09/20 21 08/09/2021 urina lysis micro scopi c panel , autom ated Unknown Analyte None Seen Not Available [facility] [address] [facility], [place], [address], 08/09/2021 11:06:20 08/09/20 21 08/09/2021 urina lysis micro scopi c panel , autom ated Unknown Analyte None Seen Not Available [facility] [address] [facility], [place], [address], 08/09/2021 11:06:20 08/09/20 21 08/09/2021 urina lysis micro scopi c panel , autom ated Unknown Analyte Trace Not Available [facility] [address] [facility], [place], [address], 08/09/2021 11:06:20 09/13/20 23 09/13/2023 urina lysis panel , auto Unknown Analyte Clean Catch Not Available [facility] [address] [facility], [place], [address], 09/13/2023 10:56:35 09/13/20 23 09/13/2023 urina lysis panel , auto Unknown Analyte Yellow Not Available [facility] [address] [facility], [place], [address], 09/13/2023 10:56:35 09/13/20 23 09/13/2023 urina lysis panel , auto Unknown Analyte Clear Not Available [facility] [address] [place], [address], 09/13/2023 10:56:35 09/13/20 23 09/13/2023 urina lysis panel , auto Unknown Analyte 1.020 Not Available [facility] [address] [place], [address], 09/13/2023 10:56:35 09/13/20 23 09/13/2023 urina lysis panel , auto Unknown Analyte 5.0 Not Available [facility] [address] [place], [address], 09/13/2023 10:56:35 09/13/20 23 09/13/2023 urina lysis panel , auto Unknown Analyte Negati ve Not Available [facility] [address] [facility], [place], [address], 09/13/2023 10:56:35 09/13/20 23 09/13/2023 urina lysis panel , auto Unknown Analyte Negati ve Not Available [facility] [address] [facility], [place], [address], 09/13/2023 10:56:35 09/13/20 23 09/13/2023 urina lysis panel , auto Unknown Analyte Negati ve Not Available [facility] [address] [facility], [place], [address], 09/13/2023 10:56:35 09/13/20 23 09/13/2023 urina lysis panel , auto Unknown Analyte 250 mg/dl Not Available [facility] [address] [facility], [place], [address], 09/13/2023 10:56:35 09/13/20 23 09/13/2023 urina lysis panel , auto Unknown Analyte Negati ve Not Available [facility] [address] [facility], [place], [address], 09/13/2023 10:56:35 09/13/20 23 09/13/2023 urina lysis panel , auto Unknown Analyte Normal Not Available [facility] [address] [facility], [place], [address], 09/13/2023 10:56:35 09/13/20 23 09/13/2023 urina lysis panel , auto Unknown Analyte Negati ve Not Available [facility] [address] [facility], [place], [address], 09/13/2023 10:56:35 09/13/20 23 09/13/2023 urina lysis panel , auto Unknown Analyte Negati ve Not Available [facility] [address] [facility], [place], [address], 09/13/2023 10:56:35 08/09/20 21 08/09/2021 XR, abdom en, [address] [address] Patien t Name: PERI CARL Patien t [...] Pako Omalley MD on 021 4:56 PM [facility] [address], [address], 08/12/2021 08:57:29 Result Notes Documentation Provider Name and Address Organization Details Recorded Time Xr, Abdomen, 1 View : [address] [address] Patient Name: PERI HERNÁNDEZ Patient : 1945 Patient Ordering Provider: LEXUS REID EXAM DATE: 08/09/2021 EXAM: XR ABDOMEN KUB CLINICAL INFORMATION: History of urinary tract stones. IMAGES PROVIDED: KUB AP radiographic images of the abdomen. COMPARISON: None. FINDINGS AND IMPRESSION: Suggestion of 2-4 mm stones bilaterally in the regions of the kidneys. No other urinary tract stone is seen. No other significant abnormality. 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 Procedures Surgical History Date Name Laterality Status Provider Name and Address Organization Details Recorded Time Cholecystectomy completed LEXUS REID MD [address] [place], [address], [facility] 05/21/2020 16:54:57 Hysterectomy completed LEXUS REID MD [address] [place], [address], [facility] 05/21/2020 16:55:31 Imaging Results None recorded. Procedure Notes None recorded. Medical Equipment None Reported. Allergies Allergen ID Allergen Name Allergen Category Reaction Reaction Severity Criticality Documentation Date Start Date Code Code System Note Provider Name and Address Organization Details Recorded Time 343532 codeine medicatio n Not available Not available Not available 08/31/20162010 2670 RxNorm Comme nt: Creat ed By: Susan pereiraCre ated Date: 2010 4:08: 37 PM; Not Available [facility] 6 11:23:29 Medications Name Sig Start Date [...] TAKE 1 TABLET BY MOUTH ONCE DAILY WITH MEALS active Not Available Not Available No t [...] completed Not Available Not Available Not Available YornToTempoIQ Ultra Test strips USE 1 STRIP TO CHECK GLUCOSE ONCE DAILY DIRECTED active Not Available Not Available No t Available cephalexi n 500 mg capsule TAKE 1 CAPSULE BY MOUTH TWICE DAILY FOR 7 DAYS active Not Available Not Available No t Available erythromy vaibhav 5 mg/gram (0.5 %) eye ointment AFTER YOUR PROCEDUR E, APPLY TO AFFECTED EYELID TWICE DAILY FOR 7 DAYS active Not [...] completed Not Available Not Available Not Available cyclospor ine 0.05 % eye drops in a dropperet [...] 1 CAPSULE BY MOUTH EVERY 12 HOURS FOR 5 DAYS WITH FOOD active Not Available Not Available [...] 1 TABLET BY MOUTH ONCE DAILY FOR 90 DAYS active Not Available Not Available No [...] Updated DateTime 03/11/2024 165.1 cm 28.3 kg/m2 72014.7 g Jessie Miguel [facility] 03/11/2024 10:52:17 Date Recorded Body weight Body mass index (BMI) Body height Provider Name and Address Organization Details Last Updated DateTime 08/09/2021 88542.7 g 28.3 kg/m2 165.1 cm [facility] 08/09/2021 11:00:38 Date Recorded Body height Body mass index (BMI) Body weight Provider Name and Address Organization Details Last Updated DateTime 09/04/2022 165.1 cm 28.3 kg/m2 12005.7 g [facility] 09/04/2022 14:24:45 Date Recorded Body height Body mass index (BMI) Body weight Provider Name and Address Organization Details Last Updated DateTime 09/13/2023 165.1 cm 28.3 kg/m2 67993.7 g Floresita Ruiz [facility] 09/13/2023 10:37:44 Social History Question Answer Notes LastModified by Organizat ion Details LastModified Time Tobacco Smoking Status Never Smoker Floresita Ruiz [facility] 05/21/2020 10:42:09 Marital Status [place] [address] Informatio n not available 05/21/2020 Sex: Unknown Functional Status Question Answer Note LastModified by Organization D etails LastModified Time What is your level of alcohol consumption? None arigg Information not available 05/21/2020 What is your occupation? Retired [place] [address] Information not available 05/21/2020 Mental Status None recorded. Family History Relationship Description Onset Age of this Age Resolved Age Notes LastModified by Organization Details LastModified Time Maternal Grandmother Diabetes mellitus [place] [address] Not available 2019 10:41:37 Maternal Grandfather Diabetes mellitus [email or web address] Not available 2019 10:41:37 Mother [email or web address] Not available 2019 10:41:55 Father [email or web address] Not available 2019 10:42:05 Medical History Condition Response Anxiety Disorder Y Diabetes Y Arthritis Y Kidney Stones Y Thyroid Disorder Y High Cholesterol Y Acid Reflux (GERD) Y Depression Y Gynecological HistoryNo gynecological history recorded. Obstetrics History GPAL:G 2 P 1 0 1 0 Type Value Full Term 1 Spontaneous 1 Total 2 Past Encounters Encounter ID Performer Location Encounter Start Date Encounter Closed Date Diagnosis/Indication Diagnosis SNOMED-CT Code Diagnosis ICD10 Code Diagnosis Note [id number] [facility] [address] [facility] [facility] [address] 05/21/2020 09:20:11 05/21/2020 16:08:23 Kidney stone 58271009 N20.0 [id number] LEXUS REID [facility] [address] [place] [address] 06/24/2020 10:00:55 06/25/2020 14:29:27 Kidney stone 32524321 N20.0 Urge incon tinence of urine 84255294 N39.41 [id number] LEXUS REID MD UROLOGY [facility] [address] [place] [address] 08/05/2020 10:27:11 08/05/2020 11:56:27 Urolithiasis 78570118 N20.9 [id number] LEXUS REID MD UROLOGY [facility] [address] [place] [address] 08/09/2021 10:41:38 08/09/2021 12:00:07 Urge incontinence of urine 01893031 N39.41 History of calculus of kidney 516726070 Z87.442 send for KUB today. [id number] LEXUS REID MD UROLOGY [facility] [address] [place] [address] 09/04/2022 14:01:12 09/04/2022 14:56:52 Urge incontinence of urine 34748240 N39.41 DOing well on myrbegron. continue same. [id number] LEXUS REID MD UROLOGY [facility] [address] [place] [address] 09/13/2023 10:29:29 09/13/2023 11:37:47 Urge incontinence of urine 98501107 N39.41 DOing well on myrbegron 50 mg. continue same. Genital li valentin sclerosus 195666148 L90.0 [id number] LEXUS REID MD UROLOGY [facility] [address] [place] [address] 03/11/2024 10:22:41 03/11/2024 11:04:51 Urge incontinence of urine 28515746 N39.41 DOing well on myrbegron 50 mg. continue same. Urolithiasis 37906367 N2 0.9 none of late [id number] CHRISTIANO TORRES MD [facility] [address] [place] [address] 04/01/2024 10:56:59 04/01/2024 11:46:56 History of malignant neoplasm of skin 508092477 Z85.828 L90.5 - No evidence of recurrence today - Call with any worrisome lesions or if treated lesions return - Return at regular intervals for skin exam as recommende d Multiple b enign melanocytic nevi 507139277 D22.5 - Benign lesions seen on exam [...] changing or worrisome lesions Seborrheic keratosis 394 689123 L82.1 - Benign overgrowth s of skin- Hereditary Will reassess at next visit.Fup with change or concerns 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 erosive. [...] Member ID Odonnell Member ID Guarantor Name 03/09/2025 2 [place] [id number] Peri Hernández [id number] Peri Hernández 03/09/2025 1 [place] Peri Hernández [id number] Peri Hernández Notes Date Note Type Note Provider Name [...] Covid vaccine x 2. LEXUS REID MD [address] [place] [address], [address], [facility] 08/12/2021 08:35:54 09/04/2022 text/html Peri is a 76 yo female here today for follow up with h/o recurrent UTI and kidney stones. She is doing well. She denies any stone activity. She denies any dysuria or gross hematuria. She did stop her vesicare due to twitching. She is now on Myrbetriq and doing well with it. LEXUS REID MD [address] [place] [address], [address], [facility] 09/04/2022 16:14:09 09/13/2023 text/html Peri is a 77 yo WF who returns after a year. She denies any stone activity. She denies any dysuria or gross hematuria. She was treated for UTI with cipro about one month ago. That was her only yearly UTI. Her lichen sclerosis et atrophicus has increased and she saw [facility]. She is now on Emulaid and clobetasol. She remains on Myrbetriq 50 mg daily and has about 2 accidents/week. LEXUS REID MD [address] [place] [address], [address], [facility] 09/13/2023 13:35:49 03/11/2024 text/html Peri is a 78 yo returns after 6 months. She denies any stone activity. She denies any dysuria or gross hematuria. 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 She remains on Myrbetriq 50 mg daily and has about 2 accidents/week. SHe is going to pelvic floor PT in [place] for the past month, which is really helping LEXUS REID MD [address] [place], [address], [facility] 03/12/2024 07:13:59 04/01/2024 text/html I have a spot on my R hairline I'd like for her to look at.The clobetasol is burning me now. My LS is worse than last year. I've seen 7 doctors for this.FSELast seen 03/2023Hx BCC-R lateral hairlineHx LS-Clobetasol, estradiol. CHRISTIANO TORRES MD [address] [place], [address], [facility] 04/01/2024 11:58:04 OBGyn Episode No OBEpisode recorded.
--- NOTE | 2025-04-06 13:28 | XR_ITS ---
FINAL REPORT CLINICAL HISTORY: SCREENING COMPARISON: 02/12/2023 FINDINGS: Using L1-4, the bone mineral density of the spine is 0.879 g/cm2, corresponding to T-score of -1.5. Using the left hip, the bone mineral density of the femoral neck is 0.656 g/cm2, corresponding to a T-score of -2.3. Using the right hip, the bone mineral density of the femoral neck is 0.544 g/cm2, corresponding to a T-score of -2.7. NOTE: T-score: Standard deviation compared with peak bone mass of young adult mean. *Following the recommendations of the International Society of Bone densitometry, classification of hip BMD is based on the lower of two T-scores; total hip or femoral neck. IMPRESSION: Diminished bone mineral density of the right hip consistent with osteoporosis. Diminished bone mineral density of the left hip and lumbar spine consistent with osteopenia. Reviewed, Interpreted and Dictated by Meek Pierre MD Transcribed by Trisha Nicole Authenticated and [facility]
== END 2025-04-06 23:59 | disposition home or self-care (01) ==
LOC: RAD 13:22
PROVIDERS: PCP Family Medicine; Visit Provider Family Medicine
DX: M81.0 Age-related osteoporosis without current pathological fracture (principal); M85.852 Other specified disorders of bone density and structure, left thigh; M85.88 Other specified disorders of bone density and structure, other site
CPT/HCPCS: 77080

== ENCOUNTER 2025-05-25 13:57 | Outpatient (POV) | payer MEDICARE, BC, SELFPAY ==
--- OUTSIDE RECORDS SUMMARY | 2025-03-16 12:45 | XMS_ITS ---
Author Organization [facility] Address [address] [facility] [address] [place] [id number] Care Team Providers Care New Client Banking Services Clerk Name Role Phone Genie Dale Primary Care Provider Allergies Allergen (clinical drug ingredient) Drug/Non Drug Allergy documented on EMR Reaction Allergy Type Onset Date Status codeine Codeine Unknown Drug Allergy Active Substance with sulfonamide structure and antibacterial mechanism of action (substance) Sulfa Antibiotics Unknown Drug Allergy Active Reason For Referral Reason [facility] Neuro logy, No MD pref. Diagnosis 1 Frequent falls (R29. 6) Diagnosis 2 Intention tremor (G2 5.2) Diagnosis 3 Memory loss (R41.3) Ref[facility] Referring Provider First Name Dale Referring Provider Last Name Genie Referring Provider Speciality Family [facility] ctice Referred Provider Specialty Neurology General Notes [...] loss (R41.3) Active confirmed Problem Intention tremor (03246439) Intention tremor (G25.2) Active confirmed Problem Recurrent falls (448682105) Frequent falls (R29.6) Active confirmed Vital Signs Weight 165 lbs 03/16/2025 Blood pressure systolic 140 mm Hg 03/16/20 25 Blood pressure diastolic 70 mm Hg 025 Heart Rate 90 /min 03/16/2025 Height 65 in 03/16/2025 BMI 27.45 kg/m2 03/16/2025 Encounters Encounter Location Date Provider Diagnosis [facility] [address] [facility] [address] [place], [place] [phone] 03/16/2025 [place] Memory loss R41.3 ; Intention tremor G25.2 [...] 03/16/2025 Referrals Referral Date Details 03/16/2025 03/16/2025, [facility]rology, No MD pref. Next Appt Details Follow Up: via phone to chapincito smith progress, Reason: Provider Name:Dale pace, 06/09/2025 11:45:00 AM, [address] [facility], [facility] [address] [facility], [address], [place], [id number], Provider Name:Dale pace, 08/18/2025 09:30:00 AM, [address] [facility], [address], [place], [phone], Progress Notes * SHANNON HARRISDOB: 8 (79 yo F)Acc No.[id number]:03/16/2025 Progress Notes Patient: SHANNON BUNN Provider: Ana Prescott M.D. 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 Bueno, [facility] 05/10/2020, Lipotripsy for Kidney Stones- [facility] 06/11/2020. * Hospitalization/Major Diagno stic Procedure: F all - LT Rotator Cuff Tear , Kidney Stone- [facility] ER 09/29/2018. * Family History: F ather: [...] with activity. Assessment: * Assessment: 1. M rockwell loss - R41.3 (Primary) 2 . I ntention tremor - G25.2 ?3. F requent falls - R29.6 4 . G astroesophageal reflux disease, esophagitis presence not specified - K21.9 5 . B NM 27.0-27.9,adult - Z68.27 ? Plan: * Treatment: 2. I ntention tremor Referral To:Neurology Reason:[facility], No MD pref. 3. F requent falls Referral To:Neurology Reason:[facility], No MD pref. 4. G astroesophageal [...] * Images: Billing Information: * Visit Code: 55829 Office Visit, Est Pt., Level 4. * Procedure Codes: G2211 Complex e/m visit add on. 1036F TOBACCO NON-USER. G8420 BMI<30 AND >=22 CALC & DOCU. * Electronic signature of Rocio Prescott MD on 05/25/2025 at 01:59 PM EDT Sign off status: Pending * Provider: Ana Prescott M.D. Date: 0 03/16/2025 Generated for Radha mohan/Delbert/eTransmitting on: 0 05/25/2025 01:59 PM EDT History and Physical Notes * [...] Provider Not es 03/16/2025 Dale Prescott [facility] Neurology, No MD pref.
--- OUTSIDE RECORDS SUMMARY | 2025-04-09 09:00 | XMS_ITS | Encounter Summary ---
Author Organization [facility] Address [address] [place] [address] Care Team Providers Care Quick Print Operator Name Role Phone Dale Prescott MD Primary Care Provider + [phone] Reason for Referral * Consultation (Urgent) - Closed Specialty Diagnoses / Procedures Referred By Hipolito enciso Referred To Contact Neurosurgery Diagnoses Mild cognitive impairment Frequent falls Ataxia Neuropathic pain Low back pain potentially associated with radiculopathy Mercedes Yi DNP, GIAN [address] [facility] [[email or web address]] [address] [place] [address] Phone: tel: fax: Remi Smart MD [address] [facility] [address] [place] [address] Phone: tel: fax: Referral ID Status Reason Start Date Expiration Date V isits Requested Visits Authorized [id number] Closed Specialty Services Required 04/09/2025 07/09/2026 2 2 * MRI/CAT/PET Scan (Routine) - Closed Specialty Diagnoses / Procedures Referred By Hipolito enciso Referred To Contact Radiology Diagnoses Mild cognitive impairment Frequent falls Memory loss Ataxia Neuropathic pain Procedures MRI Brain With & Without Contrast Mercedes Yi DNP, GIAN [address] [facility] [[email or web address]] [address] [place] [address] Phone: tel: fax: [facility] [address] [place] [address] Phone: tel: Referral ID Status Reason Start Date Expiration Date Visits Re quested Visits Authorized [id number] Closed 04/09/2025 07/09/2026 1 1 Reason for Visit * Reason Comments Memory Loss Balance issues, mult iple falls this past year, trouble with fine motor skills I.e. writing * Consultation (Routine) - Closed Specialty Diagnoses / Procedures Referred By Hipolito enciso Referred To Contact Neurology Diagnoses Intention tremor Memory loss Frequent falls Dale Prescott MD [address] [facility] [address] [facility] [[email or web address]] [address] [place] [address] Phone: tel: fax: [facility] [address] [facility] [address] [place] [address] Phone: tel: fax: Referral ID Status Reason Start Date Expiration Date Visits Re quested Visits Authorized [id number] Closed 03/23/2025 06/22/2026 1 1 Encounter Details Date Type Department Care Team (Late st Contact Info) Description 04/09/2025 9:00 AM EDT Office Visit [facility] [address] [facility] [address] [place] [id number] Mercedes Yi DNP, MARKET DIRECTOR [address] [facility] [address] [place] [address] Mild cognitive impairment (Primary Dx); Frequent falls; Memory loss; Ataxia; Neuropathic pain; Low back pain potentially associated with radiculopathy; Myoclonic jerking Social History Tobacco Use Types Packs/Day Years Used Date Smoking Tobacco: Never Passive Smoke Exposure: Never Smokeless Tobacco: Never Tobacco Cessation:Counseling Given: No Alcohol Use Standard Drinks/Week Comments Never 0 (1 standard drink = 0.6 oz pur e alcohol) AUDIT-C Answer Date Recorded Q1: How often do you have a drink containing alc ohol? Never 05/05/2021 Average Number of Drinks Not on file 021 Frequency of Binge Drinking Not on file 04/08 PHQ-2 Answer Date Recorded Retired PHQ-9: Brief Depression Severity Measure Score 11 05/31/2023 Abuse Screen Answer Date Recorded Feels Unsafe at Home or Work/School no 07/26/2023 Feels Threatened by Someone no 07/08 Does Anyone Try to Keep You From Having Contact with Others or Doing Things Outside Your Home? no 07/26/2023 Physical Signs of Abuse Present no 07/26/2023 PHQ-2 Answer Date Recorded Retired PHQ-9: Brief Depression Severity Measure Score 11 05/31/2023 Comments No Sex and Gender Information Value Date Recorded Sex Assigned at Female 04/09/2025 1:40 AM EDT Legal Sex Female 10:00 AM EDT Gender Identity Not on file Sexual Orientation Not on file documented as of this encounter Last Filed Vital Signs Vital Sign Reading Time Taken Comments Blood Pressure 142/82 04/09/2025 8:52 AM EDT Pulse 92 04/09/2025 8:52 AM EDT Temperature - - Respiratory Rate - - Oxygen Saturation 98% 04/09/2025 8:52 AM EDT Inhaled Oxygen Concentration - - Weight 75.1 kg (165 lb 9.6 oz) 04/09/2025 8:52 AM EDT Height 165.1 cm (5' 5 ) 04/09/2025 8:52 AM EDT Body Mass Index 27.56 04/09/2025 8:52 AM EDT documented in this encounter Progress Notes * Mercedes Yi, DNP, MARKET DIRECTOR - 04/09/2025 9:00 AM EDT Neuro Office Visit Encounter Date: 04/09/2025 Patient Name: Vandana Harris : 1945 PCP: Dr Prescott Chief Complaint: Chief Complaint Patient presents with Memory Loss Balance issues, multiple falls this past year, trouble with fine motor skills I.e. writing History of Present Illness: Vandana Harris is a 79 y.o. female who is here today in Neurology for memory loss, and BET. Here with her friend Penny History of Present Illness Memory Loss MMSE 30/30 Pt and friend have noticed a dramatic decline in her cognition. 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 Now struggles to write a check, use her iphone etc. Weak voice. Does not seem alert. Meds:NA Appetite:stable Sleep:no dreaming ADLs:independent Gait/Falls:yes Language: Word finding difficulty Dysphagia:none Driving:has not been lost Hallucinations:none Behavior:not as clean but not a problem Living situation:lives w her who is 85 Finances:has missed paying some bills POA: Myclonic jerk Onset 1 month ago Describes right hand will jerk when writing and head will also jerk to the right while watching TV.Not rhythmic. No warning. Has stress related headaches. Vision changes. Numbers are superimposed on each other. Right number is on left number. Seeing eye provider and will have a new lens. Feels she sees a shadow walk by. Thinks it a mouse at times. Does not see a mouse. Frequent falls Walked off back deck one night. She forgot there was not a rail. Hit her head. Did not have any brain imaging. Has back pain and foot fracture. Causing her to walk slower and trouble turning over in bed Fell backwards walking to the hallway. 2 head injuries. One with LOC. Left foot 5th metat[address] fracture. CT scan of L-spine Shows L5/S1 annular bulge with mod right and severe left NF narrowing. Feels bugs crawling on neck R>L. [place] on right lateral calf. Prescribed GBP she has not taken. 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 Anxiety Anxiety and depression Arthritis Back pain Jha's cyst of knee bilateral Basal cell carcinoma (BCC) at right lateral forehead Cobalamin deficiency Constipation Depression Diabetes mellitus, type II Difficulty walking Eczema Eczema Fatigue General weakness GERD (gastroesophageal reflux disease) Graves' disease Headache, tension-type occasionally Heartburn History of colonic polyps History of esophageal spasm History of kidney stones x7 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 Hyperlipidemia on medication, 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 Hypertension on medication, 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 IBS (irritable bowel syndrome) on medication, 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 Joint pain Keratoconjunctivitis sicca Lichen sclerosus of female genitalia 2019 Low back pain Memory loss Muscle pain Nausea Neuropathy of foot, right Night sweats Non-alcoholic fatty liver disease 2018 Osteopenia Overweight (BMI 25.0-29.9) Palpitations Postoperative hypothyroidism Rectal bleeding Sleep apnea treated with continuous positive airway pressure (CPAP) Stenosis of right renal artery at 70%, 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 Subjective change in urination Vitamin D deficiency March 2023 Wears glasses Past Surgical History: Past Surgical History: Procedure Laterality Date BASAL CELL CARCINOMA EXCISION 2019 malignant, per patient; Moh's surgery BREAST BIOPSY Left 1997, 2005 Stereotactic 1997, PT HAS HAD 2 BX'S ON LEFT CHOLECYSTECTOMY 1997 EXTRACORPOREAL SHOCKWAVE LITHOTRIPSY (ESWL), STENT INSERTION/REMOVAL Right 06/11/2020 Procedure: CYSTOSCOPY WITH RIGHT URETERAL STENT, EXTRACORPOREAL SHOCKWAVE LITHOTRIPSY RIGHT; Surgeon: Ramone Malave MD; [facility]; Service: Urology; Laterality: Right; ESWL START 0757 ESWL END 0822 FLOURO TIME 2 MIN 10 SEC TOTAL ABDOMINAL HYSTERECTOMY WITH SALPINGO OOPHORECTOMY 2008 patient reports 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; benign pathology 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 Family History: Family History Problem Relation Age of Onset Heart disease Father Pancreatic cancer Mother Ovarian cancer Mother 72 METASTATIC FROM PANCREATIC CA Cancer Mother Pancreatic Cancer Breast cancer Paternal Grandmother 83 Diabetes Paternal Grandmother Cancer Paternal Grandmother Breast Cancer Heart attack Maternal Grandmother 67 Diabetes Maternal Grandmother Colon cancer Neg Hx Social History: Social History Socioeconomic History Marital status: Tobacco Use Smoking status: Never Passive exposure: Never Smokeless tobacco: Never Vaping Use Vaping status: Never Used Substance and Sexual Activity Alcohol use: Never Drug use: Never Sexual activity: Not Currently Partners: Male control/protection: Post-menopausal, Hysterectomy Medications: Current Outpatient Medications: ASPIRIN 81 PO, Aspir-81 mg tablet,delayed release Daily, Disp: , Rfl: busPIRone (BUSPAR) 10 MG tablet, Take 1 tablet by mouth Daily., Disp: , Rfl: clobetasol (CLOBEX) 0.05 % lotion, Apply 1 Application topically to the appropriate area as directed 2 (Two) Times a Week., Disp: , Rfl: Coenzyme Q10 (CO Q-10 PO), Take by mouth., Disp: , Rfl: losartan (COZAAR) 25 MG tablet, Take 1 tablet by mouth Daily., Disp: , Rfl: metFORMIN (GLUCOPHAGE) 500 MG tablet, Daily. 1 tablet with a meal Orally Once a day for 90 days, Disp: , Rfl: Mirabegron ER (Myrbetriq) 50 MG tablet sustained-release 24 hour 24 hr tablet, Take 50 mg by mouth Daily., Disp: , Rfl: omeprazole (priLOSEC) 20 MG capsule, TAKE 1 CAPSULE BY MOUTH IN THE MORNING FOR 90 DAYS, Disp: , Rfl: OneTouch Ultra test strip, USE 1 STRIP TO CHECK GLUCOSE ONCE DAILY OR DIRECTED, Disp: , Rfl: Restasis 0.05 % ophthalmic emulsion, Administer 1 drop to both eyes Every 12 (Twelve) Hours., Disp:, Rfl: rosuvastatin (CRESTOR) 40 MG tablet, Take 1 tablet by mouth Daily., Disp: , Rfl: Synthroid 88 MCG tablet, Take 1 tablet by mouth once daily, Disp: 90 tablet, Rfl: 3 venlafaxine XR (EFFEXOR-XR) 150 MG 24 hr capsule, Take 1 capsule by mouth Daily., Disp: , Rfl: venlafaxine XR (EFFEXOR-XR) 75 MG 24 hr capsule, Take 1 capsule by mouth Daily. Once daily with 150mg dose, Disp: , Rfl: donepezil (Aricept) 5 MG tablet, Take 1 tablet by mouth Every Night., Disp: 30 tablet, Rfl: 5 gabapentin (NEURONTIN) 100 MG capsule, Take 1 capsule by mouth Every 12 (Twelve) Hours. (Patient not taking: Reported on 04/09/2025), Disp: , Rfl: Allergies: Allergies Allergen Reactions Codeine Dizziness Passed out Hydrocodone Rash [place] [Hydrocodone-Acetaminophen] Rash Sulfa Antibiotics Rash PHQ-9 Total Score: KALEYADI Fall Risk Assessment was completed, and patient is at LOW risk for falls.Assessment completed on:04/09/2025 Objective Physical Exam: Physical Exam Eyes: Extraocular Movements: No nystagmus. Neurological: Deep Tendon Reflexes: Reflex Scores: Bicep reflexes are 1+ on the right side and 1+ on the left side. Brachioradialis reflexes are 1+ on the right side and 1+ on the left side. Patellar reflexes are 1+ on the right side and 1+ on the left side. Achilles reflexes are 1+ on the right side and 1+ on the left side. Psychiatric: Speech: Speech normal. Neurological Exam Mental Status Awake, alert and oriented to person, place and time. Recent and remote memory are intact. Speech isnormal. Follows complex commands. Attention and concentration are normal. Fund of knowledge is appropriate for level of education. Cranial Nerves CN III, IV, : No nystagmus. Normal saccades. Normal smooth pursuit. Right pupil: Round. Left pupil: Round. CN V: Facial sensation is normal. CN VII: Full and symmetric facial movement. Motor Normal muscle bulk throughout. No fasciculations present. Normal muscle tone. No abnormal involuntary movements. Decreased strength RUE and RLE. Sensory Sensation is intact to light touch, pinprick, vibration and proprioception in all four extremities. Reflexes Right Left Brachioradialis 1+ 1+ Biceps 1+ 1+ Patellar 1+ 1+ Achilles 1+ 1+ Coordination Right: Sditbd-ex-sbjk normal.Left: Ktvwmg-sp-vruf normal. No obvious tremor. Archimedes spiral is normal. Slight halting of cursive writing.. Gait Casual gait: Slow limping gait favoring injured foot.. Physical Exam Vital Signs: Vitals: 04/09/25 0852 BP: 142/82 Pulse: 92 SpO2: 98% Weight: 75.1 kg (165 lb 9.6 oz) Height: 165.1 cm (65 ) Body mass index is 27.56 kg/m??. Assessment / Plan Assessment/Plan: Diagnoses and all orders for this visit: 1. Mild cognitive impairment (Primary) Comments: [place] next visit. Orders: - donepezil (Aricept) 5 MG tablet; Take 1 tablet by mouth Every Night. Dispense: 30 tablet; Refill:5 - MRI Brain With & Without Contrast; Future - Ambulatory Referral to Neurosurgery - Ammonia; Future - CBC & Differential; Future - Comprehensive Metabolic Panel; Future - Sedimentation Rate; Future - CK; Future - TSH; Future - T4; Future - Vitamin B12 & Folate; Future - C-reactive Protein; Future 2. Frequent falls Comments: Foot fracture contributes to falls. Cont to use cane Orders: - MRI Brain With & Without Contrast; Future - Ambulatory Referral to Neurosurgery - Ammonia; Future - CBC & Differential; Future - Comprehensive Metabolic Panel; Future - Sedimentation Rate; Future - CK; Future - TSH; Future - T4; Future - Vitamin B12 & Folate; Future - C-reactive Protein; Future 3. Memory loss - MRI Brain With & Without Contrast; Future 4. Ataxia Comments: Use cane Orders: - MRI Brain With & Without Contrast; Future - Ambulatory Referral to Neurosurgery 5. Neuropathic pain Comments: Start GBP from PCP. Caution lethargy Orders: - MRI Brain With & Without Contrast; Future - Ambulatory Referral to Neurosurgery 6. Low back pain potentially associated with radiculopathy Comments: MRI l-spine Orders: - Ambulatory Referral to Neurosurgery 7. Myoclonic jerking Comments: Start GBP from PCP. Caution lethargy Assessment & Plan Patient Education: Reviewed medications, potential side effects and signs and symptoms to report. Discussed risk versus benefits of treatment plan with patient and/or family- including medications, labs and radiology that may be ordered. Addressed questions and concerns during visit. Patient and/or family verbalized un derstanding and agree with plan. Instructed to call the office with any questions and report to ER with any life-threatening symptoms. Follow Up: Return in about 3 months (around 07/10/2025). During this visit the following were done: Labs Reviewed [x] Labs Ordered [x] Radiology Reports Reviewed [] Radiology Ordered [x] PCP Records Reviewed [x] Referring Provider Records Reviewed [] ER Records Reviewed [] Hospital Records Reviewed [] History Obtained From Family [x] Radiology Images Reviewed [] Other Reviewed [x] Records Requested [] Patient or patient apprenticeship training representative verbalized consent for the use of Ambient Listening during the visit with Mercedes Yi DNP, GIAN for chart documentation. 04/09/2025 08:29 EDT Mercedes Yi DNP, MARKET DIRECTOR documented in this encounter Plan of Treatment Upcoming Encounters Date Type Department Care Team (Late st Contact Info) Description 06/16/2025 3:45 PM EDT Office Visit [facility] [address] [phone] Bora Beavers MD [address] [facility] [address] [place] [address] 07/14/2025 10:30 AM EDT Office Visit [facility] [address] [place] [phone] Mercedes Yi, DNP, MARKET DIRECTOR [address] [place] [address] Scheduled Referrals Name Type Priority Associated Diagnoses Orde r Schedule Ambulatory Referral to Neurosurgery Outpatient Referral Routine Mild cognitive impairment Frequent falls Ataxia Neuropathic pain Low back pain potentially associated with radiculopathy Ordered: 04/09/2025 documented as of this encounter Procedures Procedure Name Priority Date/Time Associated Diagnosis Comments SCANNED COGNITIVE ASSESSMENT 04/09/2025 documented in this encounter Results * MRI Brain With & Without Contrast (05/02/2025 3:06 PM EDT) Anatomical Region Laterality Modality Head, Neck N/A Magnetic Resonan ce 05/02/2025 4:08 PM EDT Impressions 05/02/2025 4:12 PM EDT Impression: No acute intracranial pathology. Chronic small vessel/microangiopathic ischemic changes. Electronically Signed: Napoleon Naylor MD 05/02/2025 4:12 PM EDT Workstation ID: [id number] Narrative 05/02/2025 4:12 PM EDT MRI BRAIN W WO CONTRAST Date of Exam: 05/02/2025 2:02 PM EDT Indication: freq falls, memory loss, ataxia,. Comparison: None available. Technique: Routine multiplanar/multisequence sequence images of the brain were obtained before and after the uneventful administration of 15 cc Multihance. Findings: No area of restricted diffusion is identified to suggest an acute intracranial infarct. Multifocal areas of T2/FLAIR signal increase are noted within the subcortical, deep cerebral, and periventricular white matter consistent with chronic small vessel/microangiopathic ischemic changes. The ventricles and sulci are normal in size and configuration. No intracranial mass or mass effect. No extra-axial mass or collection. The posterior fossa is normal. Sellar and suprasellar structures are normal. The major intracranial flow-voids of the [place] are patent. No abnormal intracranial enhancement. Intracranial venous sinuses are patent. Orbital and periorbital soft tissues are normal. The visualized paranasal sinuses and ethmoid air cells are aerated. The mastoid air cells are aerated.. Procedure Note Napoleon Naylor MD - 05/02/2025 MRI BRAIN W WO CONTRAST Date of Exam: 05/02/2025 2:02 PM EDT Indication: freq falls, memory loss, ataxia,. Comparison: None available. Technique: Routine multiplanar/multisequence sequence images of the brainwere obtained before and after the uneventful administration of 15 ccMultihance. Findings: No area of restricted diffusion is identified to suggest anacute intracranial infarct. Multifocal areas of T2/FLAIR signal increaseare noted within the subcortical, deep cerebral, and periventricular whitematter consistent with chronic small vessel/microangiopathic ischemic changes. The ventricles and sulci arenormal in size and configuration. No intracranial mass or mass effect. Noextra-axial mass or collection. The posterior fossa is normal. Sellar andsuprasellar structures are normal. The major intracranial flow-voids of the [place] are patent. Noabnormal intracranial enhancement. Intracranial venous sinuses arepatent. Orbital and periorbital soft tissues are normal. The visualized paranasalsinuses and ethmoid air cells are aerated. The mastoid air cells areaerated.. IMPRESSION: Impression: No acute intracranial pathology. Chronic smallvessel/microangiopathic ischemic changes. Electronically Signed: Napoleon Naylor MD 05/02/2025 4:12 PM EDT Workstation ID: [id number] Mercedes Yi DNP, MARKET DIRECTOR IMG MRI ORDERABLES Final Result * C-reactive Protein (04/09/2025 10:07 AM EDT) C-Reactive Protein <0.30 0.00 - 0.50 mg/dL 04/09/2025 6:[facility] Venipuncture / Unknown 04/09/2025 10:07 AM EDT 04/09/2025 10:07 AM EDT Mercedes Yi DNP, GIAN LAB BLOOD ORDERABL ES Final Result Performing Organization Address [facility] Co de Phone Number [facility]
[address] [place] [address], * Vitamin B12 & Folate (04/09/2025 10:07 AM EDT) Folate >20.00 4.78 - 24.20 ng/mL 04/09/2025 7:05 PM EDT [facility] Vitamin B-12 565 211 - 946 pg/mL 04/09/2025 7:05 PM EDT [facility] Blood Venipuncture / Unknown 04/09/2025 10:07 AM EDT 04/09/2025 10:07 AM EDT Narrative [facility] - 04/09/2025 7:05 PM EDT Results may be falsely increased if patient taking Biotin. Mercedes Yi DNP, GIAN LAB BLOOD ORDERABL ES Final Result Performing Organization Address [facility] Co de Phone Number [facility]
[address] [place] [address], * T4 (04/09/2025 10:07 AM EDT) T4, Total 9.53 4.50 - 11.70 mcg/dL 04/09/2025 6:44 PM EDT [facility] Blood Venipuncture / Unknown 04/09/2025 10:07 AM EDT 04/09/2025 10:07 AM EDT Narrative [facility] - 04/09/2025 6:44 PM EDT The concentration of Total T4 in samples from women is erroneously low (20%) when measured using the access Total T4 Assay. Erroneously low results could mask hyperthyroidism. Do not use the Access Total T4 assay as the only marker for evaluating patients for thyroid disorders. us Mercedes Yi DNP, APRN LAB BLOOD ORDERABL ES Final Result Performing Organization Address [facility] Co de Phone Number [facility]
[address] [place] [address], [place] [phone] * (ABNORMAL) TSH (04/09/2025 10:07 AM EDT) TSH 8.330(H) 0.270 - 4.200 uIU/mL 04/09/2025 6:44 PM EDT [facility] Blood Venipuncture / Unknown 04/09/2025 10:07 AM EDT 04/09/2025 10:07 AM EDT Mercedes Yi DNP, APRN LAB BLOOD ORDERABL ES Final Result Performing Organization Address [facility] Co de Phone Number [facility]
[address] [place] [address], [place] [phone] * (ABNORMAL) CK (04/09/2025 10:07 AM EDT) [facility] Creatine Kinase 227(H) 20 - 180 U/L 04/09/2025 6:43 PM EDT [facility] Blood Venipuncture / Unknown 04/09/2025 10:07 AM EDT 04/09/2025 10:07 AM EDT us Mercedes Yi DNP, APRN LAB BLOOD ORDERABL ES Final Result Performing Organization Address City/[facility] Co de Phone Number [facility]
[address] [place] [address], [place] [phone] * Sedimentation Rate (04/09/2025 10:07 AM EDT) Pathologist [facility] Sed Rate 17 0 - 30 mm/hr 04/09/2025 7:02 PM EDT [facility] Blood Venipuncture / Unknown 04/09/2025 10:07 AM EDT 04/09/2025 10:07 AM EDT Mercedes Yi DNP, MARKET DIRECTOR LAB BLOOD ORDERABL ES Final Result [facility]
[address] [place] [address], * (ABNORMAL) Comprehensive Metabolic Panel (04/09/2025 10:07 AM EDT) [facility] Glucose 125(H) 65 - 99 mg/dL 04/09/2025 6:43 PM EDT [facility] BUN 19.0 8.0 - 23.0 mg/dL 04/09/2025 6:43 PM EDT [facility] Creatinine 1.01(H) 0.57 - 1.00 mg/dL 04/09/2025 6:43 PM EDT [facility] Sodium 139 136 - 145 mmol/L 04/09/2025 6:43 PM EDT [facility] Potassium 4.5 3.5 - 5.2 mmol/L 04/09/2025 6:43 PM EDT [facility] Chloride 103 98 - 107 mmol/L 04/09/2025 6:43 PM EDT [facility] CO2 25.0 22.0 - 29.0 mmol/L 04/09/2025 6:43 PM EDT [facility] Calcium 9.7 8.6 - 10.5 mg/dL 04/09/2025 6:43 PM EDT [facility] Total Protein 7.2 6.0 - 8.5 g/dL 04/09/2025 6:43 PM EDT [facility] Albumin 4.2 3.5 - 5.2 g/dL 04/09/2025 6:43 PM EDT [facility] ALT (SGPT) 18 1 - 33 U/L 04/09/2025 6:43 PM EDT [facility] AST (SGOT) 27 1 - 32 U/L 04/09/2025 6:43 PM EDT [facility] Alkaline Phosphatase 98 39 - 117 U/L 04/09/2025 6:43 PM EDT [facility] Total Bilirubin <0.2 0.0 - 1.2 mg/dL 04/09/2025 6:43 PM EDT [facility] Globulin 3.0 gm/dL 04/09/2025 6:43 PM T [facility] A/G Ratio 1.4 g/dL 04/09/2025 6:43 PM EDT [facility] BUN/Creatinine Ratio 18.8 7.0 - 25.0 04/09/2025 6:43 PM EDT [facility] Anion Gap 11.0 5.0 - 15.0 mmol/L 04/09/2025 6:43 PM EDT [facility] eGFR 57.5(L) >60.0 mL/min/1.7 3 04/09/2025 6:43 PM T [facility] Blood Venipuncture / Unknown 04/09/2025 10:07 AM EDT 04/09/2025 10:07 AM EDT [facility] - 04/09/2025 6:43 PM EDT GFR Categories in Chronic Kidney Disease (CKD) GFR Category GFR (mL/min/1.73) Interpretation G1 90 or greater Normal or high (1) G2 60-89 Mild decrease (1) G3a 45-59 Mild to moderate decrease G3b 30-44 Moderate to severe decrease G4 15-29 Severe decrease G5 14 or less Kidney failure (1)In the absence of evidence of kidney disease, neither GFR category G1 or G2 fulfill the criteria for CKD. eGFR calculation 2020 CKD-EPI creatinine equation, which does not include race as a factor us Mercedes Yi DNP, MARKET DIRECTOR LAB BLOOD ORDERABL ES Final Result [facility]
[address] [place] [address], [place] [phone] * Ammonia (04/09/2025 10:07 AM EDT) Ammonia 23 11 - 51 umol/L 04/09/2025 2:33 PM EDT [facility] Blood Venipuncture / Unknown 04/09/2025 10:07 AM EDT 04/09/2025 10:07 AM EDT Mercedes Yi DNP, GIAN LAB BLOOD ORDERABL ES Final Result [facility]
[address] [place] [address], [place] [phone] * COGNITIVE ASSESSMENT SCAN (04/09/2025) Mercedes Yi DNP, MARKET DIRECTOR NEUROLOGY ORDERABL ES Final Result documented in this encounter Visit Diagnoses Diagnosis Mild cognitive impairment- Primary Mild cognitive impairment, so stated Frequent falls Memory loss Ataxia Lack of coordination Neuropathic pain Low back pain potentially associated with radiculopathy Myoclonic jerking Myoclonus Mild cognitive impairment Mild cognitive impairment, so stated Frequent falls Memory loss Ataxia Lack of coordination Neuropathic pain documented in this encounter Additional Health Concerns Assessment Noted Time PHQ-2 Depression Total Score: 2 05/31/20 23 2:01 PM EDT documented as of this encounter Care Teams Quick Print Operator Relationship Specialty Start Date End Date Dale Prescott MD [address] [facility] [address] [place] [address] PCP - General Family Medicine 04/25/19 documented as of this encounter
--- OUTSIDE RECORDS SUMMARY | 2025-04-09 10:10 | XMS_ITS | Encounter Summary ---
[facility] Address [address] [place] [address] Care Team Providers Care Combustion Analyst Name Role Phone Dale Prescott MD Primary Care Provider [phone] Encounter Details Date Type Department Care Team (Late st Contact Info) Description 04/09/2025 10:10 AM EDT Lab [facility] [address] [place] [address] Mild cognitive impairment; Frequent falls Social History Tobacco Use Types Packs/Day Years Used Date Smoking Tobacco: Never Passive Smoke Exposure: Never Smokeless Tobacco: Never Alcohol Use Standard Drinks/Week Comments Never 0 [...] as of this encounter Plan of Treatment Upcoming Encounters Date Type Department Care Team (Late st Contact Info) Description 06/16/2025 3:45 PM EDT Office Visit [facility] END[facility]CR[facility]Y [address] [facility] [address] [place] [address] Bora Beavers MD [address] [facility] [address] [address] [place], [place] [id number] 07/14/2025 10:30 AM EDT Office Visit [facility] NE[facility] [address] [place] [id number] Mercedes Yi, DNP, AMBULATORY SERVICE REPRESENTATIVE [address] [place] [address] documented as of this encounter Procedures Procedure Name Priority Date/Time Associated Diagnosis Comments VITAMIN B12 AND FOLATE Routine 10:07 AM EDT Mild cognitive impairment Frequent falls CBC WITH AUTO DIFFERENTIAL Routine 04/09/2025 10:07 AM EDT Mild cognitive impairment Frequent falls SEDIMENTATION RATE Routine 04/09/2025 10 :07 AM EDT Mild cognitive impairment Frequent falls CBC AND DIFFERENTIAL Routine 04/09/2025 10:07 AM EDT Mild cognitive impairment Frequent falls C-REACTIVE PROTEIN Routine 04/09/2025 10 :07 AM EDT Mild cognitive impairment Frequent falls TSH Routine 04/09/2025 10:07 AM EDT Mild cognitive impairment Frequent falls T4 Routine 04/09/2025 10:07 AM EDT Mild cognitive impairment Frequent falls CK Routine 04/09/2025 10:07 AM EDT Mild cognitive impairment Frequent falls AMMONIA Routine 04/09/2025 10:07 AM EDT Mild cognitive impairment Frequent falls COMPREHENSIVE METABOLIC PANEL Routine 04/09/2025 10:07 AM EDT Mild cognitive impairment Frequent falls documented in this encounter Results * (ABNORMAL) CBC Auto Differential (04/09/2025 10:07 AM EDT) WBC 9.89 3.40 - 10.80 10*3/mm3 04/09/2025 6:55 PM EDT [facility] RBC 4.24 3.77 - 5.28 10*6/mm3 04/09/2025 6:55 PM EDT [facility] Hemoglobin 13.2 12.0 - 15.9 g/dL 04/09/2025 6:55 PM EDT [facility] Hematocrit 40.2 34.0 - 46.6 % 04/09/2025 6:55 PM EDT [facility] MCV 94.8 79.0 - 97.0 fL 04/09/2025 6:55 PM EDT [facility] MCH 31.1 26.6 - 33.0 pg 04/09/2025 6:55 PM EDT [facility] MCHC 32.8 31.5 - 35.7 g/dL 04/09/2025 6:55 PM EDT [facility] RDW 12.6 12.3 - 15.4 % 04/09/2025 6:55 PM EDT [facility] RDW-SD 43.0 37.0 - 54.0 fl 04/09/2025 6:55 PM EDT [facility] MPV 9.6 6.0 - 12.0 fL 04/09/2025 6:55 PM EDT [facility] Platelets 237 140 - 450 10*3/mm3 04/09/2025 6:[facility] Neutrophil % 51.7 42.7 - 76.0 % 04/09/2025 6:55 PM [facility] Lymphocyte % 30.7 19.6 - 45.3 % 04/09/2025 6:55 PM [facility] Monocyte % 11.3 5.0 - 12.0 % 04/09/2025 6:55 PM [facility] Eosinophil % 5.2 0.3 - 6.2 % 04/09/2025 6:55 PM [facility] Basophil % 0.9 0.0 - 1.5 % 04/09/2025 6:55 PM [facility] Immature Grans % 0.2 0.0 - 0.5 % 04/09/2025 6:55 PM [facility] Neutrophils, Absolute 5.11 1.70 - 7.00 10*3/mm3 04/09/2025 6:55 PM [facility] Lymphocytes, Absolute 3.04 0.70 - 3.10 10*3/mm3 04/09/2025 6:55 PM [facility] Monocytes, Absolute 1.12(H) 0.10 - 0.90 10*3/mm3 04/09/2025 6:55 PM [facility] Eosinophils, Absolute 0.51(H) 0.00 - 0.40 10*3/mm3 04/09/2025 6:55 PM [facility] Basophils, Absolute 0.09 0.00 - 0.20 10*3/mm3 04/09/2025 6:55 PM [facility] Immature Grans, Absolute 0.02 0.00 - 0.05 10*3/mm3 04/09/2025 6:55 PM [facility] nRBC 0.0 0.0 - 0.2 /100 WBC 04/09/2025 6:55 PM [facility] Blood Venipuncture / Unknown 04/09/2025 10:07 AM EDT 04/09/2025 10:07 AM EDT Mercedes Yi DNP, APRN LAB BLOOD ORDERABL ES Final Result Performing Organization Address City/[facility]/ZIP Co de Phone Number [facility]
[address] [place] [address], [place] [phone] * C-reactive Protein (04/09/2025 10:07 AM EDT) C-Reactive Protein <0.30 0.00 - 0.50 mg/dL 04/09/2025 6:43 PM EDT [facility] Blood Venipuncture / Unknown 04/09/2025 10:07 AM EDT 04/09/2025 10:07 AM EDT Mercedes Yi DNP, APRN LAB BLOOD ORDERABL ES Final Result Performing Organization Address City/[facility]/ZIP Co de Phone Number [facility]
[address] [place] [address], [place] [phone] * Vitamin B12 & Folate (04/09/2025 10:07 AM EDT) Pathologist [facility] Folate >20.00 4.78 - 24.20 ng/mL 04/09/2025 7:05 PM EDT [facility] Vitamin B-12 565 211 - 946 pg/mL 04/09/2025 7:05 PM EDT [facility] Blood Venipuncture / Unknown 04/09/2025 10:07 AM EDT 04/09/2025 10:07 AM EDT Narrative [facility] - 04/09/2025 7:05 PM EDT Results may be falsely increased if patient taking Biotin. Mercedes Yi DNP, APRN LAB BLOOD ORDERABL ES Final Result Performing Organization Address City/[facility]/ZIP Co de Phone Number [facility]
[address] [place] [address], * T4 (04/09/2025 10:07 AM EDT) Pathologist [facility] T4, Total 9.53 4.50 - 11.70 mcg/dL 04/09/2025 6:44 PM EDT [facility] Blood Venipuncture / Unknown 04/09/2025 10:07 AM EDT 04/09/2025 10:07 AM EDT Narrative [facility] - 04/09/2025 6:44 PM EDT The concentration of Total T4 in samples from women is erroneously low (20%) when measured using the access Total T4 Assay. Erroneously low results could mask hyperthyroidism. Do not use the Access Total T4 assay as the only marker for evaluating patients for thyroid disorders. Mercedes Yi DNP, GIAN LAB BLOOD ORDERABL ES Final Result Performing Organization Address City/[facility]/ZIP Co de Phone Number [facility]
[address] [place] [address], * (ABNORMAL) TSH (04/09/2025 10:07 AM EDT) [facility] TSH 8.330(H) 0.270 - 4.200 uIU/mL 04/09/2025 6:44 PM EDT [facility] Blood Venipuncture / Unknown 04/09/2025 10:07 AM EDT 04/09/2025 10:07 AM EDT Mercedes Yi DNP, GIAN LAB BLOOD ORDERABL ES Final Result [facility]
[address] [place] [address], * (ABNORMAL) CK (04/09/2025 10:07 AM EDT) Pathologist [facility] Creatine Kinase 227(H) 20 - 180 U/L 04/09/2025 6:43 PM EDT [facility] Blood Venipuncture / Unknown 04/09/2025 10:07 AM EDT 04/09/2025 10:07 AM EDT Mercedes Yi DNP, APRN LAB BLOOD ORDERABL ES Final Result Performing Organization Address [facility]/ZIP Co de Phone Number [facility]
[address] [place] [address], * Sedimentation Rate (04/09/2025 10:07 AM EDT) Sed Rate 17 0 - 30 mm/hr 04/09/2025 7:02 PM EDT [facility] Blood Venipuncture / Unknown 04/09/2025 10:07 AM EDT 04/09/2025 10:07 AM EDT Mercedes Yi DNP, APRN LAB BLOOD ORDERABL ES Final Result Performing Organization Address [facility] de Phone Number [facility]
[address] [place] [address], [place] [phone] * (ABNORMAL) Comprehensive Metabolic Panel (04/09/2025 10:07 AM EDT) Glucose 125(H) 65 - 99 mg/dL 04/09/2025 6:43 PM EDT [facility] BUN 19.0 8.0 - 23.0 mg/dL 04/09/2025 6:43 PM EDT [facility] Creatinine 1.01(H) 0.57 - 1.00 mg/dL 04/09/2025 6:43 PM EDT [facility] Sodium 139 136 - 145 mmol/L 04/09/2025 6:43 PM EDT [facility] Potassium 4.5 3.5 - 5.2 mmol/L 04/09/2025 6:43 PM EDT [facility] Chloride 103 98 - 107 mmol/L 04/09/2025 6:43 PM EDT [facility] CO2 25.0 22.0 - 29.0 mmol/L 04/09/2025 6:43 PM T [facility] Calcium 9.7 8.6 - 10.5 mg/dL 04/09/2025 6:43 PM [facility] Total Protein 7.2 6.0 - 8.5 g/dL 04/09/2025 6:43 PM [facility] Albumin 4.2 3.5 - 5.2 g/dL 04/09/2025 6:43 PM [facility] ALT (SGPT) 18 1 - 33 U/L 04/09/2025 6:43 PM [facility] AST (SGOT) 27 1 - 32 U/L 04/09/2025 6:43 PM [facility] Alkaline Phosphatase 98 39 - 117 U/L 04/09/2025 6:43 PM [facility] Total Bilirubin <0.2 0.0 - 1.2 mg/dL 04/09/2025 6:43 PM [facility] Globulin 3.0 gm/dL 04/09/2025 6:43 PM [facility] A/G Ratio 1.4 g/dL 04/09/2025 6:43 PM [facility] BUN/Creatinine Ratio 18.8 7.0 - 25.0 04/09/2025 6:43 PM [facility] Anion Gap 11.0 5.0 - 15.0 mmol/L 04/09/2025 6:43 PM [facility] eGFR 57.5(L) >60.0 mL/min/1.7 3 04/09/2025 6:43 PM [facility] Blood Venipuncture / Unknown 04/09/2025 10:07 AM EDT 04/09/2025 10:07 AM T [facility] - 04/09/2025 6:43 PM EDT GFR [...] does not include race as a factor Mercedes Yi DNP, GIAN LAB BLOOD ORDERABL ES Final Result [facility]
[address] [place] [address], [place] [phone] * Ammonia (04/09/2025 10:07 AM EDT) Ammonia 23 11 - 51 umol/L 04/09/2025 2:33 PM EDT [facility] Blood Venipuncture / Unknown 04/09/2025 10:07 AM EDT 04/09/2025 10:07 AM EDT Mercedes Yi DNP, GIAN LAB BLOOD ORDERABL ES Final Result Performing Organization Address City/[facility]/ZIP Co de Phone Number [facility]
[address] [place] [address], [place] [phone] documented in this encounter Visit Diagnoses Diagnosis Mild cognitive impairment Mild cognitive impairment, so stated Frequent falls documented in this encounter Additional Health Concerns Assessment Noted Time PHQ-2 Depression Total Score: 2 05/31/20 23 2:01 PM EDT documented as of this encounter Care Teams Combustion Analyst Relationship Specialty Start Date End Date Dale Prescott MD [address] [facility] [address] [place] [address] PCP - General Family Medicine 04/25/19 documented as of this encounter
--- OUTSIDE RECORDS SUMMARY | 2025-05-02 13:42 | XMS_ITS | Encounter Summary ---
[facility] Address [address] [place] [address] Care Team Providers Care Benefits Clerk Name Role Phone Dale Prescott MD Primary Care Provider [phone] Reason for Referral * MRI/CAT/PET Scan (Routine) - Closed Specialty Diagnoses / Procedures [facility] Referred To Contact Radiology Diagnoses Mild cognitive impairment Frequent falls Memory loss Ataxia Neuropathic pain Procedures MRI Brain With & Without Contrast Mercedes Yi DNP, GARAGE DOOR INSTALLER [address] [address] Phone: tel: fax: [address] [address] Phone: tel: Referral ID Status Reason Start Date Expiration Date Visits Re quested Visits Authorized [id number] Closed 04/09/2025 07/09/2026 1 1 Reason for Visit * MRI/CAT/PET Scan (Routine) - Closed Specialty Diagnoses / Procedures [facility] Referred To Contact Radiology Diagnoses Mild cognitive impairment Frequent falls Memory loss Ataxia Neuropathic pain Procedures MRI Brain With & Without Contrast Mercedes Yi DNP, GIAN [address] [address] Phone: tel: fax: [facility] [address] [place] [address] Phone: tel: Referral ID Status Reason Start Date Expiration Date Visits Re quested Visits Authorized [id number] Closed 04/09/2025 07/09/2026 1 1 Encounter Details Date Type Department Care Team (Latest Contact Info) Description 05/02/2025 1:42 PM EDT - 05/02/2025 11:59 PM EDT Hospital Encounter [facility] MRI [address] [place] [address] Mercedes Yi, DNP, GARAGE DOOR INSTALLER [address] [place] [address] Mild cognitive impairment; Frequent falls; Memory loss; Ataxia; Neuropathic pain Discharge Disposition: Home or Self Care Social History Tobacco Use Types Packs/Day Years [...] on file documented as of this encounter Medications at Time of Discharge ASPIRIN 81 PO Aspir-81 mg tablet,delayed release Daily busPIRone (BUSPAR) 10 MG tablet Take 1 tablet by mouth Daily. clobetasol (CLOBEX) 0.05 % lotion Apply 1 Application topically to the appropriate area as directed 2 (Two) Times a Week. Coenzyme Q10 (CO Q-10 PO) Take by mouth. donepezil (Aricept) 5 MG tabletIndication s:Mild cognitive impairment Take 1 tablet by mouth Every Night. 30 tablet 5 04/09/2025 gabapentin (NEURONTIN) 100 MG capsule Take 1 capsule by mouth Every 12 (Twelve) Hours. 03/10/2025 losartan (COZAAR) 25 MG tablet Take 1 tablet by mouth Daily. metFORMIN (GLUCOPHAGE) 500 MG tablet Daily. 1 tablet with a meal Orally Once a day for 90 days Mirabegron ER (Myrbetriq) 50 MG tablet sustained-releas e 24 hour 24 hr tablet Take 50 mg by mouth Daily. omeprazole (priLOSEC) 20 MG capsule TAKE 1 CAPSULE BY MOUTH IN THE MORNING FOR 90 DAYS 03/14/2023 OneTouch Ultra test strip USE 1 STRIP TO CHECK GLUCOSE ONCE DAILY OR DIRECTED 07/24/2020 Restasis 0.05 % ophthalmic emulsion Administer 1 drop to both eyes Every 12 (Twelve) Hours. 03/28/2023 rosuvastatin (CRESTOR) 40 MG tablet Take 1 tablet by mouth Daily. Synthroid 88 MCG tablet Take 1 tablet by mouth once daily 90 tablet 3 03/22/2023 venlafaxine XR (EFFEXOR-XR) 150 MG 24 hr capsule Take 1 capsule by mouth Daily. venlafaxine XR (EFFEXOR-XR) 75 MG 24 hr capsule Take 1 capsule by mouth Daily. Once daily with 150mg dose documented as of this encounter Plan of Treatment Upcoming Encounters Date Type Department Care Team (Late st Contact Info) Description 06/16/2025 3:45 PM EDT Office Visit [facility] [address] [facility] [address] [place] [address] Bora Beavers MD [address] [facility] [address] [place] [address] 07/14/2025 10:30 AM EDT Office Visit [facility] NEUR[facility] [address] [place] [id number] Mercedes Yi, DNP, GARAGE DOOR INSTALLER [address] [place] [address] documented as of this encounter Procedures Procedure Name Priority Date/Time Associated Diagnosis Comments MRI BRAIN W WO CONTRAST Routine 05/02/2025 3:06 PM EDT Mild cognitive impairment Frequent falls Memory loss Ataxia Neuropathic pain documented in this encounter Results * MRI Brain With & Without Contrast (05/02/2025 3:06 PM EDT) Anatomical Region Laterality Modality Head, Neck N/A Magnetic Resonan ce 05/02/2025 4:08 PM EDT Impressions 05/02/2025 4:12 PM EDT Impression: No acute intracranial pathology. Chronic small vessel/microangiopathic ischemic changes. Electronically Signed: Napoleon Naylor MD 05/02/2025 4:12 PM EDT Workstation ID: [id number] Narrative 05/02/2025 4:12 PM EDT MRI BRAIN [...] normal. The major intracranial flow-voids of the [place] are patent. No abnormal intracranial [...] normal. The major intracranial flow-voids of the [place] are patent. Noabnormal intracranial enhancement. Intracranial venous sinuses arepatent. Orbital and periorbital soft tissues are normal. The visualized paranasalsinuses and ethmoid air cells are aerated. The mastoid air cells areaerated.. IMPRESSION: Impression: No acute intracranial pathology. Chronic smallvessel/microangiopathic ischemic changes. Electronically Signed: Napoleon Naylor MD 05/02/2025 4:12 PM EDT Workstation ID: [id number] Mercedes Yi DNP, GARAGE DOOR INSTALLER IMG MRI ORDERABLES Final Result documented in this encounter Visit Diagnoses Diagnosis Mild cognitive impairment Mild cognitive impairment, so stated Frequent falls Memory loss Ataxia Lack of coordination Neuropathic pain documented in this encounter Administered Medications Inactive Administered Medications - up to 3 most recent administrations Medication Order MAR Action Action Date Dose Rate Site gadobenate dimeglumine (MULTIHANCE) injection 15 mL 15 mL, Intravenous, Once in Imaging, On 05/02/25 at 1438, For 1 dose, Vesicant; admin as rapid bolus; flush with 5 mL NS after admin or 20 mL for renal or aortoiliofemoral vasculature Given 05/02/2025 3:01 PM EDT 15 mL documented in this encounter Additional Health Concerns Assessment Noted Time PHQ-2 Depression Total Score: 2 05/31/20 23 2:01 PM EDT documented as of this encounter Care Teams Benefits Clerk Relationship Specialty Start Date End Date Dale Prescott MD [address] [facility] [address] [place] [address] PCP - General Family Medicine 04/25/19 documented as of this encounter
--- OUTSIDE RECORDS SUMMARY | 2025-05-12 06:45 | XMS_ITS ---
[facility] Address [address] [facility] [address] [place] [place] [id number] Care Team Providers Care Paper Folder Name Role Phone Dale Prescott Primary Care Provider [phone] Allergies Allergen (clinical drug ingredient) Drug/Non Drug [...] Vargas 2024 11:20:59 AM > faxed to [facility] Pain Management, Charity Vargas 05/14/2025 10:26:18 [...] W/U Status Risk Notes Problem Chronic pain (27948307) Other chronic pain (G89.29) Active confirmed Vital Signs Weight 164.8 lbs 05/12/2025 Blood pressure systolic 132 mm Hg 05/12/20 25 Blood pressure diastolic 80 mm Hg 025 Heart Rate 103 /min 05/12/2025 Height 65 in 05/12/2025 BMI 27.42 kg/m2 05/12/2025 Encounters Encounter Location Date Provider Diagnosis [facility] [address] [place] [id number] 05/12/2025 [place]yl [place] Other chronic pain G89.29 ; Low back [...] loss (ICD-10 - R41.3) MRI report from [facility] reviewed in office today 05/12/2025 Urinary symptom or sign (ICD-10 - R39.9) 05/12/2025 BMI 27.0-27.9,adult (ICD-10 - Z68.27) Plan Of Treatment Treatment Notes Assessment Notes Other chronic pain Patient wants to see a chiropractor and pain management Memory loss MRI report from [facility] reviewed in office today Referrals Referral Date Details 05/12/2025 05/12/2025, Collins Barba x Next Appt Details Follow Up: 4 Weeks, Reason: Provider Name:Dale pace, 06/09/2025 11:45:00 AM, [address] [facility], [address], [place], [id number], Provider Name:Dale pace, 08/18/2025 09:30:00 AM, [address] [facility], [address], [place], [id number], Progress Notes * SHANNON HARRISDOB: 8 (79 yo F)Acc No.[id number]:05/12/2025 Progress Notes Patient: SHANNON BUNN Provider: Ana Prescott M.D. :1945 A ge:79 Y S ex:Female Date:05/12/2025 Address:[address] [place] [address] MAL[id number] Subjective: * Chief Complaints: * 1 . [...] D Deficiency, Lichen Sclerosis - followed by MEAT BLENDER at [facility], Dx: 12/2018, Renal Artery Stenosis, right, [...] Forehead 03/13/2019, Colonoscopy and Endoscope- Dr. Bueno, [facility] 05/10/2020, Lipotripsy for Kidney Stones- [facility] 06/11/2020. * Hospitalization/Major Diagno stic Procedure: F all - LT Rotator Cuff Tear , Kidney Stone- [facility] ER 09/29/2018. * Family History: F ather: 74 yrs, diagnosed with Heart Disease. M other: 72 yrs, diagnosed with Cancer. S iblings: alive 68 yrs. C edwin: alive. P [...] HR: 103, Nurse: kathya, Ht: 65, BMI:27.42. Assessment: * Assessment: 1. O ther chronic pain - G89.29 (Primary) 2 . L ow back pain, unspecified - M54.50 3 . L umbar facet arthropathy - M47.816 4 . S christelle stenosis of lumbar region without neurogenic claudication - M48.061 5 . M florentino loss - R41.3 6 . U rinary symptom or sign - R39.9 7 . B GA 27.0-27.9,adult - Z68.27 Plan: * Treatment: 2. L ow back pain, unspecified Referral To:[facility] Reason: 3. L umbar facet arthropathy Referral To:[facility] Reason: 4. S christelle stenosis of lumbar region without neurogenic claudication Referral To:[facility] Reason: 5. M florentino loss Notes: MRI report from [facility] reviewed in office today 6. U [...] G 2211 Complex e/[place], [address] Urinalysis, no micro, 1036F TOBACCO NON- USER, G8420 BMI<30 AND >=22 CALC & DOCU, G8783 BP SCR PRFRM RCMDD DEFIND SCR INTVL, G8752 MOST RECENT SYSTOLIC BP < 140MM HG, G8754 MOST RECENT DIASTOLIC BP < 90MM HG * Follow Up: 4 Weeks * Images: Billing Information: * Visit Code: 31908 Office Visit, Est Pt., Level 4. * Procedure Codes: G2211 Complex e/[place]. [address] Urinalysis, no micro. 1036F TOBACCO NON-USER. G8420 BMI<30 AND >=22 CALC & DOCU. G8783 BP SCR PRFRM RCMDD DEFIND SCR INTVL. G8752 MOST RECENT SYSTOLIC BP < 140MM HG. G8754 MOST RECENT DIASTOLIC BP < 90MM HG. * Electronic signature of Rocio Prescott MD on 05/25/2025 at 02:00 PM EDT Sign off status: Pending * Provider: Ana Prescott M.D. Date: 05/12/2025 Generated for Radha mohan/Delbert/Sissyitting on: 05/25/2025 02:00 PM EDT History and Physical Notes * HPI (History of Present Illness) Category Sub-Category Detail Notes Category Not es Neurology spells Pt complains of having a shaking spell for about 20 minutes on Sunday. Pt states she was making pie crust and just started shaking from head to toe and she has never had that happen before Consultation Request Notes Referral Date Referring Provider Referred Provider Not es 05/12/2025 Dale Prescott Anjum
--- OUTSIDE RECORDS SUMMARY | 2025-05-25 14:00 | XMS_ITS | Encounter Summary ---
[facility] Address [address] [place] [address] Care Team Providers Care Print Room Worker Name Role Phone Dale Prescott MD Primary Care Provider [phone] Encounter Details Date Type Department Care Team (Late st Contact Info) Description 04/14/2025 Documentation [facility] NEUROLOGY [address] [facility] [address] [place] [address] Mercedes Yi, DNP, MANAGER TELECOM [address] [facility] [address] [place] [address] Social History Tobacco Use Types Packs/Day Years [...] on file documented as of this encounter Progress Notes * Mercedes Yi DNP, MANAGER TELECOM - 04/14/2025 3:[address] disc of l-spine sent for upload. documented in this encounter Plan of Treatment Upcoming Encounters Date Type Department Care Team (Late st Contact Info) Description 06/16/2025 3:45 PM EDT Office Visit [facility] ENDOCRINOLOGY [address] [facility] [address] [place] [address] Bora Beavers MD [address] [facility] [address] [place] [address] 07/14/2025 10:30 AM EDT Office Visit [facility] NEUR[facility] [address] [place] [address] Mercedes Yi DNP, MANAGER TELECOM [address] [place] [address] documented as of this encounter Visit Diagnoses Not on filedocumented in this encounter Additional Health Concerns Assessment Noted Time PHQ-2 Depression Total Score: 2 05/31/20 23 2:01 PM EDT documented as of this encounter Care Teams Print Room Worker Relationship Specialty Start Date End Date Dale Prescott MD [address] [facility] [address] [place] [address] PCP - General Family Medicine 7/19/19 documented as of this encounter
--- OUTSIDE RECORDS SUMMARY | 2025-05-25 14:00 | XMS_ITS | Encounter Summary ---
[facility] Organization [facility] Address [address] [place] [address] Care Team Providers Care Adult Family Home Program Manager Name Role Phone Dale Prescott MD Primary Care Provider [phone] Encounter Details Date Type Department Care Team (Late st Contact Info) Description 05/11/2025 Telephone [facility] NEUROLOGY [address] [facility] [facility] [address] [place] [address] Mercedes Yi, DNP, RETENTION SPECIALIST [address] [facility] [address] [place] [address] Social History Tobacco Use Types [...] on file documented as of this encounter Miscellaneous Notes * Telephone Encounter - Fela Huynh MA - 05/11/2025 10:49 AM EDT Called patient and let her know to schedule with PCP. Spoke with provider who stated that patient needs to schedule with PCP. Patient called and stated back was hurting on Sunday and stood up and shaking was very bad from feet to head. Shaking lasted twenty minutes with no other symptoms. The shaking stopped and has not happened since then. Patient stated urine is clear, she is very thirsty and has to go to the bathroomoften. documented in this encounter Plan of Treatment Upcoming Encounters Date Type Department Care Team (Late st Contact Info) Description 06/16/2025 3:45 PM EDT Office Visit [facility] ENDOCRINOLOGY [address] [address] Bora Beavers MD [address] [address] 07/14/2025 10:30 AM EDT Office Visit [facility] NEUROLOGY [address] [place] [address] Mercedes Yi, DNP, RETENTION SPECIALIST [address] [place] [address] documented as of this encounter Visit Diagnoses Not on filedocumented in this encounter Additional Health Concerns Assessment Noted Time PHQ-2 Depression Total Score: 2 05/31/20 23 2:01 PM EDT documented as of this encounter Care Teams Adult Family Home Program Manager Relationship Specialty Start Date End Date Dale Prescott MD [address] [facility] [address] [facility] [address] [place] [address] PCP - General Family Medicine 04/25/19 documented as of this encounter
--- OUTSIDE RECORDS SUMMARY | 2025-05-25 14:00 | XMS_ITS | Encounter Summary ---
[facility] Address [address] [place] [address] Care Team Providers Care Odd Job Laborer Name Role Phone Dale Prescott MD Primary Care Provider [phone] Encounter Details Date Type Department Care Team (Late st Contact Info) Description 04/13/2025 Results Follow-Up [facility] NEUROLOGY [address] [facility] [address] [place] [address] Mercedes Yi, DNP, CASING MACHINE OPERATOR [address] [facility] [address] [place] [address] Social History Tobacco Use Types [...] 06/16/2025 3:45 PM EDT Office Visit [facility] ENDOCRINOLOGY [address] [facility] [address] [place] [address] Bora Beavers MD [address] [facility] [address] [place], [place] [address] 07/14/2025 10:30 AM EDT Office Visit [facility] NEUROLOGY [address] [place] [address] Mercedes Yi, DNP, CASING MACHINE OPERATOR [address] [place] [address] documented as of this encounter Visit Diagnoses Not on filedocumented in this encounter Additional Health Concerns Assessment Noted Time PHQ-2 Depression Total Score: 2 05/31/20 23 2:01 PM EDT documented as of this encounter Care Teams Odd Job Laborer Relationship Specialty Start Date End Date Dale Prescott MD [address] [facility] [address] [place] [address] PCP - General Family Medicine 04/25/19 documented as of this encounter
--- OUTSIDE RECORDS SUMMARY | 2025-05-25 14:00 | XMS_ITS | Patient Health Record ---
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) *Lichen sclerosus et atrophicus, excludes female genitalia (L90.0) 019 Active confirmed Genital lichen sclerosus Problem Gynecological examination abnormal (265638265740764 ) *Clinical Pharmacy Coordinator exam with abnormal finding (Code also - abnormal finding(s) (Z01.411) 019 Active confirmed Annual with abnormal findings Problem Herpes zoster without complication (154623896) Acute pain associated with herpes zoster (B02.9) 020 Active confirmed Zoster without complications Plan Of Treatment No Information Medical (General) History Medical History History ICD Code ABORTIONS: 1 Vulvar irritation Acid Reflux Anxiety Depression DM Type 2 Fibrocystic Breasts Graves disease Irritable bowel Osteoporosis ROGELIO Urinary tract infections Yeast Infections Kidney stones Lichen sclerosus Basal Cell carcinoma VENLAFAXINE HCL 75 MG ORAL TABLET, ORAL PREMARIN CREAM Surgical History Surgery Date(Month/Year) Hyst 2008, BTL 1979, Cholecy stectomy 1997, Lithotripsy x2 10/04/18 (Stent insertion) & 10/18/18 (Stent removal), Basal cell carcinoma removal - 2018
--- OUTSIDE RECORDS SUMMARY | 2025-05-25 14:00 | XMS_ITS | Encounter Summary ---
Author Organization [facility] Address [address] [place] [address] Care Team Providers Care Jackaroo Name Role Phone Dale Prescott MD Primary Care Provider [phone] Encounter Details Date Type Department Care Team (Latest Contact Info) Description 05/02/2025 Travel Social History Tobacco Use Types Packs/Day Years [...] Description 06/16/2025 3:45 PM EDT Office Visit [facility] [address] [facility] [address] [place] [address] Bora Beavers MD [address] [facility] [address] [place] [address] 07/14/2025 10:30 AM EDT Office Visit [facility] NEUROLOGY [address] [place] [address] Mercedes Yi, DNP, HEATING ELEMENT WINDER [address] [place] [address] documented as of this encounter Visit Diagnoses Not on filedocumented in this encounter Additional Health Concerns Assessment Noted Time PHQ-2 Depression Total Score: 2 05/31/20 23 2:01 PM EDT documented as of this encounter Care Teams Jackaroo Relationship Specialty Start Date End Date Dale Prescott MD [address] [facility] [address] [place] [address] PCP - General Family Medicine 04/25/19 documented as of this encounter
--- OUTSIDE RECORDS SUMMARY | 2025-05-25 14:00 | XMS_ITS | Encounter Summary ---
[facility] Address [address] [place] [address] Care Team Providers Care [employer] Internship Name Role Phone Dale Prescott MD Primary Care Provider [phone] Encounter Details Date Type Department Care Team (Latest Contact Info) Description 04/09/2025 Travel Social History Tobacco Use Types Packs/Day [...] Description 06/16/2025 3:45 PM EDT Office Visit [facility] [address] [facility] [address] [place] [id number] Bora Beavers MD [address] [facility] [address] [place] [address] 07/14/2025 10:30 AM EDT Office Visit [facility] [address] [place] [address] Mercedes Yi, DNP, [employer] [address] [place] [address] documented as of this encounter Visit Diagnoses Not on filedocumented in this encounter Additional Health Concerns Assessment Noted Time PHQ-2 Depression Total Score: 2 05/31/20 23 2:01 PM EDT documented as of this encounter Care Teams [employer] Relationship Specialty Start Date End Date Dale Prescott MD [address] [facility] [address] [place] [address] PCP - General Family Medicine 04/25/19 documented as of this encounter
--- OUTSIDE RECORDS SUMMARY | 2025-05-25 14:01 | XMS_ITS | Encounter Summary ---
Author Organization [facility] Address [address] [place] [address] Care Team Providers Care Orthodontic Treatment Coordinator Name Role Phone Manny Damico MD Primary Care Provider [phone] Encounter Details Date Type Department Care Team (Late st Contact Info) Description 01/31/2023 [facility] [address] [place] [address] Kecia Braga MD [address] [facility] [address] [place] [id number] Obstructive sleep apnea (adult) (pediatric) (Primary Dx); [...] (pediatric) documented in this encounter Care Teams Orthodontic Treatment Coordinator Relationship Specialty Start Date End Date Manny Damico MD [address] [place] [address] PCP - General 02/18/21 documented as of this encounter
--- OUTSIDE RECORDS SUMMARY | 2025-05-25 14:01 | XMS_ITS | Clinical Summary ---
Author Organization [facility] Address [address] [place] [address] Care Team Providers Care Tipple Supervisor Name Role Phone Dale Prescott MD Primary Care Provider Allergies Active Allergy Reactions Criticality Noted Date Comments Codeine Dizziness Medium 06/08/2020 Passed out Hydrocodone Rash Low 05/10/2020 Hydrocodone-Acetaminophen Rash Low 07/26/2023 Sulfa Antibiotics Rash Low 04/03/2022 Medications venlafaxine XR (EFFEXOR-XR) 150 MG 24 hr capsule Take 1 capsule by mouth Daily. Active rosuvastatin (CRESTOR) 40 MG tablet Take 1 tablet by mouth Daily. Active ASPIRIN 81 PO Aspir-81 mg tablet,delayed release Daily Active OneTouch Ultra test strip USE 1 STRIP TO CHECK GLUCOSE ONCE DAILY OR DIRECTED 0 Active venlafaxine XR (EFFEXOR-XR) 75 MG 24 hr capsule Take 1 capsule by mouth Daily. Once daily with 150mg dose Active Coenzyme Q10 (CO Q-10 PO) Take by mouth. Ac tive Synthroid 88 MCG tablet Take 1 tablet by mouth once daily 90 tablet 3 3 Active Restasis 0.05 % ophthalmic emulsion Administer 1 drop to both eyes Every 12 (Twelve) Hours. 3 Active omeprazole (priLOSEC) 20 MG capsule TAKE 1 CAPSULE BY MOUTH IN THE MORNING FOR 90 DAYS 3 Active busPIRone (BUSPAR) 10 MG tablet Take 1 tablet by mouth Daily. Active clobetasol (CLOBEX) 0.05 % lotion Apply 1 Application topically to the appropriate area as directed 2 (Two) Times a Week. Active gabapentin (NEURONTIN) 100 MG capsule Take 1 capsule by mouth Every 12 (Twelve) Hours. Active losartan (COZAAR) 25 MG tablet Take 1 tablet by mouth Daily. Active metFORMIN (GLUCOPHAGE) 500 MG tablet Daily. 1 tablet with a meal Orally Once a day for 90 days Active Mirabegron ER (Myrbetriq) 50 MG tablet sustained-relea se 24 hour 24 hr tablet Take 50 mg by mouth Daily. Active donepezil (Aricept) 5 MG tabletIndicatio ns:Mild cognitive impairment Take 1 tablet by mouth Every Night. 30 tablet 5 5 04/09/20 26 Active Active Problems Problem Noted Date Diagnosed Date Acute left-sided low back pain with left-sided s ciatica 04/09/2025 Arthropathy of lumbar facet joint 04/09/2025 Constipation 04/09/2025 Coronary artery disease invo lving n[place] coronary artery of [place] heart without angina pectoris 04/09/2025 Depressive disorder 04/09/2025 Essential hypertension 04/09/2025 Gastroesophageal reflux disease 04/09/2025 Intention tremor 04/09/2025 Lumbago with sciatica, right side 04/09/2025 Memory loss 04/09/2025 Overactive bladder 04/09/2025 Obstructive sleep apnea syndrome 04/09/2025 Primary osteoarthritis of left knee 04/09/2025 Recurrent falls 04/09/2025 Aneurysm of renal artery 04/09/2025 Renal artery stenosis 04/09/2025 Sciatica 04/09/2025 Spinal stenosis of lumbar region 04/09/2025 Type 2 diabetes mellitus with other specified co mplication 04/09/2025 Type 2 diabetes mellitus without complications 0 04/09/2025 Urinary incontinence 04/09/2025 Vitamin B12 deficiency 04/09/2025 Vitamin D deficiency 04/09/2025 Type 2 diabetes mellitus wit h hyperglycemia, without long-term current use of insulin 09/22/2020 Assessment & Plan (12/08/2024 11:00 AM EST): Diabetes is worsening. A1c increased but still acceptable. We discussed treatment options. She will titrate up metformin to 2 tablets daily. Diabetes will be reassessed in 6 months. Assessment & Plan (05/28/2024 3:25 PM EDT): Diabetes is stable. Continue current treatment regimen. Diabetes will be reassessed in 6 months. Assessment & Plan (04/27/2023 11:49 AM EDT): Diabetes is improving with treatment. Continue current treatment regimen. Diabetes will be reassessed in 6 months. Assessment & Plan (10/05/2022 11:42 AM EST): Diabetes is worsening. A1c has crept up but still acceptable. Continue current treatment regimen. But increase metformin. Diabetes will be reassessed in 6 months. Assessment & Plan (04/03/2022 11:25 AM EDT): Diabetes is unchanged. Continue current treatment regimen. Diabetes will be reassessed in 6 months. Assessment & Plan (10/04/2021 10:03 AM EST): Diabetes is unchanged. Continue current treatment regimen. Diabetes will be reassessed in 6 months. Assessment & Plan (03/24/2021 12:17 PM EDT): Diabetes is unchanged. Continue current treatment regimen. Diabetes will be reassessed in 6 months. Assessment & Plan (09/22/2020 11:32 AM EST): Diabetes is improving with treatment. Continue current treatment regimen. Diabetes will be reassessed in 3 months. A1c looks good. Hypercholesteremia 09/22/2020 Assessment & Plan (12/08/2024 10:51 AM EST): Continue statin. Check lipids. Assessment & Plan (05/28/2024 3:12 PM EDT): Continue statin. Plan to check lipids next visit. Assessment & Plan (04/27/2023 11:49 AM EDT): Continue statin. Lipids okay last visit. Assessment & Plan (10/05/2022 11:34 AM EST): Continue statin. Check lipids today. Assessment & Plan (04/03/2022 11:21 AM EDT): Continue statin. Assessment & Plan (10/04/2021 10:01 AM EST): Continue statin. Check lipids today. Postoperative hypothyroidism 09/22/2020 Assessment & Plan (12/08/2024 10:51 AM EST): Continue Synthroid. Check TSH. Assessment & Plan (05/28/2024 3:13 PM EDT): Continue Synthroid. Check TSH today. Assessment & Plan (04/27/2023 11:50 AM EDT): Continue T4 tx. Check TSH today. Assessment & Plan (10/05/2022 11:34 AM EST): Continue Synthroid. Check TSH today. Assessment & Plan (04/03/2022 11:24 AM EDT): Continue synthroid. Check TSH today. Assessment & Plan (10/04/2021 10:02 AM EST): Continue synthroid. Check TSH today. Assessment & Plan (03/24/2021 12:18 PM EDT): Continue synthroid. Check TSH today. Assessment & Plan (09/22/2020 11:32 AM EST): Check TSH today. History of Graves' disease 09/22/2020 Lichen sclerosus of female genitalia 10/08/2018 Overview (05/09/2023): 05/09/2023-patient diagnosed in 2018. She is taking clobetasol 4 times a week along with estradiol. She reports that she has had worsening symptoms especially in the past year. She was seen by her aquatics lifeguard last week and discussed it with him. He recommended he come in for evaluation. Vulvar biopsy and new swab performed on 05/09/2023. As symptoms are worsening despite medical therapy, will refer to gynecologic oncology to talk about a potential vulvectomy. Patient understands and plans to follow-up. Kidney stone 08/08/2015 Overview (04/09/2025): Provider: Sarah Yu;Status: Active Nocturia 07/19/2015 Overview (04/09/2025): From Automated Load;Provider: Sarah Yu;Status: Active OAB (overactive bladder) 07/19/2015 Sensation as if bladder still full 07/19/2015 Overview (04/09/2025): From Automated Load;Provider: Sarah Yu;Status: Active Urge incontinence of urine 07/19/2015 Overview (04/09/2025): From Automated Load;Provider: Sarah Yu;Status: Active Osteopenia Encounters Date Type Department Care Team Description 05/11/2025 Telephone [facility] NEUROLOGY [address] [facility] [address] [place] [phone] Mercedes Yi DNP, SOFTWARE TESTER 05/02/2025 1:42 PM EDT - 05/02/2025 11:59 PM EDT Hospital Encounter [facility] MRI [address] [place] [phone] Mercedes Yi DNP, SOFTWARE TESTER Mild cognitive impairment; Frequent falls; Memory loss; Ataxia; Neuropathic pain Discharge Disposition: Home or Self Care 05/02/2025 Travel 04/14/2025 Documentation [facility] NEUROLOGY [address] [facility] [address] [place] [phone] Mercedes Yi DNP, SOFTWARE TESTER 04/13/2025 Results Follow-Up [facility] NEUROLOGY [address] [facility] [address] [place] [phone] Mercedes Yi DNP, GIAN 04/09/2025 10:10 AM EDT Lab [facility] [address] [place] [address] [place] [phone] Mild cognitive impairment; Frequent falls 04/09/2025 9:00 AM EDT Office Visit [facility] NEUROLOGY [address] [facility] [address] [place] [address] [place] [phone] Mercedes Yi, JAYRO, SOFTWARE TESTER Mild cognitive impairment (Primary Dx); Frequent falls; Memory loss; Ataxia; Neuropathic pain; Low back pain potentially associated with radiculopathy; Myoclonic jerking 04/09/2025 Travel from Last 3 Months Family History Medical History Relation Name Comments Heart disease Father Diabetes Maternal Grandmother Branden Estrada Heart attack Maternal Grandmother Branden Estrada Cancer Mother Carisa Moody Pancreatic Can cer Ovarian cancer Mother Carisa Moody METASTATIC F ROM PANCREATIC CA Pancreatic cancer Mother Carisa Moody Breast cancer Paternal Grandmother Alma Moody Cancer Paternal Grandmother Alma Moody Breast Cancer Diabetes Paternal Grandmother Alma Moody Colon cancer Neg Hx Relation Name Status Comments Brother Alive Father Maternal Grandmother Branden Estrada Mother Carisa Moody Paternal Grandmother Alma Moody Social History Tobacco Use Types Packs/Day Years [...] Pulse 92 04/09/2025 8:52 AM EDT Temperature 36.7 C (98.1 F) 07/26/2023 7:05 PM EDT Respiratory Rate 18 07/26/2023 7:05 PM EDT Oxygen Saturation 98% 04/09/2025 8:52 AM EDT Inhaled Oxygen Concentration - - Weight 75.1 kg (165 lb 9.6 oz) 04/09/2025 8:52 A M EDT Height 165.1 cm (5' 5 ) 04/09/2025 8:52 AM EDT Body Mass Index 27.56 04/09/2025 8:52 AM EDT Plan of Treatment Upcoming Encounters Date Type Department Care Team (Late st Contact Info) Description 06/16/2025 3:45 PM EDT Office Visit [facility] [address] [phone] Bora Beavers MD [address] [address] 07/14/2025 10:30 AM EDT Office Visit [facility] NEUROLOGY [address] [place] [address] [place] [phone] Mercedes Yi, DNP, SOFTWARE TESTER [address] [place] [address] [place] [address] Health Maintenance Due Date Last Done Comments DIABETIC FOOT EXAM 1955 TDAP/TD VACCINES (1 - Tdap) 1966 ZOSTER VACCINE (1 of 2) 1997 ANNUAL WELLNESS VISIT 06/08/2020 HEPATITIS C SCREENING 06/08/2020 RSV Vaccine - Adults (1 - 1- dose 75+ series) 2022 PAP SMEAR 05/05/2023 05/05/2021, 04/21/2009 COVID-19 Vaccine (2 - 2023-2 5 season) 2024 09/04/2023 MAMMOGRAM 01/19/2025 01/19/2023, 07/08, 05/11/2022, Additional history exists DXA SCAN 02/12/2025 02/12/2023, 04/21/2019 HEMOGLOBIN A1C 06/10/2025 12/08/2024, 05/09, 04/27/2023, Additional history exists INFLUENZA VACCINE 07/08/2025 08/15/2024, , 07/06/2023, Additional history exists DIABETIC EYE EXAM 11/24/2025 11/24/2024, , 09/22/2022, Additional history exists LIPID PANEL 12/08/2025 12/08/2024, 09/08, 10/04/2021 URINE MICROALBUMIN-CREATININ E RATIO (uACR) 12/08/2025 12/08/2024, 05/28/2024, 10/05/2022, Additional history exists COLONOSCOPY Discontinued 05/10/2020 COLORECTAL CANCER SCREENING Discontinued Pneumococcal Vaccine 50+ Completed 023, 07/03/2019, 06/25/2018 COLOGUARD Discontinued COLON CANCER SCREENING 5 YEA R SIGMOIDOSCOPY Discontinued CT COLONOGRAPHY Discontinued FECAL OCCULT BLOOD TEST Discontinued FIT Testing (1 year) Discontinued Medical Devices Implanted Type Area Patient Services Technician Device Identifier Shelf Expiration Date Model / Serial / Lot Stnt Percuflx No Gw 4.8x24 - [id number] Implanted:Qty: 1 on 06/11/2020 by Ramone Malave MD at [facility] Stent Right: Ureter [employer] 01/08/2023 [id number] / / [id number] Procedures Procedure Name Priority Date/Time Associated Diagnosis Comments MRI BRAIN W WO CONTRAST Routine 05/02/2025 3:06 PM EDT Mild cognitive impairment Frequent falls Memory loss Ataxia Neuropathic pain CBC AND DIFFERENTIAL Routine 04/09/2025 10:07 AM EDT Mild cognitive impairment Frequent falls CBC WITH AUTO DIFFERENTIAL Routine 04/09/2025 10:07 AM EDT Mild cognitive impairment Frequent falls C-REACTIVE PROTEIN Routine 04/09/2025 10 :07 AM EDT Mild cognitive impairment Frequent falls VITAMIN B12 AND FOLATE Routine 10:07 AM [...] AM EDT Mild cognitive impairment Frequent falls SCANNED COGNITIVE ASSESSMENT 04/09/2025 XR OUTSIDE FILMS Routine 04/06/2025 12:0 0 AM EDT SCANNED - IMAGING 03/05/2025 CT OUTSIDE SPINE Routine 03/05/2025 12:0 0 AM EDT MICROALBUMIN / CREATININE URINE RATIO Routine 12/08/2024 11:09 AM EST Type 2 diabetes mellitus with hyperglycemia, without long-term current use of insulin LIPID PANEL Routine 12/08/2024 11:09 AM EST Type 2 diabetes mellitus with hyperglycemia, without long-term current use of insulin POCT GLYCOSYLATED HEMOGLOBIN (HGB A1C) Routine 12/08/2024 10:33 AM EST Type 2 diabetes mellitus with hyperglycemia, without long-term current use of insulin SCANNED - EYE EXAM 11/24/2024 MAMMO DIAGNOSTIC DIGITAL TOMOSYNTHESIS RIGHT W CAD Routine 01/19/2023 2:57 PM EDT Abnormal mammogram SCANNED - PAP SMEAR 05/05/2021 from Last 3 Months or Most Recently Relevant to Health Maintenance Results * MRI Brain With & Without Contrast (05/02/2025 3:06 PM EDT) Anatomical Region Laterality Modality Head, Neck N/A Magnetic Resonan ce 05/02/2025 4:08 PM EDT Impressions 05/02/2025 4:12 PM EDT Impression: No acute intracranial pathology. Chronic small vessel/microangiopathic ischemic changes. Electronically Signed: Napoleon Naylor MD 05/02/2025 4:12 PM EDT Workstation ID: [id number] Narrative 05/02/2025 4:12 PM EDT MRI BRAIN [...] normal. The major intracranial flow-voids of the [place] are patent. No abnormal intracranial [...] normal. The major intracranial flow-voids of the [place] are patent. Noabnormal intracranial enhancement. Intracranial venous sinuses arepatent. Orbital and periorbital soft tissues are normal. The visualized paranasalsinuses and ethmoid air cells are aerated. The mastoid air cells areaerated.. IMPRESSION: Impression: No acute intracranial pathology. Chronic smallvessel/microangiopathic ischemic changes. Electronically Signed: Napoleon Naylor MD 05/02/2025 4:12 PM EDT Workstation ID: [id number] Mercedes Yi DNP, SOFTWARE TESTER IMG MRI ORDERABLES Final Result * Vitamin B12 & Folate (04/09/2025 10:07 AM EDT) Folate >20.00 4.78 - 24.20 ng/mL 04/09/2025 7:05 PM EDT [facility] Vitamin B-12 565 211 - 946 pg/mL 04/09/2025 7:05 PM EDT [facility] Blood Venipuncture / Unknown 04/09/2025 10:07 AM EDT 04/09/2025 10:07 AM EDT Narrative [facility] - 04/09/2025 7:05 PM EDT Results may be falsely increased if patient taking Biotin. us Mercedes Yi DNP, SOFTWARE TESTER LAB BLOOD ORDERABL ES Final Result [facility]
[address] [place] [address], * (ABNORMAL) CBC Auto Differential (04/09/2025 10:07 AM EDT) WBC 9.89 3.40 - 10.80 10*3/mm3 04/09/2025 6:55 PM EDT [facility] RBC 4.24 3.77 - 5.28 10*6/mm3 04/09/2025 6:55 PM EDT [facility] Hemoglobin 13.2 12.0 - 15.9 g/dL 04/09/2025 6:55 PM EDT [facility] Hematocrit 40.2 34.0 - 46.6 % 04/09/2025 6:55 PM EDT [facility] MCV 94.8 79.0 - 97.0 fL 04/09/2025 6:55 PM EDT [facility] MCH 31.1 26.6 - 33.0 pg 04/09/2025 6:55 PM EDT [facility] MCHC 32.8 31.5 - 35.7 g/dL 04/09/2025 6:55 PM EDT [facility] RDW 12.6 12.3 - 15.4 % 04/09/2025 6:55 PM EDT [facility] RDW-SD 43.0 37.0 - 54.0 fl 04/09/2025 6:55 PM EDT [facility] MPV 9.6 6.0 - 12.0 fL 04/09/2025 6:55 PM EDT [facility] Platelets 237 140 - 450 10*3/mm3 04/09/2025 6:55 PM EDT [facility] Neutrophil % 51.7 42.7 - 76.0 % 04/09/2025 6:55 PM EDT [facility] Lymphocyte % 30.7 19.6 - 45.3 % 04/09/2025 6:55 PM EDT [facility] Monocyte % 11.3 5.0 - 12.0 % 04/09/2025 6:55 PM EDT [facility] Eosinophil % 5.2 0.3 - 6.2 % 04/09/2025 6:55 PM EDT [facility] Basophil % 0.9 0.0 - 1.5 % 04/09/2025 6:55 PM EDT [facility] Immature Grans % 0.2 0.0 - 0.5 % 04/09/2025 6:55 PM EDT [facility] Neutrophils, Absolute 5.11 1.70 - 7.00 10*3/mm3 04/09/2025 6:55 PM EDT [facility] Lymphocytes, Absolute 3.04 0.70 - 3.10 10*3/mm3 04/09/2025 6:55 PM EDT [facility] Monocytes, Absolute 1.12(H) 0.10 - 0.90 10*3/mm3 04/09/2025 6:55 PM EDT [facility] Eosinophils, Absolute 0.51(H) 0.00 - 0.40 10*3/mm3 04/09/2025 6:55 PM EDT [facility] Basophils, Absolute 0.09 0.00 - 0.20 10*3/mm3 04/09/2025 6:55 PM EDT [facility] Immature Grans, Absolute 0.02 0.00 - 0.05 10*3/mm3 04/09/2025 6:55 PM EDT [facility] nRBC 0.0 0.0 - 0.2 /100 WBC 04/09/2025 6:55 PM EDT [facility] Blood Venipuncture / Unknown 04/09/2025 10:07 AM EDT 04/09/2025 10:07 AM EDT Mercedes Yi DNP, SOFTWARE TESTER LAB BLOOD ORDERABL ES Final Result [facility]
[address] [place] [address], * Sedimentation Rate (04/09/2025 10:07 AM EDT) Pathologist [facility] Sed Rate 17 0 - 30 mm/hr 04/09/2025 7:02 PM EDT [facility] Blood Venipuncture / Unknown 04/09/2025 10:07 AM EDT 04/09/2025 10:07 AM EDT Mercedes Yi DNP, GIAN LAB BLOOD ORDERABL ES Final Result Performing Organization Address City/[facility]/ZIP Co de Phone Number [facility]
[address] [place] [address], * C-reactive Protein (04/09/2025 10:07 AM EDT) [facility] C-Reactive Protein <0.30 0.00 - 0.50 mg/dL 04/09/2025 6:43 PM EDT [facility] Blood Venipuncture / Unknown 04/09/2025 10:07 AM EDT 04/09/2025 10:07 AM EDT Mercedes Yi DNP, GIAN LAB BLOOD ORDERABL ES Final Result [facility]
[address] [place] [address], * (ABNORMAL) TSH (04/09/2025 10:07 AM EDT) Pathologist [facility] TSH 8.330(H) 0.270 - 4.200 uIU/mL 04/09/2025 6:44 PM EDT [facility] Blood Venipuncture / Unknown 04/09/2025 10:07 AM EDT 04/09/2025 10:07 AM EDT Mercedes Yi DNP, APRN LAB BLOOD ORDERABL ES Final Result Performing Organization Address City/[facility]/ZIP Co de Phone Number [facility]
[address] [place] [address], * T4 (04/09/2025 10:07 AM EDT) T4, Total 9.53 4.50 - 11.70 mcg/dL 04/09/2025 6:44 PM EDT [facility] Blood Venipuncture / Unknown 04/09/2025 10:07 AM EDT 04/09/2025 10:07 AM EDT Narrative [facility] - 04/09/2025 6:44 PM [...] ORDERABL ES Final Result Performing Organization Address [facility]/ZIP Co de Phone Number [facility]
[address] [place] [address], * (ABNORMAL) CK (04/09/2025 10:07 AM EDT) Creatine Kinase 227(H) 20 - 180 U/L 04/09/2025 6:43 PM EDT [facility] Blood Venipuncture / Unknown 04/09/2025 10:07 AM EDT 04/09/2025 10:07 AM EDT Mercedes Yi DNP, GIAN LAB BLOOD ORDERABL ES Final Result Performing Organization Address City/[facility]/ZIP Co de Phone Number [facility]
[address] [place] [address], * Ammonia (04/09/2025 10:07 AM EDT) Ammonia 23 11 - 51 umol/L 04/09/2025 2:33 PM EDT [facility] Blood Venipuncture / Unknown 04/09/2025 10:07 AM EDT 04/09/2025 10:07 AM EDT Mercedes Yi DNP, SOFTWARE TESTER LAB BLOOD ORDERABL ES Final Result [facility]
[address] [place] [address], * (ABNORMAL) Comprehensive Metabolic Panel (04/09/2025 10:07 AM EDT) Glucose 125(H) 65 - 99 mg/dL 04/09/2025 6:43 PM EDT [facility] BUN 19.0 8.0 - 23.0 mg/dL 04/09/2025 6:43 PM EDT [facility] Creatinine 1.01(H) 0.57 - 1.00 mg/dL 04/09/2025 6:43 PM EDT [facility] Sodium 139 136 - 145 mmol/L 04/09/2025 6:43 PM EDT [facility] Potassium 4.5 3.5 - 5.2 mmol/L 04/09/2025 6:43 PM EDT [facility] Chloride 103 98 - 107 mmol/L 04/09/2025 6:43 PM EDT [facility] CO2 25.0 22.0 - 29.0 mmol/L 04/09/2025 6:43 PM EDT [facility] Calcium 9.7 8.6 - 10.5 mg/dL 04/09/2025 6:43 PM EDT [facility] Total Protein 7.2 6.0 - 8.5 g/dL 04/09/2025 6:43 PM EDT [facility] Albumin 4.2 3.5 - 5.2 g/dL 04/09/2025 6:43 PM EDT [facility] ALT (SGPT) 18 1 - 33 U/L 04/09/2025 6:43 PM EDT [facility] AST (SGOT) 27 1 - 32 U/L 04/09/2025 6:43 PM EDT [facility] Alkaline Phosphatase 98 39 - 117 U/L 04/09/2025 6:43 PM EDT [facility] Total Bilirubin <0.2 0.0 - 1.2 mg/dL 04/09/2025 6:43 PM EDT [facility] Globulin 3.0 gm/dL 04/09/2025 6:43 PM T [facility] A/G Ratio 1.4 g/dL 04/09/2025 6:43 PM T [facility] BUN/Creatinine Ratio 18.8 7.0 - 25.0 04/09/2025 6:43 PM EDT [facility] Anion Gap 11.0 5.0 - 15.0 mmol/L 04/09/2025 6:43 PM [facility] eGFR 57.5(L) >60.0 mL/min/1.7 3 04/09/2025 6:43 PM T [facility] Blood Venipuncture / Unknown 04/09/2025 10:07 AM EDT 04/09/2025 10:07 AM EDT [facility] - 04/09/2025 6:43 PM EDT [...] does not include race as a factor Jujoe Yi DNP, APRN LAB BLOOD ORDERABL ES Final Result [facility]
[address] [place] [address], [place] [phone] * COGNITIVE ASSESSMENT SCAN (04/09/2025) us Mercedes Yi DNP, APRN NEUROLOGY ORDERABL ES Final Result * XR Outside Films (04/06/2025 12:00 AM EDT) Narrative SYSTEMGENERATED, DOCUMENTATION - 04/16/2025 12:56 PM EDT This procedure was auto-finalized with no dictation required. GIAN Farmer DNP DIAGNOSTIC SUN GING ORDERABLES Final Result * CT Outside Spine (03/05/2025 12:00 AM EDT) Narrative SYSTEMGENERATED, DOCUMENTATION - 04/16/2025 12:51 PM EDT This procedure was auto-finalized with no dictation required. GIAN Farmer DNP CT ORDERABLES Final Result * IMAGING SCANNED (03/05/2025) Anatomical Region Laterality Modality Radiographic Sun ging GIAN Farmer DNP DIAGNOSTIC SUN GING ORDERABLES Final Result * Microalbumin / Creatinine Urine Ratio - Urine, Clean Catch (12/08/2024 11:09 AM EST) Microalbumin/C reatinine Ratio 14.7 0.0 - 29.0 mg/g 12/08/2024 11:23 PM EST [facility] Creatinine, Urine 136.1 mg/dL 12/08/2024 11:23 PM EST [facility] Microalbumin, Urine 2.0 mg/dL 12/08/2024 11:23 PM EST [facility] Urine Urine specimen obtained by clean catch procedure / Unknown Collection / Unknown 12/08/2024 11:09 AM EST 12/08/2024 11:09 AM EST Bora Beavers MD URINE ORDERABLES Final Re sult [facility]
[address] [place] [address], * (ABNORMAL) Lipid Panel (12/08/2024 11:09 AM EST) Total Cholesterol 153 0 - 200 mg/dL 12/09/2024 12:29 AM EST [facility] Triglycerides 54 0 - 150 mg/dL 12/09/2024 12:29 AM [facility] HDL Cholesterol 70(H) 40 - 60 mg/dL 12/09/2024 12:29 AM EST [facility] LDL Cholesterol 72 0 - 100 mg/dL 12/09/2024 12:29 AM [facility] VLDL Cholesterol 11 5 - 40 mg/dL 12/09/2024 12:29 AM [facility] LDL/HDL Ratio 1.03 12/09/2024 12:29 AM [facility] Blood Structure of left upper limb / Unknown Venipuncture / Unknown 12/08/2024 11:09 AM EST 12/08/2024 11:09 AM EST Narrative [facility] - 12/09/2024 12:29 AM EST Cholesterol Reference Ranges (U.S. Department of Health and Human Services ATP III Classifications) Desirable <200 mg/dL Borderline High 200-239 mg/dL High Risk >240 mg/dL Triglyceride Reference Ranges (U.S. Department of Health and Human Services ATP III Classifications) Normal <150 mg/dL Borderline High 150-199 mg/dL High 200-499 mg/dL Very High >500 mg/dL HDL Reference Ranges (U.S. Department of Health and Human Services ATP III Classifications) Low <40 mg/dl (major risk factor for CHD) High >60 mg/dl ('negative' risk factor for CHD) LDL Reference Ranges (U.S. Department of Health and Human Services ATP III Classifications) Optimal <100 mg/dL Near Optimal 100-129 mg/dL Borderline High 130-159 mg/dL High 160-189 mg/dL Very High >189 mg/dL LDL is calculated using the NIH LDL-C calculation. us Bora Beavers MD LAB BLOOD ORDERABLES Mary l Result [facility]
[address] [place] [address], * (ABNORMAL) POC Glycosylated Hemoglobin (Hb A1C) (12/08/2024 10:33 AM EST) Hemoglobin A1C 7.6(A) 4.5 - 5.7 % [facility] Lot Number [id number] [facility] Expiration Date 08/15/2026 [facility] Blood 12/08/2024 10:3 3 AM EST us Bora Beavers MD POINT OF CARE TEST ORDERA BLES Final Result Performing Organization Address [facility]/ZIP Co de Phone Number [facility]
[address] [place] [address], [place] [phone] * EYE EXAM SCANNED (11/24/2024) Anatomical Region Laterality Modality Other us Bora Beavers MD CHART REVIEW TABS Mary l Result * Mammo Diagnostic Digital Tomosynthesis Right With CAD (01/19/2023 2:57 PM EDT) Anatomical Region Laterality Modality Breast Right Mammography 01/19/2023 1:56 PM EDT Impressions 01/19/2023 2:50 PM EDT Previously seen asymmetry has an imaging appearance is consistent with fibroglandular tissue overlap, stable minimally prominent ducts at 11:00 10 cm from the nipple is considered benign. ACR BI-RADS CATEGORY: 2, BENIGN RECOMMENDATION: Patient may return to routine annual screening mammography. CAD was utilized. The standard false-negative rate of mammography is between 10% and 25%. Complex patterns or increased breast density will markedly elevate the false-negative rate of mammography. A letter, in lay terminology, with the results of this exam was given to the patient at the time of the visit. This report was finalized on 01/19/2023 2:50 PM by Corin Noe MD. Narrative 01/19/2023 2:50 PM EDT RIGHT DIGITAL DIAGNOSTIC MAMMOGRAM AND DIAGNOSTIC TARGETED RIGHT BREAST ULTRASOUND CLINICAL HISTORY: Short-term interval follow-up recommended on prior diagnostic exam from 01/19/2023 TECHNIQUE: 2D and tomosynthesis CC and MLO views were obtained. COMPARISON: Prior comparison from 07/20/2022 as well as 05/11/2022 MAMMOGRAM FINDINGS: There are scattered fibroglandular densities. Previous area of lateral right breast asymmetry has an imaging appearance that is much more consistent with normal overlapping fibroglandular tissue on spot compression and rolled views. There are no worrisome microcalcifications, masses or areas of distortion. ULTRASOUND FINDINGS: Targeted ultrasound was performed by myself as well as the technologist. Targeted imaging does redemonstrate a minimally prominent area of ductal tissue at 11:00 10 cm from the nipple, benign. I personally imaged the entirety the lateral right breast with no worrisome findings identified. us Dale Prescott MD IM MAMMOGRAPHY ORDERABLES F inal Result * SCANNED - PAP SMEAR (05/05/2021) us Roberta Awan MD CHART REVIEW TABS Final Resul t from Last 3 Months or Most Recently Relevant to Health Maintenance Insurance MEDICARE A & B Care Teams Tipple Supervisor Relationship Specialty Start Date End Date Dale Prescott MD [address] [place] [address] PCP - General Family Medicine 04/25/19
--- OUTSIDE RECORDS SUMMARY | 2025-05-25 14:01 | XMS_ITS | Clinical Summary ---
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 Pulse 86 08/16/2023 [...] Wellness (AWV) 1945 [facility]-Infant/Child/Adol SDOH Screenings 1945 [id number] Vaccine (#1) 1952 [facility]- SDOH Screenings 1965 [facility]-Adult SDOH Screenings 1965 [facility]-DTaP,Tdap,and Td Vaccines (1 - Tdap) 1966 [facility]-Zoster Vaccines (1 of 2) 1997 [facility]-RSV Vaccine: 60+ Years or (1 - 1-dose 75+ series) 2022 [facility]-Influenza Vaccine (#1) 06/08/202506/19, 08/22/2021, 07/03/2019, Additional history exists [facility]-Pneumococcal Vaccine: [...] age to complete this topic Insurance MEDICARE [id number] Care Teams Lift Builder Whole Relationship Specialty Start Date End Date Manny Damico MD [address] [place] [address] PCP - General 02/18/21
--- OUTSIDE RECORDS SUMMARY | 2025-05-25 14:01 | XMS_ITS | Patient Health Record ---
[facility] Address [address] [facility] [address] [place] [id number] Care Team Providers Care Skidder Driver Name Role Phone Dale Prescott Primary Care Provider SamanthaLenoreVeronica Unavailable [phone] Allergies Allergen (clinical drug ingredient) Drug/Non Drug Allergy documented on EMR Reaction Allergy Type Onset Date Status codeine Codeine Unknown Drug Allergy Active Substance with sulfonamide structure and antibacterial mechanism of action (substance) Sulfa Antibiotics Unknown Drug Allergy Active Results Component Value Reference Range Notes Urinalysis - Inhouse Reviewed date:06/03/2024 10:11:23 AM Interpretation: Performing Lab: Notes/Report: Color/Clarity yellow/clear Leuk trace Nitrite neg Urobili 3.2 Protein neg pH 6.5 Blood trace-intact Sp. Gr. 1.025 Ketone neg Bili neg Gluc neg TEN-UTI panel Reviewed date:06/05/2024 04:02:44 PM Interpretation:Negative Performing Lab: Notes/Report: Negative P-Culture, Urine Reviewed date:12/05/2024 01:16:10 PM Interpretation:No Growth Performing Lab: Notes/Report: Test performed by [facility], [address] , [address], [place] [address] Carlos Hanks MD, Strategic Partnership Representative CLIA: [id number] Specimen Source Urine - Void Culture, Urine See Below Final Report : No growth Urinalysis - Inhouse Reviewed date:05/14/2025 10:13:18 AM Interpretation:satisfactory Performing Lab: Notes/Report: satisfactory Color/Clarity Yellow/Clear Leuk Neg Nitrite Neg Urobili 3.2 Protein Neg pH 7.5 Blood Neg Sp. Gr. 1.020 Ketone Trace Bili Neg Gluc Neg RSVAB Reviewed date:07/10/2024 02:17:39 PM Interpretation:Negative Performing Lab: Notes/Report: RSVAB Negative Negative RSV-nasal swab Reviewed date:07/09/2024 11:38:29 AM Interpretation: Performing Lab: Notes/Report: Upper Resp. PCR ([facility]) Reviewed date:07/09/2024 11:42:50 AM Interpretation: Performing Lab: Notes/Report: CBC Fingerstick (in house) Reviewed date:06/11/2024 10:32:35 [...] Interpretation:neg Performing Lab: Notes/Report: neg Result: neg CBC Fingerstick (in house) Reviewed date:06/28/2024 01:19:55 [...] 100 - 400 Urinalysis - Inhouse Reviewed date:12/03/2024 02:32:48 PM Interpretation: Performing Lab: Notes/Report: Color/Clarity yellow/clear Leuk 1+ Nitrite Neg Urobili 3.2 Protein Neg pH 5.5 Blood Trace-Intact Sp. Gr. 1.025 Ketone 1+ Bili 1+ Gluc Neg Urinalysis - Inhouse Reviewed date:02/17/2025 04:38:54 PM [...] Interpretation:Normal Performing Lab: Notes/Report: Test performed by [facility] [address] [place] [address] , [address], [place] [address] Carlos Hanks MD, Strategic Partnership Representative CLIA: [id number] Vitamin B12 538 397-1011 pg/mL P-Comprehensive Metabolic Pa jamie (CMP) Reviewed date:02/17/2025 04:38:54 PM Interpretation: Performing Lab: Notes/Report: Test performed by [facility] [address] [place] [address] , [address], [place] [address] Carlos Hanks MD, Strategic Partnership Representative CLIA: [id number] Sodium 141 135-145 mmol/L Potassium 4.5 3.5-5.3 [...] Interpretation:Normal Performing Lab: Notes/Report: Test performed by [facility] [address] [place] [address] , [place] [address] Carlos Hanks MD, Strategic Partnership Representative CLIA: [id number] Thyroxine Free (free T4) 1.34 0.86-1.76 ng/dL P-Lipid Panel Reviewed date:02/17/2025 04:38:54 PM Interpretation:Normal Performing Lab: Notes/Report: Test performed by [facility] [address] [place] [address] [place] [address] Carlos Hanks MD, Strategic Partnership Representative CLIA: [id number] Cholesterol 172 <200 mg/dL Triglycerides 75 <150 [...] Interpretation:8.66 Performing Lab: Notes/Report: Test performed by [facility] [address] [place], [place] [address] [facility] [address] , [place] [address] Carlos Hanks MD, Strategic Partnership Representative CLIA: [id number] TSH 8.66 0.43-5.25 mU/L P-Vitamin D 25-Hydroxy Reviewed date:02/17/2025 04:38:54 PM Interpretation:Normal Performing Lab: Notes/Report: Test performed by [facility] [address] [place], [place] [address] [address] , [place] [address] Carlos Hanks MD, Strategic Partnership Representative CLIA: [id number] Vitamin D 25-Hydroxy 36.6 30.0-100.0 ng/mL Interpretation of Vitamin D 25 [place]: < 20 ng/mL - Deficiency 20 - 29 ng/mL - Insufficiency 30 - 100 ng/mL - Sufficiency > 100 ng/mL - Super-therapeutic- toxicity may occur above this level. Clinical correlation required. TEN-UTI panel Reviewed date:02/17/2025 04:38:54 PM Interpretation:Negative Performing Lab: Notes/Report: Negative Reason For Referral Reason [facility] [place] Diagnosis 1 Chest pain, unspecif ied type (R07.9) Referral Organization [facility] Referring Provider First Name Dale Referring Provider Last Name Genie Referring Provider [facility] ctice Referred Provider Cardiology, . Referred Provider Specialty Cardiovascul ar Disease General Notes Charity Vargas 024 10:12:01 AM > faxed to [facility] Cardiology Referral Priority Routine Diagnosis 1 Lumbago with sciatic a, right side (M54.41) Diagnosis 2 Lumbago with sciatic a, left side (M54.42) Diagnosis 3 Lumbar facet arthrop athy (M47.816) Diagnosis 4 Spinal stenosis of l umbar region without neurogenic claudication (M48.061) [facility] Referring Provider First Name Dale Referring Provider Last Name Genie Referring Provider [facility] ctice Referred Organization [facility] Rehab./PT Referred Provider Physical Therapy, . [place]erred Address [place],[address],[facility] Referred Provider Specialty Physical The rapist General Notes Charity Vargas 2024 10:22:47 AM > faxed to [facility] PT Referral Priority Routine Diagnosis 1 Lumbago with sciatic a, right side (M54.41) Diagnosis 2 Lumbago with sciatic a, left side (M54.42) Diagnosis 3 Spinal stenosis of l umbar region without neurogenic claudication (M48.061) Diagnosis 4 Lumbar facet arthrop athy (M47.816) Referral Organization [facility] Referring Provider First Name Dale Referring Provider Last Name Genie Referring Provider [facility] ctice Referred Provider [place] Referred Provider Specialty Pain Managem ent General Notes Charity Vargas 2024 10:23:17 AM > faxed to [facility] Pain Management, Charity Vargas 03/18/2025 09:44:28 AM > resent fax Referral Priority Routine Reason [facility] Neuro logy, No MD pref. Diagnosis 1 Frequent falls (R29. 6) Diagnosis 2 Intention tremor (G2 5.2) Diagnosis 3 Memory loss (R41.3) Referral Organization [facility] Referring Provider First Name Dale Referring Provider Last Name Genie Referring Provider [facility] ctice Referred Provider Specialty Neurology General Notes Charity Vargas 2024 01:24:07 PM > faxed all info to Neurology Referral Priority Routine Diagnosis 1 Lumbar facet arthrop athy (M47.816) Diagnosis 2 Low back pain, unspe cified (M54.50) Diagnosis 3 Spinal stenosis of l umbar region without neurogenic claudication (M48.061) Referral Organization [facility] Referring Provider First Name Dale Referring Provider Last Name Genie Referring Provider [facility] ctice Referred Provider [place] Referred Provider Specialty Pain Managem ent General Notes Charity Vargas 2024 11:20:59 AM > faxed to [facility] Pain Management, Charity Vargas 05/14/2025 10:26:18 AM > 05/25/2025 at 02:00pm Referral Priority Routine Medications Medication SIG (Take, Route, Frequency, Duration) Notes Start Date End Date Status Myrbetriq 50 MG 1 tablet Orally Once a day; Duration: 30 days 08/15/2024 Active Albuterol Sulfate HFA 108 (90 Base) MCG/ACT 2 puff as needed Inhalation every 4 hrs prn 07/07/2024 Active Rosuvastatin Calcium 40 MG TAKE 1 TABLET BY MOUTH ONCE DAILY AT BEDTIME; Duration: 90 Active OneTouch Ultra - USE 1 STRIP TO CHECK GLUCOSE ONCE DAILY OR DIRECTED to test once daily; Duration: 90 days Diagnosis E11.9 Active Venlafaxine HCl ER 75 MG Take 1 capsule by mouth once daily; Duration: 90 Active ONE TOUCH ULTRA BLUE TEST STRIPS 1 TEST STRIP FINGERSTICK TEST ONCE A DAY OR DIRECTED; Duration: 30 DAYS 10/30/2018 Active Venlafaxine HCl ER 150 MG take 1 capsule by mouth once daily Orally Once a day; Duration: 90 days Active MiraLax - DIRECTED ORALLY ONCE A DAY; Duration: 7 DAY(S) 04/02/2020 Active Omeprazole 20 MG 1 capsule 1/2 to 1 hour before morning meal Orally Once a day; Duration: 90 days 03/16/2025 Active Aspirin Adult Low Dose 81 MG 1 tab(s) orally once a day Active CoQ-10 100 MG 1 cap(s) orally once a day Active Gabapentin 100 MG 1 capsules Orally twice a day; Duration: 30 days 03/10/2025 Active Losartan Potassium 25 MG 1 tablet Orally Once a day; Duration: 90 days Active Cholestyramine 4 GM/DOSE 1 scoop Orally Once a day; Duration: 30 day(s) Active metFORMIN HCl 500 MG 1 tablet with a meal Orally Once a day; Duration: 90 days Active Synthroid 88 MCG 1 tab(s) orally once a day; Duration: 90 days Active busPIRone HCl 10 MG 1 tab(s) orally once a day; Duration: 90 days Active Immunizations Vaccine Route Administration Date Status [...] Status Risk Notes Problem Vitamin D deficiency (64989377) Vitamin D deficiency (E55.9) Active confirmed Problem Vitamin B12 deficiency (207672256) Vitamin B12 deficiency (E53.8) Active confirmed Problem Essential hypertension (07250914) Essential hypertension (I10) Active confirmed Problem Urinary incontinence (376065446) Urinary incontinence (R32) Active confirmed Problem Osteopenia (707637594) Osteopenia (M85.80) Active confirmed Problem Arthropathy of lumba r facet joint (775801381) Lumbar facet arthropathy (M47.816) Active confirmed Problem Obstructive sleep apnea (62053976) Obstructive sleep apnea (G47.33) Active confirmed Problem Sciatica (16533771) Sciatic leg pain (M54.30) Active confirmed Problem Overactive urinary bladder (disorder) (275238144) OAB (overactive bladder) (N32.81) Active confirmed Problem Memory loss (83923410) Memory loss (R41.3) Active confirmed Problem Sciatica (82922540) Lumbago with sciatica, right side (M54.41) Active confirmed Problem Sciatica (58670604) Lumbago with sciatica, left side (M54.42) Active confirmed Problem Depressive disorder (23051451) Depressive disorder (F32.9) Active confirmed Problem Chronic pain (72391207) Other chronic pain (G89.29) Active confirmed Problem Constipation (72469205) Constipation, unspecified constipation type (K59.00) Active confirmed Problem Acquired hypothyroidism (000838247) Acquired hypothyroidism (E03.9) Active confirmed Problem Kidney stone (43349886) Kidney stone (N20.0) Active confirmed Problem Atherosclerotic hear t disease of [place] coronary artery without angina pectoris (184474608394425) Coronary artery disease involving [place] coronary artery of [place] heart without angina pectoris (I25.10) Active confirmed Problem Gastroesophageal reflux disease (650123303) Gastroesophageal reflux disease, esophagitis presence not specified (K21.9) Active confirmed Problem Osteoporosis (44557392) Osteoporosis (M81.0) Active confirmed Problem Kidney stone (51378685) Kidney stones (N20.0) Active confirmed Problem Obstructive sleep apnea syndrome (79577707) LILIAM (obstructive sleep apnea) (G47.33) Active confirmed Problem Osteoarthritis of knee (335331250) Primary osteoarthritis of left knee (M17.12) Active confirmed Problem Recurrent falls (797620245) Frequent falls (R29.6) Active confirmed Problem Sciatica (12843122) Acute left-s ided low back pain with left-sided sciatica (M54.42) Active confirmed Problem Type II diabetes mellitus without complication (843632214) Type 2 diabetes mellitus without complication, without long-term current use of insulin (E11.9) Active confirmed Problem Pure hypercholesterolemia (104050656) Pure hypercholesterolemia (E78.00) Active confirmed Problem Renal artery stenosi s (815963866) Renal artery stenosis (I70.1) Active confirmed Problem Spinal stenosis of lumbar region (96912551) Spinal stenosis of lumbar region without neurogenic claudication (M48.061) Active confirmed Problem Aneurysm of renal artery (58009025) 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) Active confirmed Problem Intention tremor (67910577) Intention tremor (G25.2) Active confirmed Problem Type 2 diabetes mellitus with other specified complication, unspecified whether terminal supervisor insulin use (E11.69) Active confirmed Vital Signs Heart Rate 103 /min 05/12/2025 Blood pressure diastolic 80 mm Hg 05/12/2025 Height 65 in 05/12/2025 Blood pressure systolic 132 mm Hg 05/12/2025 Weight 164.8 lbs 05/12/2025 BMI 27.42 kg/m2 05/12/2025 Encounters Encounter Location Date Provider Diagnosis [facility] [address] [facility] [address] [place], [place] [id number] 06/02/2024 Dale Woodruff Acute UTI N39.0 [facility] [address] [facility] [address] [place], [place] [id number] 06/06/2024 Dale Woodruff Acute URI J06.9 [facility] [address] [facility] [address] [place], [place] [id number] 06/28/2024 Dale Woodruff Hematoma of right lo wer extremity, initial encounter S80.11XA and Acute URI J06.9 [facility] [address] [facility] [address] [place], [place] [id number] 07/07/2024 Veronica Singh Bronchitis J40 [facility] [address] [facility] [address] [place], [place] [id number] 08/15/2024 Dale Woodruff Urinary incontinence R32 ; Chest pain, unspecified type R07.9 and Type 2 diabetes mellitus without complication, without long-term current use of insulin E11.9 [facility] [address] [facility] [address] [place], [place] [id number] 12/03/2024 Dale Woodruff Acute UTI N39.0 [facility] [facility] [facility] [address] [place], [place] [id number] 02/13/2025 Dale Woodruff Type 2 diabetes liat itus without complication, [...] specified complication, unspecified whether correction insulin use E11.69 and BMI 27.0-27.9,adult Z68.27 [facility] [facility] [address] [place] [id number] 03/10/2025 Dale Woodruff Lumbago with sciatic a, right side M54.41 ; Lumbago with sciatica, left side M54.42 ; Degeneration of intervertebral disc of lumbar region with discogenic back pain and lower extremity pain M51.362 ; Lumbar facet arthropathy M47.816 ; Spinal stenosis of lumbar region without neurogenic claudication M48.061 and BMI 27.0-27.9,adult Z68.27 [facility] [address] [facility] [address] [place], [place] [id number] 03/16/2025 Dale Woodruff Memory loss R41.3 ; Intention tremor G25.2 ; Frequent falls R29.6 ; Gastroesophageal reflux disease, esophagitis presence not specified K21.9 and BMI 27.0-27.9,adult Z68.27 [facility] [facility] [address] [place], [place] [id number] 05/12/2025 Dale Woodruff Other chronic pain G 89.29 ; Low back pain, unspecified M54.50 ; Lumbar facet arthropathy M47.816 ; Spinal stenosis of lumbar region without neurogenic claudication M48.061 ; Memory loss R41.3 ; Urinary symptom or sign R39.9 and BMI 27.0-27.9,adult Z68.27 [facility] [facility] [address] [place], [place] [id number] 05/26/2024 Dale Woodruff [facility] [facility] [address] [place], [place] [id number] 06/05/2024 Dale Woodruff [facility] [facility] [facility] [address] [place], [place] [id number] 07/08/2024 Veronica Singh Bronchitis J40 [facility] [address] [place], [place] [id number] 07/08/2024 Veronica Singh Bronchitis J40 [facility] [address] [place], [place] [id number] 11/03/2024 Dale Woodruff [facility] [address] [place], [place] [id number] 03/11/2025 Dale Woodruff [facility] [address] [place], [place] [id number] 03/23/2025 Dale Woodruff Screening for osteop orosis Z13.820 Assessments Encounter Date Diagnosis (ICD Code) Assessment Notes Treatment Notes Treatment Clinical Notes Section Notes 06/02/2024 Acute UTI (ICD-10 - N39.0) 06/06/2024 Acute URI (ICD-10 - J06.9) 06/28/2024 Acute URI (ICD-10 - J06.9) fluids, rest, supportive measures for fever/symptom relief 06/28/2024 Hematoma of right lo wer extremity, initial encounter (ICD-10 - S80.11XA) symptomatic treatment of pain. Return if worsening of pain or developement of new symptoms 07/07/2024 Bronchitis (ICD-10 - J40) fluids, rest, supportive measures for fever/symptom relief 07/08/2024 Bronchitis (ICD-10 - J40) 07/08/2024 Bronchitis (ICD-10 - J40) 08/15/2024 Urinary incontinence (ICD-10 - R32) 08/15/2024 Chest pain, unspecif ied type (ICD-10 - R07.9) 12/03/2024 Acute UTI (ICD-10 - N39.0) 02/13/2025 Type 2 diabetes mellitus without complication, without long-term current use of insulin (ICD-10 - E11.9) 02/13/2025 Pure hypercholesterolemia (ICD-10 - E78.00) 03/10/2025 Lumbago with sciatic a, right side (ICD-10 - M54.41) ER record including notes and CT report reviewed with patient in office today 03/10/2025 Lumbago with sciatic a, left side (ICD-10 - M54.42) 03/16/2025 Memory loss (ICD-10 - R41.3) 03/16/2025 Intention tremor (ICD-10 - G25.2) 03/23/2025 Screening for osteoporosis (ICD-10 - Z13.820) 05/12/2025 Other chronic pain (ICD-10 - G89.29) Patient wants to see a chiropractor and pain management 05/12/2025 Low back pain, unspecified (ICD-10 - M54.50) 03/16/2025 Frequent falls (ICD- 10 - R29.6) 05/12/2025 Lumbar facet arthropathy (ICD-10 - M47.816) 03/10/2025 Degeneration of intervertebral disc of lumbar region with discogenic back pain and lower extremity pain (ICD-10 - M51.362) 02/13/2025 Acquired hypothyroid ism (ICD-10 - E03.9) 08/15/2024 Type 2 diabetes mellitus without complication, without long-term current use of insulin (ICD-10 - E11.9) 02/13/2025 Vitamin D deficiency (ICD-10 - E55.9) 03/10/2025 Lumbar facet arthropathy (ICD-10 - M47.816) 03/16/2025 Gastroesophageal ref lux disease, esophagitis presence not specified (ICD-10 - K21.9) 05/12/2025 Spinal stenosis of lumbar region without neurogenic claudication (ICD-10 - M48.061) 05/12/2025 Memory loss (ICD-10 - R41.3) MRI report from [facility] reviewed in office today 03/16/2025 BMI 27.0-27.9,adult (ICD-10 - Z68.27) 03/10/2025 Spinal stenosis of lumbar region without neurogenic claudication (ICD-10 - M48.061) 02/13/2025 Vitamin B12 deficien cy (ICD-10 - E53.8) 02/13/2025 Obstructive sleep ap lisandra (ICD-10 - G47.33) 03/10/2025 BMI 27.0-27.9,adult (ICD-10 - Z68.27) 05/12/2025 Urinary symptom or s ign (ICD-10 - R39.9) 02/13/2025 Gastroesophageal ref lux disease, esophagitis presence not specified (ICD-10 - K21.9) 05/12/2025 BMI 27.0-27.9,adult (ICD-10 - Z68.27) 02/13/2025 Acute UTI (ICD-10 - N39.0) 02/13/2025 Essential hypertensi on (ICD-10 - I10) 02/13/2025 Type 2 diabetes mellitus with other specified complication, unspecified whether correction insulin use (ICD-10 - E11.69) 02/13/2025 BMI 27.0-27.9,adult (ICD-10 - Z68.27) Plan Of Treatment Pending Test Test Name Order Date Bone density 03/23/2025 P-Microalbumin/Creatinine, Random Urine Sample 02/13/2025 Next Appt Details Provider Name:Dale pace, 06/09/2025 11:45:00 AM, [address] [employer] [address] [facility], [address], [place], [place], [id number], Provider Name:Dale pace, 08/18/2025 09:30:00 AM, [address], [address], [place], [place], [id number], Insurance Providers Payer Name Payer Address Payer Phone Subscriber Number Group Number Insured Name Patient Relationship to Insured Coverage Start Date Coverage End Date MEDICARE PART B [address] [address] [place] [address] [id number] SHANNON HARRIS Self - patient is the insured [facility] [address] [place] [address] [id number] SHANNON HARRIS Self - patient is the insured Medications Administered Medication Instructions Date of Administration Dosage Notes Dexamethasone 07/06/2021 1 mL Medical (General) History Medical History History ICD Code Graves Disease, followed by Endo. Hyperlipidemia Hypothyroidism, 2009 Type 2 Diabetes dx. 2012, followed by En do Depression Irritable Bowel Syndrome Kidney Stones Arthritis Allergic Rhinitis Overactive Bladder Coronary Artery Disease, Non-Obstructive 10/2015 Vitamin B 12 Deficiency Vitamin D Deficiency Lichen Sclerosis - followed by [facility] at [facility], Dx: 12/2018 Renal Artery Stenosis, right, [...] Forehead 019 Colonoscopy and Endoscope- Dr. Bueno, [facility] 05/10/2020 Lipotripsy for Kidney Stones- [facility] 06/11/2020 Hospitalization History Reason Date(Month/Year) Fall - LT Rotator Cuff Tear Kidney Stone- [facility] ER 09/29/2018
--- OUTSIDE RECORDS SUMMARY | 2025-05-25 14:01 | XMS_ITS | Clinical Summary ---
Author Organization [employer] ([place], [place], [place], [place]) Address [address] [place] [address] Care Team Providers Care Sewing Machine Repairer Name Role Phone Unavailable Primary Care Provider [...]
--- OUTSIDE RECORDS SUMMARY | 2025-05-25 14:02 | XMS_ITS | Referral Summary ---
Author Organization [employer] ([place], [place], [place], [place]) Address [address] [place] [address] Care Team Providers Care Molded Parts Inspector Name Role Phone Unavailable Primary Care Provider [...]
--- NOTE | 2025-05-25 14:12 | EXP.PAIN.OV ---
HPI Data of Consult Patient: new to practice Consult date: 05/25/25 Requesting Physician: Garima Torres APRN Primary Care Provider: Dale Prescott MD Reason for consult: Low back pain History of present illness: Ms. Harris is a 79 year old female who presents today as a new patient. She is a referral from Dr. Prescott's office. She rates her pain today as 7 out of 10. Patient states that since February or earlier she has been experiencing worsening low back pain. She states only on rare occasions will she have any issues with her legs other than just being weak. She states the pain in her back is constant and does interfere with her ability perform activities of daily living such as cooking and cleaning. Patient does state the pain is worse when she is trying to do any type of laundry or dishes with the bending. She also notices worse pain with twisting or lifting motions. Patient denies any pain when she is in a seated or lying down position. Patient states her low back pain is all unrelated to any specific trauma or injury. She does make mention that even before then she was having episodes where she would fall randomly. Patient states that her legs would just give out on her. Patient states that during one of the falls she ended up fracturing her leg. Patient does describe the pain as aching, throbbing sensation with numbness and tingling or pins and needle sensations with certain movements.She does state that she was scheduled to start physical therapy however due to the worsening weakness and unwell sensation she has not been able to do this. She did attempt to go to chiropractor therapy however the therapist refused to do anything with her back due to her worsening symptoms and comorbidities. Patient is relying on a cane to help with ambulation. Patient does use [id number] Tylenol along with heat and ice and topicals with minimal changes. Patient denies any prior surgery or injection history. She is interested in any help we may be able to provide. Patient denies any prior surgery or injection history. Patient does make mention that she is forgetful and is on Aricept although her brain MRI had no acute findings. Patient is prescribed gabapentin from Dr. Prescott's office. Her Beny has been reviewed and is appropriate. Pain at rest (0-10 scale): 7 Has patient had previous pain injection?: No Conservative treatment options previously tried: NSAIDS (Tylenol with minimal changes), Home exercise plan (Longer than 12 weeks), Physical Therapy (Unable to complete due to severe weakness and pain) and Chiropractor (Therapist refused to do any adjustments due to worsening pain and comorbidities) cc:: CC: Garima Torres APRN [facility] Disclaimer: The information contained in this section may have been updated after the patient was seen, as this information can be updated by other users. Social History Smoking Status: Never smoker alcohol intake: never substance use type: denies use current occupational status: retired Travel in the last 8 weeks?: None household members: spouse housing: house current occupational exposures/hazards: No caffeine: No Review of Systems Review of Systems Review of systems:: pertinent systems reviewed and negative unless documented below Review of systems (narrative): Review of Systems: General: No recent weight changes, no fever, no sleep disturbances Respiratory: No cough, no shortness of air, no recurring pulmonary infections Cardiovascular/peripheral vascular: No chest pain, no palpitations, no edema, no shortness of breath Gastrointestinal: No new onset incontinence, normal bowel movements reported Genitourinary: No new onset incontinence Musculoskeletal: Low back pain Psychiatric: [Normal mood/affect] Neurological: [Denies weakness in extremities], [denies balance issues] Meds Home Medications and Allergies Home Medications ?Medication ?Instructions ?Recorded ?Confirmed ?Type levothyroxine 88 mcg tablet 88 mcg PO DAILY HYPOTHYROIDISM 06/12/20 03/05/25 History rosuvastatin 40 mg tablet 40 mg PO QID HIGH CHOLESTEROL 06/12/20 03/05/25 History venlafaxine 150 mg 150 mg PO HS Depression 06/12/20 03/05/25 History capsule,extended release 24 hr aspirin 81 mg tablet,delayed 81 mg PO DAILY 01/25/23 03/05/25 History release (Adult Aspirin Regimen) buspirone 10 mg tablet 10 mg PO DAILY COLON PAIN 01/25/23 03/05/25 History losartan 25 mg tablet 25 mg PO DAILY Hypertension 01/25/23 03/05/25 History metformin 500 mg tablet 500 mg PO DAILY DM II 01/25/23 03/05/25 History omeprazole 20 mg capsule,delayed 20 mg PO DAILY 01/25/23 03/05/25 History release venlafaxine 75 mg capsule,extended 75 mg PO DAILY 01/25/23 03/05/25 History release 24 hr clobetasol 0.05 % lotion 1 applic topical HS 05/24/23 03/05/25 History walker #1 ea 08/02/24 03/05/25 Rx coenzyme Q10 100 mg tablet 100 mg PO DAILY 03/05/25 03/05/25 History cyclosporine 0.05 % eye drops in a 1 drp Eye-Both BID 03/05/25 03/05/25 History dropperette (Restasis) mirabegron 50 mg tablet,extended 50 mg PO DAILY 03/05/25 03/05/25 History release 24 hr (Myrbetriq) New Prescriptions to Start Prescriptions: Allergies Allergy/AdvReac Type Severity Reaction Status Date / Time codeine (CODEINE) Allergy Unknown Unknown Verified 03/05/25 15:51 allergy reaction acetaminophen (From [place]) Allergy Unknown Verified 11/03/24 13:42 allergy reaction hydrocodone (From [place]) Allergy Unknown Verified 03/05/25 15:51 allergy reaction Sulfa (Sulfonamide Allergy Unknown Verified 03/05/25 15:51 Antibiotics) allergy reaction sulfamethoxazole (From Allergy Unknown Verified 03/05/25 15:51 Bactrim) allergy reaction trimethoprim (From B[place]) Allergy Unknown Verified 03/05/25 15:51 allergy reaction Objective Narrative: Physical Exam: General: Alert and oriented x3, no acute distress, pleasant and cooperative Lungs: Respirations even and unlabored, symmetrical chest expansion Eyes: PERRL Musculoskeletal: Flexion and extension of lumbar [spine] somewhat guarded secondary to pain, [antalgic gait noted] positive Kemps test Neurological: Speech clear, no gross sensory deficit Additional findings Additional findings: FINDINGS: CT LUMBAR SPINE: CT examination of the lumbar spine demonstrates disc space narrowing at the L3-4 and L5-S1 levels with associated vacuum phenomenon. There is endplate sclerosis of the superior endplate of L4. No acute bony abnormality is identified. L1-2: Unremarkable L2-3: Unremarkable L3-4: A moderate annular bulge is present, with mild to moderate canal stenosis and neural foraminal narrowing. L 4-5: A diffuse annular bulge is present with ligamentum flavum hypertrophy, moderate canal stenosis and moderate bilateral neural foraminal narrowing. L5-S1: An annular bulge is present with endplate hypertrophy, moderate right and moderate to severe left neural foraminal narrowing. 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 Reviewed, Interpreted and Dictated by Meek Pierre MD Transcribed by Trisha Nicole Authenticated and [facility] FINDINGS: AP, lateral, and oblique views of the lumbar spine were obtained. There is no acute fracture or acute malalignment. Vertebral body height is preserved. There are mild anterior osteophytes present at the L3-4 level, and mild facet sclerosis present at the L4-5 level.. No acute paraspinal abnormality is identified. Surgical clips are noted in the right upper quadrant. IMPRESSION: No acute osseous abnormalities lumbar spine. Mild degenerative change as described above. Reviewed, Interpreted and Dictated by Meek Pierre MD Transcribed by Trisha Nicole Authenticated and [facility] Assessment and Plan *Assessment and plan (1) Lumbar back pain: Status: Acute Category: Medical Code(s): M54.50 - Low back pain, unspecified (2) Degenerative disc disease, lumbar: Status: Acute Category: Medical Code(s): M51.369 - Other intervertebral disc degeneration, lumbar region without mention of lumbar back pain or lower extremity pain (3) Lumbar facet arthropathy: Status: Acute Category: Medical Code(s): M47.816 - Spondylosis without myelopathy or radiculopathy, lumbar region Plan Patient is experiencing significant pain in her low back that is worse with bending, twisting or lifting. Patient did have limited range of motion of her lumbar spine with a positive Kemps test during today's visit. I did discuss with the patient that I do believe she would benefit from a lumbar medial branch block. Risk and benefits were discussed with the patient and she would like to proceed forward with this plan of care. Patient has tried and failed conservative therapy including oral medications, heat and ice, topicals, attempted chiropractor therapy and continued at home stretching exercise for longer than 12 weeks. Patient has been experiencing chronic low back pain for longer than 3 months. Patient was counseled that if she does get significant relief with her first lumbar medial branch block that we will plan on repeating it with the plan to progress forward to a lumbar RFA at a later date. Patient agrees with this plan of care. Patient will be scheduled for her first diagnostic lumbar medial branch block bilaterally L4-L5 and L5-S1 under fluoroscopy. Patient has been instructed to contact the clinic with any concerns before the next appointment. Dr. Landon has reviewed this note and agrees with this plan of care. This note was dictated using voice recognition software and make contain errors or omissions. All injections are used with Lidocaine, Bupivacaine and dexamethasone unless diagnostic in which there is no steroids injected. Occasionally urine drug screen is needed to verify patient's compliance with our office pain contract. This is ordered based off specific treatments related to chronic pain with the potential to abuse certain medications.
[2025-05-25 15:56] VITALS: BP 158/71; PULSE 88; RESP 18; O2SAT 92; BMI 27.1
== END 2025-05-25 23:59 | disposition home or self-care (01) ==
LOC: SC.PAIN 13:57
PROVIDERS: PCP Family Medicine; Visit Provider Nurse Practitioner Family
DX: M51.360 Other intervertebral disc degeneration, lumbar region with discogenic back pain only (principal); M47.816 Spondylosis without myelopathy or radiculopathy, lumbar region; Z79.899 Other long term (current) drug therapy; Z79.1 Long term (current) use of non-steroidal anti-inflammatories (NSAID)
CPT/HCPCS: 99202; G0463

== ENCOUNTER 2025-06-30 11:41 | Day surgery (SDC) | payer MEDICARE, BC, SELFPAY ==
[2025-06-30 11:50] VITALS: BP 147/70; PULSE 89; RESP 18; O2SAT 94; BMI 27.1
[2025-06-30 12:04] VITALS: BP 122/57; PULSE 84; RESP 18; O2SAT 96
--- NOTE | 2025-06-30 12:14 | EXP.PAIN.PRO ---
Procedure Date: 06/30/25 Time: 12:00 Anesthesiologist:: Clemente Okeefe CRNA Complications:: None Pre-procedure Diagnosis:: Degenerative disc lumbar spine multilevels. Lumbar radiculopathy. Lumbar spondylosis. Multilevel lumbar facet arthropathy. Post-procedure Diagnosis:: Same. Indications for Procedure:: Patient is a pleasant 79-year-old female who comes our clinic today for round 1 to of diagnostic bilateral lumbar L4-5, L5-S1 medial ranch block/facet injection. Patient describes low lumbar back pain as constant, dull, aching. She reports difficulty with lumbar flexion, extension, left and right rotation. She rates her pain 7/10. Procedure Details:: Informed consent was obtained and the risk and benefits of the procedure was explained to the patient. Patient was taken to the procedure room where noninvasive monitors were placed, including noninvasive blood pressure cuff as well as pulse oximeter. The area over the lumbar spine was cleansed using chlorhexidine as a cleansing solution. I anesthetized the skin and subcutaneous tissues with 1% Lidocaine. I placed 22-gauge spinal needles into the facet joint/ medial branches of L4-L5, and L5-S1 bilaterally. Needle placement was confirmed with fluoroscopy. After confirmation of needle placement, each site was injected with 1 mL of 1% lidocaine and 0.25 % Marcaine 1 mL. Patient tolerated the procedure without difficulty. There were no complications. Plan and Disposition:: Patient was discharged without incident.
[2025-06-30] MEDS: BUPIVACAINE 0.25% 10ML INJ 25 MG IJ (12:18)
[2025-06-30] MEDS: LIDOCAINE 1% 5ML PF VIAL 5 ML (12:18)
[2025-06-30 12:19] VITALS: BP 125/71; PULSE 89; RESP 18; O2SAT 94
[2025-06-30 12:24] VITALS: BP 125/71; PULSE 89; RESP 18; O2SAT 94
== END 2025-06-30 12:04 | disposition home or self-care (01) ==
PROVIDERS: PCP Family Medicine; Visit Provider Nurse Anesthetist, Certified Registered
DX: M47.26 Other spondylosis with radiculopathy, lumbar region (principal); M51.16 Intervertebral disc disorders with radiculopathy, lumbar region; F32.A Depression, unspecified; E11.9 Type 2 diabetes mellitus without complications; K21.9 Gastro-esophageal reflux disease without esophagitis; I10 Essential (primary) hypertension; E78.5 Hyperlipidemia, unspecified; E03.9 Hypothyroidism, unspecified; Z88.5 Allergy status to narcotic agent; Z88.6 Allergy status to analgesic agent; Z88.2 Allergy status to sulfonamides; Z88.1 Allergy status to other antibiotic agents; Z79.84 Long term (current) use of oral hypoglycemic drugs; Z79.890 Hormone replacement therapy; Z79.899 Other long term (current) drug therapy
CPT/HCPCS: 64493; 64494; J0665; J2003

== ENCOUNTER 2025-08-03 12:14 | Outpatient (CLI) | payer MEDICARE, BC, SELFPAY ==
--- OUTSIDE RECORDS SUMMARY | 2025-06-29 13:30 | XMS_ITS | Encounter Summary ---
Author Organization [facility] Address [address] [place] [address] Care Team Providers Care Email Producer Name Role Phone Dale Prescott MD Primary Care Provider [phone] Reason for Referral * MRI/CAT/PET Scan (Routine) - Authorized Specialty Diagnoses / Procedures Referred By Contac t Referred To Contact Radiology Diagnoses H/O carotid stenosis Procedures CT Angiogram Neck Dior Bales PA [facility] [facility] [address] [place] [address] Phone: tel: fax: [facility] [address] [place] [address] Phone: tel: Referral ID Status Reason Start Date Expiration Date V isits Requested Visits Authorized [id number] Authorized 06/29/2025 09/28/2026 1 1 * MRI/CAT/PET Scan (Routine) - Authorized Specialty Diagnoses / Procedures Referred By Contac t Referred To Contact Radiology Diagnoses H/O carotid stenosis Procedures CT Angiogram Head With Contrast Dior Bales PA [facility] [facility] [address] [place] [address] Phone: tel: fax: [facility] [address] [place] [address] Phone: tel: Referral ID Status Reason Start Date Expiration Date V isits Requested Visits Authorized [id number] Authorized 06/29/2025 09/28/2026 1 1 * MRI/CAT/PET Scan (Routine) - Closed Specialty Diagnoses / Procedures Referred By Contac t Referred To Contact Radiology Diagnoses Spinal stenosis of lumbar region with radiculopathy Procedures MRI Lumbar Spine Without Contrast Dior Bales PA [address] [facility] [address] [place] [address] Phone: tel: fax: [facility] MRI [address] [place] [address] Phone: tel: Referral ID Status Reason Start Date Expiration Date Visits Re quested Visits Authorized [id number] Closed 06/29/2025 09/28/2026 1 1 Reason for Visit * Reason Comments Back Pain * Consultation (Routine) - Authorized Specialty Diagnoses / Procedures Referred By Contac t Referred To Contact Neurosurgery Diagnoses Lumbago with sciatica, left side Clemente Sanchez DC [address] [place] [address] Phone: tel: fax: [facility] [address] [address] Phone: tel: fax: Referral ID Status Reason Start Date Expiration Date V isits Requested Visits Authorized [id number] Authorized 06/17/2025 09/16/2026 2 2 Encounter Details Date Type Department Care Team (Late st Contact Info) Description 06/29/2025 1:30 PM EDT Office Visit [facility] [address] [facility] [address] [place] [phone] Dior Bales PA [address] [facility] [address] [place] [phone] Spinal stenosis of lumbar region with radiculopathy (Primary Dx); Bilateral sacroiliitis; Primary osteoarthritis of both hips; H/O carotid stenosis Social History Tobacco Use Types Packs/Day Years [...] Sign Reading Time Taken Comments Blood Pressure - - Pulse - - Temperature 35.6 C (96 F) 06/29/2025 1:17 PM EDT Respiratory Rate - - Oxygen Saturation - - Inhaled Oxygen Concentration - - Weight 74.8 kg (165 lb) 06/29/2025 1:17 PM EDT Height 165.1 cm (5' 5 ) 06/29/2025 1:17 PM EDT Body Mass Index 27.46 06/29/2025 1:17 PM EDT documented in this encounter Progress Notes * Dior Bales PA - 06/29/2025 1:30 PM EDT Images from the original note were not included. [facility] Neurosurgery Services OFFICE VISIT NOTE Name: Vandana Salinas : 1945 Primary Care Provider: Dale Prescott MD Subjective Chief Complaint: Back Pain History of Present Illness: Vandana Salinas is a pleasant 79 y.o. female presenting today with her daughter and friend for evaluation of her spinal stenosis and severe lumbar pain. She notes that she has done physical therapy but found it too painful to continue. She is currently seeing Dr. Marino for pain management noting that she has 3 injections scheduled, unsure of exactly what they are aside from the third 1 being an epidural steroid injection. She is using a topical cream from a compounding pharmacy which contains ketamine, gabapentin, ibuprofen, lidocaine, baclofen with some relief. She has recently started gabapentin at night only at [address] Prescott her primary care as well as donepezil from her neurologist. She recently consulted with her trusted chiropractor, Dr. Guadalupe, regarding treatment and physical therapy to which she advised her to follow-up with us prior to any adjustments or exercises. She notes that her back pain began to get worse in about March of this year without any known provocation and tends to include her paraspinous muscles from the mid back on down including her sacroiliac joints and ischial tuberosities as well. She notes some intermittent pain in the tops of her thighs and weakness in her hips bilaterally at times. Pain tends to worsen with activity including walking or standing more than about 15 minutes with relief occurring after resting by sitting or lying down for about 15 minutes. Patient also complains of chronic anteriorhip pain about mid groin creases bilaterally The following portions of the patient's history were reviewed and updated as appropriate. Allergies: Allergies Allergen Reactions Codeine Dizziness Passed out Trimethoprim Unknown - High Severity Hydrocodone Rash [place] [Hydrocodone-Acetaminophen] Rash Sulfa Antibiotics Rash Medications: Current Outpatient Medications: albuterol sulfate HFA 108 (90 Base) MCG/ACT inhaler, Inhale 2 puffs Every 4 (Four) Hours As Needed., Disp: , Rfl: ASPIRIN 81 PO, Aspir-81 mg tablet,delayed release Daily, Disp: , Rfl: busPIRone (BUSPAR) 10 MG tablet, Take 1 tablet by mouth Daily., Disp: , Rfl: Cholecalciferol 50 MCG (2000 UT) capsule, capsule, Disp: , Rfl: clobetasol (CLOBEX) 0.05 % lotion, Apply 1 Application topically to the appropriate area as directed 2 (Two) Times a Week., Disp: , Rfl: Coenzyme Q10 (CO Q-10 PO), Take by mouth., Disp: , Rfl: donepezil (Aricept) 5 MG tablet, Take 1 tablet by mouth Every Night., Disp: 30 tablet, Rfl: 5 estradiol (ESTRACE) 0.1 MG/GM vaginal cream, INSERT 1 GRAM INTO THE VAGINA TWICE A WEEK, Disp: , Rfl: gabapentin (NEURONTIN) 100 MG capsule, Take 1 capsule by mouth Every 12 (Twelve) Hours., Disp: , Rfl: hydroxychloroquine (PLAQUENIL) 200 MG tablet, Take 1 tablet by mouth Daily., Disp: , Rfl: indomethacin (INDOCIN) 25 MG capsule, TAKE 1 CAPSULE BY MOUTH THREE TIMES DAILY NEEDED FOR MODERATE PAIN, Disp: , Rfl: Lifitegrast (Xiidra) 5 % ophthalmic solution, 180, Disp: , Rfl: losartan (COZAAR) 25 MG [...] ONCE DAILY OR DIRECTED, Disp: , Rfl: pimecrolimus (ELIDEL) 1 % cream, APPLY A SMALL AMOUNT TO AFFECTED AREA TWICE DAILY, Disp: , Rfl: Restasis 0.05 % ophthalmic emulsion, Administer 1 drop to both eyes Every 12 (Twelve) Hours., Disp:, Rfl: rosuvastatin (CRESTOR) 40 MG tablet, Take 1 tablet by mouth Daily., Disp: , Rfl: solifenacin (VESICARE) 10 MG tablet, Take 1 tablet by mouth Daily., Disp: , Rfl: Synthroid 88 MCG tablet, Take 1 tablet by mouth once daily, Disp: 90 tablet, Rfl: 3 venlafaxine XR (EFFEXOR-XR) 150 MG 24 hr capsule, Take 1 capsule by mouth Daily., Disp: , Rfl: Past Medical History: Past Medical History: Diagnosis [...] patient; Moh's surgery BREAST BIOPSY Left 1997, 2006 Stereotactic 1997, PT HAS HAD 2 BX'S ON LEFT CHOLECYSTECTOMY 1997 EXTRACORPOREAL SHOCKWAVE LITHOTRIPSY (ESWL), STENT INSERTION/REMOVAL Right 06/11/2020 Procedure: CYSTOSCOPY WITH RIGHT URETERAL STENT, EXTRACORPOREAL SHOCKWAVE LITHOTRIPSY RIGHT; Surgeon: Ramone Malave MD; Location: COUNTS [facility]CLUDE [facility] BEDS AT [facility]; Service: Urology; Laterality: Right; ESWL START 756 ESWL END 821 FLOURO TIME 2 MIN 10 SEC TOTAL ABDOMINAL HYSTERECTOMY WITH SALPINGO OOPHORECTOMY 2008 patient reports 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; benign pathology 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 Social Hx: Social History Tobacco Use Smoking status: Never Passive exposure: Never Smokeless tobacco: Never Vaping Use Vaping status: Never Used Substance Use Topics Alcohol use: Never Drug use: Never Family Hx: Family History Problem Relation Age of Onset Heart disease Father Pancreatic cancer Mother Ovarian cancer Mother 72 METASTATIC FROM PANCREATIC CA Cancer Mother Pancreatic Cancer Breast cancer Paternal Grandmother 83 Diabetes Paternal Grandmother Cancer Paternal Grandmother Breast Cancer Heart attack Maternal Grandmother 67 Diabetes Maternal Grandmother Colon cancer Neg Hx Review of Systems: Review of Systems Constitutional: Negative for activity change, appetite change, chills, diaphoresis, fatigue, fever and unexpected weight change. HENT: Negative for congestion, dental problem, drooling, ear discharge, ear pain, facial swelling, hearing loss, mouth sores, nosebleeds, postnasal drip, rhinorrhea, sinus pressure, sinus pain, sneezing, sore throat, tinnitus, trouble swallowing and voice change. Eyes: Negative for photophobia, pain, discharge, redness, itching and visual disturbance. Respiratory: Negative for apnea, cough, choking, chest tightness, shortness of breath, wheezing andstridor. Cardiovascular: Negative for chest pain, palpitations and leg swelling. Gastrointestinal: Negative for abdominal distention, abdominal pain, anal bleeding, blood in stool,constipation, diarrhea, nausea, rectal pain and vomiting. Endocrine: Negative for cold intolerance, heat intolerance, polydipsia, polyphagia and polyuria. Genitourinary: Negative for decreased urine volume, difficulty urinating, dysuria, enuresis, flank pain, frequency, genital sores, hematuria and urgency. Musculoskeletal: Positive for back pain and gait problem. Negative for arthralgias, joint swelling,myalgias, neck pain and neck stiffness. Skin: Negative for color change, pallor, rash and wound. Allergic/Immunologic: Negative for environmental allergies, food allergies and immunocompromised state. Neurological: Negative for dizziness, tremors, seizures, syncope, facial asymmetry, speech difficulty, weakness, light-headedness, numbness and headaches. Hematological: Negative for adenopathy. Does not bruise/bleed easily. Psychiatric/Behavioral: Negative for agitation, behavioral problems, confusion, decreased concentration, dysphoric mood, hallucinations, self-injury, sleep disturbance and suicidal ideas. The patientis not nervous/anxious and is not hyperactive. The remaining review of systems is negative as otherwise stated in the HPI. Objective Vital Signs: Temp 96 ??F (35.6 ??C) (Temporal) Ht 165.1 cm (65 ) Wt 74.8 kg (165 lb) BMI 27.46 kg/m?? Surgical Risk Factors: BMI: Body mass index is 27.46 kg/m??. Smoking status: Tobacco Use: Low Risk (06/29/2025) Patient History Smoking Tobacco Use: Never Smokeless Tobacco Use: Never Passive Exposure: Never Physical Exam: Physical Exam Constitutional: Appearance: Normal appearance. She is normal weight. HENT: Head: Normocephalic and atraumatic. Pulmonary: Effort: Pulmonary effort is normal. Musculoskeletal: Back: Skin: General: Skin is warm and dry. Neurological: Deep Tendon Reflexes: Reflex Scores: Tricep reflexes are 1+ on the right side and 1+ on the left side. Bicep reflexes are 1+ on the right side and 1+ on the left side. Brachioradialis reflexes are 2+ on the right side and 2+ on the left side. Patellar reflexes are 2+ on the right side and 2+ on the left side. Achilles reflexes are 1+ on the right side and 1+ on the left side. Psychiatric: Speech: Speech normal. Neurological Exam Mental Status Awake, alert and oriented to person, place and time. Speech is normal. Language is fluent with no aphasia. Motor Normal muscle bulk throughout. Normal muscle tone. No pronator drift. Sensory Light touch is normal in upper and lower extremities. Reflexes Right Left Brachioradialis 2+ 2+ Biceps 1+ 1+ Triceps 1+ 1+ Patellar 2+ 2+ Achilles 1+ 1+ Right pathological reflexes: Torie's absent. Ankle clonus absent. Left pathological reflexes: Torie's absent. Ankle clonus absent. Coordination Right: [id number] normal.Left: [id number]-qv-[id number] normal. Gait Casual gait: Normal stance. Reduced stride length. Antalgic gait. Able to stand on heels and stand on tiptoes, balance is fair with tandem gait. STEADI Fall Risk Assessment was completed, and patient is at MODERATE risk for falls. Assessment completed on:06/29/2025 Imaging review: I personally reviewed patient's lumbar spine CT which was performed on 03/05/2025 noting normal lordosis, narrowing of the disc spaces of L3-4 and L5 1, there is significant endplate changes of the superior aspect of L4 and also L5 and S1. There appears to be some canal stenosis and bilateral neuroforaminal stenosis at L4-5 and L5-S1 which would be better visualized on MRI. Assessment / Plan Diagnoses and all orders for this visit: 1. Spinal stenosis of lumbar region with radiculopathy (Primary) 2. Bilateral sacroiliitis 3. Primary osteoarthritis of both hips Patient has significant degenerative changes throughout her lumbar spine which are worse at L3-4 and L5-S1. Given correlation with her symptoms I would like to order an MRI for better evaluation of any nerve root compression and need for surgical intervention. I think it is reasonable to hold off on physical therapy given the current level of pain she is experiencing. I suspect she has some degree of sacroiliitis overlapping given a reported long history of focal SI pain especially on the left.We will follow-up in a few weeks after she has had her MRI for further discussion of any neurosurgical intervention. Regarding her anterior hip pain, this is consistent with osteoarthritis of her hips and I advised her to discuss with her primary care and/or orthopedics. At the very end of her visit, patient also noted a history of AVM and 2 narrow vessels on her brain MRI and notes that she sees Dr. Rao in vascular surgery. She expressed concern with a family history of most of her family members experiencing cardiovascular disease secondary to congenetively narrow vessels. I do not see any angiography in her chart, and her recent brain MRI with and withoutcontrast noted only chronic small vessel/micro angiopathic ischemic changes with no areas of restricted diffusion or loss of major intracranial flow voids. I will order her a head and neck CTA and have her follow-up with a separate visit with Dr. Smart for further evaluation. Spinal stenosis of lumbar region with radiculopathy Bilateral sacroiliitis Primary osteoarthritis of both hips H/O carotid stenosis Return in about 4 weeks (around 07/27/2025) for with Dr Smart. I carefully reviewed the signs/symptoms associated with worsening cervical/thoracic or lumbosacral nerve root compression that would require further urgent/emergent workup, specifically those associated with cervical/thoracic myelopathy and cauda equina. Patient encouraged to contact us if she has any new or worsening symptoms or any concerns. Any copied data from previous notes included in the (1) HPI, (2) PE, (3) MDM and/or Assessment and Plan has been reviewed and accurate as of 06/29/25. Dior Bales PA-C June 29, 2025 18:51 EDT documented in this encounter Plan of Treatment Upcoming Encounters Date Type Department Care Team (Late st Contact Info) Description 08/05/2025 11:30 AM EDT Appointment [facility] CT AT [address] [place] [phone] 08/05/2025 1:30 PM EDT Office Visit [facility] [address] [place] [address] Remi Smart MD [address] [place] [address] [place] [address] 08/20/2025 2:30 PM EST Office Visit [facility] NEUR[facility] [address] [place] [phone] Mercedes Yi, DNP, PRICING DIRECTOR [address] [place] [address] Scheduled Orders Name Type Priority Associated Diagnoses Orde r Schedule CT Angiogram Head With Contrast Imaging Routine H/O carotid stenosis Expected: 06/30/2025, Expires: 09/28/2026 CT Angiogram Neck Imaging Routine H/O carotid stenosis Expected: 06/30/2025, Expires: 09/28/2026 documented as of this encounter Results * MRI Lumbar Spine Without Contrast (07/15/2025 11:23 AM EDT) Anatomical Region Laterality Modality Spine, L-spine N/A Magnetic Resonan ce 07/15/2025 1:35 PM EDT Impressions 07/15/2025 1:39 PM EDT Moderate to severe canal stenosis at L3-L4. Mild foraminal narrowing at L5-S1 however there is a left foraminal disc osteophyte complex abutting the exiting left L5 nerve root. Modic type I degenerative endplate changes at L3-L4. Electronically Signed: Napoleon Naylor MD 07/15/2025 1:39 PM EDT Workstation ID: [id number] Narrative 07/15/2025 1:39 PM EDT MRI LUMBAR SPINE WO CONTRAST Date of Exam: 07/15/2025 10:47 AM EDT Indication: evaluate spinal stenosis and surgical planning. Comparison: 03/05/2025 Technique: Routine multiplanar/multisequence sequence images of the lumbar spine were obtained without contrast administration. Findings: Lumbar vertebral body height and alignment are normal. Moderate intervertebral disc space narrowing at L3-L4 and L5-S1. 4.6 cm right upper pole cyst. 1.2 cm posterior right renal cyst. No retroperitoneal soft tissue mass or adenopathy is appreciated. Modic type I degenerative endplate changes at L3-L4. No spondylolysis. The conus medullaris terminates at the L2 vertebral body level. No cord signal abnormalities. T12-L1: No significant spinal canal or foraminal narrowing. L1-L2: Mild disc bulge with ligamentum flavum thickening. Minimal canal stenosis. No foraminal narrowing. L2-L3: Ligamentum flavum thickening. No canal stenosis. Mild foraminal narrowing. L3-L4: Broad disc bulge and ligamentum flavum thickening. Moderate to severe canal stenosis. Moderate foraminal narrowing. L4-L5: Disc bulge with ligamentum flavum thickening and facet disease. Mild canal stenosis. Mild foraminal narrowing. L5-S1: Disc bulge with facet disease. No canal stenosis. Mild foraminal narrowing. Left foraminal disc osteophyte complex abutting the exiting left L5 nerve root. Procedure Note Napoleon Naylor MD - 07/15/2025 MRI LUMBAR SPINE WO CONTRAST Date of Exam: 07/15/2025 10:47 AM EDT Indication: evaluate spinal stenosis and surgical planning. Comparison: 03/05/2025 Technique: Routine multiplanar/multisequence sequence images of thelumbar spine were obtained without contrast administration. Findings: Lumbar vertebral body height and alignment are normal. Moderateintervertebral disc space narrowing at L3-L4 and L5-S1. 4.6 cm right upperpole cyst. 1.2 cm posterior right renal cyst. No retroperitoneal softtissue mass or adenopathy is appreciated. Modic type I degenerative endplate changes at L3-L4. Nospondylolysis. The conus medullaris terminates at the L2 vertebral bodylevel. No cord signal abnormalities. T12-L1: No significant spinal canal or foraminal narrowing. L1-L2: Mild disc bulge with ligamentum flavum thickening. Minimal canalstenosis. No foraminal narrowing. L2-L3: Ligamentum flavum thickening. No canal stenosis. Mild foraminalnarrowing. L3-L4: Broad disc bulge and ligamentum flavum thickening. Moderate tosevere canal stenosis. Moderate foraminal narrowing. L4-L5: Disc bulge with ligamentum flavum thickening and facet disease.Mild canal stenosis. Mild foraminal narrowing. L5-S1: Disc bulge with facet disease. No canal stenosis. Mild foraminalnarrowing. Left foraminal disc osteophyte complex abutting the exitingleft L5 nerve root. IMPRESSION: Moderate to severe canal stenosis at L3-L4. Mild foraminal narrowing atL5-S1 however there is a left foraminal disc osteophyte complex abuttingthe exiting left L5 nerve root. Modic type I degenerative endplate changesat L3-L4. Electronically Signed: Napoleon Naylor MD 07/15/2025 1:39 PM EDT Workstation ID: [id number] Dior SALAZAR IMG MRI ORDERABLES Final Result documented in this encounter Visit Diagnoses Diagnosis Spinal stenosis of lumbar region with radiculopathy- Primary Bilateral sacroiliitis Primary osteoarthritis of both hips H/O carotid stenosis Spinal stenosis of lumbar region with radiculopathy documented in this encounter Additional Health Concerns Assessment Noted Time PHQ-2 Depression Total Score: 2 05/31/20 23 2:01 PM EDT documented as of this encounter Care Teams Email Producer Relationship Specialty Start Date End Date Dale Prescott MD [facility] [address] [place] [id number] PCP - General Family Medicine 04/25/19 documented as of this encounter
--- OUTSIDE RECORDS SUMMARY | 2025-07-15 10:23 | XMS_ITS | Encounter Summary ---
Author Organization [facility] Address [address] [place] [address] Care Team Providers Care Tooling Specialist Name Role Phone Dale Prescott MD Primary Care Provider [phone] Reason for Referral * MRI/CAT/PET Scan (Routine) - Closed Specialty Diagnoses / Procedures Referred By Contac t Referred To Contact Radiology Diagnoses Spinal stenosis of lumbar region with radiculopathy Procedures MRI Lumbar Spine Without Contrast Dior Bales PA [address] [address] Phone: tel: fax: [facility] MRI [address] [place] [address] Phone: tel: Referral ID Status Reason Start Date Expiration Date Visits Re quested Visits Authorized [id number] Closed 06/29/2025 09/28/2026 1 1 Reason for Visit * MRI/CAT/PET Scan (Routine) - Closed Specialty Diagnoses / Procedures Referred By Contac t Referred To Contact Radiology Diagnoses Spinal stenosis of lumbar region with radiculopathy Procedures MRI Lumbar Spine Without Contrast Dior Bales PA [address] [address] Phone: tel: fax: [facility] MRI [address] [place] [place] [address] Phone: tel: Referral ID Status Reason Start Date Expiration Date Visits Re quested Visits Authorized [id number] Closed 06/29/2025 09/28/2026 1 1 Encounter Details Date Type Department Care Team (Late st Contact Info) Description 07/15/2025 10:23 AM EDT - 07/15/2025 11:59 PM EDT Hospital Encounter [facility] MRI AT [address] [place] [address] Dior Bales PA [address] [place] [address] Spinal stenosis of lumbar region with radiculopathy Discharge Disposition: Home or Self Care Social [...] tablet Take 1 tablet by mouth Daily. Cholecalciferol 50 MCG (1999) capsule capsule clobetasol (CLOBEX) 0.05 % lotion Apply 1 Application topically to the appropriate area as directed 2 (Two) Times a Week. Coenzyme Q10 (CO Q-10 PO) Take by mouth. donepezil (Aricept) 5 MG tabletIndication s:Mild cognitive impairment Take 1 tablet by mouth Every Night. 30 tablet 5 04/09/2025 gabapentin (NEURONTIN) 100 MG capsule Take 1 capsule by mouth Daily. 03/10/2025 losartan (COZAAR) 25 MG tablet Take [...] tablet Take 1 tablet by mouth Daily. solifenacin (VESICARE) 10 MG tablet Take 1 tablet by mouth Daily. Synthroid 88 MCG tablet Take 1 tablet by mouth once daily 90 tablet 3 03/22/2023 venlafaxine XR (EFFEXOR-XR) 150 MG 24 hr capsule Take 1 capsule by mouth Daily. documented as of this encounter Plan of Treatment Upcoming Encounters Date Type Department Care Team (Late st Contact Info) Description 08/05/2025 11:30 AM EDT Appointment [facility] AT [address] [place] [address] 08/05/2025 1:30 PM EDT Office Visit [facility] NEUROSURGERY [address] [place] [address] Remi Smart MD 07[address] [facility] 301 [place] [address] 08/20/2025 2:30 PM EST Office Visit [facility] NEUROLOGY [address] [place] [address] Mercedes Yi, DNP, TABLE WORKER PACKAGER [address] [place] [address] documented as of this encounter Procedures Procedure Name Priority Date/Time Associated Diagnosis Comments MRI LUMBAR SPINE WO CONTRAST Routine 07/15/2025 11:23 AM EDT Spinal stenosis of lumbar region with radiculopathy documented in this encounter Results * MRI Lumbar Spine [...] MD 07/15/2025 1:39 PM EDT Workstation ID: [id number] Narrative 07/15/2025 1:39 PM EDT MRI LUMBAR [...] MD 07/15/2025 1:39 PM EDT Workstation ID: [id number] us Dior SALAZAR IMG MRI ORDERABLES Final Result documented in this encounter Visit Diagnoses Diagnosis Spinal stenosis of lumbar region with radiculopathy documented in this encounter Additional Health Concerns Assessment Noted Time PHQ-2 Depression Total Score: 2 05/31/20 23 2:01 PM EDT documented as of this encounter Care Teams Tooling Specialist Relationship Specialty Start Date End Date Dale Prescott MD [facility] [address] E [facility] [address] [place] [address] PCP - General Family Medicine 04/25/19 documented as of this encounter
--- OUTSIDE RECORDS SUMMARY | 2025-07-15 14:00 | XMS_ITS | Encounter Summary ---
Author Organization [facility] Address [address] [place] [address] Care Team Providers Care Playground Worker Name Role Phone Dale Prescott MD Primary Care Provider [phone] Reason for Visit * Reason Comments Back Pain Leg Pain Extremity Weakness Numbness Encounter Details Date Type Department Care Team (Late st Contact Info) Description 07/15/2025 2:00 PM EDT Office Visit [facility] NEUROSURGERY [address] [address] Dior Bales, PA 1760 [place] [address] Spinal stenosis of lumbar region with radiculopathy [...] from the original note were not included. 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 Ankle clonus absent. Coordination Right: Flkx-cy-dvub normal.Left: Zyuf-qk-esjn normal. Gait Casual gait: Normal stance. Reduced [...] in getting to the clinic so frequently. A Spinal stenosis of lumbar region with radiculopathy [...] Info) Description 08/05/2025 11:30 AM EDT Appointment [facility] AT [address] [place] [phone] 08/05/2025 1:30 PM EDT Office Visit [facility] NEUR[facility]ERY [address] [place] [address] Remi Smart MD [address] [place] [address] 08/20/2025 2:30 PM EST Office Visit [facility] NEUROLOGY [address] [place] [address] Mercedes Yi, DNP, MEDICAL LABORATORY SPECIALIST [address] [place] [address] documented as of this encounter Visit Diagnoses Diagnosis Spinal stenosis of lumbar region with radiculopathy- Primary documented in this encounter Additional Health Concerns Assessment Noted Time PHQ-2 Depression Total Score: 2 05/31/20 23 2:01 PM EDT documented as of this encounter Care Teams Playground Worker Relationship Specialty Start Date End Date Dale Prescott MD [address] [place] [facility] [address] [place] [address] PCP - General Family Medicine 04/25/19 documented as of this encounter
--- OUTSIDE RECORDS SUMMARY | 2025-08-03 12:18 | XMS_ITS | Encounter Summary ---
Author Organization [facility] Address [address] [place] [address] Care Team Providers Care Banking Officer Name Role Phone Dale Prescott MD Primary Care Provider [phone] Reason for Visit * Reason Onset Date Comments REFERRAL CONCERN 06/16/2025 Encounter Details Date Type Department Care Team (Late st Contact Info) Description 06/16/2025 Telephone [facility] NEUROLOGY [address] [facility] 201 [place] [address] Mercedes Yi, DNP, FARM EQUIPMENT ASSEMBLER [address] [facility] 201 [place] [address] REFERRAL CONCERN Social History Tobacco Use Types Packs/Day Years [...] Telephone Encounter - Fela Huynh MA - 06/19/2025 2:07 PM EDT Called patient and let her know she will need to contact referred provider. Patient stated she is having pain and went to pain management and they prescribed medication for the pain. * Telephone Encounter - Josefina Flores RegSched Rep - 06/16/2025 4:10 PM EDT Caller: Vandana Harris Relationship: Self Best call back number: PLEASE MYCHART MESSAGE Who are you requesting to speak with (clinical staff, provider, specific staff member): CLINICAL What was the call regarding: PT WAS WONDERING WHY SHE WAS REFERRED TO INSTEAD OF HER PREFERRED PROVIDER ? PLEASE REVIEW AND ADVISE. documented in this encounter Plan of Treatment Upcoming Encounters Date Type Department Care Team (Late st Contact Info) Description 08/05/2025 11:30 AM EDT Appointment [facility] AT [address] [place] [address] 08/05/2025 1:30 PM EDT Office Visit [facility] NEUROSURGERY [address] [facility] [address] [place] [address] Remi Smart MD 1760 [facility] 301 [place] [address] 08/20/2025 2:30 PM EST Office Visit [facility] NEUROLOGY [address] [facility] 201 [place] [address] Mercedes Yi, DNP, FARM EQUIPMENT ASSEMBLER [address] [facility] 201 [place] [address] documented as of this encounter Visit Diagnoses Not on filedocumented in this encounter Additional Health Concerns Assessment Noted Time PHQ-2 Depression Total Score: 2 05/31/20 23 2:01 PM EDT documented as of this encounter Care Teams Banking Officer Relationship Specialty Start Date End Date Dale Prescott MD 1210 [facility] [address] [place] [address] PCP - General Family Medicine 04/25/19 documented as of this encounter
--- OUTSIDE RECORDS SUMMARY | 2025-08-03 12:18 | XMS_ITS | Encounter Summary ---
[facility] Organization [facility] Address [address] [place] [address] Care Team Providers Care Manager Of Regulatory Affairs Name Role Phone Dale Prescott MD Primary Care Provider [phone] Encounter Details Date Type Department Care Team (Late st Contact Info) Description 04/13/2025 Results Follow-Up [facility] NEUROLOGY 610 [facility] 201 [place] [address] Mercedes Yi, DNP, TURBINE MEASUREMENTS ENGINEER [address] [facility] 201 [place], [place] [id number] Social History Tobacco Use Types Packs/Day Years [...] Info) Description 08/05/2025 11:30 AM EDT Appointment [facility] AT [address] [place] [address] 08/05/2025 1:30 PM EDT Office Visit [facility] 1760 [facility] 301 [place] [address] Remi Smart MD 1760 [facility] 301 [place] [address] 08/20/2025 2:30 PM EST Office Visit [facility] NEUROLOGY [address] [facility] 201 [place] [address] Mercedes Yi, DNP, TURBINE MEASUREMENTS ENGINEER [address] [facility] 201 [place] [address] documented as of this encounter Visit Diagnoses Not on filedocumented in this encounter Additional Health Concerns Assessment Noted Time PHQ-2 Depression Total Score: 2 05/31/20 23 2:01 PM EDT documented as of this encounter Care Teams Manager Of Regulatory Affairs Relationship Specialty Start Date End Date Dale Prescott MD [address] [facility] [address] [place] [address] PCP - General Family Medicine 04/25/19 documented as of this encounter
--- OUTSIDE RECORDS SUMMARY | 2025-08-03 12:18 | XMS_ITS | Encounter Summary ---
Author Organization [facility] Address [address] [place] [address] Care Team Providers Care Teletypesetter Name Role Phone Dale Prescott MD Primary Care Provider [phone] Encounter Details Date Type Department Care Team (Latest Contact Info) Description 07/15/2025 Travel Social History Tobacco Use Types Packs/Day [...] Info) Description 08/05/2025 11:30 AM EDT Appointment [facility] AT [address] [place] [address] 08/05/2025 1:30 PM EDT [facility] [address] [place] [address] Remi Smart MD 1760 [facility] [address] [place] [address] 08/20/2025 2:30 PM EST Office Visit [facility] [address] [place] [address] Mercedes Yi, DNP, PERIODICALS CLERK [address] [place] [address] documented as of this encounter Visit Diagnoses Not on filedocumented in this encounter Additional Health Concerns Assessment Noted Time PHQ-2 Depression Total Score: 2 05/31/20 23 2:01 PM EDT documented as of this encounter Care Teams Teletypesetter Relationship Specialty Start Date End Date Dale Prescott MD 1210 [facility] [address] [place] [address] PCP - General Family Medicine 04/25/19 documented as of this encounter
--- OUTSIDE RECORDS SUMMARY | 2025-08-03 12:18 | XMS_ITS | Clinical Summary ---
Author Organization [facility] ([place], [place], [place], [place]) Address [address] [place] [address] Care Team Providers Care Branch Maker Name Role Phone Unavailable Primary Care Provider [...]
--- OUTSIDE RECORDS SUMMARY | 2025-08-03 12:18 | XMS_ITS | Encounter Summary ---
Author Organization [facility] Address [address] [place] [address] Care Team Providers Care Station Installation Supervisor Name Role Phone Dale Prescott MD Primary Care Provider [phone] Encounter Details Date Type Department Care Team (Latest Contact Info) Description 06/29/2025 Travel Social History Tobacco Use Types Packs/Day [...] Info) Description 08/05/2025 11:30 AM EDT Appointment [facility] AT [address] [place] [address] 08/05/2025 1:30 PM EDT Office Visit [facility] [address] [place] [address] Remi Smart MD [address] [facility] [address] [place] [address] 08/20/2025 2:30 PM EST Office Visit [facility] [address] [place] [address] Mercedes Yi, DNP, PREPARATION ROOM WORKER [address] [place] [address] documented as of this encounter Visit Diagnoses Not on filedocumented in this encounter Additional Health Concerns Assessment Noted Time PHQ-2 Depression Total Score: 2 05/31/20 23 2:01 PM EDT documented as of this encounter Care Teams Station Installation Supervisor Relationship Specialty Start Date End Date Dale Prescott MD [address] [facility] [address] [place] [address] PCP - General Family Medicine 04/25/19 documented as of this encounter
--- OUTSIDE RECORDS SUMMARY | 2025-08-03 12:18 | XMS_ITS | Clinical Summary ---
Author Organization [facility] Address [address] [place] [address] Care Team Providers Care Grocery Clerk Stocking Name Role Phone Manny Damico MD Primary Care Provider [phone] Allergies Active Allergy Reactions Criticality Noted Date [...] Wellness (AWV) 1945 [facility]-Infant/Child/Adol SDOH Screenings 1945 [id number] Vaccine (#1) 1952 [facility]- SDOH Screenings 1965 [...] age to complete this topic Insurance MEDICARE [facility] Care Teams Grocery Clerk Stocking Relationship Specialty Start Date End Date Manny Damico MD [address] [place] [address] PCP - General 02/18/21
--- OUTSIDE RECORDS SUMMARY | 2025-08-03 12:18 | XMS_ITS | Encounter Summary ---
Author Organization [facility] Address [address] [place] [address] Care Team Providers Care Head Start Director Name Role Phone Manny Damico MD Primary Care Provider [phone] Encounter Details Date Type Department Care Team (Late st Contact Info) Description 01/31/2023 Community [facility] Community Practice [address] [place] [address] Kecia Braga MD [address] [facility] [address] [place] [phone] Obstructive sleep apnea (adult) (pediatric) (Primary Dx); [...] (pediatric) documented in this encounter Care Teams Head Start Director Relationship Specialty Start Date End Date Manny Damico MD [facility] [facility] [address] [place] [address] PCP - General 02/18/21 documented as of this encounter
--- OUTSIDE RECORDS SUMMARY | 2025-08-03 12:19 | XMS_ITS | Referral Summary ---
Author Organization [facility] ([place], [place], [place], [place]) Address [address] [place] [address] Care Team Providers Care Sales Representative Consultant Name Role Phone Unavailable Primary Care Provider [...]
--- OUTSIDE RECORDS SUMMARY | 2025-08-03 12:19 | XMS_ITS | Clinical Summary ---
Author Organization [facility] [place] [facility] Address [address] [address] Care Team Providers Care Sanitation Manager Name Role Phone Dale Prescott MD Primary Care Provider [phone] Allergies Active Allergy Reactions Criticality Noted Date Comments Codeine Dizziness Medium 06/08/2020 Passed out Hydrocodone Rash Low 05/10/2020 Hydrocodone-Acetaminophen Rash Low 07/26/2023 Sulfa Antibiotics Rash Low 04/03/2022 Trimethoprim Unknown - High Severity 03/05/2025 Medications venlafaxine XR (EFFEXOR-XR) 150 MG 24 hr capsule Take 1 capsule by mouth Daily. Active rosuvastatin (CRESTOR) 40 MG tablet Take 1 tablet by mouth Daily. Active ASPIRIN 81 PO Aspir-81 mg tablet,delayed release Daily Active OneTouch Ultra test strip USE 1 STRIP TO CHECK GLUCOSE ONCE DAILY OR DIRECTED 07/24/20 Active Coenzyme Q10 (CO Q-10 PO) Take by mouth. Ac tive Synthroid 88 MCG tablet Take 1 tablet by mouth once daily 90 tablet 3 03/22/20 23 Active Restasis 0.05 % ophthalmic emulsion Administer 1 drop to both eyes Every 12 (Twelve) Hours. 03/28/20 23 Active omeprazole (priLOSEC) 20 MG capsule TAKE 1 CAPSULE BY MOUTH IN THE MORNING FOR 90 DAYS 06/07/20 23 Active busPIRone (BUSPAR) 10 MG tablet Take 1 tablet by mouth Daily. Active clobetasol (CLOBEX) 0.05 % lotion Apply 1 Application topically to the appropriate area as directed 2 (Two) Times a Week. Active gabapentin (NEURONTIN) 100 MG capsule Take 1 capsule by mouth Daily. 03/10/20 25 Active losartan (COZAAR) 25 MG tablet Take 1 tablet by mouth Daily. Active metFORMIN (GLUCOPHAGE) 500 MG tablet Daily. 1 tablet with a meal Orally Once a day for 90 days Active Mirabegron ER (Myrbetriq) 50 MG tablet sustained-rele ase 24 hour 24 hr tablet Take 50 mg by mouth Daily. Active donepezil (Aricept) 5 MG tabletIndicati ons:Mild cognitive impairment Take 1 tablet by mouth Every Night. 30 tablet 5 04/09/20 25 026 Active Cholecalcifero l 50 MCG (2000 UT) capsule capsule Active solifenacin (VESICARE) 10 MG tablet Take 1 tablet by mouth Daily. Active albuterol sulfate HFA 108 (90 Base) MCG/ACT inhaler Inhale 2 puffs Every 4 (Four) Hours As Needed. Discontinue d(Patient Reported Not Taking) estradiol (ESTRACE) 0.1 MG/GM vaginal cream INSERT 1 GRAM INTO THE VAGINA TWICE A WEEK Discontinue d(Patient Reported Not Taking) hydroxychloroq uine (PLAQUENIL) 200 MG tablet Take 1 tablet by mouth Daily. 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 She was seen by her driver/guide last week and discussed it with him. [...] Encounters Date Type Department Care Team Description 07/15/2025 2:00 PM EDT Office Visit [facility] [address] [place] [address] Dior Bales PA Spinal stenosis of lumbar region with radiculopathy (Primary Dx) 07/15/2025 10:23 AM EDT - 07/15/2025 11:59 PM EDT Hospital Encounter [facility] AT [address] [place] [address] Dior Bales PA Spinal stenosis of lumbar region with radiculopathy Discharge Disposition: Home or Self Care 07/15/2025 Travel 06/29/2025 1:30 PM EDT Office Visit [facility] [address] [facility] [address] [place] [address] Dior Bales PA Spinal stenosis of lumbar region with radiculopathy (Primary Dx); Bilateral sacroiliitis; Primary osteoarthritis of both hips; H/O carotid stenosis 06/29/2025 Travel 06/16/2025 Telephone [facility] [address] [facility] [address] [place] [phone] Mercedes Yi DNP, SAP SECURITY CONSULTANT REFERRAL CONCERN 05/11/2025 Telephone [facility] [address] [facility] [address] [place] [phone] Mercedes Yi DNP, SAP SECURITY CONSULTANT from Last 3 Months Family History Medical History Relation Name Comments Anxiety disorder Brother Christian Moody 7 Depression Brother Christian Moody 20 Heart disease Father Diabetes Maternal Grandmother Mintie Snow Heart attack Maternal Grandmother Mintie Snow Vision loss Maternal Grandmother Mintie Snow 62 Cancer Mother Carisa Moody Pancreatic Can cer Ovarian cancer Mother Carisa Moody METASTATIC F ROM PANCREATIC CA Pancreatic cancer Mother Carisa Moody Breast cancer Paternal Grandmother Alma Moody Cancer Paternal Grandmother Alma Moody Breast Cancer Diabetes Paternal Grandmother Alma Moody Colon cancer Neg Hx Relation Name Status Comments Brother Christian Moody Alive Father Maternal Grandmother Branden Estrada Mother [...] Pulse 92 04/09/2025 8:52 AM EDT Temperature 36.4 C (97.5 F) 07/15/2025 3:11 PM EDT Respiratory Rate 18 07/26/2023 7:05 PM EDT Oxygen Saturation 98% 04/09/2025 8:52 AM EDT Inhaled Oxygen Concentration - - Weight 73.9 kg (163 lb) 07/15/2025 3:11 PM EDT Height 165.1 cm (5' 5 ) 07/15/2025 3:11 PM EDT Body Mass Index 27.12 07/15/2025 3:11 PM EDT Plan of Treatment Upcoming Encounters Date Type Department Care Team (Late st Contact Info) Description 08/05/2025 11:30 AM EDT Appointment [facility] AT [address] [place] [phone] 08/05/2025 1:30 PM EDT Office Visit [facility] [address] [place] [phone] Remi Smart MD [address] [place], [place] [id number] 08/20/2025 2:30 PM EST Office Visit [facility] [address] [place] [address] Mercedes Yi, DNP, SAP SECURITY CONSULTANT [address] [place] [address] Health Maintenance Due Date Last Done Comments DIABETIC FOOT EXAM 1955 TDAP/TD VACCINES (1 - Tdap) 1966 ZOSTER VACCINE (1 of 2) 1997 ANNUAL WELLNESS VISIT 06/08/2020 HEPATITIS C SCREENING 06/08/2020 RSV Vaccine - Adults (1 - 1- dose 75+ series) 2022 PAP SMEAR 05/05/2023 05/05/2021, 04/21/2009 COVID-19 Vaccine (2 - Modern a risk series) 10/02/2023 09/04/2023 MAMMOGRAM 01/19/2025 01/19/2023, 07/08, 05/11/2022, Additional history exists DXA SCAN 02/12/2025 02/12/2023, 04/21/2019 INFLUENZA VACCINE 05/08/2025 08/15/2024, , 07/06/2023, Additional history exists HEMOGLOBIN A1C 06/10/2025 12/08/2024, 05/09, 04/27/2023, Additional history exists DIABETIC EYE EXAM 11/24/2025 [...] year) Discontinued Medical Devices Implanted Type Area Geometry Professor Device Identifier Shelf Expiration Date Model / Serial / Lot Stnt Percuflx No Gw 4.8x24 - [id number] Implanted:Qty: 1 on 06/11/2020 by Ramone Malave MD at [facility] Stent Right: U[employer] 01/08/2023 [id number] / / [id number] Procedures Procedure Name Priority Date/Time Associated Diagnosis Comments MRI LUMBAR SPINE WO CONTRAST Routine 07/15/2025 11:23 AM EDT Spinal stenosis of lumbar region with radiculopathy MICROALBUMIN / CREATININE URINE RATIO Routine 12/08/2024 [...] Relevant to Health Maintenance Results * MRI Lumbar Spine Without Contrast [...] MD 07/15/2025 1:39 PM EDT Workstation ID: [id number] Narrative 07/15/2025 1:39 PM EDT MRI LUMBAR [...] MD 07/15/2025 1:39 PM EDT Workstation ID: [id number] us Dior SALAZAR [facility] MRI ORDERABLES Final Result * Microalbumin / Creatinine Urine Ratio - Urine, Clean Catch (12/08/2024 11:09 AM EST) Microalbumin/C reatinine Ratio 14.7 0.0 - 29.0 mg/g 12/08/2024 11:23 PM EST [facility] Creatinine, Urine 136.1 mg/dL 12/08/2024 11:23 PM EST [facility] Microalbumin, Urine 2.0 mg/dL 12/08/2024 11:23 PM EST [facility] Urine Urine specimen obtained by clean catch procedure / Unknown Collection / Unknown 12/08/2024 11:09 AM EST 12/08/2024 11:09 AM EST Bora Beavers MD URINE ORDERABLES Final Re sult [facility]
[address] [place] [address], * (ABNORMAL) Lipid Panel (12/08/2024 11:09 AM EST) Total Cholesterol 153 0 - 200 mg/dL 12/09/2024 12:29 AM EST [facility] Triglycerides 54 0 - 150 mg/dL 12/09/2024 12:29 AM EST [facility] HDL Cholesterol 70(H) 40 - 60 mg/dL 12/09/2024 12:29 AM EST [facility] LDL Cholesterol 72 0 - 100 mg/dL 12/09/2024 12:29 AM [facility] VLDL Cholesterol 11 5 - 40 mg/dL 12/09/2024 12:29 AM EST [facility] LDL/HDL Ratio 1.03 12/09/2024 12:29 AM EST [facility] Blood Structure of left upper limb / Unknown Venipuncture / Unknown 12/08/2024 11:09 AM EST 12/08/2024 11:09 AM EST Narrative [facility] - 12/09/2024 12:29 AM EST Cholesterol [...] MD LAB BLOOD ORDERABLES Mary l Result [facility]
[address] [place] [address], * (ABNORMAL) POC Glycosylated Hemoglobin (Hb A1C) (12/08/2024 10:33 AM EST) Hemoglobin A1C 7.6(A) 4.5 - 5.7 % [facility] Lot Number [id number] [facility] Expiration Date 08/15/2026 [facility] Blood 12/08/2024 10:3 3 AM EST us Bora Beavers MD POINT OF CARE TEST ORDERA BLES Final Result Performing Organization Address [facility]/ZIP Co de Phone Number [facility]
[address] [place] [address], [place] [phone] * EYE EXAM SCANNED (11/24/2024) Anatomical Region [...] right breast with no worrisome findings identified. Dale Prescott MD IMG MAMMOGRAPHY ORDERABLES F inal Result * SCANNED - PAP SMEAR (05/05/2021) Roberta Awan MD CHART REVIEW TABS Final Resul t from Last 3 Months or Most Recently Relevant to Health Maintenance [facility] A & B Care Teams Sanitation Manager Relationship Specialty Start Date End Date Dale Prescott MD [address] [facility] [address] [facility] [address] [place] [address] PCP - General Family Medicine 04/25/19
--- NOTE | 2025-08-03 12:24 | XR_ITS ---
FINAL REPORT CLINICAL HISTORY: L hip pain FINDINGS: LEFT HIP 2 views of the left hip are obtained. There is no acute fracture or dislocation. Visualized joint spaces are normally aligned. There is no acute soft tissue abnormality. IMPRESSION: No acute bony abnormality. Reviewed, Interpreted and Dictated by Meek Pierre MD Transcribed by Abby Keller Authenticated and [facility]
--- NOTE | 2025-08-03 12:24 | XR_ITS ---
FINAL REPORT CLINICAL HISTORY: R hip pain FINDINGS: RIGHT HIP An AP view of the pelvis and 2 views of the right hip demonstrate no acute fracture or dislocation. The joint spaces appear normal. The visualized bony structures are well aligned. No soft tissue abnormality is seen. IMPRESSION: No acute bony abnormality. Reviewed, Interpreted and Dictated by Meek Pierre MD Transcribed by Abby Keller Authenticated and [facility]
== END 2025-08-03 23:59 | disposition home or self-care (01) ==
LOC: RAD 12:15
PROVIDERS: PCP Family Medicine; Visit Provider Nurse Practitioner Family
DX: M25.552 Pain in left hip (principal); M25.551 Pain in right hip
CPT/HCPCS: 73502

== ENCOUNTER 2025-10-02 13:58 | Outpatient (CLI) | payer MEDICARE, BC, SELFPAY ==
--- OUTSIDE RECORDS SUMMARY | 2025-02-13 04:30 | XMS_ITS ---
Author Organization [facility] Address [address] [facility] [address] [place] [phone] Care Team Providers Care Dock Guard Name Role Phone Dale Prescott Primary Care Provider Allergies Allergen (clinical drug ingredient) Drug/Non Drug Allergy documented on EMR Reaction Allergy Type Onset Date Status codeine Codeine Unknown Drug Allergy Active Substance with sulfonamide structure and antibacterial mechanism of action (substance) Sulfa Antibiotics Unknown Drug Allergy Active Results Component Value Reference Range Notes Urinalysis - Inhouse Reviewed date:02/17/2025 04:38:54 PM Interpretation: Performing Lab: Notes/Report: Color/Clarity yellow clear Leuk 1+ Nitrite neg Urobili 3.2 Protein neg pH 5.5 Blood neg Sp. Gr. 1.025 Ketone trace Bili neg Gluc neg Glucose (In-House) Reviewed date:02/17/2025 04:38:54 PM Interpretation:166 Performing Lab: Notes/Report: 166 blood glucose 166 74 - 106 mg/dL Glycohemoglobin A1c (in hous e) Reviewed date:02/17/2025 04:38:54 PM Interpretation:7.3% Performing Lab: Notes/Report: 7.3% glycohemoglobin 7.3% 5 - 6.5 % P-Vitamin B12 Reviewed date:02/17/2025 04:38:54 PM Interpretation:Normal Performing Lab: Notes/Report: CLIA: [id number] Carlos Hanks MD, Audit Specialist [address] [place] [address] , [address], [place] [address] Test performed by [facility] Vitamin B12 469 537-1205 pg/mL P-Comprehensive Metabolic Pa jamie (CMP) Reviewed date:02/17/2025 04:38:54 PM Interpretation: Performing Lab: Notes/Report: Test performed by [facility] [address] [place] [address] , [address], [place] [address] Carlos Hanks MD, Audit Specialist CLIA: [id number] Sodium 141 135-145 mmol/L Potassium 4.5 3.5-5.3 mmol/L Chloride 104 97-108 mmol/L CO2 24 22-32 mmol/L Glucose 138 65-99 mg/dL BUN 17 8-23 mg/dL Creatinine 0.86 0.50-1.00 mg/dL Calcium 9.5 8.6-10.4 mg/dL eGFR by Creatinine 69 >59 mL/min/1.73m2 Protein 6.7 6.0-8.3 g/dL Albumin 4.1 3.5-5.3 g/dL Alkaline Phosphatase 118 35-121 IU/L ALT (SGPT) 26 <5-47 IU/L AST (SGOT) 30 <5-40 IU/L Bilirubin, Total <0.2 <0.2-1.2 mg/dL A/G Ratio 1.6 1.1-2.5 P-T4 Free (thyroxine) Reviewed date:02/17/2025 04:38:54 PM Interpretation:Normal Performing Lab: Notes/Report: Test performed by [facility] [address] [place] [address] , [address], [place] [address] Carlos Hanks MD, Audit Specialist CLIA: [id number] Thyroxine Free (free T4) 1.34 0.86-1.76 ng/dL P-Lipid Panel Reviewed date:02/17/2025 04:38:54 PM Interpretation:Normal Performing Lab: Notes/Report: Test performed by [facility] [address] [place] [address] , [address], [place] [address] Carlos Hanks MD, Audit Specialist CLIA: [id number] Cholesterol 172 <200 mg/dL Triglycerides 75 <150 mg/dL HDL Cholesterol 74 >39 mg/dL Cholesterol / HDL Ratio 2.32 0.00-4.44 Ratio Non-HDL Cholesterol 98 <130 mg/dL LDL Cholesterol (Calculation) 83 <130 mg/dL LDL Cholesterol Levels* Less than 100 mg/dL Optimal 100 to 129 mg/dL Near Optimal/ Above Optimal 130 to 159 mg/dL Borderline High 160 to 189 mg/dL High 190 mg/dL and above Very High * Categories as recommended by the 2004 ATPIII guidelines LDL/HDL Ratio 1.1 <3.3 Ratio LDL Cholesterol Patient History Test Date: 02/22/2024 LDL Results: 81 Units: mg/dL % Change: - Test Date: 02/13/2025 LDL Results: 83 Units: mg/dL % Change: +2% P-TSH Reviewed date:02/17/2025 04:38:54 PM Interpretation:8.66 Performing Lab: Notes/Report: Test performed by [facility], [address] , [facility], [place] [address] Carlos Hanks MD, Audit Specialist CLIA: [id number] TSH 8.66 0.43-5.25 mU/L P-Vitamin D 25-Hydroxy Reviewed date:02/17/2025 04:38:54 PM Interpretation:Normal Performing Lab: Notes/Report: Test performed by [facility] [address] [place] [address] , [address], [place] [address] Carlos Hanks MD, Audit Specialist CLIA: [id number] Vitamin D 25-Hydroxy 36.6 30.0-100.0 ng/mL Interpretation of Vitamin D 25 OH: < 20 ng/mL - Deficiency 20 - 29 ng/mL - Insufficiency 30 - 100 ng/mL - Sufficiency > 100 ng/mL - Super-therapeutic- toxicity may occur above this level. Clinical correlation required. TEN-UTI panel Reviewed date:02/17/2025 04:38:54 PM Interpretation:Negative Performing Lab: Notes/Report: Negative REASON FOR VISIT 6 months Medications Medication SIG (Take, Route, Frequency, Duration) Notes Start Date End Date Status Albuterol Sulfate HFA 108 (90 Base) MCG/ACT 2 puff as needed Inhalation every 4 hrs prn 07/07/2024 Active Rosuvastatin Calcium 40 MG 1 tab(s) orally once a day (at bedtime); Duration: 90 days Active Effexor XR 75 MG 1 cap(s) orally once a day; Duration: 90 days Active ONE TOUCH ULTRA BLUE TEST STRIPS 1 TEST STRIP FINGERSTICK TEST ONCE A DAY OR DIRECTED; Duration: 30 DAYS 10/30/2018 Active OneTouch Ultra - USE 1 STRIP TO CHECK GLUCOSE ONCE DAILY OR DIRECTED to test once daily; Duration: 90 days Diagnosis E11.9 Active metFORMIN HCl 500 MG 1 tablet with a meal Orally Once a day; Duration: 90 days Active Aspirin Adult Low Dose 81 MG 1 tab(s) orally once a day Active MiraLax - DIRECTED ORALLY ONCE A DAY; Duration: 7 DAY(S) 04/02/2020 Active Cholestyramine 4 GM/DOSE 1 scoop Orally Once a day; Duration: 30 day(s) Active CoQ-10 100 MG 1 cap(s) orally once a day Active Venlafaxine HCl ER 150 MG take 1 capsule by mouth once daily Orally Once a day; Duration: 90 days Active Macrobid 100 MG 1 capsule with food Orally every 12 hrs; Duration: 5 days 02/13/2025 Active Synthroid 88 MCG 1 tab(s) orally once a day; Duration: 90 days Active Losartan Potassium 25 MG 1 tablet Orally Once a day; Duration: 90 days Active Myrbetriq 50 MG 1 tablet Orally Once a day; Duration: 30 days 08/15/2024 Active busPIRone HCl 10 MG 1 tab(s) orally once a day; Duration: 90 days Active Problems Problem Type SNOMED Code ICD Code Onset Dates Problem Status W/U Status Risk Notes Problem Type 2 diabetes mellitus with other specified complication, unspecified whether electrician assistant insulin use (E11.69) Active confirmed Vital Signs Weight 165 lbs 02/13/2025 Blood pressure systolic 140 mm Hg 02/14/20 25 Blood pressure diastolic 78 mm Hg 025 Heart Rate 102 /min 02/13/2025 Height 65 in 02/13/2025 BMI 27.45 kg/m2 02/13/2025 Encounters Encounter [facility] Date [facility] [address] [phone] 02/13/2025 Dale Prescott Type 2 diabetes liat itus without complication, without long-term current use of insulin E11.9 ; Pure hypercholesterolemia E78.00 ; Acquired hypothyroidism E03.9 ; Vitamin D deficiency E55.9 ; Vitamin B12 deficiency E53.8 ; Obstructive sleep apnea G47.33 ; Gastroesophageal reflux disease, esophagitis presence not specified K21.9 ; Acute UTI N39.0 ; Essential hypertension I10 ; Type 2 diabetes mellitus with other specified complication, unspecified whether electrician assistant insulin use E11.69 and BMI 27.0-27.9,adult Z68.27 Assessments Encounter Date Diagnosis (ICD Code) Assessment Notes Treatment Notes Treatment Clinical Notes Section Notes 02/13/2025 Type 2 diabetes liat itus without complication, without long-term current use of insulin (ICD-10 - E11.9) 02/13/2025 Pure hypercholesterolemia (ICD-10 - E78.00) 02/13/2025 Acquired hypothyroid ism (ICD-10 - E03.9) 02/13/2025 Vitamin D deficiency (ICD-10 - E55.9) 02/13/2025 Vitamin B12 deficien cy (ICD-10 - E53.8) 02/13/2025 Obstructive sleep ap lisandra (ICD-10 - G47.33) 02/13/2025 Gastroesophageal ref lux disease, esophagitis presence not specified (ICD-10 - K21.9) 02/13/2025 Acute UTI (ICD-10 - N39.0) 02/13/2025 Essential hypertensi on (ICD-10 - I10) 02/13/2025 Type 2 diabetes liat itus with other specified complication, unspecified whether longterm insulin use (ICD-10 - E11.69) 02/13/2025 BMI 27.0-27.9,adult (ICD-10 - Z68.27) Plan Of Treatment Medication Medication Name Sig Start Date Stop Date Notes metFORMIN HCl 500 MG 1 tablet with a jose l Orally Once a day; Duration: 90 days Macrobid 100 MG 1 capsule with food Orally every 12 hrs; Duration: 5 days 02/13/2025 Losartan Potassium 25 MG 1 tablet Orally Once a day; Duration: 90 days Next Appt Details Follow Up: 6 Months, Reason: Provider Name:Dale Mcdowell , 02/15/2026 11:45:00 AM, [address] [facility] [address] [facility], [address] , [place], [place], [phone], Progress Notes * SHANNON HARRISDOB: 8 (79 yo F)Acc No.[id number]:02/13/2025 Progress Notes Patient: SHANNON BUNN Provider: Ana Prescott M.D. :1945 A ge:79 Y S ex:Female Date:02/13/2025 Address:[address] [place] [address] [id number] Subjective: * Chief Complaints: * 1 . 6 months. * HPI: C ardiology: 79 year old female presents with c/o Blood Pressure Elevated?Pt here for 6 mo f/u on hypertension, states she is doing well and does not have any concerns.? c/o Hyperlipidemia P t is fasting today. E ndocrinology: c/o Recent Blood Sugars P t here to f/u on DM 2. c/o Hypothyroidism P t here to f/u. U rology: c/o flank pain P t complains of rt flank pain that started about 3 weeks ago. Pt states pain she thinks it may be her kidney . * ROS: D ERMATOLOGY: no R janel. n o H gregorio. G ASTROENTEROLOGY: no N ausea. n o V omiting. U ROLOGY: no D ifficulty urinating. n o B lood in urine. * Medical History: G raves Disease, followed by Endo., Hyperlipidemia, Hypothyroidism, 2009, Type 2 Diabetes dx. 2012, followed by Endo, Depression, Irritable Bowel Syndrome, Kidney Stones, Arthritis, Allergic Rhinitis, Overactive Bladder, Coronary Artery Disease, Non-Obstructive 10/2015, Vitamin B 12 Deficiency, Vitamin D Deficiency, Lichen Sclerosis - followed by DISTRICT DIRECTOR at [facility], Dx: 12/2018, Renal Artery Stenosis, right, 70% as of 06/2019, LT Renal Artery Aneursym, Dx: 2018, Colon Polyps, Esophageal Reflux, Sleep apnea. * Surgical History: C holecystectomy 1997, Hysterectomy 2008, Radiation Iodine - Thyroid 06/03/2010, Kidney stones x3 , Colonoscopy 2014, Heart Cath 10/2015, EGD with Biopsies 08/2016, Kidney Stone Removal 10/04/2018, Kidney Stone Removal 10/18/2018, Labia Biopsy 11/28/2018, Basal Cell Carcinoma RT Forehead 03/13/2019, Colonoscopy and Endoscope- Dr. Bueno, [facility] 05/10/2020, Lipotripsy for Kidney Stones- [facility] 06/11/2020. * Hospitalization/Major Diagno stic Procedure: F all - LT Rotator Cuff Tear , Kidney Stone- [facility] ER 09/29/2018. * Family History: F ather: 74 yrs, diagnosed with Heart Disease. M other: 72 yrs, diagnosed with Cancer. S iblings: alive 68 yrs. C hildren: alive. P aternal Grand Mother: diagnosed with Diabetes. M aternal Grand Mother: diagnosed with Diabetes. 1 brother(s) . 1 daughter(s) - healthy. . Mother - Pancreatic, Brother - Diverticulosis. * Social History: C URRENT TOBACCO USE S moking Status: P atient does NOT smoke, F ormer Smoker:?No. C affeine: no. Alcohol: No. * Medications: T aking Cholestyramine 4 GM/DOSE Powder 1 scoop Orally Once a day , Taking CoQ-10 100 MG Capsule 1 cap(s) orally once a day , Taking Aspirin Adult Low Dose 81 MG Tablet Delayed Release 1 tab(s) orally once a day , Taking MiraLax - POWDER FOR RECONSTITUTION DIRECTED ORALLY ONCE A DAY , Taking ONE TOUCH ULTRA BLUE TEST STRIPS 1 TEST STRIP FINGERSTICK TEST ONCE A DAY OR DIRECTED , Taking OneTouch Ultra - Strip USE 1 STRIP TO CHECK GLUCOSE ONCE DAILY OR DIRECTED to test once daily , Notes to Pharmacist: Diagnosis E11.9, Taking Rosuvastatin Calcium 40 MG Tablet 1 tab(s) orally once a day (at bedtime) , Taking Effexor XR 75 MG Capsule Extended Release 24 Hour 1 cap(s) orally once a day , Taking Albuterol Sulfate HFA 108 (90 Base) MCG/ACT Aerosol Solution 2 puff as needed Inhalation every 4 hrs prn , Taking Myrbetriq 50 MG Tablet Extended Release 24 Hour 1 tablet Orally Once a day , Taking busPIRone HCl 10 MG Tablet 1 tab(s) orally once a day , Taking Synthroid 88 MCG Tablet 1 tab(s) orally once a day , Taking Losartan Potassium 25 MG Tablet Take 1 tablet by mouth once daily , Taking metFORMIN HCl 500 MG Tablet Take 1 tablet by mouth once daily , Taking Venlafaxine HCl ER 150 MG Capsule Extended Release 24 Hour take 1 capsule by mouth once daily Orally Once a day , Discontinued Macrobid 100 MG Capsule 1 capsule with food Orally every 12 hrs , Medication List reviewed and reconciled with the patient * Allergies: S ulfa Antibiotics, Codeine. Objective: * Vitals: W t: 165, Temp: 97.8, BP: 140/78, HR: 102, Nurse: kathya, Ht: 65, BMI:27.45. * Examination: G eneral Examination: General Appearance: N AD. H eart: R SR. L ungs:?clear to auscultation. P eripheral pulses: n ormal (2+) bilaterally. B ack: no CVA tenderness. E xtremities: n o leg edema. Assessment: * Assessment: 1. T ype 2 diabetes mellitus without complication, without long-term current use of insulin - E11.9 (Primary) 2 . P ure hypercholesterolemia - E78.00 3 . A cquired hypothyroidism - E03.9 4 . V itamin D deficiency - E55.9 5. V itamin B12 deficiency - E53.8 6 . O bstructive sleep apnea - G47.33? 7. G astroesophageal reflux disease, esophagitis presence not specified - K21.9? 8. A cute UTI - N39.0 9 . E ssential hypertension - I10 10. T ype 2 diabetes mellitus with other specified complication, unspecified whether electrician assistant insulin use - E11.69 1 1. B ME 27.0-27.9,adult - Z68.27 Plan: * Treatment: Value Reference Range A /G Ratio 1.6 1.1-2.5 - * A lbumin 4.1 3.5-5.3 - g/dL * A lkaline Phosphatase 118 35-121 - IU/L * A LT (SGPT) 26 <5-47 - IU/L * A ST (SGOT) 30 <5-40 - IU/L * B ilirubin, Total <0.2 <0.2-1.2 - mg/dL * B UN 17 8-23 - mg/dL * C alcium 9.5 8.6-10.4 - mg/dL * C hloride 104 97-108 - mmol/L * C O2 24 22-32 - mmol/L * C reatinine 0.86 0.50-1.00 - mg/dL * G lucose 138 H 65-99 - mg/dL * P otassium 4.5 3.5-5.3 - mmol/L * S odium 141 135-145 - mmol/L * P rotein 6.7 6.0-8.3 - g/dL * e GFR by Creatinine 69 >59 - mL/min/1.73m2 * Dale Prescott 02/14/2025 1 0:14:39 AM > Lab results are satisfactory, sent to to inform. Molly Peck 02/17/2025 04:29:33 PM > pt informed of results ?LAB: Glucose (In-House) (Collection Date & Time - 02/13/2025)?166* Value Reference Range b lood glucose 166 74 - 106 mg/dL * Dariana Cesar 02/13/2025 11:34 :38 AM > Dale Prescott 02/14/2025 10:14:39 AM > Lab results are satisfactory, sent to to inform. Molly Peck 02/17/2025 04:29:33 PM > pt informed of results ?LAB: Glycohemoglobin A1c (in house) (Collection Date & Time - 02/13/2025)? 7.3%* Value Reference Range g lycohemoglobin 7.3% 5 - 6.5 % * Dariana Cesar 02/13/2025 11:34 :58 AM > Dale Prescott 02/14/2025 10:14:39 AM > Lab results are satisfactory, sent to to inform. Molly Peck 02/17/2025 04:29:33 PM > pt informed of results 2.?Pure hypercholesterolemia?LAB: P-Comprehensive Metabolic Panel (CMP) (Collection Date & Time - 02/13/2025 09:42 AM)* Value Reference Range A /G Ratio 1.6 1.1-2.5 - * A lbumin 4.1 3.5-5.3 - g/dL * A lkaline Phosphatase 118 35-121 - IU/L * A LT (SGPT) 26 <5-47 - IU/L * A ST (SGOT) 30 <5-40 - IU/L * B ilirubin, Total <0.2 <0.2-1.2 - mg/dL * B UN 17 8-23 - mg/dL * C alcium 9.5 8.6-10.4 - mg/dL * C hloride 104 97-108 - mmol/L * C O2 24 22-32 - mmol/L * C reatinine 0.86 0.50-1.00 - mg/dL * G lucose 138 H 65-99 - mg/dL * P otassium 4.5 3.5-5.3 - mmol/L * S odium 141 135-145 - mmol/L * P rotein 6.7 6.0-8.3 - g/dL * e GFR by Creatinine 69 >59 - mL/min/1.73m2 * Dale Prescott 02/14/2025 1 0:14:39 AM > Lab results are satisfactory, sent to to inform. Molly Peck 02/17/2025 04:29:33 PM > pt informed of results ?LAB: P-Lipid Panel (Collection Date & Time - 02/13/2025 09:42 AM)?Normal* Value Reference Range C holesterol / HDL Ratio 2.32 0.00-4.44 - Ratio * C holesterol 172 <200 - mg/dL * H DL Cholesterol 74 >39 - mg/dL * L DL Cholesterol (Calculation) 83 <130 - mg/d L * L DL/HDL Ratio 1.1 <3.3 - Ratio * N on-HDL Cholesterol 98 <130 - mg/dL * T riglycerides 75 <150 - mg/dL * Dale Prescott 02/14/2025 1 0:14:39 AM > Lab results are satisfactory, sent to [facility] to inform. Molly Peck 02/17/2025 04:29:33 PM > pt informed of results 3.?Acquired hypothyroidism?LAB: P-T4 Free (thyroxine) (Collection Date & Time - 02/13/2025 09:42 AM)? Normal* Value Reference Range T hyroxine Free (free T4) 1.34 0.86-1.76 - ng/d L * Dale Prescott 02/14/2025 1 0:14:39 AM > Lab results are satisfactory, sent to [facility] to inform. Molly Peck 02/17/2025 04:29:33 PM > pt informed of results ?LAB: P-TSH (Collection Date & Time - 02/13/2025 09:42 AM)?8.66* Value Reference Range T SH 8.66 H 0.43-5.25 - mU/L * Dale Prescott 02/14/2025 1 0:14:39 AM > Lab results are satisfactory, sent to to inform. Molly Peck 02/17/2025 04:29:33 PM > pt informed of results 4.?Vitamin D deficiency?LAB: P-Vitamin D 25-Hydroxy (Collection Date & Time - 02/13/2025 09:42 AM)? Normal* Value Reference Range V itamin D 25-Hydroxy 36.6 30.0-100.0 - ng/mL * Dale Prescott 02/14/2025 1 0:14:39 AM > Lab results are satisfactory, sent to to inform. Molly Peck 02/17/2025 04:29:33 PM > pt informed of results 5.?Vitamin B12 deficiency?LAB: P-Vitamin B12 (Collection Date & Time - 02/13/2025 09:42 AM)?Normal* Value Reference Range V itamin B12 547 525-6800 - pg/mL * Dale Prescott 02/14/2025 1 0:14:39 AM > Lab results are satisfactory, sent to to inform. Molly Peck 02/17/2025 04:29:33 PM > pt informed of results 6.?Acute UTI? Start Macrobid Capsule, 100 MG, 1 capsule with food, Orally, every 12 hrs, 5 days, 10, Refills 0. ?LAB: Urinalysis - Inhouse (Collection Date & Time - 02/13/2025)* Value Reference Range C olor/Clarity yellow clear * L euk 1+ * N itrite neg * U robili 3.2 * P rotein neg * p H 5.5 * B lood neg * S p. Gr. 1.025 * K etone trace * B shukri neg * G suhail neg * Dariana Cesar 02/13/2025 11:33 :28 AM > Provider reviewed results while patient in office. Dale Prescott 02/14/2025 10:14:39 AM > Lab results are satisfactory, sent to to inform. Molly Peck 02/17/2025 04:29:33 PM > pt informed of results ?LAB: TEN-UTI panel (Collection Date & Time - 02/13/2025)?Negative* Monse Ayala 02/16/2025 04:4 1:36 PM > pt started on Macrobid Molly Peck 02/17/2025 04:29:33 PM > pt informed of results 7.?Essential hypertension? Refill Losartan Potassium Tablet, 25 MG, 1 tablet, Orally, Once a day, 90 days, 90 Tablet, Refills 1.?? * Procedure Codes: G 2211 Complex e/[place], [address] Urinalysis, no micro, 38[address] GLUCOSE TEST, 48380 GLYCATED HEMOGLOBIN TEST, Modifiers: QW , G8420 BMI<30 AND >=22 CALC & DOCU, 3051F HG A1C>EQUAL 7.0%<8.0%, G8753 MOST RECENT SYSTOLIC BP >= 140MM HG, G8754 MOST RECENT DIASTOLIC BP < 90MM HG * Follow Up: 6 Months * Images: Billing Information: * Visit Code: 53221 Office Visit, Est Pt., Level 4. * Procedure Codes: G2211 Complex e/[place]. [address] Urinalysis, no micro. 30309 GLUCOSE TEST. 98508 GLYCATED HEMOGLOBIN TEST. Modifiers: QW G8420 BMI<30 AND >=22 CALC & DOCU. 3051F HG A1C>EQUAL 7.0%<8.0%. G8753 MOST RECENT SYSTOLIC BP >= 140MM HG. G8754 MOST RECENT DIASTOLIC BP < 90MM HG. * Electronic signature of Rocio Prescott MD on 10/02/2025 at 02:02 PM EST Sign off status: Pending * Provider: Ana Prescott M.D. Date: 0 02/13/2025 Generated for Radha mohan/Delbert/eTransmitting on: 1 12/03/2024 02:02 PM EST History and Physical Notes * HPI (History of Present Illness) Category Sub-Category Detail Notes Category Not es Endocrinology Recent Blood Sugars Pt here to f/u on DM 2 Hypothyroidism Pt here to f/u Cardiology Blood Pressure Elevated Pt here for 6 mo f/u on hypertension, states she is doing well and does not have any concerns Hyperlipidemia Pt is fasting today Urology flank pain Pt complains of rt flank pain that started about 3 weeks ago. Pt states pain she thinks it may be her kidney Examination Category Sub-Category Detail Notes Category Not es General Examination Heart: RSR Lungs: clear to auscultatio n Extremities: no leg edema General Appearance: NAD Peripheral pulses: normal (2+) bilatera lly Back: no CVA tenderness
--- OUTSIDE RECORDS SUMMARY | 2025-03-04 08:30 | XMS_ITS ---
Author Organization [facility] Address [address] [place] [id number] Care Team Providers Care Shuttle Filler Name Role Phone Dale Prescott Primary Care Provider Allergies Allergen (clinical drug ingredient) Drug/Non Drug Allergy documented on EMR Reaction Allergy Type Onset Date Status codeine Codeine Unknown Drug Allergy Active Substance with sulfonamide structure and antibacterial mechanism of action (substance) Sulfa Antibiotics Unknown Drug Allergy Active REASON FOR VISIT pain in lower hip Encounters Encounter Location Date Provider Diagnosis [facility] [address] [place] [id number] 03/04/2025 Dale Prescott Plan Of Treatment Next Appt Details Provider Name:Dale Mcdowell ry, 02/15/2026 11:45:00 AM, [address], [address], [place], [id number], Progress Notes * SHANNON HARRISDOB: 8 (79 yo F)Acc No.[id number]:03/04/2025 Progress Notes Patient: SHANNON BUNN Provider: Ana Prescott M.D. :1945 A ge:79 Y S ex:Female Date:03/04/2025 Address:[address] [place] [address] [id number] Subjective: * Chief Complaints: * 1 . Pain in lower hip. * HPI: H ip/Thigh: 79 year old female presents with c/o hip pain. * ROS: D ERMATOLOGY: no R janel. 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 * Surgical History: C holecystectomy 1997, Hysterectomy 2008, Radiation Iodine - Thyroid 06/03/2010, Kidney stones x3 , Colonoscopy 2014, Heart Cath 10/2015, EGD with Biopsies 08/2016, Kidney Stone Removal 10/04/2018, Kidney Stone Removal 10/18/2018, Labia Biopsy 11/28/2018, Basal Cell Carcinoma RT Forehead 03/13/2019, Colonoscopy and Endoscope- Dr. Bueno, [facility] 05/10/2020, Lipotripsy for Kidney Stones- [facility] 06/11/2020. * Hospitalization/Major Diagno stic Procedure: F all - LT Rotator Cuff Tear , Kidney Stone- [facility] ER 09/29/2018. * Family History: F [...] Smoker:?No. C affeine: no. Alcohol: No. * Allergies: S ulfa Antibiotics, Codeine. Objective: * Vitals: Assessment: Plan: * Treatment: * Images: Billing Information: * Visit Code: * Procedure Codes: * Electronic signature of Rocio Prescott MD on 10/02/2025 at 02:01 PM EST Sign off status: Pending * Provider: Ana Prescott M.D. Date: 0 03/04/2025 Generated for Radha mohan/Delbert/Messi on: 1 12/03/2024 02:01 PM EST History and Physical Notes * HPI (History of Present Illness) Category Sub-Category Detail Notes Category Not es Hip/Thigh hip pain
--- OUTSIDE RECORDS SUMMARY | 2025-03-10 04:30 | XMS_ITS ---
[facility] Organization [facility] Address [address] [facility] [address] [place] [id number] Care Team Providers Care Supervisor Counseling And Guidance Name Role Phone Dale Prescott Primary Care Provider Allergies Allergen (clinical drug ingredient) Drug/Non Drug Allergy documented on EMR Reaction Allergy Type Onset Date Status codeine Codeine Unknown Drug Allergy Active Substance with sulfonamide structure and antibacterial mechanism of action (substance) Sulfa Antibiotics Unknown Drug Allergy Active Reason For Referral Diagnosis 1 Lumbago with sciatic a, right side (M54.41) Diagnosis 2 Lumbago with sciatic a, left side (M54.42) Diagnosis 3 Lumbar facet arthrop athy (M47.816) Diagnosis 4 Spinal stenosis of l umbar region without neurogenic claudication (M48.061) [facility] Referring Provider First Name Dale Referring Provider Last Name Genie Referring Provider Speciality Family Pra ctice Referred Organization [facility] Rehab./PT Referred Provider Physical Therapy, . Referred Address [place],[address] Referred Provider Specialty Physical The rapist General Notes Charity Vargas 2024 10:22:47 AM > faxed to [facility] PT Referral Priority Routine Diagnosis 1 Lumbago with sciatic a, right side (M54.41) Diagnosis 2 Lumbago with sciatic a, left side (M54.42) Diagnosis 3 Spinal stenosis of l umbar region without neurogenic claudication (M48.061) Diagnosis 4 Lumbar facet arthrop athy (M47.816) Referral Organization [facility] Referring Provider First Name Dale Referring Provider Last Name Genie Referring Provider Speciality Family Pra wayneice Referred Provider [facility] Referred Provider Specialty Pain Managem ent General Notes Charity Vargas 2024 10:23:17 AM > faxed to [facility] Pain Management, Charity Vargas 03/18/2025 09:44:28 AM > resent fax Referral Priority Routine REASON FOR VISIT f/u [facility] ER visit Medications Medication SIG (Take, Route, Frequency, Duration) Notes Start Date End Date Status Gabapentin 100 MG 1 capsules Orally twice a day; Duration: 30 days 03/10/2025 Active Rosuvastatin Calcium 40 MG TAKE 1 TABLET BY MOUTH EVERY DAY AT BEDTIME; Duration: 90 Active Losartan Potassium 25 MG 1 tablet Orally Once a day; Duration: 90 days Active metFORMIN HCl 500 MG 1 tablet with a meal Orally Once a day; Duration: 90 days Active Myrbetriq 50 MG 1 tablet Orally Once a day; Duration: 30 days 08/15/2024 Active busPIRone HCl 10 MG 1 tab(s) orally once a day; Duration: 90 days Active Albuterol Sulfate HFA 108 (90 Base) MCG/ACT 2 puff as needed Inhalation every 4 hrs prn 07/07/2024 Active Venlafaxine HCl ER 150 MG take 1 capsule by mouth once daily Orally Once a day; Duration: 90 days Active Synthroid 88 MCG 1 tab(s) orally once a day; Duration: 90 days Active Effexor XR 75 MG 1 cap(s) orally once a day; Duration: 90 days Active ONE TOUCH ULTRA BLUE TEST STRIPS 1 TEST STRIP FINGERSTICK TEST ONCE A DAY OR DIRECTED; Duration: 30 DAYS 10/30/2018 Active OneTouch Ultra - USE 1 STRIP TO CHECK GLUCOSE ONCE DAILY OR DIRECTED to test once daily; Duration: 90 days Diagnosis E11.9 Active Aspirin Adult Low Dose 81 MG 1 tab(s) orally once a day Active MiraLax - DIRECTED ORALLY ONCE A DAY; Duration: 7 DAY(S) 04/02/2020 Active Cholestyramine 4 GM/DOSE 1 scoop Orally Once a day; Duration: 30 day(s) Active CoQ-10 100 MG 1 cap(s) orally once a day Active Problems Problem Type SNOMED Code ICD Code Onset Dates Problem Status W/U Status Risk Notes Problem Sciatica (43251308) Lumbago with sciatica, right side (M54.41) Active confirmed Problem Sciatica (81694548) Lumbago with sciatica, left side (M54.42) Active confirmed Problem Arthropathy of lumbar facet joint (060351965) Lumbar facet arthropathy (M47.816) Active confirmed Problem Spinal stenosis of lumbar region (05494030) Spinal stenosis of lumbar region without neurogenic claudication (M48.061) Active confirmed Vital Signs Weight 164.8 lbs 03/10/2025 Blood pressure systolic 136 mm Hg 03/10/20 25 Blood pressure diastolic 70 mm Hg 025 Heart Rate 90 /min 03/10/2025 Height 65 in 03/10/2025 BMI 27.42 kg/m2 03/10/2025 Encounters Encounter Location Date Provider Diagnosis [facility] [address] [id number] 03/10/2025 Dale [place] Lumbago with sciatic a, right side M54.41 ; Lumbago with sciatica, left side M54.42 ; Degeneration of intervertebral disc of lumbar region with discogenic back pain and lower extremity pain M51.362 ; Lumbar facet arthropathy M47.816 ; Spinal stenosis of lumbar region without neurogenic claudication M48.061 and BMI 27.0-27.9,adult Z68.27 Assessments Encounter Date Diagnosis (ICD Code) Assessment Notes Treatment Notes Treatment Clinical Notes Section Notes 03/10/2025 Lumbago with sciatica, right side (ICD-10 - M54.41) ER record including notes and CT report reviewed with patient in office today 03/10/2025 Lumbago with sciatica, left side (ICD-10 - M54.42) 03/10/2025 Degeneration of intervertebral disc of lumbar region with discogenic back pain and lower extremity pain (ICD-10 - M51.362) 03/10/2025 Lumbar facet arthropathy (ICD-10 - M47.816) 03/10/2025 Spinal stenosis of lumbar region without neurogenic claudication (ICD-10 - M48.061) 03/10/2025 BMI 27.0-27.9,adult (ICD-10 - Z68.27) Plan Of Treatment Medication Medication Name Sig Start Date Stop Date Notes Gabapentin 100 MG 1 capsules Orally tw ice a day; Duration: 30 days 03/10/2025 Treatment Notes Assessment Notes Lumbago with sciatica, right side ER rec ord including notes and CT report reviewed with patient in office today Referrals Referral Date Details 03/10/2025 03/10/2025, . Physic al Therapy, [place], [address] 03/10/2025 03/10/2025, [facility] Next Appt Details Follow Up: via phone to repo rt progress, Reason: Provider Name:Dale Mcdowell ry, 02/15/2026 11:45:00 AM, [address], [address], [place], [phone], Progress Notes * SHANNON HARRISDOB: 8 (79 yo F)Acc No.[id number]:03/10/2025 Patient: SHANNON BUNN Provider: Ana Prescott M.D. :1945 A ge:79 Y S ex:Female Date:03/10/2025 Address:[address] [place] [address] [id number] Subjective: * Chief Complaints: * 1 . f/u [facility] ER visit. * HPI: H PI: 79 year old female presents with c/o Here for follow up on:?03/05/2025 [facility] er visit. Pt went to er for low back pain. Pt had CT of the lumbar spine, see pt docs. Pt has been alternating Tylenol and Iburpofen to help with pain but has not had any relief. * ROS: D ERMATOLOGY: no R janel. [...] D Deficiency, Lichen Sclerosis - followed by [employer] at [facility], Dx: 12/2018, Renal Artery Stenosis, [...] Forehead 03/13/2019, Colonoscopy and Endoscope- Dr. Bueno, [facility] 05/10/2020, Lipotripsy for Kidney Stones- [facility] 06/11/2020. * Hospitalization/Major Diagno stic Procedure: F all - LT Rotator Cuff Tear , Kidney Stone- [facility] ER 09/29/2018. * Family History: F [...] , Notes to Pharmacist: Diagnosis E11.9, Taking Effexor XR 75 MG Capsule Extended [...] tab(s) orally once a day , Taking Venlafaxine HCl ER 150 MG Capsule Extended Release 24 Hour take 1 capsule by mouth once daily Orally Once a day , Taking metFORMIN HCl 500 MG Tablet 1 tablet with a meal Orally Once a day , Taking Losartan Potassium 25 MG Tablet 1 tablet Orally Once a day , Taking Rosuvastatin Calcium 40 MG Tablet TAKE 1 TABLET BY MOUTH EVERY DAY AT BEDTIME , Discontinued Macrobid 100 MG Capsule 1 capsule with food Orally every 12 hrs , Medication List reviewed and reconciled with the patient * Allergies: S ulfa Antibiotics, Codeine. Objective: * Vitals: W t: 164.8, Temp: 97.8, BP: 136/70, HR: 90, Nurse: kathya, Ht: 65, BMI:27.42. * Examination: G eneral Examination: General Appearance: N AD. Assessment: * Assessment: 1. L umbago with sciatica, right side - M54.41 (Primary) 2 . L umbago with sciatica, left side - M54.42 3 . D egeneration of intervertebral disc of lumbar region with discogenic back pain and lower extremity pain - M51.362 4 . L umbar facet arthropathy - M47.816 5 . S christelle stenosis of lumbar region without neurogenic claudication - M48.061 6 . B CA 27.0-27.9,adult - Z68.27 Plan: * Treatment: 2. L umbago with sciatica, left side Referral To:. Physical Therapy Physical Therapist Reason: Referral To:[facility] Reason: 3. L umbar facet arthropathy Referral To:. Physical Therapy Physical Therapist Reason: Referral To:[facility] Reason: 4. S christelle stenosis of lumbar region without neurogenic claudication Referral To:. Physical Therapy Physical Therapist Reason: Referral To:[facility] Reason: * Procedure Codes: G 2211 Complex e/m visit add on, 1036F TOBACCO NON-USER, G3983 BP SCR PRFRM RCMDD DEFIND SCR INTVL, G8752 MOST RECENT SYSTOLIC BP < 140MM HG, G8754 MOST RECENT DIASTOLIC BP < 90MM HG * Follow Up: v ia phone to report progress * Images: Billing Information: * Visit Code: 76014 Office Visit, Est Pt., Level 4. * Procedure Codes: G2211 Complex e/m visit add on. 1036F TOBACCO NON-USER. G8783 BP SCR PRFRM RCMDD DEFIND SCR INTVL. G8752 MOST RECENT SYSTOLIC BP < 140MM HG. G8754 MOST RECENT DIASTOLIC BP < 90MM HG. * Electronic signature of Rocio Prescott MD on 10/02/2025 at 02:02 PM EST Sign off status: Pending * Provider: Ana Prescott M.D. Date: 0 03/10/2025 Generated for Radha mohan/Delbert/Sissyitting on: 1 12/03/2024 02:02 PM EST History and Physical Notes * HPI (History of Present Illness) Category Sub-Category Detail Notes Category Not es HPI Here for follow up on: 5 [facility] er visit. Pt went to er for low back pain. Pt had CT of the lumbar spine, see pt docs. Pt has been alternating Tylenol and Iburpofen to help with pain but has not had any relief Examination Category Sub-Category Detail Notes Category Not es General Examination General Appearance: NAD Consultation Request Notes Referral Date Referring Provider Referred Provider Not es 03/10/2025 Dale Prescott Physical Therapy, . 03/10/2025 Dale Prescott Anjum
--- OUTSIDE RECORDS SUMMARY | 2025-03-16 11:45 | XMS_ITS ---
Author Organization [facility] Address [address] [facility] [address] [place] [id number] Care Team Providers Care Window Shade Ring Coverer Name Role Phone Genie Dale Primary Care Provider [phone] Allergies Allergen (clinical drug ingredient) Drug/Non Drug Allergy documented on EMR Reaction Allergy Type Onset Date Status codeine Codeine Unknown Drug Allergy Active Substance with sulfonamide structure and antibacterial mechanism of action (substance) Sulfa Antibiotics Unknown Drug Allergy Active Reason For Referral Reason [facility] Neuro logy, No MD pref. Diagnosis 1 Frequent falls (R29. 6) Diagnosis 2 Intention tremor (G2 5.2) Diagnosis 3 Memory loss (R41.3) Referral Organization [facility] Referring Provider First Name Dale Referring Provider Last Name Genie Referring Provider Speciality Family [facility] ctice Referred Provider Specialty Neurology General Notes Charity Vargas 2024 01:24:07 PM > faxed all info to Neurology Referral Priority Routine REASON FOR VISIT neuro referral Medications Medication SIG (Take, Route, Frequency, Duration) Notes Start Date End Date Status Rosuvastatin Calcium 40 MG TAKE 1 TABLET BY MOUTH EVERY DAY AT BEDTIME; Duration: 90 Active Losartan Potassium 25 MG 1 tablet Orally Once a day; Duration: 90 days Active Omeprazole 20 MG 1 capsule 1/2 to 1 hour before morning meal Orally Once a day; Duration: 90 days 03/16/2025 Active Zithromax Z-Wesley 250 MG as directed Orall y daily; Duration: 5 days 03/11/2025 Active Gabapentin 100 MG 1 capsules Orally twice a day; Duration: 30 days 03/10/2025 Active metFORMIN HCl 500 MG 1 tablet with a meal Orally Once a day; Duration: 90 days Active Venlafaxine HCl ER 150 MG take 1 capsule by mouth once daily Orally Once a day; Duration: 90 days Active Synthroid 88 MCG 1 tab(s) orally once a day; Duration: 90 days Active busPIRone HCl 10 MG 1 tab(s) orally once a day; Duration: 90 days Active Myrbetriq 50 MG 1 tablet Orally Once a day; Duration: 30 days 08/15/2024 Active MiraLax - DIRECTED ORALLY ONCE A DAY; Duration: 7 DAY(S) 04/02/2020 Active Albuterol Sulfate HFA 108 (90 Base) MCG/ACT 2 puff as needed Inhalation every 4 hrs prn 07/07/2024 Active Effexor XR 75 MG 1 cap(s) orally once a day; Duration: 90 days Active OneTouch Ultra - USE 1 STRIP TO CHECK GLUCOSE ONCE DAILY OR DIRECTED to test once daily; Duration: 90 days Diagnosis E11.9 Active ONE TOUCH ULTRA BLUE TEST STRIPS 1 TEST STRIP FINGERSTICK TEST ONCE A DAY OR DIRECTED; Duration: 30 DAYS 10/30/2018 Active Aspirin Adult Low Dose 81 MG 1 tab(s) orally once a day Active CoQ-10 100 MG 1 cap(s) orally once a day Active Cholestyramine 4 GM/DOSE 1 scoop Orally Once a day; Duration: 30 day(s) Active Problems Problem Type SNOMED Code ICD Code Onset Dates Problem Status W/U Status Risk Notes Problem Memory loss (60095530) Memory loss (R41.3) Active confirmed Problem Intention tremor (19891923) Intention tremor (G25.2) Active confirmed Problem Recurrent falls (347464863) Frequent falls (R29.6) Active confirmed Vital Signs Weight 165 lbs 03/16/2025 Blood pressure systolic 140 mm Hg 03/16/20 25 Blood pressure diastolic 70 mm Hg 025 Heart Rate 90 /min 03/16/2025 Height 65 in 03/16/2025 BMI 27.45 kg/m2 03/16/2025 Encounters Encounter Location Date Provider Diagnosis [facility] [address] [place] [phone] 03/16/2025 Dale [place] Memory loss R41.3 ; Intention tremor G25.2 ; Frequent falls R29.6 ; Gastroesophageal reflux disease, esophagitis presence not specified K21.9 and BMI 27.0-27.9,adult Z68.27 Assessments Encounter Date Diagnosis (ICD Code) Assessment Notes Treatment Notes Treatment Clinical Notes Section Notes 03/16/2025 Memory loss (ICD-10 - R41.3) 03/16/2025 Intention tremor (ICD-10 - G25.2) 03/16/2025 Frequent falls (ICD-10 - R29.6) 03/16/2025 Gastroesophageal reflux disease, esophagitis presence not specified (ICD-10 - K21.9) 03/16/2025 BMI 27.0-27.9,adult (ICD-10 - Z68.27) Plan Of Treatment Medication Medication Name Sig Start Date Stop Date Notes Omeprazole 20 MG 1 capsule 1/2 to 1 h our before morning meal Orally Once a day; Duration: 90 days 03/16/2025 Referrals Referral Date Details 03/16/2025 03/16/2025, [facility] Neurology, No MD pref. Next Appt Details Follow Up: via phone to repo rt progress, Reason: Provider Name:Dale Mcdowell ry, 02/15/2026 11:45:00 AM, [address] [facility] [address] [facility], [address] , [place], [place], [phone], Progress Notes * EDGARSHANNONDOB: 8 (79 yo F)Acc No.[id number]:03/16/2025 Progress Notes Patient: SHANNON BUNN Provider: Ana Prescott M.D. :1945 A ge:79 Y S ex:Female Date:03/16/2025 Address:[address] [place] [address] [id number] Subjective: * Chief Complaints: * 1 . Neuro referral. * HPI: N eurology: 79 year old female presents with c/o memory loss P t complains of memory loss. Pt states she has a hard time remembering what she should be or is doing. Pt states she has a hard time writing as well, pt states my hand jumps when I write . Pt has fallen multiple times due to weakness pins and needles sensation in legs . Pt is requestring referral to neurology. * ROS: D ERMATOLOGY: no R janel. [...] D Deficiency, Lichen Sclerosis - followed by [facility] [employer] [facility]ACHINE [facility]TER [facility], Dx: 12/2018, Renal Artery Stenosis, right, 70% [...] Forehead 03/13/2019, Colonoscopy and Endoscope- Dr. Bueno, [facility] 05/10/2020, Lipotripsy for Kidney Stones- [facility] 06/11/2020. * Hospitalization/Major Diagno stic Procedure: F all - LT Rotator Cuff Tear , Kidney Stone- [facility] ER 09/29/2018. * Family History: F ather: [...] BY MOUTH EVERY DAY AT BEDTIME , Taking Gabapentin 100 MG Capsule 1 capsules Orally twice a day , Taking Zithromax Z-Wesley 250 MG Tablet as directed Orally daily , Medication List reviewed and reconciled with the patient * Allergies: S ulfa Antibiotics, Codeine. Objective: * Vitals: W t: 165, Temp: 97.9, BP: 140/70, HR: 90, Nurse: kathya, Ht: 65, BMI:27.45. * Examination: G eneral Examination: General Appearance: N AD. H eart: R SR. L ungs:?clear to auscultation. N eurologic Exam: f ine tremor in left hand with activity. Assessment: * Assessment: 1. M florentino loss - R41.3 (Primary) 2 . I ntention tremor - G25.2 ?3. F requent falls - R29.6 4 . G astroesophageal reflux disease, esophagitis presence not specified - K21.9 5 . B RI 27.0-27.9,adult - Z68.27 ? Plan: * Treatment: 2. I ntention tremor Referral To:Neurology Reason:[facility] Neurology, No MD pref. 3. F requent falls Referral To:Neurology Reason:[facility] Neurology, No MD pref. 4. G astroesophageal reflux disease, esophagitis presence not specified Start Omeprazole Capsule Delayed Release, 20 MG, 1 capsule 1/2 to 1 hour before morning meal, Orally, Once a day, 90 days, 90, Refills 1. * Procedure Codes: G 2211 Complex e/m visit add on, 1036F TOBACCO NON-USER, G8420 BMI<30 AND >=22 CALC & DOCU * Follow Up: v ia phone to report progress * Images: Billing Information: * Visit Code: 71463 Office Visit, Est Pt., Level 4. * Procedure Codes: G2211 Complex e/m visit add on. 1036F TOBACCO NON-USER. G8420 BMI<30 AND >=22 CALC & DOCU. * Electronic signature of Rocio Prescott MD on 10/02/2025 at 02:01 PM EST Sign off status: Pending * Provider: Ana Prescott M.D. Date: 0 03/16/2025 Generated for Radha mohan/Delbert/Sissyitting on: 12/03/2024 02:01 PM EST History and Physical Notes * HPI (History of Present Illness) Category Sub-Category Detail Notes Category Not es Neurology memory loss Pt complains of memory loss. Pt states she has a hard time remembering what she should be or is doing. Pt states she has a hard time writing as well, pt states my hand jumps when I write . Pt has fallen multiple times due to weakness pins and needles sensation in legs . Pt is requestring referral to neurology Examination Category Sub-Category Detail Notes Category Not es General Examination Heart: RSR Lungs: clear to auscultatio n General Appearance: NAD Neurologic Exam: fine tremor in left hand with activity Consultation Request Notes Referral Date Referring Provider Referred Provider Not es 03/16/2025 Dale Prescott [facility] Neurology, No MD pref.
--- OUTSIDE RECORDS SUMMARY | 2025-05-12 05:45 | XMS_ITS ---
Author Organization [facility] Address [address] [facility] [address] [place] [id number] Care Team Providers Care Agricultural Sales Representative Name Role Phone Dale Prescott Primary Care Provider Allergies Allergen (clinical drug ingredient) Drug/Non Drug Allergy documented on EMR Reaction Allergy Type Onset Date Status codeine Codeine Unknown Drug Allergy Active Substance with sulfonamide structure and antibacterial mechanism of action (substance) Sulfa Antibiotics Unknown Drug Allergy Active Results Component Value Reference Range Notes Urinalysis - Inhouse Reviewed date:05/14/2025 10:13:18 AM Interpretation:satisfactory Performing Lab: Notes/Report: satisfactory Color/Clarity Yellow/Clear Leuk Neg Nitrite Neg Urobili 3.2 Protein Neg pH 7.5 Blood Neg Sp. Gr. 1.020 Ketone Trace Bili Neg Gluc Neg Reason For Referral Diagnosis 1 Lumbar facet arthrop athy (M47.816) Diagnosis 2 Low back pain, unspe cified (M54.50) Diagnosis 3 Spinal stenosis of l umbar region without neurogenic claudication (M48.061) Referral Organization [facility] Referring Provider First Name Dale Referring Provider Last Name Genie Referring Provider Speciality Family Pra ctice Referred Provider Collins Landon Referred Provider Specialty Pain Managem ent General Notes Charity Vargas 2024 11:20:59 AM > faxed to [facility] Pain Management, Charity Vargas 05/14/2025 10:26:18 AM > 05/25/2025 at 02:00pm Referral Priority Routine REASON FOR VISIT shaking on Sat Medications Medication SIG (Take, Route, Frequency, Duration) Notes Start Date End Date Status Rosuvastatin Calcium 40 MG TAKE 1 TABLET BY MOUTH ONCE DAILY AT BEDTIME; Duration: 90 Active Venlafaxine HCl ER 75 MG Take 1 capsule by mouth once daily; Duration: 90 Active Venlafaxine HCl ER 150 MG take 1 capsule by mouth once daily Orally Once a day; Duration: 90 days Active Omeprazole 20 MG 1 capsule 1/2 to 1 hour before morning meal Orally Once a day; Duration: 90 days 03/16/2025 Active metFORMIN HCl 500 MG 1 tablet with a meal Orally Once a day; Duration: 90 days Active Synthroid 88 MCG 1 tab(s) orally once a day; Duration: 90 days Active busPIRone HCl 10 MG 1 tab(s) orally once a day; Duration: 90 days Active Gabapentin 100 MG 1 capsules Orally twice a day; Duration: 30 days 03/10/2025 Active Losartan Potassium 25 MG 1 tablet Orally Once a day; Duration: 90 days Active Myrbetriq 50 MG 1 tablet Orally Once a day; Duration: 30 days 08/15/2024 Active Albuterol Sulfate HFA 108 (90 Base) MCG/ACT 2 puff as needed Inhalation every 4 hrs prn 07/07/2024 Active OneTouch Ultra - USE 1 STRIP TO CHECK GLUCOSE ONCE DAILY OR DIRECTED to test once daily; Duration: 90 days Diagnosis E11.9 Active ONE TOUCH ULTRA BLUE TEST STRIPS 1 TEST STRIP FINGERSTICK TEST ONCE A DAY OR DIRECTED; Duration: 30 DAYS 10/30/2018 Active MiraLax - DIRECTED ORALLY ONCE A DAY; Duration: 7 DAY(S) 04/02/2020 Active Cholestyramine 4 GM/DOSE 1 scoop Orally Once a day; Duration: 30 day(s) Active Aspirin Adult Low Dose 81 MG 1 tab(s) orally once a day Active CoQ-10 100 MG 1 cap(s) orally once a day Active Problems Problem Type SNOMED Code ICD Code Onset Dates Problem Status W/U Status Risk Notes Problem Chronic pain (89703167) Other chronic pain (G89.29) Active confirmed Vital Signs Weight 164.8 lbs 05/12/2025 Blood pressure systolic 132 mm Hg 05/12/20 25 Blood pressure diastolic 80 mm Hg 025 Heart Rate 103 /min 05/12/2025 Height 65 in 05/12/2025 BMI 27.42 kg/m2 05/12/2025 Encounters Encounter Location Date Provider Diagnosis [facility] [address] [place] [id number] 05/12/2025 Dale Prescott Other chronic pain G89.29 ; Low back pain, unspecified M54.50 ; Lumbar facet arthropathy M47.816 ; Spinal stenosis of lumbar region without neurogenic claudication M48.061 ; Memory loss R41.3 ; Urinary symptom or sign R39.9 and BMI 27.0-27.9,adult Z68.27 Assessments Encounter Date Diagnosis (ICD Code) Assessment Notes Treatment Notes Treatment Clinical Notes Section Notes 05/12/2025 Other chronic pain (ICD-10 - G89.29) Patient wants to see a chiropractor and pain management 05/12/2025 Low back pain, unspecified (ICD-10 - M54.50) 05/12/2025 Lumbar facet arthropathy (ICD-10 - M47.816) 05/12/2025 Spinal stenosis of lumbar region without neurogenic claudication (ICD-10 - M48.061) 05/12/2025 Memory loss (ICD-10 - R41.3) MRI report from [facility] reviewed in office today 05/12/2025 Urinary symptom or sign (ICD-10 - R39.9) 05/12/2025 BMI 27.0-27.9,adult (ICD-10 - Z68.27) Plan Of Treatment Treatment Notes Assessment Notes Other chronic pain Patient wants to see a chiropractor and pain management Memory loss MRI report from [facility] reviewed in office today Referrals Referral Date Details 05/12/2025 05/12/2025, Collins Bu x Next Appt Details Follow Up: 4 Weeks, Reason: Provider Name:Dale Mcdowell ry, 02/15/2026 11:45:00 AM, [address], [address], [place], [id number], Progress Notes * GALEN HARRISB: 8 (79 yo F)Acc No.[id number]:05/12/2025 Progress Notes Patient: Jaylyn SHANNON ESTRADA Provider: Ana Prescott M.D. :1945 A ge:79 Y S ex:Female Date:05/12/2025 Address:[address] [place] [address] MALINA [id number] Subjective: * Chief Complaints: * 1 . shaking on Sat. * HPI: N eurology: 79 year old female presents with c/o spells P t complains of having a shaking spell for about 20 minutes on Sunday. Pt states she was making pie crust and just started shaking from head to toe and she has never had that happen before . * ROS: D ERMATOLOGY: no R [...] D Deficiency, Lichen Sclerosis - followed by TRAFFIC OR SYSTEM DISPATCHER at [facility], Dx: 12/2018, Renal Artery Stenosis, [...] Forehead 03/13/2019, Colonoscopy and Endoscope- Dr. Bueno, [facility] 05/10/2020, Lipotripsy for Kidney Stones- [facility] 06/11/2020. * Hospitalization/Major Diagno stic Procedure: F all - LT Rotator Cuff Tear , Kidney Stone- [facility] ER 09/29/2018. * Family History: F ather: 74 yrs, diagnosed with Heart Disease. M other: 72 yrs, diagnosed with Cancer. S analilia: alive 68 yrs. C edwin: alive. P aternal Grand Mother: diagnosed with Diabetes. M aternal Grand Mother: diagnosed with Diabetes. 1 brother(s) . 1 daughter(s) - healthy. . Mother - Pancreatic, Brother - Diverticulosis. * Social History: C URRENT TOBACCO USE: No S moking Status: P atient does NOT [...] , Notes to Pharmacist: Diagnosis E11.9, Taking Albuterol Sulfate HFA 108 (90 Base) MCG/ACT Aerosol Solution 2 puff as needed Inhalation every 4 hrs prn , Taking Myrbetriq 50 MG Tablet Extended Release 24 Hour 1 tablet Orally Once a day , Taking busPIRone HCl 10 MG Tablet 1 tab(s) orally once a day , Taking Synthroid 88 MCG Tablet 1 tab(s) orally once a day , Taking metFORMIN HCl 500 MG Tablet 1 tablet with a meal Orally Once a day , Taking Losartan Potassium 25 MG Tablet 1 tablet Orally Once a day , Taking Gabapentin 100 MG Capsule 1 capsules Orally twice a day , Taking Omeprazole 20 MG Capsule Delayed Release 1 capsule 1/2 to 1 hour before morning meal Orally Once a day , Taking Venlafaxine HCl ER 150 MG Capsule Extended Release 24 Hour take 1 capsule by mouth once daily Orally Once a day , Taking Venlafaxine HCl ER 75 MG Capsule Extended Release 24 Hour Take 1 capsule by mouth once daily , Taking Rosuvastatin Calcium 40 MG Tablet TAKE 1 TABLET BY MOUTH ONCE DAILY AT BEDTIME , Discontinued Zithromax Z-Wesley 250 MG Tablet as directed Orally daily , Medication List reviewed and reconciled with the patient * Allergies: S ulfa Antibiotics, Codeine. Objective: * Vitals: W t: 164.8, Temp: 97.7, BP: 132/80, HR: 103, Nurse: kathya, Ht: 65, BMI:27.42. * Examination: G eneral Examination: General Appearance: N AD. H eart: R SR. L ungs:?clear to auscultation. Assessment: * Assessment: 1. O ther chronic pain - G89.29 (Primary) 2 . L ow back pain, unspecified - M54.50 3 . L umbar facet arthropathy - M47.816 4 . S christelle stenosis of lumbar region without neurogenic claudication - M48.061 5 . M florentino loss - R41.3 6 . U rinary symptom or sign - R39.9 7 . B DE 27.0-27.9,adult - Z68.27 Plan: * Treatment: 2. L ow back pain, unspecified Referral To:[facility] Reason: 3. L umbar facet arthropathy Referral To:[facility] Reason: 4. S christelle stenosis of lumbar region without neurogenic claudication Referral To:[facility] Reason: 5. M florentino loss Notes: MRI report from [facility] reviewed in office today 6. U rinary symptom or sign L AB: Urinalysis - Inhouse (Collection Date & Time - 05/12/2025) s atisfactory Value Reference Range C olor/Clarity Yellow/Clear * L euk Neg * N itrite Neg * U robili 3.2 * P rotein Neg * p H 7.5 * B lood Neg * S p. Gr. 1.020 * K etone Trace * B shukri Neg * G suhail Neg * Ale Corral 05/13/2025 08:18:1 2 AM EDT >Ale Corral 05/14/2025 10:12:54 AM EDT >Pt informed of normal urine * Procedure Codes: G 2211 Complex e/[place], [address] Urinalysis, no micro, 1036F TOBACCO NON- USER, G8420 BMI<30 AND >=22 CALC & DOCU, G8783 BP SCR PRFRM RCMDD DEFIND SCR INTVL, G8752 MOST RECENT SYSTOLIC BP < 140MM HG, G8754 MOST RECENT DIASTOLIC BP < 90MM HG * Follow Up: 4 Weeks * Images: Billing Information: * Visit Code: 53835 Office Visit, Est Pt., Level 4. * Procedure Codes: G2211 Complex e/[place]. [address] Urinalysis, no micro. 1036F TOBACCO NON-USER. G8420 BMI<30 AND >=22 CALC & DOCU. G8783 BP SCR PRFRM RCMDD DEFIND SCR INTVL. G8752 MOST RECENT SYSTOLIC BP < 140MM HG. G8754 MOST RECENT DIASTOLIC BP < 90MM HG. * Electronic signature of Rocio Prescott MD on 10/02/2025 at 02:02 PM EST Sign off status: Pending * Provider: Ana Prescott M.D. Date: 0 05/12/2025 Generated for Radha mohan/Delbert/Messi on: 1 12/03/2024 02:02 PM EST History and Physical Notes * HPI (History of Present Illness) Category Sub-Category Detail Notes Category Not es Neurology spells Pt complains of having a shaking spell for about 20 minutes on Sunday. Pt states she was making pie crust and just started shaking from head to toe and she has never had that happen before Examination Category Sub-Category Detail Notes Category Not es General Examination Heart: RSR Lungs: clear to auscultatio n General Appearance: NAD Consultation Request Notes Referral Date Referring Provider Referred Provider Not es 05/12/2025 Dale Prescott Anjum
--- OUTSIDE RECORDS SUMMARY | 2025-06-09 06:45 | XMS_ITS ---
[facility] Address [address] [facility] [address] [place] [id number] Care Team Providers Care Process Control Manager Name Role Phone Dale Prescott Primary Care Provider Allergies Allergen (clinical drug ingredient) Drug/Non Drug Allergy documented on EMR Reaction Allergy Type Onset Date Status codeine Codeine Unknown Drug Allergy Active Substance with sulfonamide structure and antibacterial mechanism of action (substance) Sulfa Antibiotics Unknown Drug Allergy Active REASON FOR VISIT 4 weeks Medications Medication SIG (Take, Route, Frequency, Duration) Notes Start Date End Date Status Cholestyramine 4 GM/DOSE 1 scoop Orally Once a day; Duration: 30 day(s) Active CoQ-10 100 MG 1 cap(s) orally once a day Active Venlafaxine HCl ER 75 MG Take 1 capsule by mouth once daily; Duration: 90 Active Rosuvastatin Calcium 40 MG TAKE 1 TABLET BY MOUTH ONCE DAILY AT BEDTIME; Duration: 90 Active Aspirin Adult Low Dose 81 MG 1 tab(s) orally once a day Active Gabapentin 100 MG 1 capsules Orally twice a day; Duration: 30 days 03/10/2025 Active Omeprazole 20 MG 1 capsule 1/2 to 1 hour before morning meal Orally Once a day; Duration: 90 days 03/16/2025 Active Losartan Potassium 25 MG 1 tablet Orally Once a day; Duration: 90 days Active Rollator Walker - 1 as directed as directed 06/09/2025 Active Venlafaxine HCl ER 150 MG take 1 capsule by mouth once daily Orally Once a day; Duration: 90 days Active busPIRone HCl 10 MG 1 tab(s) orally once a day; Duration: 90 days Active Synthroid 88 MCG 1 tab(s) orally once a day; Duration: 90 days Active Albuterol Sulfate HFA 108 (90 Base) MCG/ACT 2 puff as needed Inhalation every 4 hrs prn 07/07/2024 Active Myrbetriq 50 MG 1 tablet Orally Once a day; Duration: 30 days 08/15/2024 Active metFORMIN HCl 500 MG 1 tablet with a meal Orally Once a day; Duration: 90 days Active ONE TOUCH ULTRA BLUE TEST STRIPS 1 TEST STRIP FINGERSTICK TEST ONCE A DAY OR DIRECTED; Duration: 30 DAYS 10/30/2018 Active OneTouch Ultra - USE 1 STRIP TO CHECK GLUCOSE ONCE DAILY OR DIRECTED to test once daily; Duration: 90 days Diagnosis E11.9 Active MiraLax - DIRECTED ORALLY ONCE A DAY; Duration: 7 DAY(S) 04/02/2020 Active Problems Problem Type SNOMED Code ICD Code Onset Dates Problem Status W/U Status Risk Notes Problem Difficulty walking (293933264) Difficulty walking (R26.2) Active confirmed Vital Signs Weight 163.0 lbs 06/09/2025 Blood pressure systolic 134 mm Hg 06/09/20 25 Blood pressure diastolic 78 mm Hg 025 Heart Rate 97 /min 06/09/2025 Height 65 in 06/09/2025 BMI 27.12 kg/m2 06/09/2025 Encounters Encounter Location Date Provider Diagnosis [facility] [address] [facility] [address] [place], [place] [address] [id number] 06/09/2025 [place] Low back pain, unspecified M54.50 ; Spinal stenosis of lumbar region without neurogenic claudication M48.061 ; Lumbar facet arthropathy M47.816 and Difficulty walking R26.2 Assessments Encounter Date Diagnosis (ICD Code) Assessment Notes Treatment Notes Treatment Clinical Notes Section Notes 06/09/2025 Low back pain, unspecified (ICD-10 - M54.50) Patient is scheduled with pain management for injections 06/09/2025 Spinal stenosis of lumbar region without neurogenic claudication (ICD-10 - M48.061) 06/09/2025 Lumbar facet arthropathy (ICD-10 - M47.816) 06/09/2025 Difficulty walking (ICD-10 - R26.2) Plan Of Treatment Medication Medication Name Sig Start Date Stop Date Notes Rollator Walker - 1 as directed as directed 06/09/2025 Treatment Notes Assessment Notes Low back pain, unspecified Patient is sc heduled with pain management for injections Next Appt Details Follow Up: as scheduled and prn, Reason: Provider Name:Dale Mcdowell ry, 02/15/2026 11:45:00 AM, [address], [address], [place], [id number], Progress Notes * SHANNON HARRISDOB: 8 (79 yo F)Acc No.[id number]:06/09/2025 Progress Notes Patient: SHANNON BUNN Provider: Ana Prescott M.D. :1945 A ge:79 Y S ex:Female Date:06/09/2025 Address:[address] [place] [address] , [id number] Subjective: * Chief Complaints: * 1 . 4 weeks. * HPI: N eurology: 79 year old female presents with c/o spells P t is here for 4 weeks follow up regarding shaking spells. Pt states spinal stenosis is about the same. Pt states she is supposed to get a pain shot on 06/30. She states the shaking spells happen when she experiences back pain. * ROS: D ERMATOLOGY: no R janel. n o H gregorio. G ASTROENTEROLOGY: no N ausea. n o V omiting. n o D iarrhea.? U ROLOGY: no D ifficulty urinating. n o B lood in urine. * Medical History: G raves Disease, followed by Endo., Hyperlipidemia, Hypothyroidism, 2009, Type 2 Diabetes dx. 2012, followed by Endo, Depression, Irritable Bowel Syndrome, Kidney Stones, Arthritis, Allergic Rhinitis, Overactive Bladder, Coronary Artery Disease, Non-Obstructive 10/2015, Vitamin B 12 Deficiency, Vitamin D Deficiency, Lichen Sclerosis - followed by [facility] at [facility], Dx: 12/2018, Renal Artery Stenosis, right, [...] Forehead 03/13/2019, Colonoscopy and Endoscope- Dr. Bueno, [facility] 05/10/2020, Lipotripsy for Kidney Stones- [facility] 06/11/2020. * Hospitalization/Major Diagno stic Procedure: F all - LT Rotator Cuff Tear , Kidney Stone- [facility] ER 09/29/2018. * Family History: [...] BY MOUTH ONCE DAILY AT BEDTIME , Medication List reviewed and reconciled with the patient * Allergies: S ulfa Antibiotics, Codeine. Objective: * Vitals: W t: 163.0, Temp: 98.4, BP: 134/78, HR: 97, Nurse: BEN, Ht: 65, BMI:27.12. * Examination: G eneral Examination: General Appearance: N AD, using a cane to assist with ambulation. H eart: R SR. L ungs: c lear to auscultation. Assessment: * Assessment: 1. L ow back pain, unspecified - M54.50 (Primary) 2 . S christelle stenosis of lumbar region without neurogenic claudication - M48.061 3 . L umbar facet arthropathy - M47.816 4 . D ifficulty walking - R26.2 Plan: * Treatment: 2. D ifficulty walking Start Rollator Walker -, -, 1, as directed, as directed, 1, Refills 0. * Procedure Codes: G 2211 Complex e/m visit add on * Follow Up: a s scheduled and prn * Images: Billing Information: * Visit Code: 14778 Office Visit, Est Pt., Level 3. * Procedure Codes: G2211 Complex e/m visit add on. * Electronic signature of Rocio Prescott MD on 10/02/2025 at 02:01 PM EST Sign off status: Pending * Provider: Ana Prescott M.D. Date: 0 06/09/2025 Generated for Radha mohan/Delbert/Messi on: 12/03/2024 02:01 PM EST History and Physical Notes * HPI (History of Present Illness) Category Sub-Category Detail Notes Category Not es Neurology spells Pt is here for 4 weeks follow up regarding shaking spells. Pt states spinal stenosis is about the same. Pt states she is supposed to get a pain shot on 06/30. She states the shaking spells happen when she experiences back pain Examination Category Sub-Category Detail Notes Category Not es General Examination Heart: RSR Lungs: clear to auscultatio n General Appearance: NAD, using a cane to assist with ambulation
--- OUTSIDE RECORDS SUMMARY | 2025-07-15 13:00 | XMS_ITS | Encounter Summary ---
Author Organization [facility] Address [address] [place] [address] Care Team Providers Care Candy Roller Name Role Phone Dale Prescott MD Primary Care Provider Reason for Visit * Reason Comments Back Pain Leg Pain Extremity Weakness Numbness Encounter Details Date Type Department Care Team (Late st Contact Info) Description 07/15/2025 2:00 PM EDT Office Visit [facility] NEUROSURGERY [address] [id number] Dior Bales, MARIE [address] [place] [id number] Spinal stenosis of lumbar region with radiculopathy (Primary Dx) Social History Tobacco Use Types Packs/Day Years Used Date Smoking Tobacco: Never Passive Smoke Exposure: Never Smokeless Tobacco: Never Tobacco Cessation:Counseling Given: Not Answered Alcohol Use Standard Drinks/Week Comments Never 0 [...] Pressure - - Pulse - - Temperature 36.4 C (97.5 F) 07/15/2025 3:11 PM EDT Respiratory Rate - - Oxygen Saturation - - Inhaled Oxygen Concentration - - Weight 73.9 kg (163 lb) 07/15/2025 3:11 PM EDT Height 165.1 cm (5' 5 ) 07/15/2025 3:11 PM EDT Body Mass Index 27.12 07/15/2025 3:11 PM EDT documented in this encounter Progress Notes * Dior Bales PA - 07/15/2025 2:00 PM EDT Images from the original note were not included. [facility] OFFICE VISIT NOTE Name: Vandana Salinas : 1945 Primary Care Provider: Dale Prescott MD Subjective Chief Complaint: Back Pain, Leg Pain, Extremity Weakness, and Numbness History of Present Illness: Vandana Salinas is a pleasant 79 y.o. female presenting today for follow-up on her low back pain with bilateral radicular symptoms. She is with her daughter today. She notes that she has done physical therapy but found it too painful to continue. She is currently seeing Dr. Landon for pain management noting that she has had injections 3 times without significant relief. She is using a topical cream from a compounding pharmacy which contains ketamine, gabapentin, ibuprofen, lidocaine, baclofen with some relief. She has recently started gabapentin at night only at [address] Prescott her primary care as well as donepezil from her neurologist. She notes that her back pain began [...] to worsen with activity including walking or standingmore than about 15 minutes with relief occurring after resting by sitting or lying down for about 15 minutes. 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 She also notes that she has been experiencing sharp shooting pains down her left posterior lateral hip intermittently as well as bilateral foot pain last night which she described as severe charley horse type cramping. The following portions of the patient's history were reviewed and updated as appropriate. 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 Neurological: Positive for weakness. Negative for dizziness, tremors, seizures, syncope, facial asymmetry, speech difficulty, light-headedness, numbness and headaches. Cramping in bilateral feet Hematological: Negative for adenopathy. Does not bruise/bleed easily. Psychiatric/Behavioral: Negative for agitation, behavioral problems, confusion, decreased concentration, dysphoric mood, hallucinations, self-injury, sleep disturbance and suicidal ideas. The patientis not nervous/anxious and is not hyperactive. The remaining review of systems is negative as otherwise stated in the HPI. Objective Vital Signs: Temp 97.5 ??F (36.4 ??C) (Infrared) Ht 165.1 cm (65 ) Wt 73.9 kg (163 lb) BMI 27.12 kg/m?? Surgical Risk Factors: BMI: Body mass index is 27.12 kg/m??. Smoking status: Tobacco Use: Low Risk (07/15/2025) Patient History Smoking Tobacco Use: Never Smokeless [...] Torie's absent. Ankle clonus absent. Coordination Right: Yhko-yd-jhyq normal.Left: Pmcy-kq-rxyt normal. Gait Casual gait: Normal stance. Reduced stride length. Antalgic gait. Able to stand on heels and stand on tiptoes, balance is fair with tandem gait. Imaging review: Available for my review today is a lumbar MRI Which demonstrates normal vertebral body height and alignment. There is disc degeneration which is most severe at L3-4 and L5-S1. At L3-4 there is a broad- based disc bulge and ligamentum flavum hypertrophy which contribute to moderate to severe central canal and foraminal stenosis. There is a mild disc bulge at L4-5 with minimal canal stenosis and neuroforaminal stenosis. At L5-S1 again there is a disc bulge without central canal or neuroforaminal stenosis however the disc osteophyte complex onthe left does contact the exiting L5 nerve root. Diagnoses and all orders for this visit: 1. Spinal stenosis of lumbar region with radiculopathy (Primary) Patient's MRI correlates with her presentation of low back pain secondary to spinal stenosis with some intermittent intermittent radiculopathy. She seems to have exhausted conservative means including pain management and has found physical therapy too painful at this point. This is affecting her quality of life greatly as she is unable to participate in her ADLs without intolerable pain and has become isolated at home for the past several months which is affecting her mental/spiritual health greatly. I will discuss these findings with Dr. Smart as she already has a appointment scheduled on the to see him to review her CTAs. I think we will need to schedule a second follow-up visit but this may be via telehealth given her difficulty in getting to the clinic so frequently. Addendum: Discussed case and reviewed imaging with Dr Smart. Would like to proceed with a lumbar myelogram to assess for dynamic listhesis given the increasing radicular symptoms with activity/movement, and to aid is surgical planning. Spinal stenosis of lumbar region with radiculopathy No follow-ups on file. I carefully reviewed the signs/symptoms associated with [...] has been reviewed and accurate as of 07/15/25. Dior Bales PA-C July 15, 2025 19:14 EDT documented in this encounter Plan of Treatment Not on file documented as of this encounter Visit Diagnoses Diagnosis Spinal stenosis of lumbar region with radiculopathy- Primary documented in this encounter Additional Health Concerns Assessment Noted Time PHQ-2 Depression Total Score: 2 05/31/20 23 2:01 PM EDT documented as of this encounter Care Teams Candy Roller Relationship Specialty Start Date End Date Dale Prescott MD [facility] [address] [facility] [address] [place] [address] PCP - General Family Medicine 04/25/19 documented as of this encounter
--- OUTSIDE RECORDS SUMMARY | 2025-07-30 05:00 | XMS_ITS ---
Author Organization [facility] Address [address] [facility] 36 [facility] [address] [place] [id number] Care Team Providers Care Gate Watchman Name Role Phone Dale Prescott Primary Care Provider REASON FOR VISIT Flu shot Immunizations Vaccine Route Administration Date Status Comme nts Fluzone High Dose (65yr and older) IM Intramuscular 07/30/2025 Administered Encounters Encounter Location Date Provider Diagnosis [facility] [address] [place] [address] [facility] [address] [place] [id number] 07/30/2025 Dale Prescott Encounter for immunization Z23 Assessments Encounter Date Diagnosis (ICD Code) Assessment Notes Treatment Notes Treatment Clinical Notes Section Notes 07/30/2025 Encounter for immunization (ICD-10 - Z23) Plan Of Treatment Next Appt Details Provider Name:Dale Mcdowell ry, 02/15/2026 11:45:00 AM, [facility] 36 [facility], [address], [place], [id number], Progress Notes * SHANNON HARRISDOB: 8 (79 yo F)Acc No.[id number]:07/30/2025 Patient: SHANNON BUNN Provider: Ana Prescott M.D. :1945 A ge:79 Y S ex:Female Date:07/30/2025 Address:[address] [place] [address] [phone] Subjective: * Chief Complaints: * 1 . Flu shot. * Medical History: Objective: * Vitals: Assessment: * Assessment: 1. E ncounter for immunization - Z23 (Primary) Plan: * Treatment: * Immunizations: Fluzone High Dose (65yr and older) : 0.5 mL (Route: Intramuscular) given by Kelly Jara on Left Deltoid (Encounter for immunization) * Images: Billing Information: * Visit Code: * Procedure Codes: * Electronic signature of Rocio Prescott MD on 10/02/2025 at 02:01 PM EST Sign off status: Pending * Provider: Ana Prescott M.D. Date: Generated for Radha mohan/Delbert/Messi on: 12/03/2024 02:01 PM EST
--- OUTSIDE RECORDS SUMMARY | 2025-08-05 10:25 | XMS_ITS | Encounter Summary ---
[facility] Organization [facility] Address [address] [place] [address] Care Team Providers Care Grievance And Appeals Coordinator Name Role Phone Dale Prescott MD Primary Care Provider [phone] Reason for Referral * MRI/CAT/PET Scan (Routine) - Closed Specialty Diagnoses / Procedures Referred By Royceac t Referred To Contact Radiology Diagnoses H/O carotid stenosis Procedures CT Angiogram Neck Dior Bales PA [address] [address] Phone: tel: fax: [facility] [address] [place] [phone] Phone: tel: Referral ID Status Reason Start Date Expiration Date Visits Re quested Visits Authorized [id number] Closed 06/29/2025 09/28/2026 1 1 Reason for Visit * MRI/CAT/PET Scan (Routine) - Closed Specialty Diagnoses / Procedures Referred By Contac t Referred To Contact Radiology Diagnoses H/O carotid stenosis Procedures CT Angiogram Neck Dior Bales PA [address] [place] [address] Phone: tel: fax: [facility] [address] [place] [address] Phone: tel: Referral ID Status Reason Start Date Expiration Date Visits Re quested Visits Authorized [id number] Closed 06/29/2025 09/28/2026 1 1 Encounter Details Date Type Department Care Team (Late st Contact Info) Description 08/05/2025 11:25 AM EDT - 08/05/2025 11:59 PM EDT Hospital Encounter [facility] AT [address] [place] [address] Dior Bales PA [address] [place] [address] H/O carotid stenosis Discharge Disposition: Home or Self Care Social [...] at Time of Discharge ASPIRIN 81 PO Take 81 mg by mouth Every Night. busPIRone (BUSPAR) 10 MG tablet Take 1 tablet by mouth Daily. clobetasol (CLOBEX) 0.05 % lotion Apply 1 Application topically to the appropriate area as directed 2 (Two) Times a Week. Coenzyme Q10 (CO Q-10 PO) Take 1 capsule by mouth Daily. donepezil (Aricept) 5 MG tabletIndication s:Mild cognitive impairment Take 1 tablet by mouth Every Night. 30 tablet 5 04/09/2025 gabapentin (NEURONTIN) 100 MG capsule Take 1 capsule by mouth Daily. 03/10/2025 losartan (COZAAR) 25 MG tablet Take 1 tablet by mouth Daily. metFORMIN (GLUCOPHAGE) 500 MG tablet Take 1 tablet by mouth Daily. 1 tablet with a meal Orally [...] mouth once daily 90 tablet 3 03/22/2023 Cholecalciferol 50 MCG (1999 UT) capsule capsule venlafaxine XR (EFFEXOR-XR) 150 MG 24 hr capsule Take 1 capsule by mouth Daily. 5 documented as of this encounter Plan of Treatment Not on file documented as of this encounter Procedures Procedure Name Priority Date/Time Associated Diagnosis Comments CT ANGIOGRAM NECK STAT 08/05/2025 11: 52 AM EDT H/O carotid stenosis POCT CREATININE Routine 08/05/2025 11:47 AM EDT documented in this encounter Results * CT Angiogram Neck (08/05/2025 11:52 AM EDT) Anatomical Region Laterality Modality Neck, Vascular N/A Computed Tomogra phy 08/05/2025 2:34 PM EDT Impressions 08/05/2025 2:44 PM EDT Negative for large vessel occlusion or flow-limiting stenosis in the neck, or partially imaged intracranial arterial vessels. Electronically Signed: Will Tan MD 08/05/2025 2:44 PM EDT Workstation ID: [id number] Narrative 08/05/2025 2:[address] ANGIOGRAM NECK Date of Exam: 08/05/2025 11:38 AM EDT Indication: Evaluate for carotid stenosis. Comparison: None available. Technique: CTA of the neck was performed after the uneventful intravenous administration of iodinated contrast. Reconstructed coronal and sagittal images were also obtained. In addition, a 3-D volume rendered image was created for interpretation. Automated exposure control and iterative reconstruction methods were used. Findings: CTA NECK: *Aortic arch: No aneurysm. No significant stenosis or occlusion of the major arch vessels. *Left carotid system: No aneurysm, significant stenosis or occlusion. Mild nonflow-limiting distal ICA plaque *Right carotid system: No aneurysm, significant stenosis or occlusion. Mild nonflow-limiting distal ICA plaque. *Vertebrobasilar system: The vertebral arteries arise from their respective subclavian arteries. No aneurysm, significant stenosis or occlusion. * *CTA HEAD: (Partially imaged) *Anterior circulation: No aneurysm, significant stenosis or occlusion. *Posterior circulation: No aneurysm, significant stenosis or occlusion. *Anatomic variants: None of significance. *Venous sinuses: Patent. Benign Orlando tonsil and right lingual tonsil calcifications (tonsilloliths). Atrophic thyroid. Linear bandlike atelectasis/scar right lower lobe. Degenerative change of the cervical spine without high-grade central spinal canal stenosis. There is up to mild to moderate central spinal canal narrowing at C4-C5 and C5-C6 with up to moderate right-sided neuroforaminal stenoses at these levels. Procedure Note Will Tan MD - 08/05/2025 CT ANGIOGRAM NECK Date of Exam: 08/05/2025 11:38 AM EDT Indication: Evaluate for carotid stenosis. Comparison: None available. Technique: CTA of the neck was performed after the uneventful intravenousadministration of iodinated contrast. Reconstructed coronal and sagittalimages were also obtained. In addition, a 3-D volume rendered image wascreated for interpretation. Automated exposure control and iterative reconstruction methods wereused. Findings: CTA NECK: *Aortic arch: No aneurysm. No significant stenosis or occlusion of themajor arch vessels. *Left carotid system: No aneurysm, significant stenosis or occlusion. Mildnonflow-limiting distal ICA plaque *Right carotid system: No aneurysm, significant stenosis or occlusion.Mild nonflow-limiting distal ICA plaque. *Vertebrobasilar system: The vertebral arteries arise from theirrespective subclavian arteries. No aneurysm, significant stenosis orocclusion. * *CTA HEAD: (Partially imaged) *Anterior circulation: No aneurysm, significant stenosis or occlusion. *Posterior circulation: No aneurysm, significant stenosis or occlusion. *Anatomic variants: None of significance. *Venous sinuses: Patent. Benign Orlando tonsil and right lingual tonsil calcifications(tonsilloliths). Atrophic thyroid. Linear bandlike atelectasis/scar rightlower lobe. Degenerative change of the cervical spine without high-gradecentral spinal canal stenosis. There is up to mild to moderate central spinal canal narrowing at C4-C5 and C5-C6 withup to moderate right-sided neuroforaminal stenoses at these levels. IMPRESSION: Negative for large vessel occlusion or flow-limiting stenosis in the neck,or partially imaged intracranial arterial vessels. Electronically Signed: Will Tan MD 08/05/2025 2:44 PM EDT Workstation ID: [id number] Dior SALAZAR IMM[address] CT ORDERABLES Final Result * POC Creatinine (08/05/2025 11:47 AM EDT) Creatinine 1.00 0.60 - 1.30 mg/dL 08/05/2025 12:05 PM EDT [facility] Comment:Serial Number: [id number] Blood 08/05/2025 11:4 7 AM EDT 08/05/2025 12:05 PM EDT Dior SALAZAR POINT OF CARE TEST ORDERABLES Fi nal Result [facility]
[address] [place] [address], documented in this encounter Visit Diagnoses Diagnosis H/O carotid stenosis documented in this encounter Administered Medications Inactive Administered Medications - up to 3 most recent administrations Medication Order MAR Action Action Date Dose Rate Site iopamidol (ISOVUE-370) 76 % injection 80 mL 80 mL, Intravenous, Once in Imaging, On Sun08/05/25 at 1140, For 1 dose Given 08/05/2025 11:53 AM EDT 80 mL documented in this encounter Additional Health Concerns Assessment Noted Time PHQ-2 Depression Total Score: 2 05/31/20 23 2:01 PM EDT documented as of this encounter Care Teams Grievance And Appeals Coordinator Relationship Specialty Start Date End Date Dale Prescott MD [facility] [address] [facility] [address] [place] [address] PCP - General Family Medicine 04/25/19 documented as of this encounter
--- OUTSIDE RECORDS SUMMARY | 2025-08-18 04:30 | XMS_ITS ---
Author Organization [facility] Address [address] [facility] [address] [place] [id number] Care Team Providers Care Vacuum Pan Operator Name Role Phone Dale Prescott Primary Care Provider [phone] Allergies Allergen (clinical drug ingredient) Drug/Non Drug Allergy documented on EMR Reaction Allergy Type Onset Date Status codeine Codeine Unknown Drug Allergy Active Substance with sulfonamide structure and antibacterial mechanism of action (substance) Sulfa Antibiotics Unknown Drug Allergy Active Results Component Value Reference Range Notes Glucose (In-House) Reviewed date:08/19/2025 12:13:27 PM Interpretation:194 Performing Lab: Notes/Report: 194 blood glucose 194 74 - 106 mg/dL Glycohemoglobin A1c (in hous e) Reviewed date:08/19/2025 12:13:27 PM Interpretation:7.3 Performing Lab: Notes/Report: 7.3 glycohemoglobin 7.3% 5 - 6.5 % P-Vitamin B12 Reviewed date:08/19/2025 12:13:27 PM Interpretation:Normal Performing Lab: Notes/Report: Test performed by [facility] [address] , [address], [place] [address] Carlos Hanks MD, Ice Skating Teacher CLIA: [id number] Vitamin B12 567 585-8173 pg/mL P-Basic Metabolic Panel (BMP ) Reviewed date:08/19/2025 12:13:27 PM Interpretation:Normal Performing Lab: Notes/Report: CLIA: [id number] Carlos Hanks MD, Ice Skating Teacher [address] [place] [address] [place] [address] Test performed by [facility] Sodium 140 135-145 mmol/L Potassium 4.1 3.5-5.3 mmol/L Chloride 104 97-108 mmol/L CO2 24 20-32 mmol/L Glucose 188 65-99 mg/dL BUN 15 8-23 mg/dL Creatinine 0.88 0.50-1.00 mg/dL Calcium 9.0 8.6-10.4 mg/dL eGFR by Creatinine 67 >59 mL/min/1.73m2 P-T4 Free (thyroxine) Reviewed date:08/19/2025 12:13:27 PM Interpretation:Normal Performing Lab: Notes/Report: Test performed by [facility] [address] [place] [address] Carlos Hanks MD, Ice Skating Teacher CLIA: [id number] Thyroxine Free (free T4) 1.47 0.86-1.76 ng/dL P-TSH Reviewed date:08/19/2025 12:13:27 PM Interpretation:Normal Performing Lab: Notes/Report: Test performed by [facility] [address] [place] [address] Carlos Hanks MD, Ice Skating Teacher CLIA: [id number] TSH 3.06 0.43-5.25 mU/L P-Vitamin D 25-Hydroxy Reviewed date:08/19/2025 12:13:27 PM Interpretation:25 Performing Lab: Notes/Report: Test performed by [facility] [address] [place] [address] [place] [id number] Carlos Hanks MD, Ice Skating Teacher CLIA: [id number] Vitamin D 25-Hydroxy 25.0 30.0-100.0 ng/mL Interpretation of Vitamin D 25 OH: < 20 ng/mL - Deficiency 20 - 29 ng/mL - Insufficiency 30 - 100 ng/mL - Sufficiency > 100 ng/mL - Super-therapeutic- toxicity may occur above this level. Clinical correlation required. REASON FOR VISIT 6 month f/u Medications Medication SIG (Take, Route, Frequency, Duration) Notes Start Date End Date Status Rosuvastatin Calcium 40 MG TAKE 1 TABLET BY MOUTH ONCE DAILY AT BEDTIME; Duration: 90 Active Rollator Walker - 1 as directed as directed 06/09/2025 Active Myrbetriq 50 MG Take 1 tablet by mouth once daily for 90 days; Duration: 90 Active Gabapentin 100 MG 1 capsules Orally twice a day; Duration: 30 days 06/18/2025 Active busPIRone HCl 10 MG Take 1 tablet by mouth once daily; Duration: 90 Active metFORMIN HCl 500 MG 1 tablet with a meal Orally Once a day; Duration: 90 days Active Losartan Potassium 25 MG 1 tablet Orally Once a day; Duration: 90 days Active Omeprazole 20 MG 1 capsule 1/2 to 1 hour before morning meal Orally Once a day; Duration: 90 days 03/16/2025 Active Venlafaxine HCl ER 150 MG take 1 capsule by mouth once daily Orally Once a day; Duration: 90 days Active Venlafaxine HCl ER 75 MG Take 1 capsule by mouth once daily; Duration: 90 Active MiraLax - DIRECTED ORALLY ONCE A DAY; Duration: 7 DAY(S) 04/02/2020 Active ONE TOUCH ULTRA BLUE TEST STRIPS 1 TEST STRIP FINGERSTICK TEST ONCE A DAY OR DIRECTED; Duration: 30 DAYS 10/30/2018 Active OneTouch Ultra - USE 1 STRIP TO CHECK GLUCOSE ONCE DAILY OR DIRECTED to test once daily; Duration: 90 days Diagnosis E11.9 Active Albuterol Sulfate HFA 108 (90 Base) MCG/ACT 2 puff as needed Inhalation every 4 hrs prn 07/07/2024 Active Synthroid 88 MCG 1 tab(s) orally once a day; Duration: 90 days Active Restasis 0.05 % 1 drop into affected eye Ophthalmic Twice a day Active Cholestyramine 4 GM/DOSE 1 scoop Orally Once a day; Duration: 30 day(s) Active CoQ-10 100 MG 1 cap(s) orally once a day Active Aspirin Adult Low Dose 81 MG 1 tab(s) orally once a day Active Vital Signs Weight 165.2 lbs 08/18/2025 Blood pressure systolic 142 mm Hg 08/18/20 25 Blood pressure diastolic 80 mm Hg 025 Heart Rate 93 /min 08/18/2025 Height 65 in 08/18/2025 BMI 27.49 kg/m2 08/18/2025 Encounters Encounter Location Date Provider Diagnosis [facility] [address] [place] [id number] 08/18/2025 Dale Pattersonberry Type 2 diabetes liat itus without complication, without long-term current use of insulin E11.9 ; Acquired hypothyroidism E03.9 ; Vitamin D deficiency E55.9 ; Vitamin B12 deficiency E53.8 and Essential hypertension I10 Assessments Encounter Date Diagnosis (ICD Code) Assessment Notes Treatment Notes Treatment Clinical Notes Section Notes 08/18/2025 Type 2 diabetes mellitus without complication, without long-term current use of insulin (ICD-10 - E11.9) 08/18/2025 Acquired hypothyroidism (ICD-10 - E03.9) 08/18/2025 Vitamin D deficiency (ICD-10 - E55.9) 08/18/2025 Vitamin B12 deficiency (ICD-10 - E53.8) 08/18/2025 Essential hypertension (ICD-10 - I10) Plan Of Treatment Next Appt Details Follow Up: 6 Months, Reason: Provider Name:Dale Janis Pattersonmelita ry, 02/15/2026 11:45:00 AM, [address] [facility] [address] [facility], [address], [place], [place], [id number], Progress Notes * SHANNON HARRISDOB: 8 (79 yo F)Acc No.[id number]:08/18/2025 Progress Notes Patient: SHANNON BUNN Provider: Ana Prescott M.D. :1945 A ge:79 Y S ex:Female Date:08/18/2025 Address:[address] [place] [address] , [facility], [id number] Subjective: * Chief Complaints: * 1 . 6 month f/u. * HPI: C ardiology: 79 year old female presents with c/o Blood Pressure Elevated?Pt here for 6 month follow up on Hypertension. Pt states she has no new concerns today. c/o Hyperlipidemia P t is fasting today. E ndocrinology: c/o Recent Blood Sugars. * Medical History: G raves Disease, followed by Endo., Hyperlipidemia, Hypothyroidism, 2009, Type 2 Diabetes dx. 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 Bueno, [facility] 05/10/2020, Lipotripsy for Kidney Stones- [facility] 06/11/2020. * Hospitalization/Major Diagno stic Procedure: F all - LT Rotator Cuff Tear , Kidney Stone- [facility] ER 09/29/2018. * Family History: F [...] no. Alcohol: No. * Medications: T aking Restasis 0.05 % Emulsion 1 drop into affected eye Ophthalmic Twice a day , Taking Cholestyramine 4 GM/DOSE Powder 1 scoop Orally [...] Inhalation every 4 hrs prn , Taking Synthroid 88 MCG Tablet 1 tab(s) orally once a day , Taking metFORMIN HCl 500 MG Tablet 1 tablet with a meal Orally Once a day , Taking Losartan Potassium 25 MG Tablet 1 tablet Orally Once a day , Taking Omeprazole 20 MG [...] BY MOUTH ONCE DAILY AT BEDTIME , Taking Rollator Walker - - 1 as directed as directed , Taking Myrbetriq 50 MG Tablet Extended Release 24 Hour Take 1 tablet by mouth once daily for 90 days , Taking Gabapentin 100 MG Capsule 1 capsules Orally twice a day , Taking busPIRone HCl 10 MG Tablet Take 1 tablet by mouth once daily , Medication List reviewed and reconciled with the patient * Allergies: S ulfa Antibiotics, Codeine. Objective: * Vitals: W t: 165.2, Temp: 98.0, BP: 142/80, HR: 93, Nurse: BEN, Ht: 65, BMI:27.49. * Examination: G eneral Examination: General Appearance: N AD, using a cane to assist with ambulation. H eart: R SR. L ungs: c lear to auscultation. P eripheral pulses: n ormal (2+) bilaterally. E xtremities: n o leg edema. Assessment: * Assessment: 1. T ype 2 diabetes mellitus without complication, without long-term current use of insulin - E11.9 (Primary) 2 . A cquired hypothyroidism - E03.9 3 . V itamin D deficiency - E55.9 4 . V itamin B12 deficiency - E53.8 5 . E ssential hypertension - I10 Plan: * Treatment: Value Reference Range B UN 15 8-23 - mg/dL * C alcium 9.0 8.6-10.4 - mg/dL * C hloride 104 97-108 - mmol/L * C O2 24 20-32 - mmol/L * C reatinine 0.88 0.50-1.00 - mg/dL * G lucose 188 H 65-99 - mg/dL * P otassium 4.1 3.5-5.3 - mmol/L * S odium 140 135-145 - mmol/L * e GFR by Creatinine 67 >59 - mL/min/1.73m2 * Molly Peck 08/19/2025 12 :13:19 PM EST > See phone encounter ?LAB: Glucose (In-House) (Collection Date & Time - 08/18/2025)?194* Value Reference Range b lood glucose 194 74 - 106 mg/dL * Kelly Jara 08/18/2025 10 :51:15 AM EST > Molly Peck 08/19/2025 12:13:19 PM EST > See phone encounter ?LAB: Glycohemoglobin A1c (in house) (Collection Date & Time - 08/18/2025)? 7.3* Value Reference Range g lycohemoglobin 7.3% 5 - 6.5 % * Kelly Jara 08/18/2025 10 :51:33 AM EST > Molly Peck 08/19/2025 12:13:19 PM EST > See phone encounter 2.?Acquired hypothyroidism?LAB: P-T4 Free (thyroxine) (Collection Date & Time - 08/18/2025 08:58 AM)? Normal* Value Reference Range T hyroxine Free (free T4) 1.47 0.86-1.76 - ng/d L * Molly Peck 08/19/2025 12 :13:19 PM EST > See phone encounter ?LAB: P-TSH (Collection Date & Time - 08/18/2025 08:58 AM)?Normal* Value Reference Range T SH 3.06 0.43-5.25 - mU/L * Molly Peck 08/19/2025 12 :13:19 PM EST > See phone encounter 3.?Vitamin D deficiency?LAB: P-Vitamin D 25-Hydroxy (Collection Date & Time - 08/18/2025 08:58 AM)? 25* Value Reference Range V itamin D 25-Hydroxy 25.0 L 30.0-100.0 - ng/mL * Molly Peck 08/19/2025 12 :13:19 PM EST > See phone encounter 4.?Vitamin B12 deficiency?LAB: P-Vitamin B12 (Collection Date & Time - 08/18/2025 08:58 AM)?Normal* Value Reference Range V itamin B12 622 017-3498 - pg/mL * Molly Peck 08/19/2025 12 :13:19 PM EST > See phone encounter 5.?Essential hypertension?LAB: P-Basic Metabolic Panel (BMP) (Collection Date & Time - 08/18/2025 08:58 AM)?Normal* Value Reference Range B UN 15 8-23 - mg/dL * C alcium 9.0 8.6-10.4 - mg/dL * C hloride 104 97-108 - mmol/L * C O2 24 20-32 - mmol/L * C reatinine 0.88 0.50-1.00 - mg/dL * G lucose 188 H 65-99 - mg/dL * P otassium 4.1 3.5-5.3 - mmol/L * S odium 140 135-145 - mmol/L * e GFR by Creatinine 67 >59 - mL/min/1.73m2 * Molly Peck 08/19/2025 12 :13:19 PM EST > See phone encounter * Procedure Codes: G 2211 Complex e/[place], [address] GLUCOSE TEST, 67845 GLYCATED HEMOGLOBIN TEST, Modifiers: QW , 3051F HG A1C>EQUAL 7.0%<8.0% * Follow Up: 6 Months * Images: Billing Information: * Visit Code: 69252 Office Visit, Est Pt., Level 4. * Procedure Codes: G2211 Complex e/[place]. [address] GLUCOSE TEST. 70821 GLYCATED HEMOGLOBIN TEST. Modifiers: QW 3051F HG A1C>EQUAL 7.0%<8.0%. * Electronic signature of Rocio Prescott MD on 10/02/2025 at 02:01 PM EST Sign off status: Pending * Provider: Ana Prescott M.D. Date: 1 10/18/2024 Generated for Printi ng/Faxing/eTransmitting on: 12/03/2024 02:01 PM EST History and Physical Notes * HPI (History of Present Illness) Category Sub-Category Detail Notes Category Not es Endocrinology Recent Blood Sugars Cardiology Blood Pressure Elevated Pt here for 6 month follow up on Hypertension. Pt states she has no new concerns today Hyperlipidemia Pt is fasting today Examination Category Sub-Category Detail Notes Category Not es General Examination Heart: RSR Lungs: clear to auscultatio n Extremities: no leg edema General Appearance: NAD, using a cane to assist with ambulation Peripheral pulses: normal (2+) bilatera lly
--- OUTSIDE RECORDS SUMMARY | 2025-08-25 08:30 | XMS_ITS ---
[facility] Address [address] [facility] [address] [place] [id number] Care Team Providers Care Windows System Admin Name Role Phone Genie Dale Primary Care Provider Jailyn Gaines [phone] Allergies Allergen (clinical drug ingredient) Drug/Non Drug Allergy documented on EMR Reaction Allergy Type Onset Date Status codeine Codeine Unknown Drug Allergy Active Substance with sulfonamide structure and antibacterial mechanism of action (substance) Sulfa Antibiotics Unknown Drug Allergy Active REASON FOR VISIT Poss reaction to the shingles shot Medications Medication SIG (Take, Route, Frequency, Duration) Notes Start Date End Date Status OneTouch Ultra - USE 1 STRIP TO CHECK GLUCOSE ONCE DAILY OR DIRECTED to test once daily; Duration: 90 days Diagnosis E11.9 Active Albuterol Sulfate HFA 108 (90 Base) MCG/ACT 2 puff as needed Inhalation every 4 hrs prn 07/07/2024 Active MiraLax - DIRECTED ORALLY ONCE A DAY; Duration: 7 DAY(S) 04/02/2020 Active ONE TOUCH ULTRA BLUE TEST STRIPS 1 TEST STRIP FINGERSTICK TEST ONCE A DAY OR DIRECTED; Duration: 30 DAYS 10/30/2018 Active Synthroid 88 MCG 1 tab(s) orally once a day; Duration: 90 days Active CoQ-10 100 MG 1 cap(s) orally once a day Active Aspirin Adult Low Dose 81 MG 1 tab(s) orally once a day Active Restasis 0.05 % 1 drop into affected eye Ophthalmic Twice a day Active Cholestyramine 4 GM/DOSE 1 scoop Orally Once a day; Duration: 30 day(s) Active metFORMIN HCl 500 MG 1 tablet with a meal Orally Once a day; Duration: 90 days Active Rollator Walker - 1 as directed as directed 06/09/2025 Active busPIRone HCl 10 MG Take 1 tablet by mouth once daily; Duration: 90 Active Myrbetriq 50 MG Take 1 tablet by mouth once daily for 90 days; Duration: 90 Active Gabapentin 100 MG 1 capsules Orally twice a day; Duration: 30 days 06/18/2025 Active Vitamin D 1.25 MG (32428 UT) 1 capsule Orally weekly; Duration: 90 days 08/19/2025 Active Rosuvastatin Calcium 40 MG TAKE 1 TABLET BY MOUTH ONCE DAILY AT BEDTIME; Duration: 90 Active Venlafaxine HCl ER 150 MG take 1 capsule by mouth once daily Orally Once a day; Duration: 90 days Active Venlafaxine HCl ER 75 MG Take 1 capsule by mouth once daily; Duration: 90 Active Losartan Potassium 25 MG 1 tablet Orally Once a day; Duration: 90 days Active Omeprazole 20 MG 1 capsule 1/2 to 1 hour before morning meal Orally Once a day; Duration: 90 days 03/16/2025 Active Vital Signs Weight 165 lbs 08/25/2025 Blood pressure systolic 136 mm Hg 08/25/20 25 Blood pressure diastolic 70 mm Hg 025 Heart Rate 95 /min 08/25/2025 Height 65 in 08/25/2025 BMI 27.45 kg/m2 08/25/2025 Encounters Encounter Location Date Provider Diagnosis [facility] [address] [facility] [address] [facility] [address] [place] [phone] 08/25/2025 Jailyn Gaines Adverse effect of other viral vaccines, initial encounter T50.B95A Assessments Encounter Date Diagnosis (ICD Code) Assessment Notes Treatment Notes Treatment Clinical Notes Section Notes 08/25/2025 Adverse effect of other viral vaccines, initial encounter (ICD-10 - T50.B95A) Apply ice as needed. Topical hydrocortisone cream Plan Of Treatment Treatment Notes Assessment Notes Adverse effect of other eddie l vaccines, initial encounter Apply ice as needed. Topical hydrocortis one cream Next Appt Details Follow Up: prn, Reason: Provider Name:Dale pace, 02/15/2026 11:45:00 AM, [address] [facility], [address], [place], [place], [id number], Progress Notes * SHANNON HARRISDOB: 8 (79 yo F)Acc No.[id number]:08/25/2025 Progress Notes Patient: SHANNON BUNN Provider: Jailyn Gaines M.D. :1945 A ge:79 Y S ex:Female Date:08/25/2025 Address:[address] [place] [address] [id number] Pcp:Dale Prescott Subjective: * Chief Complaints: * 1 . Poss reaction to the shingles shot. * HPI: D ermatology: 79 year old female presents with c/o redness P t states she got the shingles shot last Sunday. Pt states she got it at [facility] and she got the Covid, Shingles and RSV at the same time. Pt states she has not felt good since she had the shots. Pt states her right upper arm is hurting and itchy and red and she got her RSV and Shingles shots in the right arm. Pt states she got covid in the left arm and its just red but does not hurt. This was her second dose of shingles vaccine. * ROS: D ERMATOLOGY: no R janel. n o H gregorio. G ASTROENTEROLOGY: no N ausea. n o V omiting. n o D iarrhea.? U ROLOGY: no B lood in urine. n o F requent urination. ? * Medical History: G raves Disease, followed by Endo., Hyperlipidemia, Hypothyroidism, 2009, Type 2 Diabetes dx. 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, Dx: 12/2018, Renal Artery Stenosis, right, [...] Colonoscopy and Endoscope- Dr. Bueno, [facility] 05/10/2020, Lipotripsy for Kidney Stones- [facility] 06/11/2020. * Hospitalization/Major Diagno stic Procedure: F all - LT Rotator Cuff Tear , Kidney Stone- [facility] ER 09/29/2018. * Family History: F ather: [...] tablet by mouth once daily , Taking Vitamin D 1.25 MG (06542 UT) Capsule 1 capsule Orally weekly , Taking metFORMIN HCl 500 MG Tablet 1 tablet with a meal Orally Once a day , Medication List reviewed and reconciled with the patient * Allergies: S ulfa Antibiotics, Codeine. Objective: * Vitals: W t: 165, Temp: 96.1, BP: 136/70, HR: 95, Nurse: pe, Ht: 65, BMI:27.45. * Examination: D ermatology: Extremities: O n the right mid upper arm there are 2 rounded areas of erythema and induration measuring about 3 cm in size each. The more anterior site is most indurated. Assessment: * Assessment: 1. A dverse effect of other viral vaccines, initial encounter - T50.B95A (Primary) ? Plan: * Treatment: * Procedure Codes: G 2211 Complex e/m visit add on * Follow Up: p rn * Images: Billing Information: * Visit Code: 45518 Office Visit, Est Pt., Level 3. * Procedure Codes: G2211 Complex e/m visit add on. * Electronic signature of Jailyn Gaines MD on 10/02/2025 at 02:02 PM EST Sign off status: Pending * Provider: Jailyn Gaines M.D. Date: 10/25/2024 Generated for Radha mohan/Delbert/Messi on: 12/03/2024 02:02 PM EST History and Physical Notes * HPI (History of Present Illness) Category Sub-Category Detail Notes Category Not es Dermatology redness Pt states she go t the shingles shot last Sunday. Pt states she got it at [place] and she got the Covid, Shingles and RSV at the same time. Pt states she has not felt good since she had the shots. Pt states her right upper arm is hurting and itchy and red and she got her RSV and Shingles shots in the right arm. Pt states she got covid in the left arm and its just red but does not hurt. This was her second dose of shingles vaccine Examination Category Sub-Category Detail Notes Category Not es Dermatology Extremities: On the right mid upper arm there are 2 rounded areas of erythema and induration measuring about 3 cm in size each. The more anterior site is most indurated
--- OUTSIDE RECORDS SUMMARY | 2025-09-15 09:41 | XMS_ITS | Encounter Summary ---
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 Phone Dale Prescott MD Primary Care Provider + [phone] Reason for Referral * Diagnostic Medical (Routine) - Pending Review Specialty Diagnoses / Procedures Referred By Contac t Referred To Contact Diagnoses Spinal stenosis of lumbar region with radiculopathy Bilateral sacroiliitis Procedures Cardiac Catheterization/Vascular Study Remi Smart MD [address] [facility] [address] [place] [address] Phone: tel: fax: Referral ID Status Reason Start Date Expiration Date V isits Requested Visits Authorized [id number] Pending Review 09/02/2025 12/02/2026 1 1 Reason for Visit * Auth/Cert Specialty Diagnoses / Procedures Referred By Contac t Referred To Contact Diagnoses Spinal stenosis of lumbar region with radiculopathy Bilateral sacroiliitis Bilateral sacroiliitis [M46.1] Spinal stenosis of lumbar region with radiculopathy [M48.061, M54.16] Procedures VT MYELOGRAPHY VIA LUMBAR INJECT RS&I LUMBOSACRAL IR myelogram, lumbar Referral ID Status Reason Start Date Expiration Date Visits Re quested Visits Authorized [id number] 1 1 Encounter Details Date Type Department Care Team (Late st Contact Info) Description 09/15/2025 9:41 AM EST - 09/15/2025 12:18 PM [facility] Hospital Encounter [facility] [address] [place] [address] Nic Jenkins MD [address] [place] [id number] Spinal stenosis of lumbar region with radiculopathy; Bilateral sacroiliitis Discharge Disposition: Home or Self Care Social History Tobacco Use Types Packs/Day Years Used Date Smoking Tobacco: Never Passive Smoke Exposure: Never Smokeless Tobacco: Never Alcohol Use Standard Drinks/Week Comments Never 0 (1 standard drink = 0.6 oz pur e alcohol) PHQ-2 Answer Date Recorded Retired PHQ-9: Brief Depression Severity Measure Score 11 05/31/2023 AUDIT-C Answer Date Recorded Q1: How often do you have a drink containing alcohol? Never 09/15/2025 Q2: How many drinks containi ng alcohol do you have on a typical day when you are drinking? Patient does not drink Q3: How often do you have si x or more drinks on one occasion? Never 09/15/2025 Abuse Screen Answer Date Recorded Feels Unsafe at Home or Work/School no 09/15/2025 Feels Threatened by Someone no 06/2025 Does Anyone Try to Keep You From Having Contact with Others or Doing Things Outside Your Home? no 09/15/2025 Physical Signs of Abuse Present no 09/15/2025 Housing Stability Answer Date Recorded Current Living Arrangements home 06/2025 Potentially Unsafe Housing Conditions Not on julius e 09/15/2025 Disabilities Answer Date Recorded Difficulty Concentrating, Remembering or Making Decisions no 09/15/2025 Difficulty Managing Errands Independently no 09/15/2025 PHQ-2 Answer Date Recorded Retired PHQ-9: Brief Depression Severity Measure Score 11 05/31/2023 Comments No Sex and Gender Information Value Date Recorded Sex Assigned at Female 04/09/2025 1:40 AM EDT Legal Sex Female 10:00 AM EDT Gender Identity Not on file Sexual Orientation Not on file documented as of this encounter Last Filed Vital Signs Vital Sign Reading Time Taken Comments Blood Pressure 149/82 09/15/2025 11:43 AM EST Pulse 82 09/15/2025 10:03 AM EST Temperature 36.3 C (97.4 F) 09/15/2025 10:03 AM EST Respiratory Rate 16 09/15/2025 10:03 AM EST Oxygen Saturation 95% 09/15/2025 10:03 AM EST Inhaled Oxygen Concentration - - Weight 75.5 kg (166 lb 7.2 oz) 09/15/2025 10:03 AM EST Height 165.1 cm (5' 5 ) 09/15/2025 10:03 AM EST Body Mass Index 27.7 09/15/2025 10:03 AM EST documented in this encounter Functional Status * Malnutrition Screening Tool Question Answer Date of Assessment Author Have you recently lost weigh t without trying? If yes, how much weight have you lost? 0--> No 09/15/2025 10:03 AM EST Allie Khoury RN Have you been eating poorly because of a decreased appetite? 0--> No 09/15/2025 10:03 AM EST Sandy Allie hernandez RN MST score 0 09/15/2025 10:03 AM EST Allie Douglas RN * Functional Screen (every 3 days/change) Question Answer Date of Assessment Author Communication 0 - understands/comm unicates without difficulty 09/15/2025 10:03 AM EST Allie Khoury RN Bathing 0 - independent 09/15/2025 10:03 AM EST Allie Rizvi RN Eating 0 - independent 09/15/2025 10:03 AM EST Allie Rizvi RN Dressing 0 - independent 09/15/2025 10:03 AM EST Allie Rizvi RN Swallowing 0 - swallows foods/l iquids without difficulty 09/15/2025 10:03 AM EST Allie Khoury RN Ambulation 1 - assistive equipment 09/15/2025 10:03 AM Allie Mccarthy RN Toileting 0 - independent 09/15/2025 10:03 AM EST Allie Rizvi RN Transferring 0 - independent 09/15/2025 10:03 AM EST S Allie keyes RN * Nutrition Risk Screen Question Answer Date of Assessment Author Nutrition Risk Screen no indicators present 09/15/2025 10:03 AM EST Shown, Allie Alvarez RN * AUDIT-C (Alcohol Use Disorders Identification Test) Question Answer Date of Assessment Author AUDIT-C Score 0 09/15/2025 10:03 AM EST Sandy wnAllie, RN Q1: How often do you have a drink containing alcohol? Never 09/15/2025 10:03 AM EST Shown, Allie Alvarez RN Q2: How many drinks containing alcohol do you have on a typical day when you are drinking? Patient does not drink 09/15/2025 10:03 AM EST Shown, Allie Alvarez RN Q3: How often do you have six or more drinks on one occasion? Never 09/15/2025 10:03 AM EST Shown, Allie Alvarez RN * HEENT WDL Question Answer Date of Assessment Author HEKATY WDL WDL 09/15/2025 10:03 AM EST Show Allie garcia RN * Disability/Function Question Answer Date of Assessment Author Mobility Management CANE 09/15/2025 1 0:03 AM EST Shown, Allie Alvarez RN Hearing Difficulty or Deaf no 09/15/2025 10:03 AM EST Shown, Allie Alvarez RN Eating/Swallowing Difficulty no 09/15/2025 10:03 AM EST Shown, Allie Alvarez RN Difficulty Managing Errands Independently no 09/15/2025 10:03 AM EST Shown, Allie Alvarez RN Equipment Currently Used at Home glucometer;canjermaine, straight 09/15/2025 10:03 AM EST Shown, Allie Alvarez RN Difficulty Concentrating, Remembering or Making Decisions no 09/15/2025 10:03 AM EST Shown, Allie Alvarez RN Vision Management GLASSES 09/15/2025 10: 03 AM EST Shown, Allie Alvarez RN Visual Difficulty or Blind yes 09/15/2025 10:03 AM EST Shown, Allie Alvarez RN Change in Functional Status Since Onset of Current Illness/Injury no 09/15/2025 10:03 AM EST Shown, Allie Alvarez RN Communication Difficulty no 025 10:03 AM EST Shown, Allie Alvarez RN Dressing/Bathing Difficulty no 09/15/2025 10:03 AM EST Shown, Allie Alvarez RN Walking or Climbing Stairs ambulation difficulty, requires equipment 09/15/2025 10:03 AM EST Shown, Allie Alvarez RN Walking or Climbing Stairs Difficulty yes 09/15/2025 10:03 AM EST Shown, Allie Alvarez RN * Resource/Environmental Concerns Question Answer Date of Assessment Author Current Living Arrangements home 09/15/2025 10 :03 AM EST Shown, Allie Alvarez RN * Positioning Question Answer Date of Assessment Author Body Position position changed independently 09/15/2025 10:03 AM EST Shown, Allie Alvarez RN * Deonte Risk Assessment Question Answer Date of Assessment Author Sensory Perception 3-->slightly limited 09/15/2025 10: 03 AM EST Shown, Allie Alvarez RN Friction and Shear 3-->no apparent problem 09/15/2025 10:03 AM EST Shown, Allie Alvarez RN Moisture 4-->rarely moist 09/15/2025 10:03 AM EST Shown, Allie Alvarez RN Deonte Score 20 09/15/2025 10:03 AM EST Show nAllie RN Nutrition 3-->adequate 09/15/2025 10:03 AM EST Show nAllie RN Activity 4-->walks frequently 09/15/2025 10:03 AM EST Shown, Allie Alvarez RN Mobility 3-->slightly limited 09/15/2025 10:03 AM EST Shown, Allie Alvarez RN * Coping/Psychosocial Question Answer Date of Assessment Author Trust Relationship/Rapport care explained;questions answered 09/15/2025 10:03 AM EST Shown, Allie Alvarez RN * Safety Question Answer Date of Assessment Author Safety WDL WD 09/15/2025 10:03 AM EST Show nAllie RN * Musculoskeletal Question Answer Date of Assessment Author Musculoskeletal WDL X;mobility;all 09/15/2025 10:03 AM EST Shown, Allie Alvarez RN General Mobility generalized weakness;mildly impaired 09/15/2025 10:03 AM EST Shown, Allie Alvarez RN * Skin Question Answer Date of Assessment Author Skin WDL WDL 09/15/2025 10:03 AM EST Show nAllie RN * Nutrition Question Answer Date of Assessment Author Diet/Nutrition Received NPO 09/15/2025 10:03 AM EST Shown, Allie Alvarez RN * Daily Care Question Answer Date of Assessment Author Activity Assistance Provided independent 09/15/2025 1 0:03 AM EST Shown, Allie Alvarez RN * Suicidal Ideation (Past 1 Month) Question Answer Date of Assessment Author 1. Wish to be (Past 1 Month) No 025 10:03 AM EST Shown, Allie Alvarez RN 2. Non-Specific Active Suici doron Thoughts (Past 1 Month) No 09/15/2025 10:03 AM EST Shown, Allie Alvarez RN * Calculated C-SSRS Risk Score (Lifetime/Recent) Answer Date of Assessment Author No Risk Indicated 09/15/2025 10:03 AM EST Shown, Allie Alvarez RN * Robeson Suicide Severity Rating Scale (Screener/Recent Self-Report) Question Answer Date of Assessment Author 6. Suicidal Behavior (Lifetime) No 10:03 AM EST Shown, Allie Alvarez RN * Regla Escamilla Fall Risk Assessment (First 24 hrs only, then right click and complete this group) Question Answer Date of Assessment Author Last Known Fall 0 09/15/2025 10:03 AM EST Allie Rizvi RN Mobility 0 09/15/2025 10:03 AM EST Show Allie garcia RN Medications 1 09/15/2025 10:03 AM EST Show Allie garcia RN Mental Status/LOC/Awareness 0 09/15/2025 10 :03 AM EST ShownAllie RN Toileting Needs 0 09/15/2025 10:03 AM EST Allie Rizvi RN Volume/Electrolyte Status 0 09/15/2025 10:0 3 AM EST Shown, Allie Alvarez RN Communication/Sensory 1 09/15/2025 10:03 AM EST Shown, REBEKAH Hope Fall Risk Total 5 09/15/2025 1 0:03 AM EST Shown, Allie Alvarez RN * Pressure Injury Screen Question Answer Date of Assessment Author Pressure Injury Present on Admission no 09/15/2025 10:03 AM EST Shown, Allie Alvarez RN * Malnutrition Screening Tool Question Answer Date of Assessment Author Have you recently lost weigh t without trying? If yes, how much weight have you lost? 0--> No 09/15/2025 10:03 AM Allie Mccarthy RN Have you been eating poorly because of a decreased appetite? 0--> No 09/15/2025 10:03 AM EST Allie Raza RN MST score 0 09/15/2025 10:03 AM EST Allie Douglas RN * Relationship/Environment Question Answer Date of Assessment Author Primary Roles/Responsibilities retired 09/15/2025 10:03 AM EST Allie Khoury RN People in Home spouse 09/15/2025 10:03 AM EST Sh ownAllie RN Family Caregiver if Needed spouse 09/15/2025 10: 03 AM EST lAlie Khoury RN Primary Source of Support/Comfort spouse 025 10:03 AM EST Allie Khoury RN * Functional Screen (every 3 days/change) Question Answer Date of Assessment Author Communication 0 - understands/comm unicates without difficulty 09/15/2025 10:03 AM Allie Mccarthy RN Bathing 0 - independent 09/15/2025 10:03 AM Allie Belcher RN Eating 0 - independent 09/15/2025 10:03 AM Allie Belcher RN Dressing 0 - independent 09/15/2025 10:03 AM Allie Belcher RN Swallowing 0 - swallows foods/l iquids without difficulty 09/15/2025 10:03 AM Allie Mccarthy RN Ambulation 1 - assistive equipment 09/15/2025 10:03 AM Allie Mccarthy RN Toileting 0 - independent 09/15/2025 10:03 AM Allie Belcher RN Transferring 0 - independent 09/15/2025 10:03 AM Allie Belcher RN * Nutrition Risk Screen Question Answer Date of Assessment Author Nutrition Risk Screen no indicators present 09/15/2025 10:03 AM Allie Mccarthy RN * AUDIT-C (Alcohol Use Disorders Identification Test) Question Answer Date of Assessment Author AUDIT-C Score 0 09/15/2025 10:03 AM EST Allie Raza RN Q1: How often do you have a drink containing alcohol? Never 09/15/2025 10:03 AM EST Allie Khoury RN Q2: How many drinks containing alcohol do you have on a typical day when you are drinking? Patient does not drink 09/15/2025 10:03 AM EST Shown, Allie Alvarez RN Q3: How often do you have six or more drinks on one occasion? Never 09/15/2025 10:03 AM EST Shown, Allie Alvarez RN * HEENT WDL Question Answer Date of Assessment Author HEKATY WDL WDL 09/15/2025 10:03 AM EST Show nAllie RN * Disability/Function Question Answer Date of Assessment Author Mobility Management CANE 09/15/2025 1 0:03 AM EST Shown, Allie Alvarez RN Hearing Difficulty or Deaf no 09/15/2025 10:03 AM EST Shown, Allie Alvarez RN Eating/Swallowing Difficulty no 09/15/2025 10:03 AM EST Shown, Allie Alvarez RN Difficulty Managing Errands Independently no 09/15/2025 10:03 AM EST Shown, Allie Alvarez RN Equipment Currently Used at Home glucometer;cane, straight 09/15/2025 10:03 AM EST Shown, Allie Alvarez RN Difficulty Concentrating, Remembering or Making Decisions no 09/15/2025 10:03 AM EST Shown, Allie Alvarez RN Vision Management GLASSES 09/15/2025 10: 03 AM EST Shown, Allie Alvarez RN Visual Difficulty or Blind yes 09/15/2025 10:03 AM EST Shown, Allie Alvarez RN Change in Functional Status Since Onset of Current Illness/Injury no 09/15/2025 10:03 AM EST Shown, Allie Alvarez RN Communication Difficulty no 025 10:03 AM EST Shown, Allie Alvarez RN Dressing/Bathing Difficulty no 09/15/2025 10:03 AM EST Shown, Allie Alvarez RN Walking or Climbing Stairs ambulation difficulty, requires equipment 09/15/2025 10:03 AM EST Shown, Allie Alvarez RN Walking or Climbing Stairs Difficulty yes 09/15/2025 10:03 AM EST Shown, Allie Alvarez RN * Resource/Environmental Concerns Question Answer Date of Assessment Author Current Living Arrangements home 09/15/2025 10 :03 AM EST Shown, Allie Alvarez RN Resource/Environmental Concerns none 10:03 AM EST Shown, Allie Alvarez RN Transportation Concerns none 09/15/2025 10:03 AM EST Shown, Allie Alvarez RN * Safety Question Answer Date of Assessment Author Safety [facility] 09/15/2025 10:03 AM EST Show nAllie RN * Musculoskeletal Question Answer Date of Assessment Author Musculoskeletal [facility] X;mobility;all 09/15/2025 10:03 AM EST Shown, Allie Alvarez RN General Mobility generalized weakness;mildly impaired 09/15/2025 10:03 AM EST Shown, Allie Alvarez RN * Skin Question Answer Date of Assessment Author Skin [facility] 09/15/2025 10:03 AM EST Show nAllie RN * Cognitive Question Answer Date of Assessment Author Cognitive/Neuro/Behavioral [facility] 09/15/2025 10:03 AM EST Shown, Allie Alvarez RN * Violence Assessment Tool Risk Indicators Question Answer Date of Assessment Author Assessment Type Initial Assessment 09/15/2025 10:03 AM EST Shown, Allie Alvarez RN History of Violence 0 09/15/2025 10:[address] Shown, Allie Alvarez RN Confused 0 09/15/2025 10:03 AM EST Show n, Allie Alvarez RN Irritable 0 09/15/2025 10:03 AM EST Show n, Allie Alvarez RN Boisterous 0 09/15/2025 10:03 AM EST Show nAllie RN Verbal Threats 0 09/15/2025 10:03 AM EST Sh own, Allie Alvarez RN Physical Threats 0 09/15/2025 10:03 AM EST Shown, Allie Alvarez RN Attacking Objects 0 09/15/2025 10:03 AM EST Shown, Allie Alvarez RN Agitated/Impulsive 0 09/15/2025 10:03 AM ES T Shown, Allie Alvarez RN Paranoid/Suspicious 0 09/15/2025 10:[address] Shown, Allie Alvarez RN Substance Intoxication/Withdrawal 0 09/15/2025 10:03 AM EST Shown, Allie Alvarez RN Socially Inappropriate/Disruptive Behavior 0 09/15/2025 10:03 AM EST Shown, Allie Alvarez RN Body Language 0 09/15/2025 10:03 AM EST Sandy wn, Allie Alvarez RN Violence Assessment Tool Total Score 0 09/15/2025 10:03 AM EST Shown, Allie Alavrez RN * Suicidal Ideation (Past 1 Month) Question Answer Date of Assessment Author 1. Wish to be (Past 1 Month) No 025 10:03 AM EST Shown, Allie Alvarez RN 2. Non-Specific Active Suici doron Thoughts (Past 1 Month) No 09/15/2025 10:03 AM EST Shown, Allie Alvarez RN * Calculated C-SSRS Risk Score (Lifetime/Recent) Answer Date of Assessment Author No Risk Indicated 09/15/2025 10:03 AM EST Shown, Allie Alvarez RN * Robeson Suicide Severity Rating Scale (Screener/Recent Self-Report) Question Answer Date of Assessment Author 6. Suicidal Behavior (Lifetime) No 10:03 AM EST Shown, Allie Alvarez RN * Regla Escamilla Fall Risk Assessment (First 24 hrs only, then right click and complete this group) Question Answer Date of Assessment Author Last Known Fall 0 09/15/2025 10:03 AM EST Allie Rizvi RN Mobility 0 09/15/2025 10:03 AM EST Show Allie garcia RN Medications 1 09/15/2025 10:03 AM EST Show Allie garcia RN Mental Status/LOC/Awareness 0 09/15/2025 10 :03 AM EST Shown, Allie Alvarez RN Toileting Needs 0 09/15/2025 10:03 AM EST Allie Rizvi RN Volume/Electrolyte Status 0 09/15/2025 10:0 3 AM EST Shown, Allie Alvarez RN Communication/Sensory 1 09/15/2025 10:03 AM EST Shown, REBEKAH Hope Fall Risk Total 5 09/15/2025 1 0:03 AM EST Shown, Allie Alvarez RN documented as of this encounter Mental Status * Raghavendra Scale Question Answer Entry Date Author Raghavendra Scale Score 2 - patient cooperat marianna, oriented and tranquil 09/15/2025 10:03 AM EST Shown, Allie Alvarez RN * [place] Coma Scale Question Answer Entry Date Author Best Eye Response 4-->(E4) spontaneous 5 10:03 AM EST Shown, Allie Alvarez RN Best Verbal Response 5-->(V5) oriented 5 10:03 AM EST Shown, Allie Alvarez RN Best Motor Response 6-->(M6) obeys commands 12/0 06/2025 10:03 AM EST Shown, Allie Alvarez RN [place] Coma Scale Score 15 09/15/2025 10:03 AM EST Shown, Allie Alvarez RN * HEENT WDL Question Answer Entry Date Author HEKATY WDL WDL 09/15/2025 10:03 AM EST Show Allie garcia RN * Disability/Function Question Answer Entry Date Author Difficulty Concentrating, Remembering or Making Decisions no 09/15/2025 10:03 AM EST Show Allie garcia RN Vision Management GLASSES 09/15/2025 10:03 AM EST Shown, Allie Alvarez RN * Coping/Psychosocial Question Answer Entry Date Author Involvement in Care at bedside 09/15/2025 1 1:41 AM Olga Chanel RN Family/Support Persons family 11:41 AM Olga Chanel RN Verbalized Emotional State acceptance 09/15/2025 10:03 AM EST Shown, Allie Alvarez RN Trust Relationship/Rapport care explained;questions answered 09/15/2025 10:03 AM EST Shown, Allie Alvarez RN Observed Emotional State calm 025 11:41 AM Olga Chanel RN * Comfort Interventions Question Answer Entry Date Author Sleep/Rest/Relaxation awake 09/15/2025 11:41 AM Olga Chanel RN * Cognitive Question Answer Entry Date Author Cognitive/Neuro/Behavioral WDL WDL 09/15/2025 10:03 AM EST Shown, Allie Alvarez RN * Pain/Comfort/Sleep Question Answer Entry Date Author POSS (Pasero Opioid-Induced Sed Scale) 1 - Awake and alert 09/15/2025 10:03 AM EST Shown, Allie Alvarez RN * Violence Assessment Tool Risk Indicators Question Answer Entry Date Author Assessment Type Initial Assessment 09/15/2025 10 :03 AM EST Shown, Allie Alvarez RN History of Violence 0 09/15/2025 1 0:03 AM EST Shown, Allie Alvarez RN Confused 0 09/15/2025 10:03 AM EST Shown, Allie Alvarez RN Irritable 0 09/15/2025 10:03 AM EST Shown, Allie Alvarez RN Boisterous 0 09/15/2025 10:03 AM EST Shown, Allie Alvaerz RN Verbal Threats 0 09/15/2025 10:03 AM EST Shown, Allie Alvarez RN Physical Threats 0 09/15/2025 10:0 3 AM EST Shown, Allie Alvarez RN Attacking Objects 0 09/15/2025 10: 03 AM EST Shown, Allie Alvarez RN Agitated/Impulsive 0 09/15/2025 10 :03 AM EST Shown, Allie Alvarez RN Paranoid/Suspicious 0 09/15/2025 1 0:03 AM EST Shown, Allie Alvarez RN Substance Intoxication/Withdrawal 0 09/15/2025 10:03 AM EST Shown, Allie Alvarez RN Socially Inappropriate/Disruptive Behavior 0 09/15/2025 10:03 AM EST Shown, Allie Alvarez RN Body Language 0 09/15/2025 10:03 AM EST Shown, Allie Alvarez RN Violence Assessment Tool Total Score 0 09/15/2025 10:03 AM EST Shown, Allie Alvarez RN documented in this encounter Discharge Instructions * Attachments The following attachments cannot be sent through Care Everywhere. * Myelogram ([place]ri [place]ankan) * Puncture Wound ([place]ankan) documented in this encounter Medications at Time of Discharge ASPIRIN 81 PO Take 81 mg by mouth Every Night. busPIRone (BUSPAR) 10 MG tablet Take 1 tablet by mouth Daily. cholecalciferol (VITAMIN D3) 1.25 MG (02881 UT) capsule 1 capsule. 08/19/2025 clobetasol (CLOBEX) 0.05 % lotion Apply 1 [...] 90 tablet 3 03/22/2023 venlafaxine XR (EFFEXOR-XR) 75 MG 24 hr capsule Take 1 capsule by mouth Daily. 09/15/2025 vitamin D (ERGOCALCIFEROL) 1.25 MG (36546 UT) capsule capsule Take 1 capsule by mouth 1 (One) Time Per Week. venlafaxine XR (EFFEXOR-XR) 150 MG 24 hr capsule Take 1 capsule by mouth Daily. documented as of this encounter H&P Notes * Michelle Pugh PA-C - 09/15/2025 10:11 AM EST [facility] PREOPERATIVE HISTORY AND PHYSICAL Patient Name:Vandana Salinas : 1945 Primary Care Physician: Dale Prescott MD Date of admission: 09/15/2025 Subjective Subjective Chief Complaint: preoperative evaluation History of Present Illness Vandana Salinas is a 79 y.o. female who presents for preoperative evaluation. She is scheduled for IR myelogram, lumbar (N/A) Review of Systems Constitutional: Negative for activity [...] allergies and immunocompromised state. Neurological: Positive for weakness and numbness. Negative for dizziness, tremors, seizures, syncope, facial asymmetry, speech difficulty, light- headedness and headaches. Hematological: Negative for adenopathy. Does not bruise/bleed easily. Psychiatric/Behavioral: Negative for agitation, behavioral problems, confusion, decreased concentration, dysphoric mood, hallucinations, self-injury, sleep disturbance and suicidal ideas. The patientis not nervous/anxious and is not hyperactive. All other systems reviewed and are negative. Personal History Past Medical History: Diagnosis Date Abdominal pain [...] March 2023 Wears glasses Past Surgical History: Procedure Laterality Date BASAL CELL CARCINOMA EXCISION 2019 malignant, per patient; Moh's surgery BREAST BIOPSY Left 1997, 2005 Stereotactic 1997, PT HAS HAD 2 BX'S ON LEFT CHOLECYSTECTOMY 1997 EXTRACORPOREAL SHOCKWAVE LITHOTRIPSY (ESWL), STENT INSERTION/REMOVAL Right 06/11/2020 Procedure: CYSTOSCOPY WITH RIGHT URETERAL STENT, EXTRACORPOREAL SHOCKWAVE LITHOTRIPSY RIGHT; Surgeon: Ramone Malave MD; Location: [facility]; Service: Urology; Laterality: Right; ESWL START 075 ESWL END 821 FLOURO TIME 2 MIN 10 SEC TOTAL ABDOMINAL HYSTERECTOMY WITH SALPINGO OOPHORECTOMY 2008 patient reports 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 Social History: She reports that she has never smoked. She has never been exposed to tobacco smoke.She has never used smokeless tobacco. She reports that she does not drink alcohol and does not use drugs. Home Medications: Aspirin, Coenzyme Q10, Mirabegron ER, busPIRone, clobetasol, cycloSPORINE, donepezil, gabapentin, glucose blood, levothyroxine, losartan, metFORMIN, omeprazole, rosuvastatin, solifenacin, venlafaxineXR, and vitamin D Allergies: She is allergic to codeine, trimethoprim, hydrocodone, norco [hydrocodone- acetaminophen], and sulfaantibiotics. Objective Objective Vitals: Temp: [97.4 ??F (36.3 ??C)] 97.4 ??F (36.3 ??C) Heart Rate: [82] 82 Resp: [16] 16 BP: (146-148)/(73-82) 146/73 Physical Exam General: well developed, well nourished, in no acute distress Neuro: AAOx3. Nonfocal neurologic exam. Speech is clear. No facial droop. Assessment & Plan Assessment / Plan Brief Patient Summary: Vandana Salinas is a 79 y.o. female who presents for preoperative evaluation. Pre-Op Diagnosis Codes: * Spinal stenosis of lumbar region with radiculopathy [M48.061, M54.16] * Bilateral sacroiliitis [M46.1] Active Hospital Problems: Active Hospital Problems Diagnosis Bilateral sacroiliitis Spinal stenosis of lumbar region with radiculopathy Plan: Procedure(s): IR myelogram, lumbar The risks, benefits, and alternatives of the procedure were discussed in detail with the patient and questions were answered. No guarantees were made or implied. Informed consent was obtained. Michelle Pugh PA-C Cosigned by Nic Jenkins MD at 09/15/2025 11:09 AM EST Associated attestation - Nic Jenkins MD - 09/15/2025 11:09 AM EST Agree with above documented in this encounter Plan of Treatment Not on file documented as of this encounter Procedures Procedure Name Priority Date/Time Associated Diagnosis Comments CT LUMBAR SPINE W INTRATHECAL CONTRAST Routine 09/15/2025 11:49 AM EST CARDIAC CATHETERIZATION Routine 09/15/20 11:03 AM EST Spinal stenosis of lumbar region with radiculopathy Bilateral sacroiliitis documented in this encounter Results * CT Lumbar Spine With Intrathecal Contrast (09/15/2025 11:49 AM EST) Anatomical Region Laterality Modality L-spine N/A Computed Tomogra phy 09/18/2025 10:5 7 AM EST Impressions 09/18/2025 11:04 AM EST Impression: 1. Multilevel degenerative disc disease and degenerative facet change most pronounced at the L1 3/4 level where there is moderate canal stenosis. 2. Bilateral nonobstructing renal stones. 3. 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 Comparison: MRI lumbar spine 07/15/2025 Technique: Axial sections were obtained of the lumbar spine with reformatted images following the injection of intrathecal contrast. The localizer images are reviewed. Findings: There is normal height and alignment of the lumbar vertebral bodies. Spinal cord terminates at the L1 level. There are vacuum disc from the L3-S1 levels. There is a right renal cyst. There are multiple bilateral nonobstructing renal stones. No hydronephrosis. There is a partially calcified 14 x 12 mm aneurysm of the left renal artery. Patient appears be status post cholecystectomy. Axial images demonstrate: T11/12: Minimal circumferential disc bulge and mild degenerative facet change but no spinal canal stenosis or neural foraminal narrowing T12/L1: No significant disc bulge. There are minimal degenerative facet changes. No spinal canal stenosis or neural foraminal narrowing L1/2: Mild circumferential disc bulge and minimal degenerative facet change. No spinal canal stenosis or neural foraminal narrowing. L2/3: Minimal circumferential disc bulge and mild degenerative facet change. No spinal canal stenosis. No neural foraminal narrowing. L3/4: Moderate circumferential disc bulge and mild degenerative facet change resulting in moderate spinal canal stenosis and moderate bilateral neural foraminal narrowing. L4/5: Mild circumferential disc bulge and mild degenerative facet change combining to cause mild canal stenosis and mild bilateral neural foraminal narrowing. L5/S1: Mild circumferential disc bulge asymmetric to the left. There are moderate degenerative facet changes. No spinal canal stenosis. There is mild bilateral neural foraminal narrowing left greater than right. Procedure Note Gustavo Robledo MD - 09/18/2025 CT LUMBAR SPINE W INTRATHECAL CONTRAST Date of Exam: 09/15/2025 11:19 AM EST Indication: low back pain, bilateral hip pain, post myelogram. Comparison: MRI lumbar spine 07/15/2025 Technique: Axial sections were obtained of the lumbar spine withreformatted images following the injection of intrathecal contrast. Thelocalizer images are reviewed. Findings: There is normal height and alignment of the lumbar vertebral bodies.Spinal cord terminates at the L1 level. There are vacuum disc from theL3-S1 levels. There is a right renal cyst. There are multiple bilateral nonobstructingrenal stones. No hydronephrosis. There is a partially calcified 14 x 12 mmaneurysm of the left renal artery. Patient appears be status postcholecystectomy. Axial images demonstrate: T11/12: Minimal circumferential disc bulge and mild degenerative facetchange but no spinal canal stenosis or neural foraminal narrowing T12/L1: No significant disc bulge. There are minimal degenerative facetchanges. No spinal canal stenosis or neural foraminal narrowing L1/2: Mild circumferential disc bulge and minimal degenerative facetchange. No spinal canal stenosis or neural foraminal narrowing. L2/3: Minimal circumferential disc bulge and mild degenerative facetchange. No spinal canal stenosis. No neural foraminal narrowing. L3/4: Moderate circumferential disc bulge and mild degenerative facetchange resulting in moderate spinal canal stenosis and moderate bilateralneural foraminal narrowing. L4/5: Mild circumferential disc bulge and mild degenerative facet changecombining to cause mild canal stenosis and mild bilateral neural foraminalnarrowing. L5/S1: Mild circumferential disc bulge asymmetric to the left. There aremoderate degenerative facet changes. No spinal canal stenosis. There ismild bilateral neural foraminal narrowing left greater than right. IMPRESSION: Impression: 1. Multilevel degenerative disc disease and degenerative facet change mostpronounced at the L1 3/4 level where there is moderate canal stenosis. 2. Bilateral nonobstructing renal stones. 3. 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 Narrative 09/15/2025 11:16 AM EST Clinical Indication: 79-year-old female with progressive back and bilateral hip pain Crime Scene Photographer: Dr. Lucero Given Procedures: Lumbar myelogram via lumbar puncture. Access: 22-gauge spinal needle in the thecal sac at the lower lumbar region. Contrast: Isovue 200 Estimated Blood Loss: Negligible Complication: None Apparent. Technique: Formal written consent for the procedure was obtained from the patient's/patient's family after explaining risks to include bleeding, infection, contrast reaction, spinal nerve/cord injury, and headache. The lower lumbar region was prepped and draped in the usual, sterile fashion. Local anesthesia with 1% lidocaine infiltration was achieved. Utilizing fluoroscopic guidance, a 22-gauge spinal needle was placed into the thecal sac of the lower lumbar region without difficulty. Following a clear return of CSF, approximately 15 milliliters of the Isovue-200 was instilled into the thecal sac without complication. Conventional myelographic images of the lumbar spine were obtained. Additionally, upright flexion/extension views of the lumbar spine were obtained. The patient tolerated the procedure well and without apparent complication. Findings: The conventional myelographic images of the lumbar spine demonstrate multilevel degenerative changes throughout the mid and lower lumbar spine. Degenerative changes are most pronounced at the L3/4 level, where there is a moderate degree of central spinal stenosis with mild displacement on the adjacent lumbosacral nerve root sleeves. Spinal stenosis is slightly exacerbated in the upright position, but without appreciable spondylolisthesis. Lesser degenerative changes are present at the L4/5 level, with a mild degree of central spinal stenosis and minimal displacement of the left L5 nerve root sleeve. Again, upright flexion/extension maneuvers demonstrate no spondylolisthesis or pathologic motion. All remaining levels are without significant spinal stenosis, nerve root impingement, or concern for focal disc herniation. us Remi Smart MD CV CARDIAC CATH ORDER FELICIANO Final Result documented in this encounter Visit Diagnoses Diagnosis Bilateral sacroiliitis- Primary Spinal stenosis of lumbar region with radiculopathy Spinal stenosis of lumbar region with radiculopathy Bilateral sacroiliitis documented in this encounter Admitting Diagnoses Diagnosis Spinal stenosis of lumbar region with radiculopathy Bilateral sacroiliitis documented in this encounter Active and Recently Administered Medications Times are shown in EST. PRN Medication Order 09/13/2025 09/14/2025 09/15/2025 iopamidol (ISOVUE-M 200) injection 41% (CANCELED) Code / Trauma / Sedation Medication, Starting on Sun09/15/25 at 1100 1100 (Given - Provid er: Nic Jenkins MD) documented in this encounter Additional Health Concerns Assessment Noted Time PHQ-2 Depression Total Score: 2 05/31/20 23 2:01 PM EDT documented as of this encounter Care Teams S Iron Worker Relationship Specialty Start Date End Date Dale Prescott MD [address] [facility] [address] [facility] [address] [place] [address] PCP - General Family Medicine 04/25/19 documented as of this encounter
--- OUTSIDE RECORDS SUMMARY | 2025-09-15 11:00 | XMS_ITS | Encounter Summary ---
[facility] Address [address] [place] [address] Care Team Providers Care Corporate Physical Security Supervisor Name Role Phone Dale Prescott MD Primary Care Provider + [phone] Reason for Visit * Auth/Cert Specialty Diagnoses / Procedures Referred By Hipolito enciso Referred To Contact Diagnoses Spinal stenosis of lumbar region with radiculopathy Bilateral sacroiliitis Bilateral sacroiliitis [M46.1] Spinal stenosis of lumbar region with radiculopathy [M48.061, M54.16] Procedures PA MYELOGRAPHY VIA LUMBAR INJECT RS&I LUMBOSACRAL IR myelogram, lumbar Referral ID Status Reason Start Date Expiration Date Visits Re quested Visits Authorized [id number] 1 1 Encounter Details Date Type Department Care Team (Late st Contact Info) Description 09/15/2025 11:00 AM EST - 09/15/2025 12:30 PM EST Surgery [facility] [address] [place] [address] iNc Jenkins MD [address] [place] [address] IR myelogram, lumbar [12092 (CPT )] Social History Tobacco Use Types Packs/Day Years [...] Author AUDIT-C Score 0 09/15/2025 10:03 AM Allie Reeder RN Q1: How often do you have a drink containing alcohol? Never 09/15/2025 10:03 AM Allie Mccarthy RN Q2: How many drinks containing alcohol do you have on a typical day when you are drinking? Patient does not drink 09/15/2025 10:03 AM EST Shown, Allie W, RN Q3: How often do you have six or more drinks on one occasion? Never 09/15/2025 10:03 AM EST Shown, Allie Alvarez RN * BILLY WDL Question Answer Date of Assessment Author BILLY CHAPPELL WDL 09/15/2025 10:03 AM EST Show n, Allie Alvarez RN * Disability/Function Question Answer Date of [...] Nutrition 3-->adequate 09/15/2025 10:03 AM EST Show n, Allie Alvarez RN Activity 4-->walks frequently 09/15/2025 10:03 AM EST Shown, Allie Alvarez RN Mobility 3-->slightly limited 09/15/2025 10:03 AM EST Shown, Allie Alvarez RN * Coping/Psychosocial Question Answer Date of Assessment Author Trust Relationship/Rapport care explained;questions answered 09/15/2025 10:03 AM EST Shown, Allie Alvarez RN * Safety Question Answer Date of Assessment Author Safety [facility] 09/15/2025 10:03 AM EST Show nAllie RN * Musculoskeletal Question Answer Date of Assessment Author Musculoskeletal WD X;mobility;all 09/15/2025 10:03 AM EST Shown, Allie Alvarez RN General Mobility generalized weakness;mildly impaired 09/15/2025 10:03 AM EST Shown, Allie Alvarez RN * Skin Question Answer Date of Assessment Author Skin [facility] 09/15/2025 10:03 AM EST Show nAllie RN [...] AM EST Shown, Allie Alvarez RN * [place] Suicide Severity Rating Scale (Screener/Recent Self-Report) Question [...] Status/LOC/Awareness 0 09/15/2025 10 :03 AM EST Allie Khoury RN Toileting Needs 0 09/15/2025 10:03 AM EST Allie Rizvi RN Volume/Electrolyte Status 0 09/15/2025 10:0 3 AM EST Iraida, Allie Alvarez RN Communication/Sensory 1 09/15/2025 10:03 AM EST Iraida, REBEKAH Hope Fall Risk Total 5 09/15/2025 1 0:03 AM EST Shown, Allie Alvarez RN * Pressure Injury Screen Question Answer Date of Assessment Author Pressure Injury Present on Admission no 09/15/2025 10:03 AM EST Iraida, Allie Alvarez RN * Malnutrition Screening Tool Question Answer Date of Assessment Author Have you recently lost weigh t without trying? If yes, how much weight have you lost? 0--> No 09/15/2025 10:03 AM EST Allie Khoury RN Have you been eating poorly because of a decreased appetite? 0--> No 09/15/2025 10:03 AM EST Sandy wnAllie RN MST score 0 09/15/2025 10:03 AM EST Allie Douglas RN * Relationship/Environment Question Answer Date of Assessment Author Primary Roles/Responsibilities retired 09/15/2025 10:03 AM EST Allie Khoury RN People in Home spouse 09/15/2025 10:03 AM EST Sh ownAllie RN Family Caregiver if Needed spouse 09/15/2025 10: 03 AM EST Allie Khoury RN Primary Source of Support/Comfort spouse [...] 1 - assistive equipment 09/15/2025 10:03 AM EST Allie Khoury RN Toileting 0 - independent 09/15/2025 10:03 AM Allie Belcher RN Transferring 0 - independent 09/15/2025 10:03 AM EST Allie Rizvi RN * Nutrition Risk Screen Question Answer Date of Assessment Author Nutrition Risk Screen no indicators present 09/15/2025 10:03 AM EST Allie Khoury RN * AUDIT-C (Alcohol Use Disorders Identification Test) Question Answer Date of Assessment Author AUDIT-C Score 0 09/15/2025 10:03 AM EST Sandy wnAllie RN Q1: How often do you have a drink containing alcohol? Never 09/15/2025 10:03 AM EST Allie Khoury RN Q2: How many drinks containing alcohol do you have on a typical day when you are drinking? Patient does not drink 09/15/2025 10:03 AM EST Allie Khoury RN Q3: How often do you have six or more drinks on one occasion? Never 09/15/2025 10:03 AM EST Allie Khoury RN * HEENT WDL Question Answer Date of Assessment Author HEENT WDL WDL 09/15/2025 10:03 AM EST Allie Douglas RN * Disability/Function Question Answer Date of Assessment Author Mobility Management CANE 09/15/2025 1 0:03 AM EST Allie Khoury RN Hearing Difficulty or Deaf no 09/15/2025 10:03 AM EST Allie Khoury RN Eating/Swallowing Difficulty no 09/15/2025 10:03 AM [...] Question Answer Date of Assessment Author Safety [facility] 09/15/2025 10:03 AM EST Show Allie garcia RN * Musculoskeletal Question Answer Date of Assessment Author Musculoskeletal WD X;mobility;all 09/15/2025 10:03 AM EST Shown, Allie Alvarez RN General Mobility generalized weakness;mildly impaired 09/15/2025 10:03 AM EST Shown, Allie Alvarez RN * Skin Question Answer Date of Assessment Author Skin [facility] 09/15/2025 10:03 AM EST Show Allie garcia RN * Cognitive Question Answer Date of Assessment Author Cognitive/Neuro/Behavioral [facility] 09/15/2025 10:03 AM EST Shown, Allie Alvarez RN * Violence Assessment Tool Risk Indicators Question Answer Date of Assessment Author Assessment Type Initial Assessment 09/15/2025 10:03 AM EST Shown, Allie Alvarez RN History of Violence 0 09/15/2025 10:[address] Shown, Allie Alvarez RN Confused 0 09/15/2025 10:03 AM EST Show n, Allie Alvarez, RN Irritable 0 09/15/2025 10:03 AM EST Show n, Allie Alvarez, RN Boisterous 0 09/15/2025 10:03 AM EST Show nAllie, RN Verbal Threats 0 09/15/2025 10:03 AM [...] AM EST Shown, Allie Alvarez RN * [place] Suicide Severity Rating Scale (Screener/Recent Self-Report) Question Answer Date of Assessment Author 6. Suicidal Behavior (Lifetime) No 12/09/202 5 10:03 AM EST Shown, Allie Alvarez [...] as of this encounter Mental Status * Wilson Scale Question Answer Entry Date Author Wilson Scale Score 2 - patient cooperat marianna, oriented and tranquil 09/15/2025 10:03 AM EST Shown, Allie Alvarez RN * [place] Coma Scale Question Answer Entry Date Author Best Eye Response 4-->(E4) spontaneous 5 10:03 AM EST Shown, Allie Alvarez RN Best Verbal Response 5-->(V5) oriented 5 10:03 AM EST Shown, Allie Alvarez RN Best Motor Response 6-->(M6) obeys commands 0 06/2025 10:03 AM EST Shown, Allie Alvarez RN [place] Coma Scale Score 15 09/15/2025 10:03 AM EST Shown, Allie Alvarez RN * HEENT WDL Question Answer Entry Date Author BILLY CHAPPELL WDL 09/15/2025 10:03 AM EST Show Allie [...] Chanel RN Family/Support Persons family 11:41 AM EST Olga Rosenthal RN Verbalized Emotional State acceptance 09/15/2025 10:03 AM EST Shown, Allie Alvarez RN Trust Relationship/Rapport care explained;questions answered 09/15/2025 10:03 AM EST Shown, Allie Alvarez RN Observed Emotional State calm 025 11:41 AM EST Olga Rosenthal RN * Comfort Interventions Question Answer Entry Date Author Sleep/Rest/Relaxation awake 09/15/2025 11:41 AM EST Olga Rosenthal RN * Cognitive Question Answer Entry Date [...] 10:03 AM EST Shown, Allie Alvarez RN Verbal Threats 0 09/15/2025 10:03 AM [...] be sent through Care Everywhere. * Myelogram (Paraguayan) * Puncture Wound ([place]aguayan) documented in this encounter Medications at Time of Discharge ASPIRIN 81 PO Take 81 mg by mouth Every Night. busPIRone (BUSPAR) 10 MG tablet Take 1 tablet by mouth Daily. cholecalciferol (VITAMIN D3) 1.25 MG (99192 UT) capsule 1 capsule. 08/19/2025 clobetasol (CLOBEX) [...] Daily. 09/15/2025 vitamin D (ERGOCALCIFEROL) 1.25 MG (07928 UT) capsule capsule Take 1 capsule by mouth 1 (One) Time Per Week. venlafaxine XR (EFFEXOR-XR) 150 MG 24 hr capsule Take 1 capsule by mouth Daily. 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 Lucero Given Procedures: Lumbar myelogram via [...] radiculopathy Bilateral sacroiliitis documented in this encounter Administered Medications Inactive Administered Medications - up to 3 most recent administrations Medication Order MAR Action Action Date Dose Rate Site iopamidol (ISOVUE-M 200) injection 41% Code / Trauma / Sedation Medication, Starting on Sun09/15/25 at 1100 Given 09/15/2025 11:00 AM EST 15 mL B ack documented in this encounter Active and Recently [...] documented as of this encounter Care Teams Corporate Physical Security Supervisor Relationship Specialty Start Date End Date Dale Prescott MD [address] [facility] [address] [facility] [address] [place] [address] PCP - General Family Medicine 04/25/19 documented as of this encounter
--- OUTSIDE RECORDS SUMMARY | 2025-09-23 10:15 | XMS_ITS | Encounter Summary ---
Author Organization [facility] Address [address] [place] [address] Care Team Providers Care Malt House Kiln Operator Name Role Phone Dale Prescott MD Primary Care Provider [phone] Reason for Referral * Physical Therapy (Routine) - Pending Review Specialty Diagnoses / Procedures Referred By Hipolito enciso Referred To Contact Physical Therapy Diagnoses Spinal stenosis of lumbar region with radiculopathy Gait instability Weakness Procedures ME OFFICE/OUTPATIENT NEW MODERATE MDM 45 MINUTES Remi Smart MD [address] [facility] [address] [place] [address] Phone: tel: fax: [facility] - OUTPT PHYSICAL THERAPY [address] [place] [address] Phone: tel: fax: Referral ID Status Reason Start Date Expiration Date Visits Requested Visits Authorized [id number] Pending Review Specialty Services Required 12/23/2026 1 1 * MRI/CAT/PET Scan (Routine) - Authorized Specialty Diagnoses / Procedures Referred By Hipolito enciso Referred To Contact Diagnoses Spinal stenosis of lumbar region with radiculopathy Gait instability Weakness Procedures MRI Cervical Spine Without Contrast Remi Smart MD [address] [facility] [address] [place] [address] Phone: tel: fax: [address] [address] Phone: tel: Referral ID Status Reason Start Date Expiration Date V isits Requested Visits Authorized [id number] Authorized 09/23/2025 12/23/2026 1 1 Reason for Visit * Reason Comments Spinal stenosis of lumbar region with ra diculopathy Encounter Details Date Type Department Care Team (Late st Contact Info) Description 09/23/2025 10:15 AM EST Office Visit [facility] NEUR[facility] [address] [id number] Remi Smart MD [address] [place] [id number] Spinal stenosis of lumbar region with radiculopathy (Primary Dx); Gait instability; Weakness Social History Tobacco Use Types Packs/Day Years [...] Pressure - - Pulse - - Temperature 36.1 C (97 F) 09/23/2025 10:45 AM EST Respiratory Rate - - Oxygen Saturation - - Inhaled Oxygen Concentration - - Weight 74.8 kg (165 lb) 09/23/2025 10:45 AM EST Height 165.1 cm (5' 5 ) 09/23/2025 10:45 AM EST Body Mass Index 27.46 09/23/2025 10:45 AM EST documented in this encounter Progress Notes * Remi Smart MD - 09/23/2025 10:15 AM EST Subjective Chief Complaint: Back pain Patient ID: Vandana Salinas is a 79 y.o. female is here today for follow-up. History of Present Illness This is a 79-year-old woman who was seen in my clinic for low back pain and decreased mobility going back to about February of this year. She had an MRI which demonstrated some L3-4 disc disease. Her symptoms seemed out of proportion with her MRI findings, so I ordered a lumbar myelogram. She presents today to discuss the results of the study. She gives a retrospective history of right sided spasticity and decreased control of her right hand. Her back pain started in about February and has been getting progressively worse since that time. She is now using a rolling walker for the past few months or so. She is also asking whether or not the lumbar disc disease could be contributing to some incontinence that has also been getting worse for her. The following portions of the patient's history were reviewed and updated as appropriate: allergies, current medications, past family history, past medical history, past social history, past surgicalhistory and problem list. Family history: Family History Problem Relation Name Age of Onset Heart disease Father Leonides Moody Pancreatic cancer Mother Carisa Moody Ovarian cancer Mother Carisa Moody 72 METASTATIC FROM PANCREATIC CA Cancer Mother Carisa Moody Pancreatic Cancer Depression Brother Christian Moody 20 Anxiety disorder Brother Christian Moody 7 Breast cancer Paternal Grandmother Alma Moody 83 Diabetes Paternal Grandmother Alma Moody Cancer Paternal Grandmother Alma Moody Breast Cancer Heart attack Maternal Grandmother Branden Estrada 67 Diabetes Maternal Grandmother Branden Estrada Vision loss Maternal Grandmother Branden Estrada 62 Colon cancer Neg Hx Social history: Social History Socioeconomic History Marital status: Tobacco Use Smoking status: Never Passive exposure: Never Smokeless tobacco: Never Vaping Use Vaping status: Never Used Substance and Sexual Activity Alcohol use: Never Drug use: Never Sexual activity: Not Currently Partners: Male control/protection: Post-menopausal, Hysterectomy Review of Systems Constitutional: Negative for activity [...] frequency, genital sores, hematuria and urgency. Musculoskeletal: Negative for arthralgias, back pain, gait problem, joint swelling, myalgias, neck pain and neck stiffness. Skin: Negative [...] patientis not nervous/anxious and is not hyperactive. Objective Temperature 97 ??F (36.1 ??C), temperature source Infrared, height 165.1 cm (65 ), weight 74.8 kg (165 lb), not currently . Body mass index is 27.46 kg/m??. Physical Exam Constitutional: General: She is not in acute distress. Appearance: She is well-developed. She is not diaphoretic. HENT: Head: Normocephalic and atraumatic. Pulmonary: Effort: Pulmonary effort is normal. Skin: General: Skin is warm and dry. Neurological: Mental Status: She is alert and oriented to person, place, and time. Cranial Nerves: No cranial nerve deficit. Deep Tendon Reflexes: Reflexes abnormal. Reflex Scores: Brachioradialis reflexes are 3+ on the right side and 2+ on the left side. Patellar reflexes are 3+ on the right side and 2+ on the left side. Achilles reflexes are 3+ on the right side and 2+ on the left side. Comments: Sitting in a rolling wheelchair. Torie sign is absent. 2-3 beats of nonsustained clonus on the right side, none on the left. Assessment & Plan Independent Review of Radiographic Studies: Available for my review is a MRI of the lumbar spine without was performed on 07/15/2025. This demonstrates a broad-based disc bulge at L3-4 with moderate central canal stenosis and mild bordering on moderate lateral recess stenosis. Available also for my review is a lumbar myelogram which was performed on 09/15/2025. There is moderate central canal stenosis at L3-4 without pathological motion. There is mild displacement of the adjacent lumbosacral nerve roots. There is no evidence of inducible listhesis. Medical Decision Making: Axial low back pain: No indication for surgical intervention. Recommend continued pain management with the addition of some physical therapy. Signs and symptoms of lumbosacral radiculopathy and caudaequina were reviewed with the patient, her cousin, and her daughter all of whom were in the office today with her. She does have some asymmetric reflexes, being somewhat more brisk on the right as compared to the left. She did have a stroke workup with neurology and her MRI was unremarkable, so have ordered an MRI of the cervical spine to assess for cervical myelopathy. I will follow-up with her once the studies have been completed. She should hold off on doing her physical therapy until I had a chance to review the MRI of her cervical spine. Diagnoses and all orders for this visit: 1. Spinal stenosis of lumbar region with radiculopathy (Primary) - MRI Cervical Spine Without Contrast; Future - Ambulatory Referral to Physical Therapy for Evaluation & Treatment 2. Gait instability - MRI Cervical Spine Without Contrast; Future - Ambulatory Referral to Physical Therapy for Evaluation & Treatment 3. Weakness - MRI Cervical Spine Without Contrast; Future - Ambulatory Referral to Physical Therapy for Evaluation & Treatment No follow-ups on file. This document signed by Del Smart MD September 23, 2025 11:21 EST documented in this encounter Plan of Treatment Scheduled Orders Name Type Priority Associated Diagnoses Orde r Schedule MRI Cervical Spine Without Contrast Imaging Routine Spinal stenosis of lumbar region with radiculopathy Gait instability Weakness Expected: 09/24/2025, Expires: 12/22/2026 Scheduled Referrals Name Type Priority Associated Diagnoses Order Schedule Ambulatory Referral to Physical Therapy for Evaluation & Treatment Outpatient Referral Routine Spinal stenosis of lumbar region with radiculopathy Gait instability Weakness Ordered: 09/23/2025 documented as of this encounter Visit Diagnoses Diagnosis Spinal stenosis of lumbar region with radiculopathy- Primary Gait instability Abnormality of gait Weakness Other malaise and fatigue documented in this encounter Additional Health Concerns Assessment Noted Time PHQ-2 Depression Total Score: 2 05/31/20 23 2:01 PM EDT documented as of this encounter Care Teams Malt House Kiln Operator Relationship Specialty Start Date End Date Dale Prescott MD [address] [place] [address] [place] [address] PCP - General Family Medicine 04/25/19 documented as of this encounter
--- NOTE | 2025-10-02 | MR_ITS ---
FINAL REPORT TECHNIQUE: Multiplanar MR without gadolinium enhancement CLINICAL HISTORY: tingling and weakness in hands COMPARISON: None FINDINGS: Limited images of the posterior fossa are unremarkable. Alignment is normal. Cervical spinal cord shows normal signal and contour. C2-3: Unremarkable C3-4: A minimal annular bulge is present without evidence of central canal stenosis. C4-5: A moderate annular bulge is present with borderline central canal stenosis, and mild right neural foraminal narrowing. C5-6: A moderate annular bulge is present with moderate to severe right neural foraminal narrowing. C6-7: A moderate annular bulge is present with mild bilateral neural foraminal narrowing. C7-T1: A minimal annular bulge is present without evidence of neural foraminal narrowing or central canal stenosis. IMPRESSION: Multilevel cervical degenerative changes present as described, most pronounced at the C4-5 level. Reviewed, Interpreted and Dictated by Frederick Mcpherson MD Transcribed by Trisha Nicole Authenticated and [facility]
--- OUTSIDE RECORDS SUMMARY | 2025-10-02 14:01 | XMS_ITS | Encounter Summary ---
Author Organization [facility] Address [address] [place] [address] Care Team Providers Care Credit Collection Associate Name Role Phone Dale Prescott MD Primary Care Provider [phone] Encounter Details Date Type Department Care Team (Late st Contact Info) Description 04/13/2025 Results Follow-Up [facility] NEUROLOGY [address] [facility] [address] [place] [address] Mercedes Yi, DNP, ENGINEERING MATHEMATICIAN [address] [facility] [address] [place] [address] Social History Tobacco Use Types [...] documented as of this encounter Care Teams Credit Collection Associate Relationship Specialty Start Date End Date Dale Prescott MD [address] [facility] [address] [place] [address] PCP - General Family Medicine 04/25/19 documented as of this encounter
--- OUTSIDE RECORDS SUMMARY | 2025-10-02 14:02 | XMS_ITS | Patient Health Record ---
Author Organization [facility] Address [address] [place] [address] Care Team Providers Care Video Systems Engineer Name Role Phone Mendy Person Unavailable [phone] Allergies Allergen (clinical drug ingredient) Drug/Non Drug Allergy documented on EMR Reaction Allergy Type Onset Date Status CODEINE PHOSPHATE (CODEINE PHOSPHATE SOLN) Unspecified Drug Allergy 07/20/2018 Active NORCO Unspecified Drug Allergy 07/20/2018 Acti ve Reason For Referral No Information Problems Problem Type SNOMED Code ICD Code Onset Dates Problem Status W/U Status Risk Notes Problem 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
--- OUTSIDE RECORDS SUMMARY | 2025-10-02 14:02 | XMS_ITS | Data Portability ---
Author Organization [facility] Sara moreno, CKS WARNERS CLOSED Address [address] [place] [address] Care Team Providers Care Wrap Checker Name Role Phone AILEEN ALANIZ [employer] MATT RANDOLPH Network Security Architect [phone] LAMBERTO EVANS Primary Care Provider [phone] MARLENE HOGAN Vascular Surgeon KERRY JOHNSON Batter Mixer Helper STEVEN KING Batter Mixer Helper Assessment No assessment recorded. Plan of Treatment Reminders Order Date Submit Date Provider Last Modified By Organization Details Last Modified Time Details Appointments FEMALE RECHECK 2025 10:45A M LEXUS REID MD Not available Not available Not available Lab urinalysi s panel, auto 2022 023 [email or web address] [facility] [address], [address] [facility], [place], [address], 09/13/2023 13:35:44 Referral None recorded. Procedures None recorded. Surgeries None recorded. Imaging None recorded. Medication Orders clobetaso l 0.05 % topical ointment [address] [facility], [address], [address], 04/01/2024 11:55:02 hydroxych loroquine 200 mg tablet [address] [facility], [address] [place], [address], 04/01/2024 11:55:02 Diflucan 150 mg tablet 2023 024 [email or web address] [facility], [address] [place], [address], 04/01/2024 11:55:02 Patient TargetsNo targets recorded. Patient InstructionsNo instructions recorded. Reason for Referral None Reported. Results Created Date Observation Date Name Description Value Unit Range Abnormal Flag Note LastModifiedBy Organization Detail LastModifiedTime 09/13/20 23 09/13/2023 urina lysis panel , auto Unknown Analyte Clean Catch Not Available Cu/Lc Urolo gy [facility] [address] [facility], [place], [address], 09/13/2023 10:56:35 09/13/20 23 09/13/2023 urina lysis panel , auto Unknown Analyte Yellow Not Available [facility] [address] [facility], [place], [address], 09/13/2023 10:56:35 09/13/20 23 09/13/2023 urina lysis panel , auto Unknown Analyte Clear Not Available Cu/Lc Urology [facility] [address] [facility], [place], [address], 09/13/2023 10:56:35 09/13/20 23 09/13/2023 urina lysis panel , auto Unknown Analyte 1.020 Not Available [facility] [address] [facility], [place], [address], 09/13/2023 10:56:35 09/13/20 23 09/13/2023 urina lysis panel , auto Unknown Analyte 5.0 Not Available [facility] [address] [place], [address], 09/13/2023 10:56:35 09/13/20 23 09/13/2023 urina lysis panel , auto Unknown Analyte Negati ve Not Available Cu/Lc Urolo [facility] [address] [facility], [place], [address], 09/13/2023 10:56:35 09/13/20 23 09/13/2023 urina lysis panel , auto Unknown Analyte Negati ve Not Available Cu/Lc Urolo [facility] [address] [facility], [place], [address], 09/13/2023 10:56:35 09/13/20 23 09/13/2023 urina lysis panel , auto Unknown Analyte Negati ve Not Available Cu/Lc Urolo [facility] [address] [facility], [place], [address], 09/13/2023 10:56:35 09/13/20 23 09/13/2023 urina lysis panel , auto Unknown Analyte 250 mg/dl Not Available Cu/Lc Urolo [facility] [address] [facility], [place], [address], 09/13/2023 10:56:35 09/13/20 23 09/13/2023 urina lysis panel , auto Unknown Analyte Negati ve Not Available Cu/Lc Urolo [facility] [address] [facility], [place], [address], 09/13/2023 10:56:35 09/13/20 23 09/13/2023 urina lysis panel , auto Unknown Analyte Normal Not Available [facility] [address] [facility], [place], [address], 09/13/2023 10:56:35 09/13/20 23 09/13/2023 urina lysis panel , auto Unknown Analyte Negati ve Not Available Cu/Lc Urol[facility] [address] [facility], [place], [address], 09/13/2023 10:56:35 09/13/20 23 09/13/2023 urina lysis panel , auto Unknown Analyte Negati ve Not Available Cu/Lc Urolo [facility] [address] [facility], [place], [address], 09/13/2023 10:56:35 Result Notes None recorded. 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 From Automated Load;[facility]vi [place]: Sarah Yu;Stat us: Active Not Available [facility] 6 01:09:11 Sensation as if urinary bladder still full 965481919 Active 2014 From Automated Load;Provi [place]: Sarah Yu;Stat us: Active Not Available [facility] 6 01:09:11 Nocturia 297830301 Active 2014 From Automated Load;Provi [place]: Sarah Yu;Stat us: Active Not Available [facility] 6 01:09:11 Kidney stone 66972697 Active 2014 Provider: Sarah Yu;Stat us: Active Not Available [facility] 6 01:09:11 Urolithia sis 07263293 Active 2024 Amelie Henry [facility] 5 11:17:13 Problem Notes None recorded. Procedures Surgical History Date Name Laterality Status Provider Name and Address Organization Details Recorded Time Cholecystectomy completed LEXUS REID MD [address] [place] [address], [address], [facility] 05/21/2020 16:54:57 Hysterectomy completed LEXUS REID MD [address] [place], [address], [facility] 05/21/2020 16:55:31 Imaging Results None recorded. Procedure Notes None recorded. Medical Equipment None Reported. Allergies Allergen ID Allergen Name Allergen Category Reaction Reaction Severity Criticality Documentation Date Start Date Code Code System Note Provider Name and Address Organization Details Recorded Time 472589 codeine medicatio n Not available Not available Not available 08/31/20162010 2670 RxNorm Comme nt: Creat ed By: Susan pereiraCre ated Date: 2010 4:08: 37 PM; Not Available [facility] 6 11:23:29 Medications Name Sig Start Date [...] Not Available Not Available No t Available donepezil 5 mg tablet TAKE 1 TABLET BY MOUTH ONCE DAILY AT NIGHT active Not Available Not Available No t Available azithromy vaibhav 250 mg tablet TAKE 2 TABLETS BY MOUTH ON DAY 1, AND THEN TAKE 1 TABLET BY MOUTH ONCE A DAY ON DAY 2 THROUGH DAY 5 05/02 completed Not Available Not Available Not Available fluconazo le 150 mg tablet TAKE [...] nued Not Available Not Available Not Available levothyro xine 88 mcg tablet TAKE 1 TABLET BY MOUTH ONCE DAILY active Not Available Not Available No t Available famotidin e 20 mg tablet TAKE [...] elayed release TAKE 1 CAPSULE BY MOUTH ONCE DAILY IN THE MORNING ONE-HALF TO ONE HOUR BEFORE MORNING MEAL active Not Available Not Available No t Available raloxifen e 60 mg tablet TAKE 1 TABLET BY MOUTH ONCE DAILY 05/21 completed Not Available Not Available Not Available gabapenti n 100 mg capsule TAKE 1 CAPSULE BY MOUTH TWICE DAILY active Not Available Not Available No t Available clobetaso l 0.05 % topical ointment [...] 0 Not Available Not Available Not Available Aricept active Not Available Not Avail able Not Available Suprep Bowel Prep Kit 17.5 [...] Updated DateTime 03/11/2024 165.1 cm 28.3 kg/m2 85995.7 g Jessie Miguel [facility] 03/11/2024 10:52:17 Date Recorded Body height Body mass index (BMI) Body weight Provider Name and Address Organization Details Last Updated DateTime 05/05/2025 165.1 cm 28.3 kg/m2 66450.7 g Amelie Henry [facility] 05/05/2025 11:17:07 Date Recorded Body height Body mass index (BMI) Body weight Provider Name and Address Organization Details Last Updated DateTime 09/04/2022 165.1 cm 28.3 kg/m2 04530.7 g Floresita Ruiz [facility] 09/04/2022 14:24:45 Date Recorded Body height Body mass index (BMI) Body weight Provider Name and Address Organization Details Last Updated DateTime 09/13/2023 165.1 cm 28.3 kg/m2 01397.7 g Floresita Ruiz [facility] 09/13/2023 10:37:44 Social History Question Answer Notes LastModified by Organizat ion Details LastModified Time Tobacco Smoking Status Never Smoker Floresita Ruiz [facility] 05/21/2020 10:42:09 Marital Status Informatio n not available 05/21/2020 Sex: Unknown [...] Diagnosis SNOMED-CT Code Diagnosis ICD10 Code Diagnosis IMO Codes Diagnosis Note [id number] LEXUS REID MD UROLOGY [facility] [address] [place] [address] 05/21/2020 09:20:11 05/21/2020 16:08:23 Kidney stone 43100539 N20.0 [id number] LEXUS REID MD UROLOGY [facility] [address] [address] 06/24/2020 10:00:55 06/25/2020 14:29:27 Kidney stone 31764478 N20.0 Urge incon tinence of urine 46573274 N39.41 [id number] LEXUS REID MD UROLOGY [facility] [address] [address] 08/05/2020 10:27:11 08/05/2020 11:56:27 Urolithiasis 15483063 N20.9 [id number] LEXUS REID MD UROLOGY [facility] [address] [place] [address] 08/09/2021 10:41:38 08/09/2021 12:00:07 Urge incontinence of urine 48572932 N39.41 History of calculus of kidney 978408460 Z87.442 send for KUB today. [id number] LEXUS REID MD UROLOGY [facility] [address] [address] 09/04/2022 14:01:12 09/04/2022 14:56:52 Urge incontinence of urine 58652177 N39.41 DOing well on myrbegron. continue same. [id number] LEUXS REID MD UROLOGY [facility] [address] [address] 09/13/2023 10:29:29 09/13/2023 11:37:47 Urge incontinence of urine 21654318 N39.41 DOing well on myrbegron 50 mg. continue same. 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 continue same. Urolithiasis 21751829 N2 0.9 none of late [id number] CHRISTIANO TORRES MD [facility] [address] [place] [address] 04/01/2024 10:56:59 04/01/2024 11:46:56 History of malignant neoplasm of skin 250218265 Z85.828 L90.5 - No evidence of recurrence today - Call with any worrisome lesions or if treated lesions return - Return at regular intervals for skin exam as recommende d Multiple b enign melanocytic nevi 772159529 D22.5 - Benign lesions seen on exam [...] changing or worrisome lesions Seborrheic keratosis 394 325074 L82.1 - Benign overgrowth s of skin- Hereditary Will reassess at next visit.Fup with change or concerns 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 erosive. [...] labs from PCP.Fup with change or concerns [id number] LEXUS REID [facility] [address] [facility] [place] [address] 05/05/2025 10:40:44 05/05/2025 11:53:17 Urge incontinence of urine 19192652 N39.41 stable myrbegron 50 mg. continue same. Urolithiasis 84363393 N2 0.9 none of late Health Concerns Section Related Observation LastModified by Organization Detai ls LastModified Time None Recorded Concern Status LastModified by Organization Details LastModified Time None Recorded Advance Directives Directive None Recorded Payers Insurance Date Sequence Insurance Name Policy Number Policy Odonnell Covered Member ID Odonnell Member ID Guarantor Name 08/08/2025 2 [place] [id number] Peri Harris [id number] Peri Harris 08/08/2025 1 [place] Peri Harris [id number] Peri Harris Notes Date Note Type Note Provider Name and Address Organization Details Recorded Time 09/04/2022 text/html Peri is a 76 yo female here today for follow up with h/o recurrent UTI and kidney stones. She is doing well. She denies any stone activity. She denies any dysuria or gross hematuria. She did stop her vesicare due to twitching. She is now on Myrbetriq and doing well with it. LEXUS REID MD [facility] [place], [address], [facility] 09/04/2022 16:14:09 09/13/2023 text/html Peri is a 77 yo WF who returns after a year. She denies any stone activity. She denies any dysuria or gross hematuria. She was treated for UTI with cipro about one month ago. That was her only yearly UTI. Her lichen sclerosis et atrophicus has increased and she saw RESEARCH COORDINATOR and RESEARCH COORDINATOR On[facility] and Derm. She is now on Emulaid and clobetasol. She remains on Myrbetriq 50 mg daily and has about 2 accidents/week. LEXUS REID MD [address] [place] [address], [address], [facility] 09/13/2023 13:35:49 03/11/2024 text/html Peri is a 78 yo returns after 6 months. She denies any stone activity. She denies any dysuria or gross hematuria. 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 She remains on Myrbetriq 50 mg daily and has about 2 accidents/week. SHe is going to pelvic floor PT in [place] for the past month, which is really helping LEXUS REID MD [address] [place] [address], [address], [facility] 03/12/2024 07:13:59 04/01/2024 text/html I have a spot on my R hairline I'd like for her to look at.The clobetasol is burning me now. My LS is worse than last year. I've seen 7 doctors for this.FSELast seen 03/2023Hx BCC-R lateral hairlineHx LS-Clobetasol, estradiol. CHRISTIANO TORRES MD [address] [place] [address], [address], [facility] 04/01/2024 11:58:04 05/05/2025 text/html Peri is a 79yo female returns after a 1 year for follow up. She complains of incontinence being a little worse, and wears pads by day. She denies any dysuria or gross hematuria. She remains on mybegron. She has worsening spinal stenosis and can now barely walk or write her name.She is no Aricept for mental status decline. LEXUS REID MD [address] [place] [address], [address], [facility] 05/05/2025 18:05:08 OBGyn Episode No OBEpisode recorded.
--- OUTSIDE RECORDS SUMMARY | 2025-10-02 14:03 | XMS_ITS | Encounter Summary ---
Author Organization Healthcare Address [address] [place] [address] Care Team Providers Care Scientific Recruiter Name Role Phone Manny Damico MD Primary Care Provider [phone] Encounter Details Date Type Department Care Team (Late st Contact Info) Description 01/31/2023 [facility] [address] [place] [address] Kecia Braga MD Obstructive sleep apnea (adult) (pediatric) (Primary Dx); [...] (pediatric) documented in this encounter Care Teams Scientific Recruiter Relationship Specialty Start Date End Date Manny Damico MD [facility] [address] [address] PCP - General 02/18/21 documented as of this encounter
--- OUTSIDE RECORDS SUMMARY | 2025-10-02 14:03 | XMS_ITS | Clinical Summary ---
Author Organization [facility] Address [address] [place] [address] Care Team Providers Care Video Tape Duplicator Name Role Phone Manny Damico MD Primary Care Provider [phone] Allergies Active Allergy Reactions Criticality Noted Date [...] 08/16/2023 11:38 AM EST Pt needs to knot picker cloth her BP meds today Pulse 86 08/16/2023 [...] Wellness (AWV) 1945 [facility]-Infant/Child/Adol SDOH Screenings 1945 [id number] Vaccine (#1) 04/09/1946 [facility]- SDOH Screenings 1965 [facility]-Adult SDOH Screenings 1965 [facility]-DTaP,Tdap,and Td Vaccines (1 - Tdap) 1966 [facility]-Zoster Vaccines (1 of 2) 1997 [facility]-RSV Vaccine: 60+ Years or (1 - 1-dose 75+ series) 2022 [facility]-Influenza Vaccine (#1) 06/08/202506/19, 08/22/2021, 07/03/2019, Additional history exists [facility]-Pneumococcal Vaccine: 50+ Years Completed 07/06/2023, 07/03/2019, 06/25/2018 [facility]-Obesity Intervention Completed 08/16/2023, 07/08 HPV Vaccines (No Doses Required) Completed [facility]-HIB Vaccines Aged Out No longer e [...] patient's age to complete this topic Insurance [address] [place] [id number] [id number] MEDICARE [facility] Care Teams Video Tape Duplicator Relationship Specialty Start Date End Date Manny Damico MD [facility] [address] PCP - General 02/18/21
--- OUTSIDE RECORDS SUMMARY | 2025-10-02 14:03 | XMS_ITS | Patient Health Record ---
[facility] Address [address] [facility] [address] [place] [id number] Care Team Providers Care Seismic Interpreter Name Role Phone Dale Prescott Primary Care Provider [phone] Jailyn Gaines [phone] Allergies Allergen (clinical drug ingredient) Drug/Non Drug [...] Interpretation:Normal Performing Lab: Notes/Report: Test performed by [facility] , [address], [place] [address] Carlos Hanks MD, [employer] CLIA: [id number] Vitamin B12 [phone] pg/mL P-Comprehensive Metabolic Pa jamie (CMP) Reviewed date:02/17/2025 04:38:54 PM Interpretation: Performing Lab: Notes/Report: Test performed by [facility] [address] [place] [address] , [address], [place] [address] Carlos Hanks MD, [employer] CLIA: [id number] Sodium 141 135-145 mmol/L Potassium 4.5 3.5-5.3 [...] Interpretation:Normal Performing Lab: Notes/Report: Test performed by [facility] [address] [place] [address] , [address], [place] [address] Carlos Hanks MD, [employer] CLIA: [id number] Thyroxine Free (free T4) 1.34 0.86-1.76 ng/dL P-Lipid Panel Reviewed date:02/17/2025 04:38:54 PM Interpretation:Normal Performing Lab: Notes/Report: Test performed by [facility] [address] [place] [address] , [address], [place] [address] Carlos Hanks MD, [employer] CLIA: [id number] Cholesterol 172 <200 mg/dL Triglycerides 75 <150 [...] Interpretation:8.66 Performing Lab: Notes/Report: Test performed by [facility], [address] , [place] [address] Carlos Hanks MD, [employer] CLIA: [id number] TSH 8.66 0.43-5.25 mU/L P-Vitamin D 25-Hydroxy Reviewed date:02/17/2025 04:38:54 PM Interpretation:Normal Performing Lab: Notes/Report: Test performed by [facility] [address] [place], [place] [address] , [address], [place] [address] Carlos Hanks MD, [employer] CLIA: [id number] Vitamin D 25-Hydroxy 36.6 30.0-100.0 ng/mL Interpretation of Vitamin D 25 OH: < 20 ng/mL - Deficiency 20 - 29 ng/mL - Insufficiency 30 - 100 ng/mL - Sufficiency > 100 ng/mL - Super-therapeutic- toxicity may occur above this level. Clinical correlation required. TEN-UTI panel Reviewed date:02/17/2025 04:38:54 PM Interpretation:Negative Performing Lab: Notes/Report: Negative Urinalysis - Inhouse Reviewed date:05/14/2025 10:13:18 AM Interpretation:satisfactory Performing Lab: Notes/Report: satisfactory Color/Clarity Yellow/Clear Leuk Neg Nitrite Neg Urobili 3.2 Protein Neg pH 7.5 Blood Neg Sp. Gr. 1.020 Ketone Trace Bili Neg Gluc Neg Glucose (In-House) Reviewed date:08/19/2025 12:13:27 PM Interpretation:194 Performing Lab: Notes/Report: 194 blood glucose 194 74 - 106 mg/dL Glycohemoglobin A1c (in hous e) Reviewed date:08/19/2025 12:13:27 PM Interpretation:7.3 Performing Lab: Notes/Report: 7.3 glycohemoglobin 7.3% 5 - 6.5 % P-Vitamin B12 Reviewed date:08/19/2025 12:13:27 PM Interpretation:Normal Performing Lab: Notes/Report: Test performed by [facility] [address] [place] [address] [address], [place] [id number] Carlos Hanks MD, [employer] CLIA: [id number] Vitamin B12 969 862-9326 pg/mL P-Basic Metabolic Panel (BMP ) Reviewed date:08/19/2025 12:13:27 PM Interpretation:Normal Performing Lab: Notes/Report: Test performed by [facility] [address] [place] [address] [address], [place] [address] Carlos Hanks MD, [employer] CLIA: [id number] Sodium 140 135-145 mmol/L Potassium 4.1 3.5-5.3 mmol/L Chloride 104 97-108 mmol/L CO2 24 20-32 mmol/L Glucose 188 65-99 mg/dL BUN 15 8-23 mg/dL Creatinine 0.88 0.50-1.00 mg/dL Calcium 9.0 8.6-10.4 mg/dL eGFR by Creatinine 67 >59 mL/min/1.73m2 P-T4 Free (thyroxine) Reviewed date:08/19/2025 12:13:27 PM Interpretation:Normal Performing Lab: Notes/Report: Test performed by [facility] [address] , [place] [address] Carlos Hanks MD, Drafter [employer] CLIA: [id number] Thyroxine Free (free T4) 1.47 0.86-1.76 ng/dL P-TSH Reviewed date:08/19/2025 12:13:27 PM Interpretation:Normal Performing Lab: Notes/Report: Test performed by [facility] [address] [place] [address] , [place] [address] Carlos Hanks MD, [employer] CLIA: [id number] TSH 3.06 0.43-5.25 mU/L P-Vitamin D 25-Hydroxy Reviewed date:08/19/2025 12:13:27 PM Interpretation:25 Performing Lab: Notes/Report: Test performed by [facility] [address] [place] [address] , [place] [address] Carlos Hanks MD, [employer] CLIA: [id number] Vitamin D 25-Hydroxy 25.0 30.0-100.0 ng/mL Interpretation of Vitamin D 25 OH: < 20 ng/mL - Deficiency 20 - 29 ng/mL - Insufficiency 30 - 100 ng/mL - Sufficiency > 100 ng/mL - Super-therapeutic- toxicity may occur above this level. Clinical correlation required. Urinalysis - Inhouse Reviewed date:12/03/2024 02:32:48 PM Interpretation: Performing Lab: Notes/Report: Color/Clarity yellow/clear Leuk 1+ Nitrite Neg Urobili 3.2 Protein Neg pH 5.5 Blood Trace-Intact Sp. Gr. 1.025 Ketone 1+ Bili 1+ Gluc Neg P-Culture, Urine Reviewed date:12/05/2024 01:16:10 PM Interpretation:No Growth Performing Lab: Notes/Report: Test performed by [facility] [address] [place] [address] , [address], [place] [address] Carlos Hanks MD, [employer] CLIA: [id number] Specimen Source Urine - Void Culture, Urine See Below Final Report : No growth Bone density Reviewed date:08/17/2025 02:29:04 PM Interpretation: Performing Lab: Notes/Report: Bone density osteopenia Reason For Referral Diagnosis 1 Lumbago with sciatic a, right side (M54.41) Diagnosis 2 Lumbago with sciatic a, left side (M54.42) Diagnosis 3 Lumbar facet arthrop athy (M47.816) Diagnosis 4 Spinal stenosis of l umbar region without neurogenic claudication (M48.061) [facility] Referring Provider First Name Dale Referring Provider Last Name Genie Referring Provider [facility] ctice Referred Organization [facility] Rehab./PT Referred Provider Physical Therapy, . [place] Referred Provider Specialty Physical The rapist General Notes Charity Vargas 2024 10:22:47 AM > faxed to [facility] PT Referral Priority Routine Diagnosis 1 Lumbago with sciatic a, right side (M54.41) Diagnosis 2 Lumbago with sciatic a, left side (M54.42) Diagnosis 3 Spinal stenosis of l umbar region without neurogenic claudication (M48.061) Diagnosis 4 Lumbar facet arthrop athy (M47.816) [facility] Referring Provider First Name Dale Referring Provider Last Name Genie Referring Provider [facility] ctice Referred Provider Collins Landon Referred Provider Specialty Pain Managem ent General Notes Charity Vargas 2024 10:23:17 AM > faxed to [facility] Pain Management, Charity Vargas 03/18/2025 09:44:28 AM > resent fax Referral Priority Routine Reason [facility] Neuro logy, No MD pref. Diagnosis 1 Frequent falls (R29. 6) Diagnosis 2 Intention tremor (G2 5.2) Diagnosis 3 Memory loss (R41.3) [facility] Referring Provider First Name Dale Referring Provider Last Name Genie Referring Provider [facility] ctice Referred Provider Specialty Neurology General Notes Charity Vargas 2024 01:24:07 PM > faxed all info to Neurology Referral Priority Routine Diagnosis 1 Lumbar facet arthrop athy (M47.816) Diagnosis 2 Low back pain, unspe cified (M54.50) Diagnosis 3 Spinal stenosis of l umbar region without neurogenic claudication (M48.061) [facility] Referring Provider First Name Dale Referring Provider Last Name Genie Referring Provider [facility] twin Referred Provider Collins Landon Referred Provider Specialty Pain Managem ent General Notes Charity Vargas 2024 11:20:59 AM > faxed to [facility] Pain Management, Charity Vargas 05/14/2025 10:26:18 AM > 05/25/2025 at 02:00pm Referral Priority Routine Medications Medication SIG (Take, Route, Frequency, Duration) Notes Start Date End Date Status Myrbetriq 50 MG Take 1 tablet by mouth once daily for 90 days; Duration: 90 Active Venlafaxine HCl ER 75 MG Take 1 capsule by mouth once daily; Duration: 90 Active Losartan Potassium 25 MG 1 tablet Orally Once a day; Duration: 90 days Active Vitamin D 1.25 MG (11387 UT) 1 capsule Orally weekly; Duration: 90 days 08/19/2025 Active Synthroid 88 MCG 1 tab(s) orally once a day; Duration: 90 days Active metFORMIN HCl 500 MG 1 tablet with a meal Orally Once a day; Duration: 90 days Active CoQ-10 100 MG 1 cap(s) orally once a day Active Rosuvastatin Calcium 40 MG TAKE 1 TABLET BY MOUTH ONCE DAILY AT BEDTIME; Duration: 90 Active Aspirin Adult Low Dose 81 MG 1 tab(s) orally once a day Active Rollator Walker - 1 as directed as directed 06/09/2025 Active Restasis 0.05 % 1 drop into affected eye Ophthalmic Twice a day Active Venlafaxine HCl ER 150 MG take 1 capsule by mouth once daily Orally Once a day; Duration: 90 days Active Cholestyramine 4 GM/DOSE 1 scoop Orally Once a day; Duration: 30 day(s) Active PhunwareTouch Ultra - USE 1 STRIP TO CHECK GLUCOSE ONCE DAILY OR DIRECTED to test once daily; Duration: 90 days Diagnosis E11.9 Active busPIRone HCl 10 MG Take 1 tablet by mouth once daily; Duration: 90 Active Albuterol Sulfate HFA 108 (90 Base) [...] a day; Duration: 30 days 06/18/2025 Active Omeprazole 20 MG TAKE 1 CAPSULE BY MOUTH ONCE DAILY IN THE MORNING ONE-HALF TO ONE HOUR BEFORE MORNING MEAL; Duration: 90 Active Immunizations Vaccine Route Administration Date Status [...] (65yr and older) IM Intramuscular 08/15/2024 Administered Fluzone High Dose (65yr and older) IM Intramuscular 07/30/2025 Administered PNEUMOVAX 23 VACCINE IM Intramuscular 07/03/2019 Administe red Prevnar (PCV13) IM Intramuscular 06/25/2018 Administered Prevnar (PCV20) IM Intramuscular 07/06/2023 Administered Problems Problem Type SNOMED Code ICD Code Onset Dates Problem Status W/U Status Risk Notes Problem Vitamin D deficiency (44154441) Vitamin D deficiency (E55.9) Active confirmed Problem Vitamin B12 deficiency (651535273) Vitamin B12 deficiency (E53.8) Active confirmed Problem Essential hypertension (87548565) Essential hypertension (I10) Active confirmed Problem Urinary incontinence (462152594) Urinary incontinence (R32) Active confirmed Problem Osteopenia (010149960) Osteopenia (M85.80) Active confirmed Problem Arthropathy of lumba r facet joint (485983627) Lumbar facet arthropathy (M47.816) Active confirmed Problem Obstructive sleep apnea (34178169) Obstructive sleep apnea (G47.33) Active confirmed Problem Sciatica (62793372) Sciatic leg pain (M54.30) Active confirmed Problem Overactive urinary bladder (disorder) (002043235) OAB (overactive bladder) (N32.81) Active confirmed Problem Memory loss (92339436) Memory loss (R41.3) Active confirmed Problem Sciatica (87103814) Lumbago with sciatica, right side (M54.41) Active confirmed Problem Sciatica (41452078) Lumbago with sciatica, left side (M54.42) Active confirmed Problem Depressive disorder (48624081) Depressive disorder (F32.9) Active confirmed Problem Chronic pain (12363358) Other chronic pain (G89.29) Active confirmed Problem Constipation (94718899) Constipation, unspecified constipation type (K59.00) Active confirmed Problem Acquired hypothyroidism (537728573) Acquired hypothyroidism (E03.9) Active confirmed Problem Kidney stone (24342189) Kidney stone (N20.0) Active confirmed Problem Atherosclerotic hear t disease of [place] coronary artery without angina pectoris (970448786824023) Coronary artery disease involving [place] coronary artery of [place] heart without angina pectoris (I25.10) Active confirmed Problem Gastroesophageal reflux disease (079142433) Gastroesophageal reflux disease, esophagitis presence not specified (K21.9) Active confirmed Problem Osteoporosis (79600316) Osteoporosis (M81.0) Active confirmed Problem Kidney stone (42738714) Kidney stones (N20.0) Active confirmed Problem Obstructive sleep apnea syndrome (08463522) LILIAM (obstructive sleep apnea) (G47.33) Active confirmed Problem Osteoarthritis of knee (894514885) Primary osteoarthritis of left knee (M17.12) Active confirmed Problem Recurrent falls (479980733) Frequent falls (R29.6) Active confirmed Problem Sciatica (12564917) Acute left-s ided low back pain with left-sided sciatica (M54.42) Active confirmed Problem Type II diabetes mellitus without complication (595420574) Type 2 diabetes mellitus without complication, without long-term current use of insulin (E11.9) Active confirmed Problem Difficulty walking (595201534) Difficulty walking (R26.2) Active confirmed Problem Pure hypercholesterolemia (511814737) Pure hypercholesterolemia (E78.00) Active confirmed Problem Renal artery stenosi s (394760651) Renal artery stenosis (I70.1) Active confirmed Problem Spinal stenosis of lumbar region (80781889) Spinal stenosis of lumbar region without neurogenic claudication (M48.061) Active confirmed Problem Aneurysm of renal artery (27566311) 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) Active confirmed Problem Intention tremor (13622906) Intention tremor (G25.2) Active confirmed Problem Type 2 diabetes mellitus with other specified complication, unspecified whether fci insulin use (E11.69) Active confirmed Vital Signs Heart Rate 95 /min 08/25/2025 Blood pressure diastolic 70 mm Hg 08/25/2025 Height 65 in 08/25/2025 Blood pressure systolic 136 mm Hg 08/25/2025 Weight 165 lbs 08/25/2025 BMI 27.45 kg/m2 08/25/2025 Encounters Encounter Location Date Provider Diagnosis [facility] [address] [facility] [address] [place] [id number] 12/03/2024 Dale Sandoval Acute UTI N39.0 [facility] [address] [address] [place] [id number] 02/13/2025 Dale Sandoval Type 2 diabetes liat itus without complication, [...] mellitus with other specified complication, unspecified whether medical terminologist insulin use E11.69 and BMI 27.0-27.9,adult Z68.27 [facility] [address] [facility] [address] [place], [place] [id number] 03/10/2025 Dale Sandoval Lumbago with sciatic a, right side M54.41 ; Lumbago with sciatica, left side M54.42 ; Degeneration of intervertebral disc of lumbar region with discogenic back pain and lower extremity pain M51.362 ; Lumbar facet arthropathy M47.816 ; Spinal stenosis of lumbar region without neurogenic claudication M48.061 and BMI 27.0-27.9,adult Z68.27 [facility] [address] [place] [id number] 03/16/2025 Dale Sandoval Memory loss R41.3 ; Intention tremor G25.2 ; Frequent falls R29.6 ; Gastroesophageal reflux disease, esophagitis presence not specified K21.9 and BMI 27.0-27.9,adult Z68.27 [facility] [address] [facility] [address] [place] [id number] 05/12/2025 Dale Sandoval Other chronic pain G 89.29 ; Low back pain, unspecified M54.50 ; Lumbar facet arthropathy M47.816 ; Spinal stenosis of lumbar region without neurogenic claudication M48.061 ; Memory loss R41.3 ; Urinary symptom or sign R39.9 and BMI 27.0-27.9,adult Z68.27 [facility] [address] [place] [id number] 06/09/2025 Dale Sandoval Low back pain, unspe cified M54.50 ; Spinal stenosis of lumbar region without neurogenic claudication M48.061 ; Lumbar facet arthropathy M47.816 and Difficulty walking R26.2 [facility] [address] [place] [id number] 07/30/2025 Dale Sandoval Encounter for immuni zation Z23 [facility] [address] [facility] [address] [place] [id number] 08/18/2025 Dale Sandoval Type 2 diabetes liat itus without complication, without long-term current use of insulin E11.9 ; Acquired hypothyroidism E03.9 ; Vitamin D deficiency E55.9 ; Vitamin B12 deficiency E53.8 and Essential hypertension I10 [facility] [address] [facility] [address] [place] [id number] 08/25/2025 Jailyn Gaines Adverse effect of ot her viral vaccines, initial encounter T50.B95A [facility] [address] [place], [place] [id number] 11/03/2024 Dale Sandoval [facility] [address] [place], [place] [id number] 03/11/2025 Dale Sandoval [facility] [address] [place], [place] [id number] 03/23/2025 Dale Sandoval Screening for osteop orosis Z13.820 [facility] [address] [place], [place] [id number] 05/28/2025 Adle Sandoval [facility] [address] [place], [place] [id number] 06/18/2025 Dale Sandoval Lumbago with sciatic a, right side M54.41 [facility] [address] [place], [place] [id number] 08/19/2025 Dale Sandoval Assessments Encounter Date Diagnosis (ICD Code) Assessment Notes Treatment Notes Treatment Clinical Notes Section Notes 12/03/2024 Acute UTI (ICD-10 - N39.0) 02/13/2025 Type 2 diabetes mellitus without complication, without long-term current use of insulin (ICD-10 - E11.9) 02/13/2025 Pure hypercholesterolemia (ICD-10 - E78.00) 03/16/2025 Memory loss (ICD-10 - R41.3) 03/16/2025 Intention tremor (ICD-10 - G25.2) 03/23/2025 Screening for osteoporosis (ICD-10 - Z13.820) 05/12/2025 Other chronic pain (ICD-10 - G89.29) Patient wants to see a chiropractor and pain management 05/12/2025 Low back pain, unspecified (ICD-10 - M54.50) 06/09/2025 Spinal stenosis of lumbar region without neurogenic claudication (ICD-10 - M48.061) 06/09/2025 Low back pain, unspecified (ICD-10 - M54.50) Patient is scheduled with pain management for injections 06/18/2025 Lumbago with sciatic a, right side (ICD-10 - M54.41) 07/30/2025 Encounter for immunization (ICD-10 - Z23) 08/18/2025 Acquired hypothyroid ism (ICD-10 - E03.9) 08/18/2025 Type 2 diabetes mellitus without complication, without long-term current use of insulin (ICD-10 - E11.9) 08/25/2025 Adverse effect of ot her viral vaccines, initial encounter (ICD-10 - T50.B95A) Apply ice as needed. Topical hydrocortisone cream 03/10/2025 Lumbago with sciatic a, right side (ICD-10 - M54.41) ER record including notes and CT report reviewed with patient in office today 03/10/2025 Lumbago with sciatic a, left side (ICD-10 - M54.42) 03/10/2025 Degeneration of intervertebral disc of lumbar region with discogenic back pain and lower extremity pain (ICD-10 - M51.362) 08/18/2025 Vitamin D deficiency (ICD-10 - E55.9) 06/09/2025 Lumbar facet arthropathy (ICD-10 - M47.816) 03/16/2025 Frequent falls (ICD- 10 - R29.6) 05/12/2025 Lumbar facet arthropathy (ICD-10 - M47.816) 02/13/2025 Acquired hypothyroid ism (ICD-10 - E03.9) 02/13/2025 Vitamin D deficiency (ICD-10 - E55.9) 03/16/2025 Gastroesophageal ref lux disease, esophagitis presence not specified (ICD-10 - K21.9) 06/09/2025 Difficulty walking (ICD-10 - R26.2) 05/12/2025 Spinal stenosis of lumbar region without neurogenic claudication (ICD-10 - M48.061) 08/18/2025 Vitamin B12 deficien cy (ICD-10 - E53.8) 03/10/2025 Lumbar facet arthropathy (ICD-10 - M47.816) 03/10/2025 Spinal stenosis of lumbar region without neurogenic claudication (ICD-10 - M48.061) 08/18/2025 Essential hypertensi on (ICD-10 - I10) 05/12/2025 Memory loss (ICD-10 - R41.3) MRI report from [facility] reviewed in office today 03/16/2025 BMI 27.0-27.9,adult (ICD-10 - Z68.27) 02/13/2025 Vitamin B12 deficien cy (ICD-10 - E53.8) 02/13/2025 Obstructive sleep ap lisandra (ICD-10 - G47.33) 05/12/2025 Urinary symptom or s ign (ICD-10 - R39.9) 03/10/2025 BMI 27.0-27.9,adult (ICD-10 - Z68.27) 05/12/2025 BMI 27.0-27.9,adult (ICD-10 - Z68.27) 02/13/2025 Gastroesophageal ref lux disease, esophagitis presence not specified (ICD-10 - K21.9) 02/13/2025 Acute UTI (ICD-10 - N39.0) 02/13/2025 Essential hypertensi on (ICD-10 - I10) 02/13/2025 Type 2 diabetes mellitus with other specified complication, unspecified whether fci insulin use (ICD-10 - E11.69) 02/13/2025 BMI 27.0-27.9,adult (ICD-10 - Z68.27) Plan Of Treatment Next Appt Details Provider Name:Dale Mcdowell , 02/15/2026 11:45:00 AM, [address], [place], [place], [id number], Insurance Providers Payer Name Payer Address Payer Phone Subscriber Number Group Number Insured Name Patient Relationship to Insured Coverage Start Date Coverage End Date MEDICARE PART B [address] [address] [place] [address] [id number] SHANNON HARRIS Self - patient is the insured [facility] [address] [place] [address] [id number] SHANNON HARRIS Self - patient is the insured Medications Administered Medication Instructions Date of Administration Dosage Notes Dexamethasone 07/06/2021 1 mL Medical (General) History Medical History History ICD Code Graves Disease, followed by Endo. Hyperlipidemia Hypothyroidism, 2009 Type 2 Diabetes dx. 2012, followed by Marco mcclellan Depression Irritable Bowel Syndrome Kidney Stones Arthritis Allergic Rhinitis Overactive Bladder Coronary Artery Disease, Non-Obstructive 10/2015 Vitamin B 12 Deficiency Vitamin D Deficiency Lichen Sclerosis - followed by [facility], Dx: 12/2018 Renal Artery Stenosis, right, 70% [...] Forehead 019 Colonoscopy and Endoscope- Dr. Bueno, [facility] 05/10/2020 Lipotripsy for Kidney Stones- [facility] 06/11/2020 Hospitalization History Reason Date(Month/Year) Kidney Stone- [facility] ER 09/29/2018 Fall - LT Rotator Cuff Tear
--- OUTSIDE RECORDS SUMMARY | 2025-10-02 14:03 | XMS_ITS | Clinical Summary ---
Author Organization [facility] Address [address] [place] [address] Care Team Providers Care Sociology Adjunct Instructor Name Role Phone Dale Prescott MD Primary Care Provider [phone] Allergies Active Allergy Reactions Criticality Noted Date Comments Codeine Dizziness Medium 06/08/2020 Passed out Hydrocodone Rash Low 05/10/2020 Hydrocodone-Acetaminophen Rash Low 07/26/2023 Sulfa Antibiotics Rash Low 04/03/2022 Trimethoprim Unknown - High Severity 03/05/2025 Medications rosuvastatin (CRESTOR) 40 MG tablet Take 1 tablet by mouth Daily. Active ASPIRIN 81 PO Take 81 mg by mouth Every Night. Active OneTouch Ultra test strip USE 1 STRIP TO CHECK GLUCOSE ONCE DAILY OR DIRECTED 0 Active Coenzyme Q10 (CO Q-10 PO) Take 1 capsule by mouth Daily. Active Synthroid 88 MCG tablet Take 1 tablet [...] Take 1 capsule by mouth Daily. 5 Active losartan (COZAAR) 25 MG tablet Take 1 tablet by mouth Daily. Active metFORMIN (GLUCOPHAGE) 500 MG tablet Take 1 [...] 30 tablet 5 5 04/09/20 26 Active solifenacin (VESICARE) 10 MG tablet Take 1 tablet by mouth Daily. Active vitamin D (ERGOCALCIFERO L) 1.25 MG (73998 UT) capsule capsule Take 1 capsule by mouth 1 (One) Time Per Week. Active cholecalcifero l (VITAMIN D3) 1.25 MG (75113 UT) capsule 1 capsule. 5 Active venlafaxine XR (EFFEXOR-XR) 75 MG 24 hr capsule Take 1 capsule by mouth Daily. 5 Active venlafaxine XR (EFFEXOR-XR) 150 MG 24 hr capsule Take 1 capsule by mouth Daily. 09/23/20 25 Discontin ued(*Ther apy completed ) Cholecalcifero l 50 MCG (2000 UT) capsule capsule 09/15/20 25 Discontin ued(*Re-E ntry) Active Problems Problem Noted Date Diagnosed Date Bilateral sacroiliitis 09/01/2025 Spinal stenosis of lumbar region with radiculopa thy 08/06/2025 Acute left-sided low back pain with left-sided s ciatica 04/09/2025 Arthropathy of lumbar facet joint 04/09/2025 Constipation 04/09/2025 Coronary artery disease invo lving [place] coronary artery of [place] heart without angina pectoris 04/09/2025 Depressive disorder [...] past year. She was seen by her decorator hand last week and discussed it with him. [...] Encounters Date Type Department Care Team Description 09/23/2025 10:15 AM EST Office Visit [facility] NEUR[facility]ERY [address] [address] [place] [address] Remi Smart MD Spinal stenosis of lumbar region with radiculopathy (Primary Dx); Gait instability; Weakness 09/23/2025 Travel 09/15/2025 11:00 AM EST - 09/15/2025 12:30 PM EST Surgery [facility] TEST CAR DRIVER [address] [facility] [place] [address] Nic Jenkins MD IR myelogram, lumbar [15989 (CPT )] 09/15/2025 9:41 AM EST - 09/15/2025 12:18 PM EST Hospital Encounter [facility] CVOU [address] [place] [address] Nic Jenkins MD Spinal stenosis of lumbar region with radiculopathy; Bilateral sacroiliitis Discharge Disposition: Home or Self Care 09/15/2025 Travel 08/05/2025 11:25 AM EDT - 08/05/2025 11:59 PM EDT Hospital Encounter [facility] CT AT [address] [place] [id number] Diro Bales PA H/O carotid stenosis Discharge Disposition: Home or Self Care 08/05/2025 Travel 07/15/2025 2:00 PM EDT Office Visit [facility] NEUROS[facility]ERY [address] [place] [address] Dior Bales PA Spinal stenosis of lumbar region with radiculopathy (Primary Dx) 07/15/2025 10:23 AM EDT - 07/15/2025 11:59 PM EDT Hospital Encounter [facility] MRI AT [address] [place] [id number] Dior Bales PA Spinal stenosis of lumbar region with radiculopathy Discharge Disposition: Home or Self Care 07/15/2025 Travel from Last 3 Months Family History Medical History Relation Name Comments Anxiety disorder Brother Christian Fransisco 7 Depression Brother Christian Moody 20 Heart disease Father Leonides Moody Diabetes Maternal Grandmother Branden Estrada Heart attack Maternal Grandmother Branden Estrada Vision loss Maternal Grandmother Branden Estrada 62 Cancer Mother Carisa Moody Pancreatic Can cer Ovarian cancer Mother Carisa Moody METASTATIC F ROM PANCREATIC CA Pancreatic cancer Mother Carisa Moody Breast cancer Paternal Grandmother Alma Moody Cancer Paternal Grandmother Alma Moody Breast Cancer Diabetes Paternal Grandmother Alma Moody Colon cancer Neg Hx Relation Name Status Comments Brother Christian Moody Alive Father Leonides Moody Maternal Grandmother Branden Estrada Mother Carisa Moody [...] Pulse 82 09/15/2025 10:03 AM EST Temperature 36.1 C (97 F) 09/23/2025 10:45 AM EST Respiratory Rate 16 09/15/2025 10:03 AM EST Oxygen Saturation 95% 09/15/2025 10:03 AM EST Inhaled Oxygen Concentration - - Weight 74.8 kg (165 lb) 09/23/2025 10:45 AM EST Height 165.1 cm (5' 5 ) 09/23/2025 10:45 AM EST Body Mass Index 27.46 09/23/2025 10:45 AM EST Plan of Treatment Health Maintenance Due Date [...] Pneumococcal Vaccine 50+ Completed 023, 07/03/2019, 06/25/2018 INFLUENZA VACCINE Completed 07/30/2025, , 09/07/2023, Additional history exists COLOGUARD Discontinued COLON CANCER SCREENING 5 YEA R SIGMOIDOSCOPY Discontinued CT COLONOGRAPHY Discontinued FECAL OCCULT BLOOD TEST Discontinued FIT Testing (1 year) Discontinued Medical Devices Implanted Type Area Development System Efficiency Manager Device Identifier Shelf Expiration Date Model / Serial / Lot Stnt Percuflx No Gw 4.8x24 - [id number] Implanted:Qty: 1 on 06/11/2020 by Ramone Malave MD at [facility] Stent Right: Ureter [employer] BRODY 01/08/2023 [id number] / / [id number] Procedures Procedure Name Priority Date/Time Associated Diagnosis Comments CT LUMBAR SPINE W INTRATHECAL CONTRAST Routine 09/15/2025 11:49 AM EST CARDIAC CATHETERIZATION Routine 09/15/20 11:03 AM EST Spinal stenosis of lumbar region with radiculopathy Bilateral sacroiliitis CT ANGIOGRAM NECK STAT 08/05/2025 11: 52 AM EDT H/O carotid stenosis POCT CREATININE Routine 08/05/2025 11:47 AM EDT MRI LUMBAR SPINE WO CONTRAST Routine 07/15/2025 [...] Recently Relevant to Health Maintenance Results * CT Lumbar Spine With Intrathecal [...] MD 09/18/2025 11:04 AM EST Workstation ID: [id number] Narrative 09/18/2025 11:[address] LUMBAR [...] MD 09/18/2025 11:04 AM EST Workstation ID: [id number] Michelle Shearer Ketaon [place] IMG CT ORDERABLES Final Resu lt * [...] with progressive back and bilateral hip pain Rotoformer Backtender: Dr. Lucero Given Procedures: Lumbar myelogram via [...] CV CARDIAC CATH ORDER FELICIANO Final Result * CT Angiogram Neck (08/05/2025 11:52 AM EDT) Anatomical Region Laterality Modality Neck, Vascular N/A Computed Tomogra phy 08/05/2025 2:34 PM EDT Impressions 08/05/2025 2:44 PM EDT Negative for large vessel occlusion or flow-limiting stenosis in the neck, or partially imaged intracranial arterial vessels. Electronically Signed: Will Tan MD 08/05/2025 2:44 PM EDT Workstation ID: [id number] Narrative 08/05/2025 2:[address] ANGIOGRAM [...] None of significance. *Venous sinuses: Patent. Benign [place] tonsil and right lingual tonsil calcifications (tonsilloliths). [...] None of significance. *Venous sinuses: Patent. Benign [place] tonsil and right lingual tonsil calcifications(tonsilloliths). Atrophic [...] MD 08/05/2025 2:44 PM EDT Workstation ID: [id number] us Dior SALAZAR IMMichael CT ORDERABLES Final Result * POC Creatinine (08/05/2025 11:47 AM EDT) Creatinine 1.00 0.60 - 1.30 mg/dL 08/05/2025 12:05 PM EDT [facility] Comment:Serial Number: [id number] Blood 08/05/2025 11:4 7 AM EDT 08/05/2025 12:05 PM EDT us Dior SALAZAR POINT OF CARE TEST ORDERABLES Fi nal Result [facility]
[address] [place] [address], * MRI Lumbar Spine Without Contrast (07/15/2025 [...] endplate changes at L3-L4. Electronically Signed: Napoleon Nyalor MD 07/15/2025 1:39 PM EDT Workstation ID: [id number] Narrative 07/15/2025 1:39 PM EDT MRI LUMBAR [...] MD 07/15/2025 1:39 PM EDT Workstation ID: [id number] Dior SALAZAR IMG MRI ORDERABLES Final Result * Microalbumin / Creatinine Urine Ratio - Urine, Clean Catch (12/08/2024 11:09 AM EST) [facility] Microalbumin/C reatinine Ratio 14.7 0.0 - 29.0 mg/g 12/08/2024 11:23 PM EST LABORATORY Creatinine, Urine 136.1 mg/dL 12/08/2024 11:23 PM EST LABORATORY Microalbumin, Urine 2.0 mg/dL 12/08/2024 11:23 PM EST LABORATORY Urine Urine specimen obtained by clean catch procedure / Unknown Collection / Unknown 12/08/2024 11:09 AM EST 12/08/2024 11:09 AM EST Bora Beavers MD URINE ORDERABLES Final Re sult LABORATORY
[address] [place] [address], * (ABNORMAL) Lipid Panel (12/08/2024 11:09 AM EST) Pathologist [facility] Total Cholesterol 153 0 - 200 mg/dL 12/09/2024 12:29 AM EST LABORATORY Triglycerides 54 0 - 150 mg/dL 12/09/2024 12:29 AM EST LABORATORY HDL Cholesterol 70(H) 40 - 60 mg/dL 12/09/2024 12:29 AM EST LABORATORY LDL Cholesterol 72 0 - 100 mg/dL 12/09/2024 12:29 AM EST LABORATORY VLDL Cholesterol 11 5 - 40 mg/dL 12/09/2024 12:29 AM EST LABORATORY LDL/HDL Ratio 1.03 12/09/2024 12:29 AM EST LABORATORY Blood Structure of left upper limb / Unknown Venipuncture / Unknown 12/08/2024 11:09 AM EST 12/08/2024 11:09 AM EST Narrative LABORATORY - 12/09/2024 12:29 AM EST Cholesterol [...] MD LAB BLOOD ORDERABLES Mary l Result LABORATORY
[address] [place] [address], * (ABNORMAL) POC Glycosylated Hemoglobin (Hb A1C) (12/08/2024 10:33 AM EST) Hemoglobin A1C 7.6(A) 4.5 - 5.7 % [facility] Lot Number [id number] [facility] Expiration Date 08/15/2026 [facility] Blood 12/08/2024 10:3 3 AM EST us Bora Beavers MD POINT OF CARE TEST ORDERA BLES Final Result [facility]
[address] [place] [address], * EYE EXAM SCANNED (11/24/2024) Anatomical Region Laterality Modality Other Bora Beavers MD CHART REVIEW TABS Mary tony Result * Mammo Diagnostic Digital Tomosynthesis Right [...] worrisome findings identified. us Dale Prescott MD IMG MAMMOGRAPHY ORDERABLES F inal Result * SCANNED - PAP SMEAR (05/05/2021) Roberta Awan MD CHART REVIEW TABS Final Resul t from Last 3 Months or Most Recently Relevant to Health Maintenance Insurance [address] [place] [id number] [facility] & B Care Teams Sociology Adjunct Instructor Relationship Specialty Start Date End Date Dale Prescott MD [address] [facility] [address] [facility] [address] [place] [id number] PCP - General Family Medicine 04/25/19
--- OUTSIDE RECORDS SUMMARY | 2025-10-02 14:03 | XMS_ITS | Encounter Summary ---
Author Organization [facility] Address [address] [place] [address] Care Team Providers Care Airfield Defence Guard Name Role Phone Dale Prescott MD Primary Care Provider [phone] Encounter Details Date Type Department Care Team (Latest Contact Info) Description 08/05/2025 Travel Social History Tobacco Use Types Packs/Day [...] documented as of this encounter Care Teams Airfield Defence Guard Relationship Specialty Start Date End Date Dale Prescott MD [address] [facility] [address] [place] [address] PCP - General Family Medicine 04/25/19 documented as of this encounter
--- OUTSIDE RECORDS SUMMARY | 2025-10-02 14:03 | XMS_ITS | Encounter Summary ---
Author Organization [facility] Address [address] [place] [address] Care Team Providers Care Fitness And Wellness Director Name Role Phone Dale Prescott MD Primary Care Provider [phone] Encounter Details Date Type Department Care Team (Latest Contact Info) Description 09/15/2025 Travel Social History Tobacco Use Types Packs/Day [...] documented as of this encounter Care Teams Fitness And Wellness Director Relationship Specialty Start Date End Date Dale Prescott MD [address] [facility] [address] [facility] [address] [place] [address] PCP - General Family Medicine 04/25/19 documented as of this encounter
--- OUTSIDE RECORDS SUMMARY | 2025-10-02 14:03 | XMS_ITS | Encounter Summary ---
Author Organization [facility] Address [address] [place] [address] Care Team Providers Care Cargo Worker Name Role Phone Dale Prescott MD Primary Care Provider [phone] Encounter Details Date Type Department Care Team (Latest Contact Info) Description 09/23/2025 Travel Social History Tobacco Use Types Packs/Day [...] documented as of this encounter Care Teams Cargo Worker Relationship Specialty Start Date End Date Dale Prescott MD [address] [place] [facility] [address] [facility] [address] [place] [address] PCP - General Family Medicine 04/25/19 documented as of this encounter
== END 2025-10-02 23:59 | disposition home or self-care (01) ==
LOC: RAD 13:59
PROVIDERS: PCP Family Medicine; Visit Provider Neurological Surgery
DX: M50.31 Other cervical disc degeneration, high cervical region (principal); M50.321 Other cervical disc degeneration at C4-C5 level; M50.322 Other cervical disc degeneration at C5-C6 level; M50.323 Other cervical disc degeneration at C6-C7 level; M48.061 Spinal stenosis, lumbar region without neurogenic claudication; M54.16 Radiculopathy, lumbar region
CPT/HCPCS: 72141